=== PATIENT | female | born 1975 | race Caucasian/White ===

== ENCOUNTER 2016-09-24 23:09 | Day surgery (SDC) | payer MEDICAID ==
[~2016-09-24] VITALS: Ht 149.9 cm; Wt 114.8 kg
[~2016-09-24 23:09] MED LIST: ALBU8.5H2 IH; BENZ100C8 PO; CEPH500C; CEPH500C PO; CYCL10TA9 PO; DCS100C PO; DOXY100C2 PO; FRS325T PO; HYDR-757 PO; HYDR1TAB PO; IBP600T1 PO; NAPR-243 PO; NAPR-684 PO; NITR100C3 PO; OXYC-12 PO; PNV1CAPS13 PO; PRD20T; PRD20T PO; PREN1TAB71 PO; PROP1TAB77 PO; TERB15CR8 TP; TRAM50TA2 PO; TRM50T PO
--- OUTSIDE RECORDS SUMMARY | 2016-09-24 23:15 | XMS REPORT | Continuity of Care Document ---
Author Author [facility] Address Unknown Phone Unavailable Allergies Active Description Code Type Severity Reaction Onset Reported/Identified Relationship to Patient Clinical Status Yes No Known Drug Allergies [id number] Drug Allergy Mild N/A 12/06/2008 Medications Problems Date Dx Coded Attending Type Code Diagnosis Diagnosed By 02/07/2011 Ot 724.1 PAIN IN THORACIC SPINE 10/20/2011 BEKAH YU DO V72.42 TEST POSITIVE RESULT 11/22/2011 Ot 623.8 NONINFLAM DIS VAGINA NEC 11/22/2011 Ot 654.73 ABNORM VAGINA-ANTEPARTUM 04/08/2012 Ot 646.83 PREG COMPL NEC-ANTEPART 04/08/2012 Ot 682.2 CELLULITIS OF TRUNK 04/08/2012 Ot 695.89 ERYTHEMATOUS COND NEC 04/08/2012 Ot 782.1 NONSPECIF SKIN ERUPT NEC 04/11/2012 Ot 112.3 CUTANEOUS CANDIDIASIS 04/11/2012 Ot 646.83 PREG COMPL NEC-ANTEPART 04/11/2012 Ot 647.83 INFECT DIS NEC-ANTEPART 04/11/2012 Ot 682.2 CELLULITIS OF TRUNK 05/20/2012 Ot 644.03 THRT ROGER LABOR-ANTEPART 05/22/2012 Ot 644.03 THRT ROGER LABOR-ANTEPART 05/24/2012 Ot 079.99 VIRAL INFECTION NOS 05/24/2012 Ot 647.63 OTH VIRAL DIS-ANTEPARTUM 05/24/2012 Ot 787.03 VOMITING ALONE 05/24/2012 Ot 079.99 VIRAL INFECTION NOS 05/24/2012 Ot 647.63 OTH VIRAL DIS-ANTEPARTUM 05/24/2012 Ot 787.03 VOMITING ALONE 05/25/2012 Ot 644.03 THRT ROGER LABOR-ANTEPART 06/01/2012 Ot 644.13 THREAT LABOR NEC-ANTEPAR 06/15/2012 Ot 644.13 THREAT LABOR NEC-ANTEPAR 06/25/2012 Ot 285.1 AC POSTHEMORRHAG ANEMIA 06/25/2012 Ot 285.9 ANEMIA NOS 06/25/2012 Ot 300.00 ANXIETY STATE NOS 06/25/2012 Ot 490 BRONCHITIS NOS 06/25/2012 Ot 560.1 PARALYTIC ILEUS 06/25/2012 Ot 648.22 ANEMIA-DELIVERED W P/P 06/25/2012 Ot 648.23 ANEMIA-ANTEPARTUM 06/25/2012 Ot 648.44 MENTAL DISORDER-POSTPART 06/25/2012 Ot 648.93 OTH CURR COND-ANTEPARTUM 06/25/2012 Ot 648.94 OTH CURR COND- 06/25/2012 Ot 654.21 PREV DELIVRY W/ OR W/O MENT ANT 06/25/2012 Ot 997.49 OTHER DIGESTIVE SYSTEM COMPLICATIONS 06/25/2012 Ot V02.51 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 B 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/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 CARRIER 06/25/2012 Ot V06.1 [id number], COMBINED [ 06/25/2012 Ot V27.0 DELIVER-SINGLE LIVEBORN 06/23/2013 FOZIA DARNELL DO Ot 278.00 OBESITY, NOS 06/23/2013 FOZIA DARNELL DO Ot 285.1 AC POSTHEMORRHAG ANEMIA 06/23/2013 FOZIA DARNELL DO Ot 648.21 ANEMIA-DELIVERED 06/23/2013 FOZIA DARNELL DO Ot 649.01 TOBACCO USE DISORDER COMP PREG/ CHILDBIRT 06/23/2013 FOZIA DARNELL DO Ot 649.11 OBESITY COMP PREG/CHILDBIRTH/PUERPERIUM , 06/23/2013 FOZIA DARNELL DO Ot 654.21 PREV DELIVRY W/ OR W/O MENT ANT 06/23/2013 FOZIA DARNELL DO Ot 659.61 ELD MULTIGRAVIDA DEL W MENTION OF ANTEPA 06/23/2013 FOZIA DARNELL DO Ot V27.0 DELIVER-SINGLE LIVEBORN 06/23/2013 FOZIA DARNELL DO Ot V85.43 BODY MASS INDEX 50.0-59.9, ADULT 08/19/2013 LORI MABRY APRN Ot 719.41 JOINT PAIN-SHLDER 11/19/2013 LORI MABRY APRN Ot 719.41 JOINT PAIN-SHLDER 11/19/2013 LORI MABRY APRN Ot 719.42 JOINT PAIN-UP/ARM 11/19/2013 LORI MABRY APRN Ot 726.32 LATERAL EPICONDYLITIS 07/27/2014 PHIL ALBERTO Ot 490 BRONCHITIS NOS 07/27/2014 PHIL ALBERTO Ot 786.2 COUGH 07/27/2014 Ot 654.23 07/27/2014 Ot V72.63 07/27/2014 Ot V74.8 07/27/2014 SOPHIA BRUSHLULA Ot 654.23 07/27/2014 LULA CORTES DO Ot V72.63 07/27/2014 CORTESKim BRUSH LULA C Ot V74.8 07/27/2014 ISMAECH DOFOZIA Ot 278.00 07/27/2014 ISMAECH DO FOZIA Sly Ot 285.9 07/27/2014 ISMAECH DO FOZIA S Ot 644.13 07/27/2014 FENECH DO FOZIA S Ot 648.23 07/27/2014 ISMAECH DO FOZIA S Ot 649.13 07/27/2014 ISMAECH DOFOZIA Ot 654.23 07/27/2014 ISMAECH DO FOZIA Sly Ot V04.81 07/27/2014 ISMAECH DO FOZIA Heart Ot V85.43 01/24/2016 Ot 654.23 PREV DELIVERY, ANTEPARTUM COND 01/24/2016 Ot V72.63 PRE-PROCEDURAL LABORATORY EXAMINATION 01/24/2016 Ot V74.8 SCREEN-BACTERIAL DIS NEC 01/24/2016 CORTESLULA Alvarez DO Ot 654.23 PREV DELIVERY, ANTEPARTUM COND 01/24/2016 LULA CORTES DO Ot V72.63 PRE-PROCEDURAL LABORATORY EXAMINATION 01/24/2016 LULA CORTES DO Ot V74.8 SCREEN-BACTERIAL DIS NEC 01/24/2016 MANN DO FOZIA S Ot 278.00 OBESITY, NOS 01/24/2016 ISMAECH DOFOZIA S Ot 285.9 ANEMIA NOS 01/24/2016 ISMAECH FOZIA BRUSH S Ot 644.13 THREAT LABOR NEC-ANTEPAR 01/24/2016 ISMAECH FOZIA BRUSH S Ot 648.23 ANEMIA-ANTEPARTUM 01/24/2016 ISMAECH DOFOZIA S Ot 649.13 OBESITY COMP PREG/CHILDBIRTH/PUERPERIUM , 01/24/2016 ISMAECH FOZIA BRUSH S Ot 654.23 PREV DELIVERY, ANTEPARTUM COND 01/24/2016 FOZIA DARNELL DO Ot V04.81 ND FOR PROPHYLACTIC VACCIN AND INOCULATI 01/24/2016 FOZIA DARNELL DO Ot V85.43 BODY MASS INDEX 50.0-59.9, ADULT 01/24/2016 PHIL ALBERTO Ot F17.210 NICOTINE DEPENDENCE, CIGARETTES, UNCOMPL 01/24/2016 PHIL ALBERTO Ot H60.502 UNSPECIFIED ACUTE NONINFECTIVE OTITIS EX 02/23/2016 LORI MABRY APRN Ot F17.210 NICOTINE DEPENDENCE, CIGARETTES, UNCOMPL 02/23/2016 LORI MABRY APRN Ot R10.32 LEFT LOWER QUADRANT PAIN 02/25/2016 LORI MABRY APRN Ot F17.210 NICOTINE DEPENDENCE, CIGARETTES, UNCOMPL 02/25/2016 LORI MABRY APRN Ot R10.32 LEFT LOWER QUADRANT PAIN Procedures Code Description Performed By Performed On 72.79 06/19/2012 74.1 06/19/2012 99.77 06/19/2012 29777 URINE TEST (IN-HOUSE) 10/24/2012 74.1 06/21/2013 Results Encounters ACCT No. Visit Date/Time Discharge Status Pt. Type Provider Facility Loc./Unit Complaint [id number] 10/24/2012 15:28:00 10/24/2012 23: 59:59 CLS Outpatient BEKAH YU DO
[2016-09-24] MEDS ORDERED: ASPIRIN 81 MG CHEW (CHILDREN'S ASA) PO ONE (23:30)
[2016-09-24 23:31] LABS: BASOPHILS % (AUTO) 0 % (0-10); EOSINOPHILS # (AUTO) 0.3 10^3/uL (0.0-0.3); EOSINOPHILS % (AUTO) 4 % (0-10); LYMPHOCYTES # (AUTO) 2.6 X 10^3 (1.0-4.0); LYMPHOCYTES % (AUTO) 32 % (12-44); MEAN CORPUSCULAR HEMOGLOBIN 26 PG (25-34); MEAN CORPUSCULAR HGB CONC 32 G/DL (32-36); MEAN CORPUSCULAR VOLUME 79 FL (80-99); MEAN PLATELET VOLUME 10.1 FL (7.4-10.4); MONOCYTES # (AUTO) 0.4 X 10^3 (0.0-1.0); MONOCYTES % (AUTO) 5 % (0-12); NEUTROPHILS # (AUTO) 4.7 X 10^3 (1.8-7.8); NEUTROPHILS % (AUTO) 59 % (42-75); PLATELET COUNT 321 10^3/uL (130-400); RED BLOOD COUNT 4.51 10^6/uL (4.35-5.85); RED CELL DISTRIBUTION WIDTH 15.7 % (10.0-14.5)
[2016-09-24] MEDS: RX-NITROGLYCERIN 0.4 MG TAB BTL 25'S SL PRN ×3 (23:35→23:45)
--- NOTE | 2016-09-24 23:38 | ED Chest Pain ---
General Chief Complaint: Chest Pain Stated Complaint: CP Nursing Triage Note: patient reports sternal chest pain radiating to back. patient reports eating prior to pain and feeling like something got stuck in her throat. patient reports throwing that up and pain developed about 1 hour after. patient reports isn't able to drink anything and keeps vomiting foam Nursing Sepsis Screen: No Definite Risk Source: patient History of Present Illness Time seen by provider: 23:17 Initial Comments PT ARRIVES VIA POV C/O MID CHEST PAIN RADIATING STRAIGHT THROUGH TO BACK SINCE 1930 TONIGHT STATES SHE WAS EATING MEAT--PORK STEAK--AND MEAT GOT STUCK AND WOULDN'T GO DOWN , THEN SHE THREW UP AND THOUGHT THAT SHE THREW THE MEAT UP, BUT IS NOT SURE. STATES THIS WAS AT 1830 TONIGHT STATES AN HOUR LATER, SHE BEGAN TO HAVE PAIN IN MID CHEST, RADIATING STRAIGHT THROUGH TO BACK AND NOW IS CONSTANTLY SPITTING UP "FOAM" AND CAN'T KEEP ANYTHING DOWN STATES PAIN IS SHARP AND STABBING AND LAST A FEW SECONDS, THEN SHE "PUKES UP FOAM" --STATES NO NAUSEA, JUST VOMITING WITH THE PAIN FEELS SHORT OF BREATH STATES BOTH ARMS FEEL TINGLY NO PRIOR EPISODES OF SIMILAR PCP: [facility] Allergies and Home Medications Allergies Coded Allergies: No Known Drug Allergies (Unverified , 12/06/08) Home Medications No Active Prescriptions or Reported Meds Review of Systems Constitutional: no symptoms reported EENTM: No Symptoms Reported Respiratory: See HPI Shortness of Air Cardiovascular: See HPI Chest Pain Gastrointestinal: See HPI Abdominal Pain (EPIGASTRIC) Nausea Vomiting Genitourinary: No Symptoms Reported Musculoskeletal: see HPI back pain Skin: no symptoms reported Psychiatric/Neurological: See HPI Endocrine: No Symptoms Reported Hematologic/Lymphatic: No Symptoms Reported Past Rfcvwfz-Zyovxy-Drcnem Hx Patient Social History Alcohol Use: Denies Use Recreational Drug Use: No Smoking Status: Current Everyday Smoker (1/2 - 1 PPD) Type Used: Cigarettes Recent Foreign Travel: No Contact w/Someone Who Travel: No Recent Infectious Disease Expo: No Recent Hopitalizations: No Immunizations Up To Date Tetanus Booster (TDap): Unknown Date of Influenza Vaccine: Jun 06, 2013 Seasonal Allergies Seasonal Allergies: No Surgeries HX Surgeries: Yes (WISDOM TEETH; X 4) Surgeries: Adenoidectomy, Appendectomy, Section, Tonsillectomy, Tubal Ligation Respiratory Hx Respiratory Disorders: No Cardiovascular Hx Cardiac Disorders: No Neurological Hx Neurological Disorders: No Reproductive System Hx Reproductive Disorders: No Sexually Transmitted Disease: No 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 Genitourinary Hx Genitourinary Disorders: No Gastrointestinal Hx Gastrointestinal Disorders: Yes Gastrointestinal Disorders: Gastroesophageal Reflux Musculoskeletal Hx Musculoskeletal Disorders: No Endocrine Hx Endocrine Disorders: No HEENT HX ENT Disorders: No Cancer Hx Cancer: No Psychosocial Hx Psychiatric Problems: No Integumentary HX Skin/Integumentary Disorder: Yes (DARIER'S DISEASE) Skin/Integumentary Disorders: Psoriasis Blood Transfusions Hx Blood Disorders: No Family Medical History Significant Family History: No Pertinent Family Hx Family Medial History: Cancer 03 MOTHER (LUNG AND BONE) Family history: Glaucoma 03 FATHER Heart disease 03 MOTHER History of - respiratory disease 03 FATHER (COPD) Stroke 03 MOTHER Physical Exam Vital Signs Vital Sign - Last 12Hours 09/24/16 23:21 Temp 98.3 Pulse 83 Resp 18 B/P 122/93 Pulse Ox 99 O2 Delivery Room Air Capillary Refill : Less Than 3 Seconds General Appearance: Anxious Obese Other (CONSTANTLY SPITTING UP SALIVA; REEKS OF CIGARETTES) HEENT: PERRL/EOMI Other (POOR DENTITION) Neck: Normal Inspection Respiratory: Normal Breath Sounds No Accessory Muscle Use No Respiratory Distress Cardiovascular: Regular Rate, Rhythm No Edema No JVD No Murmur Normal Peripheral Pulses Gastrointestinal: Normal Bowel Sounds No Organomegaly No Pulsatile Mass Soft Tenderness (EPIGASTRIC) Extremity: Normal Inspection No Pedal Edema Neurologic/Psychiatric: Alert Oriented x3 No 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 ) Progress/Results/Core Measures Results/Orders Lab Results Laboratory Tests Test 09/24/16 23:24 Range/Units Activated Partial Thromboplast Time 28 24-35 SEC Alanine Aminotransferase (ALT/SGPT) 12 0-55 U/L Albumin 4.1 3.2-4.5 G/DL Alkaline Phosphatase 81 40-136 U/L Amylase Level 77 25-125 U/L Anion Gap 11 5-14 MMOL/L Aspartate Amino Transf (AST/SGOT) 15 5-34 U/L B-Type Natriuretic Peptide < 10.0 <100.0 PG/ML BUN/Creatinine Ratio 14 Basophils # (Auto) 0.0 0.0-0.1 10^3/uL Basophils (%) (Auto) 0 0-10 % Blood Urea Nitrogen 11 7-18 MG/DL Calcium Level 8.6 8.5-10.1 MG/DL Carbon Dioxide Level 22 21-32 MMOL/L Chloride Level 106 98-107 MMOL/L Creatine Kinase MB 0.7 <6.6 NG/ML Creatinine 0.78 0.60-1.30 MG/DL Eosinophils # (Auto) 0.3 0.0-0.3 10^3/uL Eosinophils (%) (Auto) 4 0-10 % Estimat Glomerular Filtration Rate > 60 Glucose Level 93 70-105 MG/DL Hematocrit 36 35-52 % Hemoglobin 11.5 11.5-16.0 G/DL INR Comment 1.0 0.8-1.4 Lipase 10 8-78 U/L Lymphocytes # (Auto) 2.6 1.0-4.0 X 10^3 Lymphocytes (%) (Auto) 32 12-44 % Magnesium Level 2.0 1.8-2.4 MG/DL Mean Corpuscular Hemoglobin 26 25-34 PG Mean Corpuscular Hemoglobin Concent 32 32-36 G/DL Mean Corpuscular Volume 79 L 80-99 FL Mean Platelet Volume 10.1 7.4-10.4 FL Monocytes # (Auto) 0.4 0.0-1.0 X 10^3 Monocytes (%) (Auto) 5 0-12 % Neutrophils # (Auto) 4.7 1.8-7.8 X 10^3 Neutrophils (%) (Auto) 59 42-75 % Platelet Count 321 130-400 10^3/uL Potassium Level 4.0 3.6-5.0 MMOL/L Prothrombin Time 12.7 12.2-14.7 SEC Red Blood Count 4.51 4.35-5.85 10^6/uL Red Cell Distribution Width 15.7 H 10.0-14.5 % Serum Test, Qualitative NEGATIVE NEGATIVE Sodium Level 139 135-145 MMOL/L Total Bilirubin 0.2 0.1-1.0 MG/DL Total Creatine Kinase 66 29-168 U/L Total Protein 6.4 6.4-8.2 G/DL Troponin I < 0.30 <0.30 NG/ML White Blood Count 8.0 4.3-11.0 10^3/uL My Orders Orders-TRI DURAN DO Amylase (09/24/16 23:19) Cbc With Automated Diff (09/24/16 23:19) Comprehensive Metabolic Panel (09/24/16 23:19) Creatine Kinase (09/24/16 23:19) Creatine Kinase Mb (09/24/16 23:19) Lipase (09/24/16 23:19) Partial Thromboplastin Time (09/24/16 23:19) Protime With Inr (09/24/16 23:19) Troponin I (09/24/16 23:19) Chest 1 View, Ap/Pa Only (09/24/16 23:19) O2 (09/24/16 23:19) Ekg Tracing (09/24/16 23:19) Aspirin Chewable Tablet (Baby Aspirin Ch (09/24/16 23:30) Rx-Nitroglycerin Sl Tabs (Rx-Nitrostat S (09/24/16 23:30) BNP (09/24/16 23:19) Monitor-Rhythm Ecg Trace Only (09/24/16 23:19) Drug Screen Stat (Urine) (09/24/16 23:19) Hcg,Qualitative Serum (09/24/16 23:19) Magnesium (09/24/16 23:19) Glucagon Emergency Kit (Glucagon Emergen (09/24/16 23:45) Medications Given in ED Current Medications Medications Dose Ordered Sig/Jeri Route Start Time Stop Time Status Last Admin Dose Admin Aspirin 324 mg ONCE ONCE PO 09/24/16 23:30 09/24/16 23:31 DC 09/24/16 23:33 324 MG Glucagon 1 mg ONCE ONCE IV 09/24/16 23:45 09/24/16 23:46 DC 09/24/16 23:56 1 MG Nitroglycerin 0.4 mg UD PRN SL 09/24/16 23:30 09/25/16 01:10 DC 09/24/16 23:45 0.4 MG Vital Signs/I&O Vital Sign - Last 12Hours 09/24/16 09/24/16 23:21 23:25 Temp 98.3 Pulse 83 Resp 18 B/P 122/93 Pulse Ox 99 O2 Delivery Room Air Room Air Blood Pressure Mean: 103 Progress Note : Progress Note NO IMPROVEMENT WITH NTG X 2 OR GLUCAGON PT GIVEN WATER AND JUST A COUPLE OF SIPS CAUSED IMMEDIATE SIGNIFICANT VOMITING AND SPITTING IT ALL BACK UP ECG Initial ECG Impression Time: 23:17 Initial ECG Rate: 86 Initial ECG Rhythm: Normal Sinus Initial ECG Comparisson: No Previous ECG Available Diagnostic Imaging Comments CXR--NO ACUTE PROCESS, PENDING RADIOLOGIST REVIEW Reviewed: Reviewed by Me Departure Communication Progress Notes 0017--SPOKE WITH DR. NELSON, SURGEON [facility]. ACCEPTS PT FOR ADMIT. WILL PLAN ON DOING EGD FIRST THING IN AM Impression Impression: Primary Impression: Acute esophageal obstruction Disposition: ADMITTED INPATIENT Condition: Stable Decision to Admit Reason: Admit from ER (General) Decision to Admit/Date: Sep 25, 2016 Time/Decision to Admit Time: 00:20 Departure-Patient Inst. Referrals: [facility] (PCP/Family) Primary Care Physician Scripts No Active Prescriptions or Reported Meds TRI DURAN DO Sep 24, 2016 23:38
[2016-09-24] MEDS ORDERED: GLUCAGON EMERGENCY 1 MG/KIT IV ONE (23:45)
[2016-09-24 23:46] LABS: PROTHROMBIN TIME PATIENT 12.7 SEC (12.2-14.7)
[2016-09-25 00:07] LABS: ALANINE AMINOTRANSFERASE 12 U/L (0-55); ALBUMIN 4.1 G/DL (3.2-4.5); AMYLASE 77 U/L (25-125); ANION GAP 11 MMOL/L (5-14); ASPARTATE AMINO TRANSFERASE 15 U/L (5-34); BILIRUBIN,TOTAL 0.2 MG/DL (0.1-1.0); BLOOD UREA NITROGEN 11 MG/DL (7-18); BUN/CREATININE RATIO 14; CALCIUM 8.6 MG/DL (8.5-10.1); CARBON DIOXIDE 22 MMOL/L (21-32); CHLORIDE 106 MMOL/L (98-107); CREATINE KINASE 66 U/L (29-168); CREATININE SERUM 0.78 MG/DL (0.60-1.30); GFR ESTIMATED > 60; GLUCOSE 93 MG/DL (70-105); LIPASE 10 U/L (8-78); SODIUM 139 MMOL/L (135-145); TOTAL PROTEIN 6.4 G/DL (6.4-8.2)
[2016-09-25 00:16] LABS: TROPONIN I < 0.30 NG/ML (<0.30)
[2016-09-25] MEDS ORDERED: ONDANSETRON 4 MG/2 ML (SDV) Z0FRAN IVP ONE (00:30)
[2016-09-25] MEDS ORDERED: DIAZEPAM INJ 10 MG/2 ML (VALIUM) SYR IV ONE (00:30)
[2016-09-25] MEDS: D5 1/2 NS 1000 ML IV SOLUTION 1,000 ML IV SCH ×2 (00:45→08:01)
[2016-09-25] MEDS ORDERED: PANTOPRAZOLE 40 MG/10 ML (PROTONIX) VIAL ONE (00:50)
[2016-09-25] MEDS ORDERED: D5 1/2 NS 1000 ML IV SOLUTION 1,000 ML IV ONE (00:50)
[2016-09-25] MEDS: PANTOPRAZOLE 40 MG/10 ML (PROTONIX) VIAL IV SCH ×2 (00:55→11:05)
[2016-09-25] MEDS ORDERED: CATHETER FLUSH 10 ML SYR IV PRN (01:15)
[2016-09-25] MEDS ORDERED: ONDANSETRON 4 MG/2 ML (SDV) Z0FRAN IV PRN (01:15)
[2016-09-25 03:00] VITALS: BP 103/64
[2016-09-25 05:00] VITALS: BP 120/80
[2016-09-25] MEDS: CATHETER FLUSH 10 ML SYR IV SCH ×2 (06:00→14:00)
--- NOTE | 2016-09-25 07:31 | Diagnostic Imaging Report ---
INDICATION: Sternal chest pain radiating to back. Feels like something is stuck in throat. COMPARISON: 06/23/2012. FINDINGS: Portable chest shows the lungs to be well aerated. There are no infiltrates or masses. No radiopaque foreign bodies are noted. Heart is not enlarged. No evidence of pulmonary edema. No hilar adenopathy. No pneumothorax or pleural effusion. IMPRESSION: Normal portable chest. Dictated by: Dictated on workstation # [id number]
[2016-09-25 08:00] VITALS: BP 125/78
[2016-09-25] MEDS ORDERED: LACTATED RINGERS 1,000 ML IV ONE (08:11)
[2016-09-25] MEDS ORDERED: fentaNYL INJECTION 100 MCG/2 ML AMP ONE (08:11)
[2016-09-25] MEDS ORDERED: proPOfol 200 MG/20 ML (DIPRIVAN) VIAL IV ONE ×2 (08:11→09:23)
[2016-09-25] MEDS ORDERED: MIDAZOLAM 2 MG/2 ML (VERSED) VIAL ONE (08:11)
[2016-09-25] MEDS ORDERED: SUCCINYLCHOLINE INJ 100 MG/5 ML SYR ONE ×2 (08:25→09:23)
[2016-09-25] MEDS ORDERED: HURRICAINE EXT TUBE (BENZOCAINE) XX PRN (09:30)
[2016-09-25] MEDS ORDERED: LACTATED RINGERS 1,000 ML IV PRN (09:30)
--- NOTE | 2016-09-25 09:30 | Consultation ---
History of Present Illness History of Present Illness Patient Consulted On(jarret/time) 09/25/16 09:24 Date of Admission History of Present Illness Pt is a 41 yo female with complaints of sharp chest pain, shooting straight thru to her back. She states she ate at about 6 (a pork steak) and then about 7 or 7:30 she got the chest pain. Associated with nausea, vomiting and spitting up. States she was unable to take down even liquids. She went to the ER and was subsequently admitted for EGD with removal of food bolus. She was kept NPO all night, still had some "violent" retching this am and still has the chest pain. She states she occasionally feels like "stuff gets stuck, but never like this". She thinks she has had a previous EGD and was told she had Hiatal Hernia. Allergies and Home Medications Allergies Coded Allergies: No Known Drug Allergies (Unverified , 12/06/08) Home Medications No Active Prescriptions or Reported Meds Past Tpwroxj-Odwizf-Cwdlrm Hx Patient Social History Alcohol Use: Occasionally Uses Recreational Drug Use: No Smoking Status: Current Everyday Smoker (2 - 1 PPD) Type Used: Cigarettes Recent Foreign Travel: No Contact w/Someone Who Travel: No Recent Infectious Disease Expo: No Recent Hopitalizations: No Physical Abuse Screen: No Sexual Abuse: No Immunizations Up To Date Tetanus Booster (TDap): Unknown Date of Influenza Vaccine: Apr 06, 2016 Seasonal Allergies Seasonal Allergies: No Surgeries HX Surgeries: Yes (WISDOM TEETH; X 4) Surgeries: Adenoidectomy, Appendectomy, Section, Tonsillectomy, Tubal Ligation Respiratory Hx Respiratory Disorders: No Cardiovascular Hx Cardiac Disorders: No Neurological Hx Neurological Disorders: No Reproductive System Hx Reproductive Disorders: No Sexually Transmitted Disease: No HIV/AIDS: No 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 Genitourinary Hx Genitourinary Disorders: No Gastrointestinal Hx Gastrointestinal Disorders: Yes Gastrointestinal Disorders: Gastroesophageal Reflux Musculoskeletal Hx Musculoskeletal Disorders: No Endocrine Hx Endocrine Disorders: No HEENT HX ENT Disorders: No Cancer Hx Cancer: No Psychosocial Hx Psychiatric Problems: No Behavioral Health Disorders: Anxiety, Depression Integumentary HX Skin/Integumentary Disorder: Yes (DARIER'S DISEASE) Skin/Integumentary Disorders: Psoriasis Blood Transfusions Hx Blood Disorders: No Adverse Reaction to a Blood Tr: No Family Medical History Significant Family History: No Pertinent Family Hx, Cancer (mother of lung cancer), COPD (father) Family Medial History: Cancer 03 MOTHER (LUNG AND BONE) Family history: Glaucoma 03 FATHER Heart disease 03 MOTHER History of - respiratory disease 03 FATHER (COPD) Stroke 03 MOTHER Review of Systems-General Constitutional: No chills, No diaphoresis, No fever EENTM: throat pain throat swellingNo blurred vision, No hearing loss Respiratory: coughNo hemoptysis, No phlegm Cardiovascular: see HPINo palpitations, No syncope Gastrointestinal: No abdominal pain, No hematemesis, loss of appetite nausea vomiting Musculoskeletal: muscle stiffness muscle cramps Psychiatric/Neurological: Denies Anxiety, Denies Depressed, Denies Headache, Denies Seizure Physical Exam-General Problems Physical Exam Vital Signs Vital Sign - Last 12Hours 09/24/16 23:21 Temp 98.3 Pulse 83 Resp 18 B/P 122/93 Pulse Ox 99 O2 Delivery Room Air Capillary Refill : Less Than 3 Seconds General Appearance: WD/WN moderate distress obese Eyes: Bilateral Eye EOMI, Bilateral Eye PERRL HEENT: pharynx normalNo scleral icterus (R), No scleral icterus (L) Neck: full range of motion supple normal inspection Respiratory: lungs clear normal breath sounds no respiratory distress no accessory muscle use Cardiovascular: regular rate, rhythm no edema no murmur Gastrointestinal: normal bowel sounds soft no organomegaly no pulsatile mass Back: no CVA tenderness no vertebral tenderness Extremities: normal range of motion non-tender no pedal edema no calf tenderness 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 as 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 no motor/sensory deficits alert normal mood/affect oriented x 3 Skin: normal color warm/dry Lymphatic: no adenopathy (neck, axilla or groin) Data Review Labs Laboratory Tests 09/24/16 23:24: Activated Partial Thromboplast Time 28, Alanine Aminotransferase (ALT/SGPT) 12, Albumin 4.1, Alkaline Phosphatase 81, Amylase Level 77, Anion Gap 11, Aspartate Amino Transf (AST/SGOT) 15, B-Type Natriuretic Peptide < 10.0, BUN/Creatinine Ratio 14, Basophils # (Auto) 0.0, Basophils (%) (Auto) 0, Blood Urea Nitrogen 11 , Calcium Level 8.6, Carbon Dioxide Level 22, Chloride Level 106, Creatine Kinase MB 0.7, Creatinine 0.78, Eosinophils # (Auto) 0.3, Eosinophils (%) (Auto ) 4, Estimat Glomerular Filtration Rate > 60, Glucose Level 93, Hematocrit 36, Hemoglobin 11.5, INR Comment 1.0, Lipase 10, Lymphocytes # (Auto) 2.6, Lymphocytes (%) (Auto) 32, Magnesium Level 2.0, Mean Corpuscular Hemoglobin 26, Mean Corpuscular Hemoglobin Concent 32, Mean Corpuscular Volume 79L, Mean Platelet Volume 10.1, Monocytes # (Auto) 0.4, Monocytes (%) (Auto) 5, Neutrophils # (Auto) 4.7, Neutrophils (%) (Auto) 59, Platelet Count 321, Potassium Level 4.0, Prothrombin Time 12.7, Red Blood Count 4.51, Red Cell Distribution Width 15.7H, Serum Test, Qualitative NEGATIVE, Sodium Level 139, Total Bilirubin 0.2, Total Creatine Kinase 66, Total Protein 6.4, Troponin I < 0.30, White Blood Count 8.0 09/25/16 00:34: Ur Tricyclic Antidepressants Screen NEGATIVE, Urine Amphetamines Screen NEGATIVE , Urine Barbiturates Screen NEGATIVE, Urine Benzodiazepines Screen NEGATIVE, Urine Cannabinoids Screen POSITIVEH, Urine Cocaine Screen NEGATIVE, Urine Methadone Screen NEGATIVE, Urine Methamphetamines Screen NEGATIVE, Urine Opiates Screen NEGATIVE, Urine Oxycodone Screen NEGATIVE, Urine Phencyclidine Screen NEGATIVE, Urine Propoxyphene Screen NEGATIVE Assessment/Plan Assessment/Plan Assessment/Plan Possible Esophageal Obstruction with food bolus -Plan for EGD with removal of food bolus. Risks and complications discussed with pt; including but not limited to pain, bleeding, infection and even esophageal rupture. All questions answered to her satisfaction. It is possible the food bolus could pass on its own; but with the vomiting and inability to even keep fluids down it is better that we look and remove any object in esophagus. Clinical Quality Measures AMI/AHF: ASA po Prior to arrival: No DVT/VTE Risk/Contraindication: Risk Factor Score Per Nursin RFS Level Per Nursing on Admit: 3=High NEVAEH NELSON DO Sep 25, 2016 09:30
[2016-09-25] MEDS ORDERED: HURRICAINE EXT TUBE (BENZOCAINE) ONE (10:07)
[2016-09-25] MEDS ORDERED: ACETAMINOPHEN 325 MG TABLET/CAPLET (TYLENOL) PO PRN (11:30)
[2016-09-25 12:00] VITALS: BP 113/61
--- NOTE | 2016-09-25 13:52 | Endoscopy Discharge Instruct ---
Findings Findings 1.: Other Findings (Food Bolus obstructing Esophagus) 2.: Gastritis Discharge Instructions - Activity: You might feel a little sleepy until tomorrow. This is due to the medicine you received to relax you. Until tomorrow, you should: NOT drive a car, operate machinery or power tools. NOT drink any alcoholic beverages. NOT make any important decisions or sign importortant papers. Do not return to work until tomorrow, unless otherwise instructed. Resume previous activities tomorrow. Diet: Start by taking liquids. If you tolerate liquids, advance to solid food. Instructions: 1.: EGD in 6-8 weeks Notify Physician - If you experience excessive bleeding, unusual abdominal pain, fever, or chest pain, contact your doctor immediately. Phone number [phone] Follow-Up: Follow Up: Weeks (one week, call [phone] for appointment) - I have received and understand the above instructions and will call my doctor if I have any further questions. Patient Signature Date Nurse Signature Other (Relationship) NEVAEH NELSON DO Sep 25, 2016 13:52
--- NOTE | 2016-09-27 07:30 | PROCEDURE REPORT ---
PROCEDURE PHYSICIAN: NEVAEH AVELAR DATE OF PROCEDURE: 09/25/2016 PREOPERATIVE DIAGNOSIS: Esophageal obstruction with food bolus. POSTOPERATIVE DIAGNOSIS: Esophageal obstruction with food bolus. PROCEDURE: EGD with biopsy and EGD with removal of food bolus. SURGEON: Dr. Avelar HEEL SORTER: None. ANESTHESIA: General endotracheal tube by DOOR CLOSER. SPECIMEN: 1. Food bolus. 2. Biopsy from the GE junction. BLOOD LOSS: Scant. FLUIDS: Minimal. POSTOPERATIVE: Stable. INDICATIONS FOR THE PROCEDURE: The patient is a 41-year-old female who states she was eating a pork steak and then got a chest pain and then started vomiting and could not keep any water down, spitting up even her saliva. FINDINGS: The patient had food bolus stuck in her esophagus, this was removed. Also had some looked like changes of the GE junction. Biopsy was performed. PROCEDURE NOTE: After informed consent was obtained, the patient was brought to the endoscopy suite. She was intubated. The scope was then inserted down the mouth and into the esophagus. It looked like the food bolus had moved a little but it was stuck down towards the GE junction. Able to use a Garcia net and get the Garcia net around this food bolus. Able to get good enough and pulled this out and pulled the scope out and pulled the food bolus out. Then went back down with the scope down, down the oropharynx into the esophagus and down in the stomach antrum. Antrum looked okay into the small intestine and then pulled it back and up into the cardia and at the GE junction, there appeared to be some mild changes. A biopsy was done here and then slowly withdrew the scope looking at the GE junction from the top, did not see any really changes in the Z line. Up the esophagus and then out through the oropharynx. The patient tolerated the procedure and transferred to recovery in stable condition. Job ID: [id number] Dictated Date: 09/25/2016 12:06:41 Body Sander Date: 09/27/2016 07:23:06 / paulino
--- OUTSIDE RECORDS SUMMARY | 2016-09-27 14:01 | XMS REPORT | Continuity of Care Document ---
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 Name Role Phone [facility] PCP Insurance Providers Payer Name Policy Number Subscriber Name Relationship Medicaid [place] [id number] Rhonda Mitchell 19 Self / Same As Patient Advance Directives Directive Response Recorded Date/Time Advance Directives No 09/25/16 12:45am Health Care Power of Time Stamp Assembler No 09/24/16 11:21pm Organ Donor No 09/25/16 12:45am Resuscitation Status Full Code 09/25/16 12:45am Chief Complaint and Reason for Visit Chief Complaint ESOPHAGEAL OBSTRUCTION Reason for Visit Shoulder joint pain Problems Active Problems Medical Problem Onset Date Status Acute esophageal obstruction Unknown Acute Bronchitis Unknown Acute Nonspecific abdominal pain Unknown Acute Otitis externa Unknown Acute Shoulder joint pain Unknown Acute Medications No known medications. Social History Social History Problem Response Recorded Date/Time Alcohol Use Rarely Uses 02/23/2016 5:32pm Recreational Drug Use No 02/23/2016 5:32pm Recent Foreign Travel No 11/19/2013 7:21pm Recent Infectious Disease Exposure No 11/19/2013 7:21pm Hospitalization with Isolation Denies 11/19/2013 7:21pm Sexually Transmitted Disease No 09/25/2016 12:45am HIV/AIDS No 09/25/2016 12:45am Smoking Status Current Everyday Smoker 09/25/2016 2:35am Do you dip or chew tobacco? No 01/24/2016 5:08pm Type Used Cigarettes 09/25/2016 3:12pm Recent Hopitalizations No 09/25/2016 12:45am Sexually Transmitted Disease No 09/25/2016 12:45am Hospitalization with Isolation Denies 11/19/2013 7:21pm Hx Sexually Transmitted Disorders No 06/19/2012 6:10am Query Response Start Date Stop Date Smoking Status Current Everyday Smoker Hospital Discharge Instructions Patient Instructions Physician Instructions 1.: Other Findings (Food Bolus obstructing Esophagus) 2.: Gastritis - Activity: You might feel a little sleepy until tomorrow. This is due to the medicine you received to relax you. Until tomorrow, you should: NOT drive a car, operate machinery or power tools. NOT drink any alcoholic beverages. NOT make any important decisions or sign importortant papers. Do not return to work until tomorrow, unless otherwise instructed. Resume previous activities tomorrow. Diet: Start by taking liquids. If you tolerate liquids, advance to solid food. 1.: EGD in 6-8 weeks - If you experience excessive bleeding, unusual abdominal pain, fever, or chest pain, contact your doctor immediately. Phone number [phone] Follow Up: Weeks (one week, call [phone] for appointment) - I have received and understand the above instructions and will call my doctor if I have any further questions. Patient Signature Date Nurse Signature Other (Relationship) Plan of Care Discharge Date 09/25/16 2:33pm Disposition 01 HOME, SELF-CARE Instructions/Education Provided Choking Prescriptions See Medication Section Care Plan and Goals See Discharge Instructions Section Functional Status Query Response Date Recorded Patient Orientation Person Place Time Situation Eyes Open September 25, 2016 3:12pm Allergies, Adverse Reactions, Alerts No known allergies. Immunizations No immunization records. Vital Signs Acute Vital Signs Vital Response Date/Time Temperature (Fahrenheit) 98.3 degrees F (97.6 - 99.5) 09/25/2016 12:00pm Temperature (Calculated Celsius) 36.97891 degrees C (36.4 - 37.5) 09/25/2016 12:00pm Temperature Source Tympanic 09/25/2016 12:00pm Pulse Rate (adult) 66 bpm (60 - 90) 09/25/2016 12:00pm Respiratory Rate 18 bpm (12 - 24) 09/25/2016 12:00pm O2 Sat by Pulse Oximetry 98 % (88 - 100) 09/25/2016 12:00pm Blood Pressure 113/61 mm Hg 09/25/2016 12:00pm Blood Pressure Mean 78 mm Hg 09/25/2016 12:00pm Pain Numeric Pain Scale 0-No Pain 09/25/2016 12:00pm Height (Feet) 4 feet 09/25/2016 12:45am Height (Inches) 11.00 inches 09/25/2016 12:45am Height (Calculated Centimeters) 149.468610 cm 09/25/2016 12:45am Weight (Pounds) 253 pounds 09/25/2016 12:45am Weight (Ounces) 0.0 oz 09/25/2016 12:45am Weight (Calculated Grams) 357990.87 gm 09/25/2016 12:45am Weight (Calculated Kilograms) 114.338171 kilograms 09/25/2016 12:45am Calculated BMI 51.1 09/25/2016 12:45am Capillary Refill Capillary Refill Less Than 3 Seconds 09/24/2016 11:25pm Results Laboratory Results Test Name Result Units Flags Reference Collection Date/Time Result Date/ Time Comments White Blood Count 8.0 10^3/uL 4.3-11.0 09/24/2016 11:24pm 09/24/2016 11 :31pm Red Blood Count 4.51 10^6/uL 4.35-5.85 09/24/2016 11:24pm 09/24/2016 11 :31pm Hemoglobin 11.5 G/DL 11.5-16.0 09/24/2016 11:24pm 09/24/2016 11:31pm Hematocrit 36 % 35-52 09/24/2016 11:24pm 09/24/2016 11:31pm Mean Corpuscular Volume 79 FL L 80-99 09/24/2016 11:24pm 09/24/2016 11: 31pm Mean Corpuscular Hemoglobin 26 PG 25-34 09/24/2016 11:24pm 09/24/2016 11:31pm Mean Corpuscular Hemoglobin Concent 32 G/DL 32-36 09/24/2016 11: 11:31pm Red Cell Distribution Width 15.7 % H 10.0-14.5 09/24/2016 11:24pm 2016 11:31pm Platelet Count 321 10^3/uL 130-400 09/24/2016 11:09/24/2016 11: 31pm Mean Platelet Volume 10.1 FL 7.4-10.4 09/24/2016 11:09/24/2016 11: 31pm Neutrophils (%) (Auto) 59 % 42-75 09/24/2016 11:09/24/2016 11: 31pm Lymphocytes (%) (Auto) 32 % 12-44 09/24/2016 11:09/24/2016 11: 31pm Monocytes (%) (Auto) 5 % 0-12 09/24/2016 11:09/24/2016 11:31pm Eosinophils (%) (Auto) 4 % 0-10 09/24/2016 11:09/24/2016 11:31pm Basophils (%) (Auto) 0 % 0-10 09/24/2016 11:09/24/2016 11:31pm Neutrophils # (Auto) 4.7 X 10^3 1.8-7.8 09/24/2016 11:09/24/2016 11:31pm Lymphocytes # (Auto) 2.6 X 10^3 1.0-4.0 09/24/2016 11:09/24/2016 11:31pm Monocytes # (Auto) 0.4 X 10^3 0.0-1.0 09/24/2016 11:09/24/2016 11: 31pm Eosinophils # (Auto) 0.3 10^3/uL 0.0-0.3 09/24/2016 11:pm 09/24/2016 11:31pm Basophils # (Auto) 0.0 10^3/uL 0.0-0.1 09/24/2016 11:pm 09/24/2016 11 :31pm Prothrombin Time 12.7 SEC 12.2-14.7 09/24/2016 11:24pm 09/24/2016 11: 47pm INR Comment 1.0 0.8-1.4 09/24/2016 11:24pm 09/24/2016 11:47pm INTERPRETIVE DATA SUGGESTED THERAPEUTIC RANGE FOR INR'S: VENOUS THROMBOSIS, PULMONARY EMBOLISM, OR PREVENTION OF SYSTEMIC EMBOLISM (EG. IN ATRIAL FIBRILLATION): 2.0 - 3.0 MECHANICAL PROSTHETIC HEART VALVES: 2.5 - 3.5* *NOTE: INR'S UP TO 4.5 MAY BE NECESSARY IN SELECTED GROUPS OF HIGH RISK PATIENTS. [employer] [place]ST PH[employer]ICIANS CONSENSUS CONFERENCE ON ANTITHROMBOTIC THERAPY (2000). Activated Partial Thromboplast Time 28 SEC 24-35 09/24/2016 11:24pm 11:47pm Sodium Level 139 MMOL/L 135-145 09/24/2016 11:24pm 09/25/2016 12:08am Potassium Level 4.0 MMOL/L 3.6-5.0 09/24/2016 11:24pm 09/25/2016 12: 08am Chloride Level 106 MMOL/L 98-107 09/24/2016 11:24pm 09/25/2016 12:08am Carbon Dioxide Level 22 MMOL/L 21-32 09/24/2016 11:24pm 09/25/2016 12: 08am Anion Gap 11 MMOL/L 5-14 09/24/2016 11:24pm 09/25/2016 12:08am Blood Urea Nitrogen 11 MG/DL 7-18 09/24/2016 11:24pm 09/25/2016 12: 08am Creatinine 0.78 MG/DL 0.60-1.30 09/24/2016 11:24pm 09/25/2016 12:08am BUN/Creatinine Ratio 14 09/24/2016 11:24pm 09/25/2016 12:08am Estimat Glomerular Filtration Rate > 60 09/24/2016 11:24pm 2016 12:08am GFR INTERPRETIVE DATA UNITS FOR ESTIMATED GFR (eGFR): mL/min/1.73 M2 REFERENCE RANGE FOR ESTIMATED GFR (eGFR) eGFR NORMAL eGFR >60 MODERATELY DECREASED eGFR 30-59 SEVERLY DECREASED eGFR 15-29 KIDNEY FAILURE <15 (OR DIALYSIS) Glucose Level 93 MG/DL 70-105 09/24/2016 11:24pm 09/25/2016 12:08am Calcium Level 8.6 MG/DL 8.5-10.1 09/24/2016 11:24pm 09/25/2016 12:08am Magnesium Level 2.0 MG/DL 1.8-2.4 09/24/2016 11:09/25/2016 12: 08am Total Bilirubin 0.2 MG/DL 0.1-1.0 09/24/2016 11:24pm 09/25/2016 12: 08am Alkaline Phosphatase 81 U/L 40-136 09/24/2016 11:09/25/2016 12: 08am Aspartate Amino Transf (AST/SGOT) 15 U/L 5-34 09/24/2016 11:242016 12:08am Alanine Aminotransferase (ALT/SGPT) 12 U/L 0-55 09/24/2016 11: 12:08am Total Creatine Kinase 66 U/L 29-168 09/24/2016 11:09/25/2016 12: 08am Creatine Kinase MB 0.7 NG/ML <6.6 09/24/2016 11:09/25/2016 12: 20am Troponin I < 0.30 NG/ML <0.30 09/24/2016 11:09/25/2016 12:20am B-Type Natriuretic Peptide < 10.0 PG/ML <100.0 09/24/2016 11:09/25 12:20am Total Protein 6.4 G/DL 6.4-8.2 09/24/2016 11:09/25/2016 12:08am Albumin 4.1 G/DL 3.2-4.5 09/24/2016 11:09/25/2016 12:08am Amylase Level 77 U/L 25-125 09/24/2016 11:09/25/2016 12:08am Lipase 10 U/L 8-78 09/24/2016 11:09/25/2016 12:08am Procedures Procedure Status Date Provider(s) Esophagogastroduodenoscopy (EGD) with dilation Completed 09/25/16 NEVAEH NELSON DO Tracing only of electrocardiogram Active 09/24/16 TRI DURAN DO Encounters Encounter Location Arrival/Admit Date Discharge/Depart Date Attending Provider Discharged Inpatient (obs) [facility] 09/25/16 12:17am 09/25/16 2:33pm NEVAEH NELSON DO Recent Diagnosis Shoulder joint pain
--- OUTSIDE RECORDS SUMMARY | 2016-09-27 14:01 | XMS REPORT | Continuity of Care Document ---
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 Phone number [phone] Follow Up: Weeks (one week, call [phone] for appointment) - I have received and [...] - 99.5) 09/25/2016 12:00pm Temperature (Calculated Celsius) 36.18908 degrees C (36.4 - 37.5) 09/25/2016 12:00pm [...] 11.00 inches 09/25/2016 12:45am Height (Calculated Centimeters) 149.735567 cm 09/25/2016 12:45am Weight (Pounds) 253 pounds 09/25/2016 12:45am Weight (Ounces) 0.0 oz 09/25/2016 12:45am Weight (Calculated Grams) 180277.87 gm 09/25/2016 12:45am Weight (Calculated Kilograms) 114.822852 kilograms 09/25/2016 12:45am Calculated BMI 51.1 09/25/2016 [...] SELECTED GROUPS OF HIGH RISK PATIENTS. [employer] [place] [employer]ST [employer] CONSENSUS CONFERENCE ON [...] Date Attending Provider Discharged Inpatient (obs) [facility] 09/25/16 12:17am 09/25/16 2:33pm NEVAEH NELSON DO Recent Diagnosis Shoulder joint pain
== END 2016-09-25 13:50 | disposition home or self-care (01) ==
LOC: EDUNIT# 23:09 → ER 23:11 → 4TH 09-25 00:17 → UNDOADMOB 09-25 00:17 → SDC 09-25 00:45 → 4TH 09-25 00:45 → SDC 09-25 13:50 → UNDODISOB 09-25 14:33
PROVIDERS: ATTEND Surgery
DX: T18.128A Food in esophagus causing other injury, initial encounter (principal); K22.2 Esophageal obstruction; K21.9 Gastro-esophageal reflux disease without esophagitis; F17.210 Nicotine dependence, cigarettes, uncomplicated
CPT/HCPCS: 36415; 71010; 80053; 80306; 82150; 82550; 82553; 83690; 83735; 83880; 84484; 84703; 85025; 85610; 85730; 88305; 93005; 93041; 96374; 96375

== ENCOUNTER 2016-11-30 01:24 | Emergency (ER) | payer MEDICAID ==
[~2016-11-30] VITALS: Ht 149.9 cm; Wt 111.1 kg
[2016-11-30] MEDS ORDERED: LIDOCAINE/EPI 1%-1:100,000 (XYLOCAINE) 20ML INJ STA (01:35)
[2016-11-30] MEDS ORDERED: TRIM/SULFAMETH 160/800 (SEPTRA DS) TAB PO STA (01:36)
[2016-11-30] MEDS ORDERED: SULF-222 PO (01:42)
--- NOTE | 2016-11-30 01:42 | ED Integumentary General ---
General Chief Complaint: Skin/Wound Problems Stated Complaint: SWOLLEN KNOT ON BACK Source: patient Exam Limitations: no limitations History of Present Illness Time seen by provider: 01:30 Initial Comments Here with complaint of painful spot to the right low back at the waistline where she thinks she may have an abscess. Denies fever or chills. Denies nausea or vomiting. Timing/Duration: yesterday, getting worse Severity: moderate Location: torso Possible Cause: no cause identified Associated Symptoms: change in skin texture, edema, swelling/mass/lumps Allergies and Home Medications Allergies Coded Allergies: No Known Drug Allergies (Unverified , 12/06/08) Home Medications No Active Prescriptions or Reported Meds Constitutional: see HPI, No chills, No fever Respiratory: no symptoms reported Cardiovascular: no symptoms reported Gastrointestinal: no symptoms reported Skin: see HPI, lesions, No rash Past Bwzijjn-Yzjslb-Hfqkcq Hx Patient Social History Alcohol Use: Denies Use Recreational Drug Use: No Smoking Status: Current Everyday Smoker Type Used: Cigarettes Recent Foreign Travel: No Contact w/Someone Who Travel: No Recent Hopitalizations: No Immunizations Up To Date Tetanus Booster (TDap): Unknown Date of Influenza Vaccine: Apr 06, 2016 Seasonal Allergies Seasonal Allergies: No Surgeries HX Surgeries: Yes (WISDOM TEETH; X 4) Surgeries: Adenoidectomy, Appendectomy, Section, Tonsillectomy, Tubal Ligation Respiratory Hx Respiratory Disorders: No Cardiovascular Hx Cardiac Disorders: No Neurological Hx Neurological Disorders: No Reproductive System Hx Reproductive Disorders: No Sexually Transmitted Disease: No HIV/AIDS: No Female Reproductive Disorders: Denies 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 Genitourinary Hx Genitourinary Disorders: No Gastrointestinal Hx Gastrointestinal Disorders: Yes Gastrointestinal Disorders: Gastroesophageal Reflux Musculoskeletal Hx Musculoskeletal Disorders: No Endocrine Hx Endocrine Disorders: No HEENT HX ENT Disorders: No Cancer Hx Cancer: No Psychosocial Hx Psychiatric Problems: No Behavioral Health Disorders: Anxiety, Depression Integumentary HX Skin/Integumentary Disorder: Yes (DARIER'S DISEASE) Skin/Integumentary Disorders: Psoriasis Blood Transfusions Hx Blood Disorders: No Adverse Reaction to a Blood Tr: No Reviewed Nursing Assessment Reviewed/Agree w Nursing PMH: Yes Family Medical History Significant Family History: No Pertinent Family Hx, Cancer, COPD Family Medial History: Cancer 03 MOTHER (LUNG AND BONE) Family history: Glaucoma 03 FATHER Heart disease 03 MOTHER History of - respiratory disease 03 FATHER (COPD) Stroke 03 MOTHER Physical Exam Vital Signs Capillary Refill : General Appearance: WD/WN, no apparent distress Cardiovascular: regular rate, rhythm, no murmur Respiratory: lungs clear, normal breath sounds Neurologic/Psychiatric: alert Skin: normal color, warm/dry Skin Problem Location: torso (right low back) Skin Problem Character: abscess (2 x 2 centimeter), erythema (3 x 3 cm), tenderness, warm I&D : Blade Size: 11 I & D Procedure: betadine prep, sterile dressing applied, gauze wick placed , Wound Packing Packing/Drain: Idoform 1/2 Progress Anesthetized with 1 percent lidocaine with epi. 1 cm incision. Wound culture. Packed with half-inch iodoform gauze and covered with dressing. Tolerated procedure well with no complications. Moderate amount of pus obtained. Progress/Results/Core Measures Results/Orders My Orders Orders - MAT PALMER MD Lidocaine/Epi 1% 1:100,000 (Xylocaine /E (11/30/16 01:35) Wound Culture (11/30/16 01:36) Bactrim Ds Po (11/30/16 01:36) Progress Note : Progress Note Seen and evaluated. I&D and wound culture done. Bactrim DS one tab by mouth given. Discharged home with return precautions. Patient verbalize understanding instructions and agreement with plan. Departure Impression Impression: Primary Impression: Abscess Disposition: 01 HOME, SELF-CARE Condition: Stable Departure-Patient Inst. Decision time for Depature: 01:40 Referrals: [facility] (PCP/Family) Primary Care Physician Patient Instructions: Abscess Incision and Drainage (DC) Add. Discharge Instructions: All discharge instructions reviewed with patient and/or family. Voiced understanding. Take medications as directed. You may take ibuprofen 800 mg every 8 hours as needed for pain. Return in 2 days for wound check and packing removal. Return for worse pain, fever, vomiting, weakness, breathing problems or other concerns as needed. Keep wound covered with dressing. You may shower but do not remove wick. Cover with dressing again afterwards. If wick falls out, cleaned wound out with gentle spray of water twice daily and then as needed. Scripts Sulfamethoxazole/Trimethoprim (Sulfamethoxazole-Tmp Ds Tablet) 1 Each Tablet 1 EACH PO BID, #19 TAB 0 Refills Prov: MAT PALMER MD 11/30/16 MAT PALMER MD Nov 30, 2016 01:42
[2016-11-30 02:02] VITALS: BP 123/85
== END 2016-11-30 02:03 | disposition home or self-care (01) ==
LOC: EDUNIT# 01:24 → ER 01:27
DX: L02.212 Cutaneous abscess of back [any part, except buttock and flank] (principal); F17.210 Nicotine dependence, cigarettes, uncomplicated
CPT/HCPCS: 10061; 87070; 87077; 87186; 87205

== ENCOUNTER 2016-12-02 11:59 | Emergency (ER) | payer MEDICAID ==
[~2016-12-02] VITALS: Ht 149.9 cm; Wt 111.1 kg
[~2016-12-02 11:59] MED LIST changes: +SULF-222 PO
--- NOTE | 2016-12-02 13:03 | ED Integumentary General ---
General Chief Complaint: Skin/Wound Problems Stated Complaint: WOUND CHECK Nursing Triage Note: PT STATES SHE HAD AN ABSCESS PACKED HERE A COUPLE DAYS AGO AND WAS TOLD TO COME BACK AND HAVE IT CHECKED. WOUND ON RT LOWER BACK. History of Present Illness Time seen by provider: 12:55 Initial Comments Patient presents to have packing removed from abscess to right lower back. She reports the dressing in status intact since it was placed here 2 days ago. She denies any complaints at this time and is taking her antibiotic as prescribed. Severity: mild Allergies and Home Medications Allergies Coded Allergies: No Known Drug Allergies (Unverified , 12/06/08) Home Medications Sulfamethoxazole/Trimethoprim 1 Each Tablet, 1 EACH PO BID, #19 Ref 0 Prescribed by: MAT PALMER on 11/30/16 0142 Constitutional: no symptoms reported, see HPI EENTM: no symptoms reported, see HPI Respiratory: no symptoms reported, see HPI Cardiovascular: no symptoms reported, see HPI Gastrointestinal: no symptoms reported, see HPI Genitourinary: no symptoms reported Musculoskeletal: no symptoms reported, see HPI Skin: see HPI, other (status post I&D of abscess right lower back.) Psychiatric/Neurological: No Symptoms Reported, See HPI Endocrine: No Symptoms Reported, See HPI Hematologic/Lymphatic: No Symptoms Reported, See HPI All Other Systems Reviewed Negative Unless Noted: Yes Past Nfkwfrs-Jtbivf-Qvbzwf Hx Patient Social History Alcohol Use: Denies Use Recreational Drug Use: No (SMOKES 1/2 PPD) Smoking Status: Current Everyday Smoker Type Used: Cigarettes 2nd Hand Smoke Exposure: Yes Recent Foreign Travel: No Contact w/Someone Who Travel: No Recent Infectious Disease Expo: No Recent Hopitalizations: No Physical Abuse Screen: No Sexual Abuse: No Immunizations Up To Date Tetanus Booster (TDap): Unknown Date of Influenza Vaccine: Apr 06, 2016 Seasonal Allergies Seasonal Allergies: No Surgeries HX Surgeries: Yes (WISDOM TEETH; X 4) Surgeries: Adenoidectomy, Appendectomy, Section, Tonsillectomy, Tubal Ligation Respiratory Hx Respiratory Disorders: No Cardiovascular Hx Cardiac Disorders: No Neurological Hx Neurological Disorders: No Reproductive System Hx Reproductive Disorders: No Sexually Transmitted Disease: No HIV/AIDS: No Female Reproductive Disorders: Denies [employer]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 Genitourinary Hx Genitourinary Disorders: No Gastrointestinal Hx Gastrointestinal Disorders: Yes Gastrointestinal Disorders: Gastroesophageal Reflux Musculoskeletal Hx Musculoskeletal Disorders: No Endocrine Hx Endocrine Disorders: No HEENT HX ENT Disorders: No Cancer Hx Cancer: No Psychosocial Hx Psychiatric Problems: Yes Behavioral Health Disorders: Anxiety, Depression Integumentary HX Skin/Integumentary Disorder: Yes Skin/Integumentary Disorders: Psoriasis Blood Transfusions Hx Blood Disorders: No Adverse Reaction to a Blood Tr: No Reviewed Nursing Assessment Reviewed/Agree w Nursing PMH: Yes Family Medical History Significant Family History: No Pertinent Family Hx, Cancer, COPD Family Medial History: Cancer 03 MOTHER (LUNG AND BONE) Family history: Glaucoma 03 FATHER Heart disease 03 MOTHER History of - respiratory disease 03 FATHER (COPD) Stroke 03 MOTHER Physical Exam Vital Signs Vital Sign - Last 12Hours 12/02/16 12/02/16 12:27 12:30 Temp 97.8 Pulse 87 Resp 20 B/P (MAP) 135/91 Pulse Ox 97 O2 Delivery Room Air Capillary Refill : Less Than 3 Seconds General Appearance: WD/WN, no apparent distress Cardiovascular: normal peripheral pulses, regular rate, rhythm, no JVD, no murmur Respiratory: chest non-tender, lungs clear Skin: normal color, warm/dry, other (dressing removed from right lower back, iodoform packing removed with trace purulent drainage on it. No induration or fluctuance, resolving erythema. Triple antibiotic ointment and bulky dressing applied.) Skin Problem Location: other (right lower back) Skin Problem Character: abscess Lymphatic: no adenopathy Progress/Results/Core Measures Results/Orders Vital Signs/I&O Vital Sign - Last 12Hours 12/02/16 12/02/16 12/02/16 12:27 12:30 13:12 Temp 97.8 97.8 Pulse 87 87 87 Resp 20 20 20 B/P (MAP) 135/91 135/91 Pulse Ox 97 97 97 O2 Delivery Room Air Room Air Blood Pressure Mean: 106 Departure Impression Impression: Primary Impression: Abscess Disposition: 01 HOME, SELF-CARE Condition: Improved Departure-Patient Inst. Decision time for Depature: 13:00 Referrals: [facility] (PCP/Family) Primary Care Physician Patient Instructions: Wound Care (DC), Abscess Incision and Drainage (DC) Add. Discharge Instructions: All discharge instructions reviewed with patient and/or family. Voiced understanding. Shower as normal, use peroxide to clean the skin abscess. Apply antibiotic ointment and keep covered with a Band-Aid. Finished taking all oral antibiotics as previously prescribed. Return to emergency department if wound becomes red, foul-smelling drainage, increased pain, fevers or new problems. GRAYSON SANTANA Dec 02, 2016 13:03
[2016-12-02 13:12] VITALS: BP 135/91
== END 2016-12-02 13:12 | disposition home or self-care (01) ==
LOC: EDUNIT# 11:59 → ER 12:01
DX: L02.212 Cutaneous abscess of back [any part, except buttock and flank] (principal); F17.210 Nicotine dependence, cigarettes, uncomplicated
CPT/HCPCS: 99281

== ENCOUNTER 2016-12-31 02:57 | Inpatient (IN) | payer MEDICAID ==
[2016-12-31] VITALS (20 sets, daily range): BP systolic 81–122; BP diastolic 58–95
[~2016-12-31] VITALS: Ht 151.1 cm; Wt 116.8 kg
[2016-12-31 03:10] LABS: BASOPHILS % (AUTO) 1 % (0-10); EOSINOPHILS # (AUTO) 0.3 10^3/uL (0.0-0.3); EOSINOPHILS % (AUTO) 4 % (0-10); LYMPHOCYTES # (AUTO) 3.9 X 10^3 (1.0-4.0); LYMPHOCYTES % (AUTO) 52 % (12-44); MEAN CORPUSCULAR HEMOGLOBIN 25 PG (25-34); MEAN CORPUSCULAR HGB CONC 31 G/DL (32-36); MEAN CORPUSCULAR VOLUME 79 FL (80-99); MEAN PLATELET VOLUME 10.1 FL (7.4-10.4); MONOCYTES # (AUTO) 0.6 X 10^3 (0.0-1.0); MONOCYTES % (AUTO) 8 % (0-12); NEUTROPHILS # (AUTO) 2.7 X 10^3 (1.8-7.8); NEUTROPHILS % (AUTO) 36 % (42-75); PLATELET COUNT 336 10^3/uL (130-400); RED BLOOD COUNT 4.67 10^6/uL (4.35-5.85); RED CELL DISTRIBUTION WIDTH 16.6 % (10.0-14.5); WHITE BLOOD COUNT 7.5 10^3/uL (4.3-11.0)
[2016-12-31] MEDS ORDERED: RX-NITROGLYCERIN 0.4 MG TAB BTL 25'S SL PRN (03:15)
[2016-12-31] MEDS ORDERED: DILTIAZEM 25 MG/5 ML INJ (CARDIZEM) VIAL IVP ONE (03:15)
[2016-12-31] MEDS ORDERED: ENOXAPARIN 60 MG/0.6 ML (LOVENOX) SYR SC ONE (03:15)
[2016-12-31] MEDS ORDERED: ASPIRIN 81 MG CHEW (CHILDREN'S ASA) PO ONE (03:15)
[2016-12-31 03:23] LABS: PROTHROMBIN TIME PATIENT 12.5 SEC (12.2-14.7)
--- NOTE | 2016-12-31 03:24 | ED Cardiac General ---
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 Also c/o increasing SOA with walking int hospital. No Sx prior to bedtime. Source: patient History of Present Illness Time seen by provider: 02:57 Initial Comments PT ARRIVES VIA POV FROM HOME STATES SHE WAS FINE WHEN SHE WENT TO BED, THEN WOKE UP 30 -45 MINUTES AGO, WITH PAIN IN THE CENTER OF HER CHEST AND HER HEART WAS RACING AND BEATING IRREGULAR SHE WAS WALKING INTO ER, SHE WAS VERY SHORT OF BREATH ( WAS NOT SHORT OF BREATH AT HOME) NO SWEATS HAS CHRONIC SWELLING IN LEGS/FEET AND IS NO DIFFERENT TODAY NO NAUSEA/VOMITING NO HISTORY OF SIMILAR NO HISTORY OF ANY CARDIAC PROBLEMS NO RECENT ILLNESS PT DOES NOT TAKE ANY MEDICATIONS LMP 12/27-NOW, ALSO HAD PERIOD 12/13-12/19 HAS HAD BTL PCP: JERSON Allergies and Home Medications Allergies Coded Allergies: No Known Drug Allergies (Unverified , 12/06/08) Home Medications Aspirin 325 Mg Tablet.dr, 325 MG PO DAILY, #30 Ref 0 Prescribed by: GODFREY CHOU on 12/31/16 1148 Diltiazem HCl 120 Mg Cap.er.24h, 120 MG PO DAILY, #30 Ref 0 Prescribed by: GODFREY CHOU on 12/31/16 1148 Ibuprofen 200 Mg Tablet, 600-800 MG PO TID PRN for PAIN-MILD, (Reported) TAKES 3-4 (200MG) TABLETS Review of Systems Constitutional: no symptoms reported, No diaphoresis, No dizziness EENTM: No Symptoms Reported Respiratory: See HPI, SOA With Exertion Cardiovascular: See HPI, Chest Pain, Edema, Irregular Heart Rate, Denies Lightheadedness, Palpitations, Denies Syncope Gastrointestinal: No Symptoms Reported Genitourinary: Other (PERIODS HAVE BEEN VERY IRREGULAR THE LAST 3-4 MONTHS. ) Musculoskeletal: no symptoms reported Skin: no symptoms reported Psychiatric/Neurological: No Symptoms Reported Endocrine: No Symptoms Reported Hematologic/Lymphatic: No Symptoms Reported Past Oruoxis-Sjnskg-Tbxpge Hx Patient Social History Alcohol Use: Denies Use Recreational Drug Use: No Smoking Status: Current Everyday Smoker (1 PPD) Type Used: Cigarettes 2nd Hand Smoke Exposure: Yes Recent Foreign Travel: No Contact w/Someone Who Travel: No Recent Infectious Disease Expo: No Recent Hopitalizations: No Immunizations Up To Date Tetanus Booster (TDap): Unknown Date of Influenza Vaccine: Apr 06, 2016 Seasonal Allergies Seasonal Allergies: No Surgeries HX Surgeries: Yes (WISDOM TEETH; X 4) Surgeries: Adenoidectomy, Appendectomy, Section, Tonsillectomy, Tubal Ligation Respiratory Hx Respiratory Disorders: No Cardiovascular Hx Cardiac Disorders: No Neurological Hx Neurological Disorders: No Reproductive System : No (add'l menses start 12/27/16) Hx Reproductive Disorders: No Sexually Transmitted Disease: No HIV/AIDS: No Female Reproductive Disorders: Denies, Menstrual Problems (IRREGULAR PERIODS SINCE BEGINNING OF 2016) 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 Genitourinary Hx Genitourinary Disorders: No Gastrointestinal Hx Gastrointestinal Disorders: Yes Gastrointestinal Disorders: Gastroesophageal Reflux Musculoskeletal Hx Musculoskeletal Disorders: No Endocrine Hx Endocrine Disorders: No (OBESE) HEENT HX ENT Disorders: No Cancer Hx Cancer: No Psychosocial Hx Psychiatric Problems: Yes Behavioral Health Disorders: Anxiety, Depression Integumentary HX Skin/Integumentary Disorder: Yes Skin/Integumentary Disorders: Psoriasis Blood Transfusions Hx Blood Disorders: No Adverse Reaction to a Blood Tr: No Family Medical History Significant Family History: No Pertinent Family Hx, Cancer, COPD Family Medial History: Cancer 03 MOTHER (LUNG AND BONE) Family history: Glaucoma 03 FATHER Heart disease 03 MOTHER History of - respiratory disease 03 FATHER (COPD) Stroke 03 MOTHER Physical Exam Vital Signs Vital Sign - Last 12Hours 12/31/16 02:57 Temp 98.8 Pulse 175 Resp 23 B/P (MAP) 127/110 Pulse Ox 99 O2 Delivery Nasal Cannula O2 Flow Rate 2.00 Capillary Refill : Less Than 3 Seconds General Appearance: Obese, Other (SLIGHTLY DYSPNEIC ON ARRIVAL. 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/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, 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 Skin: Normal Color, Warm/Dry, Rash (PSORIASIS) Progress/Results/Core Measures Results/Orders Lab Results Laboratory Tests Test 12/31/16 03:02 12/31/16 03:35 Range/Units White Blood Count 7.5 4.3-11.0 10^3/uL Red Blood Count 4.67 4.35-5.85 10^6/uL Hemoglobin 11.6 11.5-16.0 G/DL Hematocrit 37 35-52 % Mean Corpuscular Volume 79 L 80-99 FL Mean Corpuscular Hemoglobin 25 25-34 PG Mean Corpuscular Hemoglobin Concent 31 L 32-36 G/DL Red Cell Distribution Width 16.6 H 10.0-14.5 % Platelet Count 336 130-400 10^3/uL Mean Platelet Volume 10.1 7.4-10.4 FL Neutrophils (%) (Auto) 36 L 42-75 % Lymphocytes (%) (Auto) 52 H 12-44 % Monocytes (%) (Auto) 8 0-12 % Eosinophils (%) (Auto) 4 0-10 % Basophils (%) (Auto) 1 0-10 % Neutrophils # (Auto) 2.7 1.8-7.8 X 10^3 Lymphocytes # (Auto) 3.9 1.0-4.0 X 10^3 Monocytes # (Auto) 0.6 0.0-1.0 X 10^3 Eosinophils # (Auto) 0.3 0.0-0.3 10^3/uL Basophils # (Auto) 0.0 0.0-0.1 10^3/uL Prothrombin Time 12.5 12.2-14.7 SEC INR Comment 1.0 0.8-1.4 Activated Partial Thromboplast Time 31 24-35 SEC Sodium Level 140 135-145 MMOL/L Potassium Level 3.7 3.6-5.0 MMOL/L Chloride Level 106 98-107 MMOL/L Carbon Dioxide Level 22 21-32 MMOL/L Anion Gap 12 5-14 MMOL/L Blood Urea Nitrogen 11 7-18 MG/DL Creatinine 0.75 0.60-1.30 MG/DL Estimat Glomerular Filtration Rate > 60 BUN/Creatinine Ratio 15 Glucose Level 99 70-105 MG/DL Calcium Level 9.1 8.5-10.1 MG/DL Magnesium Level 2.2 1.8-2.4 MG/DL Total Bilirubin 0.1 0.1-1.0 MG/DL Aspartate Amino Transf (AST/SGOT) 16 5-34 U/L Alanine Aminotransferase (ALT/SGPT) 10 0-55 U/L Alkaline Phosphatase 81 40-136 U/L Total Creatine Kinase 69 29-168 U/L Creatine Kinase MB 0.7 <6.6 NG/ML Troponin I < 0.30 <0.30 NG/ML B-Type Natriuretic Peptide < 10.0 <100.0 PG/ML Total Protein 7.2 6.4-8.2 G/DL Albumin 3.9 3.2-4.5 G/DL Amylase Level 105 25-125 U/L Lipase 11 8-78 U/L TSH [place] Testing 3.06 0.35-4.94 UIU/ML Serum Test, Qualitative NEGATIVE NEGATIVE Urine Color YELLOW Urine Clarity SLIGHTLY CLOUDY Urine pH 6.5 5-9 Urine Specific [place] 1.010 L 1.016-1.022 Urine Protein 2+ H NEGATIVE Urine Glucose (UA) NEGATIVE NEGATIVE Urine Ketones NEGATIVE NEGATIVE Urine Nitrite NEGATIVE NEGATIVE Urine Bilirubin NEGATIVE NEGATIVE Urine Urobilinogen NORMAL NORMAL MG/DL Urine Leukocyte Esterase NEGATIVE NEGATIVE Urine RBC (Auto) 5+ H NEGATIVE Urine RBC 25-50 H /HPF Urine WBC RARE /HPF Urine Squamous Epithelial Cells 0-2 /HPF Urine Crystals NONE /LPF Urine Bacteria TRACE /HPF Urine Casts NONE /LPF Urine Mucus NEGATIVE /LPF Urine Culture Indicated NO Urine Opiates Screen NEGATIVE NEGATIVE Urine Oxycodone Screen NEGATIVE NEGATIVE Urine Methadone Screen NEGATIVE NEGATIVE Urine Propoxyphene Screen NEGATIVE NEGATIVE Urine Barbiturates Screen NEGATIVE NEGATIVE Ur Tricyclic Antidepressants Screen NEGATIVE NEGATIVE Urine Phencyclidine Screen NEGATIVE NEGATIVE Urine Amphetamines Screen NEGATIVE NEGATIVE Urine Methamphetamines Screen NEGATIVE NEGATIVE Urine Benzodiazepines Screen NEGATIVE NEGATIVE Urine Cocaine Screen NEGATIVE NEGATIVE Urine Cannabinoids Screen NEGATIVE NEGATIVE My Orders Orders - TRI DURAN DO Amylase (12/31/16 03:03) Cbc With Automated Diff (12/31/16 03:03) Comprehensive Metabolic Panel (12/31/16 03:03) Creatine Kinase (12/31/16 03:03) Creatine Kinase Mb (12/31/16 03:03) Lipase (12/31/16 03:03) Partial Thromboplastin Time (12/31/16 03:03) Protime With Inr (12/31/16 03:03) Troponin I (12/31/16 03:03) Chest 1 View, Ap/Pa Only (12/31/16 03:03) O2 (12/31/16 03:03) Ekg Tracing (12/31/16 03:03) Aspirin Chewable Tablet (Baby Aspirin Ch (12/31/16 03:15) Rx-Nitroglycerin Sl Tabs (Rx-Nitrostat S (12/31/16 03:15) BNP (12/31/16 03:03) Monitor-Rhythm Ecg Trace Only (12/31/16 03:03) Drug Screen Stat (Urine) (12/31/16 03:03) Hcg,Qualitative Serum (12/31/16 03:03) Magnesium (12/31/16 03:03) Thyroid Analyzer (12/31/16 03:03) Ua Culture If Indicated (12/31/16 03:03) Enoxaparin Injection (Lovenox Injection) (12/31/16 03:15) Diltiazem Injection (Cardizem Injection) (12/31/16 03:15) Digoxin Injection (Lanoxin Injection) (12/31/16 03:30) Sodium Chloride (Ad... W/Diltiazem Drip (12/31/16 03:30) Medications Given in ED Vital Signs/I&O Vital Sign - Last 12Hours 12/31/16 12/31/16 12/31/16 02:57 03:05 03:24 Temp 98.8 98.8 Pulse 175 175 Resp 23 23 B/P (MAP) 127/110 127/110 Pulse Ox 99 99 O2 Delivery Nasal Cannula Nasal Cannula O2 Flow Rate 2.00 2.00 2.00 Blood Pressure Mean: 116 Progress Note : Progress Note HEART RATE DOWN WITH MEDICATIONS, BUT DID NOT CONVERT TO SINUS RHYTHM CHEST PAIN AND SHORTNESS OF BREATH RESOLVED AT TIME OF ADMIT NO DETERIORATION IN PT'S CONDITION DURING ER STAY ECG Initial ECG Rhythm: A Fib/Flutter (WITH RVR) Initial ECG Impression: 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 w/RVR Initial ECG Comparisson: No Previous ECG Available Diagnostic Imaging Comments CXR--NO ACUTE PROCESS, PENDING RADIOLOGIST REVIEW Reviewed: Reviewed by Me Departure Communication Progress Notes 0400--SPOKE WITH DR. CHOU, ACCEPTS PT FOR ADMIT. WILL CONSULT CARDIOLOGY IN AM Impression Impression: Primary Impression: Chest pain Additional Impression: NEW ONSET ATRIAL FIBRILLATION WITH RVR Disposition: ADMITTED INPATIENT Condition: Improved Decision to Admit Reason: Admit from ER (General) Decision to Admit/Date: December 31, 2016 Time/Decision to Admit Time: 04:00 Departure-Patient Inst. Referrals: [facility] (PCP/Family) Primary Care Physician Scripts Aspirin (Aspirin EC) 325 Mg Tablet.dr 325 MG PO DAILY, #30 TAB 0 Refills Prov: GODFREY CHOU MD 12/31/16 Diltiazem HCl (Diltiazem 24Hr Cd) 120 Mg Cap.er.24h 120 MG PO DAILY, #30 CAP 0 Refills Prov: GODFREY CHOU MD 12/31/16 TRI DURAN DO December 31, 2016 03:24
[2016-12-31] MEDS ORDERED: DILTIAZEM DRIP 100 MG in SODIUM CHLORIDE (ADD-VANTAGE) 100 ML IV SCH (03:30)
[2016-12-31] MEDS ORDERED: DIGOXIN 0.25 MG/ML (LANOXIN) 2 ML AMP IV ONE ×2 (03:30→04:45)
[2016-12-31 03:35] LABS: ALANINE AMINOTRANSFERASE 10 U/L (0-55); ALBUMIN 3.9 G/DL (3.2-4.5); AMYLASE 105 U/L (25-125); ANION GAP 12 MMOL/L (5-14); ASPARTATE AMINO TRANSFERASE 16 U/L (5-34); BILIRUBIN,TOTAL 0.1 MG/DL (0.1-1.0); BLOOD UREA NITROGEN 11 MG/DL (7-18); BUN/CREATININE RATIO 15; CALCIUM 9.1 MG/DL (8.5-10.1); CARBON DIOXIDE 22 MMOL/L (21-32); CHLORIDE 106 MMOL/L (98-107); CREATINE KINASE 69 U/L (29-168); CREATININE SERUM 0.75 MG/DL (0.60-1.30); GFR ESTIMATED > 60; GLUCOSE 99 MG/DL (70-105); LIPASE 11 U/L (8-78); MAGNESIUM 2.2 MG/DL (1.8-2.4); POTASSIUM 3.7 MMOL/L (3.6-5.0); SODIUM 140 MMOL/L (135-145); TOTAL PROTEIN 7.2 G/DL (6.4-8.2)
[2016-12-31 03:43] LABS: BILIRUBIN,URINE NEGATIVE (NEGATIVE); KETONES,URINE NEGATIVE (NEGATIVE); LEUKOCYTE ESTERASE ,URINE NEGATIVE (NEGATIVE); NITRITE,URINE NEGATIVE (NEGATIVE); PH,URINE 6.5 (5-9); PROTEIN,URINE 2+ (NEGATIVE); UROBILINOGEN,URINE NORMAL (NORMAL)
[2016-12-31 03:54] LABS: TROPONIN I < 0.30 NG/ML (<0.30)
[2016-12-31 03:59] LABS: SQUAMOUS EPITHELIAL CELL,UR 0-2 /HPF; WBC,URINE RARE /HPF
[2016-12-31] MEDS ORDERED: DILTIAZEM DRIP 100 MG/NS 100 ML IV SCH ×2 (05:15)
[2016-12-31] MEDS ORDERED: NITROGLYCERIN SUBLINGUAL 0.4 MG TAB (NITROSTAT) SL PRN (05:15)
[2016-12-31] MEDS ORDERED: CATHETER FLUSH 10 ML SYR IV PRN (05:30)
[2016-12-31] MEDS: CATHETER FLUSH 10 ML SYR IV SCH ×2 (06:05→13:27)
--- NOTE | 2016-12-31 07:20 | Diagnostic Imaging Report ---
Portable upright radiograph of the chest. INDICATION: Chest pain. FINDINGS: The lungs are clear. The heart size is normal. No effusion or pneumothorax. The mediastinum and kvng appear unremarkable. IMPRESSION: Unremarkable exam. Dictated by: Dictated on workstation # [id number]
[2016-12-31] MEDS: morphine INJ 4 MG/ML 1 ML (VIAL/SYRINGE) IV PRN ×2 (08:12→13:27)
[2016-12-31] MEDS ORDERED: IBUP-30 PO (08:40)
[2016-12-31] MEDS ORDERED: ASPIRIN E.C. 325 MG (ECOTRIN) TABLET PO SCH (09:00)
--- NOTE | 2016-12-31 09:54 | Consultation-Cardiology ---
HPI-Cardiology Cardiology Consultation: Date of Consultation 12/31/16 Date of Admission Attending Physician Sade Linares MD Admitting Physician Grady,[facility] Consulting Physician Keli REEVES MD HPI: Chief Complaint: chest pain, palpitations this is a 41-year-old lady with no significant past medical history. She presented with chest pain and palpitations which started around 2 a.m. in the morning. She was found to be in atrial fibrillation with rapid ventricular rate. She denied any shortness of breath, syncope, near-syncope. she converted to sinus rhythm in the morning at around 830 a.m. She is an active smoker. She also drinks numerous caffeinated drinks. No sudden cardiac in the family. Atrial fibrillation history in the grandmother. No early coronary artery disease in the family. Review of Systems-Cardiology Review of Systems Constitutional: No As described under HPI, No no symptoms reported, No chills, No fever, No lightheadedness, No malaise, No tiredness, No weight loss, No weight gain, No other Eyes: No As described under HPI, No no symptoms reported, No blindness, No blurred vision, No contact lenses, No drainage, No decreased acuity, No foreign body sensation, No glasses, No inflammation, No pain, No photophobia, No previous injury, No shadows, No tunnel vision, No other, No vision change Ears/Nose/Throat: No As described under HPI, No no symptoms reported, No chronic hearing loss, No epistaxis, No ear discharge, No ear pain, No loose teeth, No mouth pain, No mouth swelling, No nasal drainage, No nose pain, No recent hearing loss, No throat pain, No throat swelling, No ulcerations, No other Respiratory: No no symptoms reported, No As described under HPI, No cough, No orthopnea, No shortness of breath, No SOB with excertion, No SOB at rest, No stridor, No wheezing, No other Cardiovascular: chest pain, irregular heart rate, palpitations Gastrointestinal: No no symptoms reported, No As described under HPI, No abdomen distended, No abdominal pain, No blood streaked bowels, No constipation , No diarrhea, No difficulty swallowing, No nausea, No poor appetite, No poor fluid intake, No rectal bleeding, No vomiting, No other, No nausea/vomiting/ diarrhea, No stool coloration changes Genitourinary: No no symptoms reported, No As described under HPI, No burning, No dysuria, No discharge, No frequency, No flank pain, No hematuria, No incontinence, No pain, No urgency, No other, No urine frequency changes, No urine coloration changes Musculoskeletal: No no symptoms reported, No As describe under HPI, No back pain, No gout, No joint pain, No joint swelling, No muscle pain, No muscle stiffness, No neck pain, No other Skin: No no symptoms reported, No As described under HPI, No change in color, No change in hair/nails, No dryness, No lesions, No lumps, No rash, No other, No skin related problems, No ulcerations, No rash on exposed areas, No ulcerations on exposed areas Psychiatric/Neurological: No As described under HPI, No anxiety, No depression , No emotional problems, No focal weakness, No headache, No no symptoms reported , No numbness, No other, No pre-existing deficit, No seizure, No syncope, No tingling, No tremors, No weakness TFN-Dilqaa-Jtkmxh Hx Patient Social History Alcohol Use: Denies Use Recreational Drug Use: No Smoking Status: Current Everyday Smoker Type Used: Cigarettes 2nd Hand Smoke Exposure: Yes Recent Foreign Travel: No Recent Infectious Disease Expo: No Hospitalization with Isolation: Denies Physical Abuse Screen: No Sexual Abuse: No Immunizations Up To Date Tetanus Booster (TDap): Unknown Date of Influenza Vaccine: Apr 06, 2016 Past Medical History PMH As described under Assessment. Family Medical History Family History: Cancer 03 MOTHER (LUNG AND BONE) Family history: Glaucoma 03 FATHER Heart disease 03 MOTHER History of - respiratory disease 03 FATHER (COPD) Stroke 03 MOTHER Allergies and Home Medications Allergies Coded Allergies: No Known Drug Allergies (Unverified , 12/06/08) Home Medications Ibuprofen 200 Mg Tablet, 600-800 MG PO TID PRN for PAIN-MILD, (Reported) TAKES 3-4 (200MG) TABLETS Physical Exam-Cardiology Physical Exam Vital Signs/I&O Vital Sign - Last 12Hours 12/31/16 12/31/16 12/31/16 12/31/16 02:57 03:05 03:24 04:54 Temp 98.8 98.8 98.8 Pulse 175 175 110 Resp 23 23 19 B/P (MAP) 127/110 127/110 Pulse Ox 99 99 99 O2 Delivery Nasal Cannula Nasal Cannula O2 Flow Rate 2.00 2.00 2.00 2.00 12/31/16 12/31/16 12/31/16 12/31/16 05:05 05:05 05:05 05:15 Temp 97.4 97.4 Pulse 118 131 Resp 20 13 B/P (MAP) 103/77 103/77 Pulse Ox 98 99 O2 Flow Rate 2.00 2.00 2.00 12/31/16 12/31/16 12/31/16 12/31/16 05:30 05:45 06:00 06:01 Pulse 121 120 105 Resp 13 12 19 20 B/P (MAP) 98/60 95/58 97/80 97/80 Pulse Ox 97 99 98 99 O2 Flow Rate 2.00 2.00 2.00 2.00 12/31/16 12/31/16 12/31/16 12/31/16 06:15 06:30 06:33 06:45 Pulse 107 137 116 Resp 20 16 29 B/P (MAP) 111/84 100/81 Pulse Ox 99 100 98 O2 Flow Rate 2.00 2.00 2.00 2.00 12/31/16 12/31/16 12/31/16 12/31/16 07:00 07:00 07:00 07:45 Pulse 92 97 97 56 Resp 17 17 B/P (MAP) 101/62 101/62 Pulse Ox 98 98 O2 Flow Rate 2.00 2.00 12/31/16 12/31/16 12/31/16 12/31/16 07:58 08:00 08:11 08:15 Pulse 67 63 62 57 Resp 21 B/P (MAP) 97/62 Pulse Ox 95 O2 Flow Rate 2.00 Capillary Refill : Less Than 3 Seconds Constitutional: No appears stated age, No AAO x 3, No apparent distress, No PERRL, No well-developed, No well-nourished, No other HEENT: No PERRL, No normal ENT inspection, No TMs normal, No pharynx normal, No scleral icterus (R), No scleral icterus (L), No pale conjunctivae (R), No pale conjunctivae (L), No photophobia, No TM abnormal (R), No TM abnormal (L), No pharyngeal erythema, No tonsillar exudate, No other, No discharge, No EOMI, No hearing is well preserved, No hard of hearing, No oral hygience is good, No ulceration, No xanthelasmas are seen Neck: No non-tender, No full range of motion, No supple, No normal inspection, No carotid bruit, No limited range of motion, No lymphadenopathy (R), No lymphadenopathy (L), No tender lateral, No tender midline, No thyromegaly, No other, No carotid pulses are 2 + bilaterally, No with good upstrokes Respiratory: No accessory muscle use, No respiratory distress, No chest tender , No chest expansion is symmetric, No chest is bilaterally symmetric, No lungs clear to percussion, No lungs clear to auscultation, No crackles, No rhonchi, No rales, No stridor, No wheezing, No pleural rub, No other Cardiovascular: regular rate-rhythm, No irregularly irregular, No extra beats, No parasternal heave is noted, No JVD, No edema, No bradycardia, No tachycardia , No point of maximal impulse, No cardiac thrills are palpable, S1 and S2, No gallop/S3, No gallop/S4, No diastolic murmur, No systolic murmur, No friction rub, No click, No other Gastrointestinal: No tender, No soft, No round, No distended, No pulsatile mass , No organomegaly, No guarding, No rebound, No tenderness, No hernia, No mass, No audible bowel sounds, No abnormal bowel sounds, No abdominal bruits, No spleenomegaly, No other Rectal: deferred Extremities: No normal range of motion, No non-tender, No normal inspection, No pedal edema, No calf tenderness, No normal capillary refill, No pelvis stable , No calf tenderness, No inflammation, No pedal edema, No slow capillary refill , No swelling, No other, No abrasion, No clubbing, No cyanosis, No ecchymosis, No laceration, No no lower extremity edema bilateral, No significant edema, No tenderness, No wound Neurologic/Psychiatric: No medical 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 II-XII nml as tested, No no motor/sensory deficits, No alert, No normal mood/affect, No oriented x 3, No abnormal cerebellar tests, No abnormal medical engineer II-XII, No abnormal gait, No aphasia, No EOM palsy, No facial droop, No motor weakness, No sensory deficit, No depressed affect, No disoriented x 3, No other, No grossly intact, No power is 5/5 both on sides Skin: No normal color, No warm/dry, No cyanosis, No cool, No diaphoresis, No damp, No ecchymosis, No jaundice, No mottled, No pallor, No rash, No tattoos/ piercings, No ulcerations, No rash on exposed areas, No ulcerations on exposed areas, No other Data Review Labs Laboratory Tests 12/31/16 03:02: White Blood Count 7.5, Red Blood Count 4.67, Hemoglobin 11.6, Hematocrit 37, Mean Corpuscular Volume 79L, Mean Corpuscular Hemoglobin 25, Mean Corpuscular Hemoglobin Concent 31L, Red Cell Distribution Width 16.6H, Platelet Count 336, Mean Platelet Volume 10.1, Neutrophils (%) (Auto) 36L, Lymphocytes (%) (Auto) 52H, Monocytes (%) (Auto) 8, Eosinophils (%) (Auto) 4, Basophils (%) (Auto) 1, Neutrophils # (Auto) 2.7, Lymphocytes # (Auto) 3.9, Monocytes # (Auto) 0.6, Eosinophils # (Auto) 0.3, Basophils # (Auto) 0.0, Prothrombin Time 12.5, INR Comment 1.0, Activated Partial Thromboplast Time 31, Sodium Level 140, Potassium Level 3.7, Chloride Level 106, Carbon Dioxide Level 22, Anion Gap 12, Blood Urea Nitrogen 11, Creatinine 0.75, Estimat Glomerular Filtration Rate > 60 , BUN/Creatinine Ratio 15, Glucose Level 99, Calcium Level 9.1, Magnesium Level 2.2, Total Bilirubin 0.1, Aspartate Amino Transf (AST/SGOT) 16, Alanine Aminotransferase (ALT/SGPT) 10, Alkaline Phosphatase 81, Total Creatine Kinase 69, Creatine Kinase MB 0.7, Troponin I < 0.30, B-Type Natriuretic Peptide < 10.0 , Total Protein 7.2, Albumin 3.9, Amylase Level 105, Lipase 11, TSH [place] Testing 3.06, Serum Test, Qualitative NEGATIVE 12/31/16 03:35: Urine Color YELLOW, Urine Clarity SLIGHTLY CLOUDY, Urine pH 6.5, Urine Specific [place] 1.010L, Urine Protein 2+H, Urine Glucose (UA) NEGATIVE, Urine Ketones NEGATIVE, Urine Nitrite NEGATIVE, Urine Bilirubin NEGATIVE, Urine Urobilinogen NORMAL, Urine Leukocyte Esterase NEGATIVE, Urine RBC (Auto) 5+H, Urine RBC 25- 50H, Urine WBC RARE, Urine Squamous Epithelial Cells 0-2, Urine Crystals NONE, Urine Bacteria TRACE, Urine Casts NONE, Urine Mucus NEGATIVE, Urine Culture Indicated NO, Urine Opiates Screen NEGATIVE, Urine Oxycodone Screen NEGATIVE, Urine Methadone Screen NEGATIVE, Urine Propoxyphene Screen NEGATIVE, Urine Barbiturates Screen NEGATIVE, Ur Tricyclic Antidepressants Screen NEGATIVE, Urine Phencyclidine Screen NEGATIVE, Urine Amphetamines Screen NEGATIVE, Urine Methamphetamines Screen NEGATIVE, Urine Benzodiazepines Screen NEGATIVE, Urine Cocaine Screen NEGATIVE, Urine Cannabinoids Screen NEGATIVE 12/31/16 08:48: Troponin I < 0.30 ECG Impression ECG Comment on admission EKG shows atrial fibrillation with rapid ventricular rate. A/P-Cardiology Assessment/Admission Diagnosis 1. Atrial fibrillation with rapid ventricular rate. 2. Chest pain Plan atrial fibrillation: Spontaneously converted to sinus rhythm at 830 in the morning. We will document with an EKG. Check TSH. Echocardiogram. IV Cardizem off transition to Cardizem CD 120 mg daily. Full aspirin. CHADSVASC score is 1 (for gender only); which is essentially 0 since gender alone without any of the other is factors do not increase risk of stroke. She will require a stress test as an outpatient. We will also give her a 30 day event monitor on discharge. patient snores and therefore may have sleep apnea. Outpatient sleep study is recommended. I also cautioned her with an energy drinks and other caffeinated drinks. Chest pain: Serial troponin. smoker: Smoking cessation strongly recommended. Thank you for your consultation. Please call me if you have any questions. Obinna Reeves MD, FACP, FACC, FSCAI, FHRS, CCDS Interventional Cardiology Cardiac Electrophysiology Vascular Medicine and Endovascular Interventions Clinical Quality Measures DVT/VTE Risk/Contraindication: Risk Factor Score Per Nursin RFS Level Per Nursing on Admit: 4+=Very High Keli REEVES MD December 31, 2016 9:54 am
[2016-12-31] MEDS ORDERED: DILTIAZEM 120 MG (CARDIZEM CD) CAP PO SCH (11:45)
[2016-12-31] MEDS ORDERED: DILT120C63 PO (11:48)
[2016-12-31] MEDS ORDERED: ASPI325T32 PO (11:48)
--- NOTE | 2016-12-31 11:52 | Discharge Instructions ---
Discharge Inst-[facility] Discharge Medications New, Converted or Re-Newed RX: Transmitted to Pharmacy New Medications: Aspirin (Aspirin EC) 325 Mg Tablet.dr 325 MG PO DAILY, #30 TAB 0 Refills Diltiazem HCl (Diltiazem 24Hr Cd) 120 Mg Cap.er.24h 120 MG PO DAILY, #30 CAP 0 Refills Continued Medications: Ibuprofen (Advil) 200 Mg Tablet 600-800 MG PO TID PRN for PAIN-MILD, TAB TAKES 3-4 (200MG) TABLETS Patient Instructions Goal/Follow Up Appt: Follow up with Fernanda Arias APRN at [facility] on January 24 at 3:20 pm. Follow up with Dr. Reeves in one week Patient Instructions: Start taking cardizem to keep your heart rate normal and aspirin to decrease your risk of stroke. Return to The Hospital For: Racing heart, shortness of breath, chest pain, dizziness Activity & Diet Discharge Diet: Regular Diet Activity as Tolerated: Yes Copy Copies To 1: RAMYA Fiore BETHANY N MD December 31, 2016 11:51 am
[2016-12-31] MEDS ORDERED: ENOXAPARIN 60 MG/0.6 ML (LOVENOX) SYR SC SCH (15:15)
--- NOTE | 2016-12-31 20:13 | Short Stay Summary ---
HPI History of Present Illness: 41 yo previously healthy female presented to ER with chest pain and racing heart with shortness of breath and dizziness that started this morning without warning. She denies any prior similar episodes. She denies taking any medications, over the counter or prescribed and denies any drug use. She does admit snoring, but her has not noted any apneas to her. She does have family history of heart disease, but she is unclear exactly what heart problems have occurred. She also complains of pelvic cramping with irregular periods- has had two this month and they have been occurring more frequently for several months. Date seen by provider: December 31, 2016 Time seen by provider: 09:15 Attending Physician Sade Linares [place] [facility] [place] Date of Admission December 31, 2016 at 4:00 am Home Medications Home Medications Reviewed patient Home Medication Reconciliation Form Allergies Coded Allergies: No Known Drug Allergies (Unverified , 12/06/08) UUS-Pymirv-Dhrgsv Hx Patient Social History Alcohol Use: Denies Use Recreational Drug Use: No Smoking Status: Current Everyday Smoker Type Used: Cigarettes 2nd Hand Smoke Exposure: Yes Recent Foreign Travel: No Contact w/other who traveled: No Recent Hopitalizations: No Recent Infectious Disease Expo: No Physical Abuse Screen: No Sexual Abuse: No Immunizations Up To Date Tetanus Booster (TDap): Unknown Date of Influenza Vaccine: Apr 06, 2016 Past Medical History PMHx: Denies PSurgHx: Appendectomy BTL Family Medical History Significant Family History: Heart Disease, Cancer, COPD, CVA Review of Systems ([facility]) Constitutional: No fever EENTM: No nose congestion, No throat pain Respiratory: No cough Cardiovascular: see HPI Gastrointestinal: No abdominal pain, No constipation, No diarrhea, No nausea, No vomiting Genitourinary: No dysuria Musculoskeletal: No joint pain, No muscle pain Skin: No rash Psychiatric/Neurological: No Symptoms Reported Reviewed Test Results Reviewed Test Results Lab Laboratory Tests Test 12/31/16 03:02 12/31/16 03:35 12/31/16 08:48 Range/Units White Blood Count 7.5 4.3-11.0 10^3/uL Red Blood Count 4.67 4.35-5.85 10^6/uL Hemoglobin 11.6 11.5-16.0 G/DL Hematocrit 37 35-52 % Mean Corpuscular Volume 79 L 80-99 FL Mean Corpuscular Hemoglobin 25 25-34 PG Mean Corpuscular Hemoglobin Concent 31 L 32-36 G/DL Red Cell Distribution Width 16.6 H 10.0-14.5 % Platelet Count 336 130-400 10^3/uL Mean Platelet Volume 10.1 7.4-10.4 FL Neutrophils (%) (Auto) 36 L 42-75 % Lymphocytes (%) (Auto) 52 H 12-44 % Monocytes (%) (Auto) 8 0-12 % Eosinophils (%) (Auto) 4 0-10 % Basophils (%) (Auto) 1 0-10 % Neutrophils # (Auto) 2.7 1.8-7.8 X 10^3 Lymphocytes # (Auto) 3.9 1.0-4.0 X 10^3 Monocytes # (Auto) 0.6 0.0-1.0 X 10^3 Eosinophils # (Auto) 0.3 0.0-0.3 10^3/uL Basophils # (Auto) 0.0 0.0-0.1 10^3/uL Prothrombin Time 12.5 12.2-14.7 SEC INR Comment 1.0 0.8-1.4 Activated Partial Thromboplast Time 31 24-35 SEC Sodium Level 140 135-145 MMOL/L Potassium Level 3.7 3.6-5.0 MMOL/L Chloride Level 106 98-107 MMOL/L Carbon Dioxide Level 22 21-32 MMOL/L Anion Gap 12 5-14 MMOL/L Blood Urea Nitrogen 11 7-18 MG/DL Creatinine 0.75 0.60-1.30 MG/DL Estimat Glomerular Filtration Rate > 60 BUN/Creatinine Ratio 15 Glucose Level 99 70-105 MG/DL Calcium Level 9.1 8.5-10.1 MG/DL Magnesium Level 2.2 1.8-2.4 MG/DL Total Bilirubin 0.1 0.1-1.0 MG/DL Aspartate Amino Transf (AST/SGOT) 16 5-34 U/L Alanine Aminotransferase (ALT/SGPT) 10 0-55 U/L Alkaline Phosphatase 81 40-136 U/L Total Creatine Kinase 69 29-168 U/L Creatine Kinase MB 0.7 <6.6 NG/ML Troponin I < 0.30 < 0.30 <0.30 NG/ML B-Type Natriuretic Peptide < 10.0 <100.0 PG/ML Total Protein 7.2 6.4-8.2 G/DL Albumin 3.9 3.2-4.5 G/DL Amylase Level 105 25-125 U/L Lipase 11 8-78 U/L TSH [place] Testing 3.06 0.35-4.94 UIU/ML Serum Test, Qualitative NEGATIVE NEGATIVE Urine Color YELLOW Urine Clarity SLIGHTLY CLOUDY Urine pH 6.5 5-9 Urine Specific [place] 1.010 L 1.016-1.022 Urine Protein 2+ H NEGATIVE Urine Glucose (UA) NEGATIVE NEGATIVE Urine Ketones NEGATIVE NEGATIVE Urine Nitrite NEGATIVE NEGATIVE Urine Bilirubin NEGATIVE NEGATIVE Urine Urobilinogen NORMAL NORMAL MG/DL Urine Leukocyte Esterase NEGATIVE NEGATIVE Urine RBC (Auto) 5+ H NEGATIVE Urine RBC 25-50 H /HPF Urine WBC RARE /HPF Urine Squamous Epithelial Cells 0-2 /HPF Urine Crystals NONE /LPF Urine Bacteria TRACE /HPF Urine Casts NONE /LPF Urine Mucus NEGATIVE /LPF Urine Culture Indicated NO Urine Opiates Screen NEGATIVE NEGATIVE Urine Oxycodone Screen NEGATIVE NEGATIVE Urine Methadone Screen NEGATIVE NEGATIVE Urine Propoxyphene Screen NEGATIVE NEGATIVE Urine Barbiturates Screen NEGATIVE NEGATIVE Ur Tricyclic Antidepressants Screen NEGATIVE NEGATIVE Urine Phencyclidine Screen NEGATIVE NEGATIVE Urine Amphetamines Screen NEGATIVE NEGATIVE Urine Methamphetamines Screen NEGATIVE NEGATIVE Urine Benzodiazepines Screen NEGATIVE NEGATIVE Urine Cocaine Screen NEGATIVE NEGATIVE Urine Cannabinoids Screen NEGATIVE NEGATIVE Thyroid Stimulating Hormone (TSH) 1.96 0.35-4.94 UIU/ML Radiology 12/31 CXR: "Unremarkable" Physical Exam-([facility]) Physical Exam Vital Signs VS - Last 72 Hours, by Label 12/31/16 12/31/16 12/31/16 12/31/16 02:57 03:05 03:24 04:54 Temp 98.8 98.8 98.8 Pulse 175 175 110 Resp 23 23 19 B/P (MAP) 127/110 127/110 Pulse Ox 99 99 99 O2 Delivery Nasal Cannula Nasal Cannula O2 Flow Rate 2.00 2.00 2.00 2.00 12/31/16 12/31/16 12/31/16 12/31/16 05:05 05:05 05:05 05:15 Temp 97.4 97.4 Pulse 118 131 Resp 20 13 B/P (MAP) 103/77 103/77 Pulse Ox 98 99 O2 Flow Rate 2.00 2.00 2.00 5/26/17 5/26/17 5/26/17 5/26/17 05:30 05:45 06:00 06:01 Pulse 121 120 105 Resp 13 12 19 20 B/P (MAP) 98/60 95/58 97/80 97/80 Pulse Ox 97 99 98 99 O2 Flow Rate 2.00 2.00 2.00 2.00 12/31/16 12/31/16 12/31/16 12/31/16 06:15 06:30 06:33 06:45 Pulse 107 137 116 Resp 20 16 29 B/P (MAP) 111/84 100/81 Pulse Ox 99 100 98 O2 Flow Rate 2.00 2.00 2.00 2.00 12/31/16 12/31/16 12/31/16 12/31/16 07:00 07:00 07:00 07:45 Pulse 92 97 97 56 Resp 17 17 B/P (MAP) 101/62 101/62 Pulse Ox 98 98 O2 Flow Rate 2.00 2.00 12/31/16 12/31/16 12/31/16 12/31/16 07:58 08:00 08:00 08:11 Pulse 67 63 62 Resp 21 B/P (MAP) 97/62 Pulse Ox 95 98 O2 Flow Rate 2.00 12/31/16 12/31/16 12/31/16 12/31/16 08:15 09:00 09:29 10:00 Temp 97.8 Pulse 57 61 64 Resp 15 19 B/P (MAP) 121/95 122/82 Pulse Ox 98 98 O2 Flow Rate 2.00 2.00 12/31/16 12/31/16 12/31/16 12/31/16 11:00 12:00 12:00 13:00 Pulse 62 59 59 Resp 17 15 B/P (MAP) 95/62 116/87 Pulse Ox 96 98 98 O2 Flow Rate 2.00 2.00 12/31/16 12/31/16 12/31/16 12/31/16 13:00 14:00 15:00 16:00 Pulse 58 64 61 Resp 19 18 10 B/P (MAP) 81/72 113/71 95/79 Pulse Ox 98 96 98 98 O2 Flow Rate 2.00 2.00 2.00 12/31/16 12/31/16 12/31/16 12/31/16 16:00 16:00 16:29 17:00 Temp 97.5 Pulse 58 68 Resp 13 8 B/P (MAP) 93/64 101/69 Pulse Ox 99 98 O2 Flow Rate 0.00 12/31/16 18:00 Pulse 72 Resp 12 B/P (MAP) 117/85 Pulse Ox 98 Capillary Refill : Less Than 3 Seconds General Appearance: WD/WN, no apparent distress Respiratory: lungs clear, normal breath sounds Cardiovascular: regular rate, rhythm, no murmur Gastrointestinal: normal bowel sounds, non tender, soft Extremities: no pedal edema Neurologic/Psychiatric: alert, normal mood/affect Skin: normal color, warm/dry Short Stay Diagnosis Discharge Diagnosis-Short Stay Admission Diagnosis 1. Atrial fibrillation with RVR 2. Irregular/frequent menstruation Final Discharge Diagnosis 1. Atrial fibrillation with RVR- converted after admission with cardizem drip -Unclear etiology, TSH nml, CMP/CBC unremarkable, UDS negative, echocardiogram normal -Cardiology consulted, appreciate recommendations- changed to PO cardizem and started full strength aspirin, will need event monitor (set up to start on Tuesday after d/c) and likely sleep study 2. Irregular/frequent menstruation- discussed risks of endometrial cancer with age and BMI, consider outpatient EMB Conclusion Plan See final discharge diagnosis Clinical Quality Measures DVT/VTE Risk/Contraindication: Risk Factor Score Per Nursin RFS Level Per Nursing on Admit: 4+=Very High Copy Copies To 1: RAMYA Fiore BETHANY N MD December 31, 2016 8:13 pm
--- NOTE | 2017-01-01 04:17 | ECHOCARDIOGRAPHY REPORT ---
DATE OF SERVICE: 12/31/2016 ECHOCARDIOGRAM PROCEDURE: ECHOCARDIOGRAM REFERRING PHYSICIAN: Sade Linares MD. INDICATION: Atrial fibrillation. FINDINGS: 1. Sinus rhythm. 2. Left atrial diameter is normal. 3. Aortic root dimension is normal. 4. Left ventricular systolic function is preserved. Left ventricular EF is 60%. 5. There is no left ventricular hypertrophy. 6. There are no wall motion abnormalities. 7. Right heart size and function are normal. 8. There is no pericardial effusion. 9. Diastolic function is normal. 10. IVC is normal. IVC diameter is 1.1 cm. VALVULAR STRUCTURES OF THE HEART: There is trace tricuspid regurgitation with RVSP of 19 mmHg. There is mild mitral regurgitation. There is no significant aortic valve or pulmonic valve pathology. CONCLUSIONS: 1. Normal left ventricle and right ventricle size and function. 2. Left ventricular ejection fraction is 60%. 3. Left atrial size is normal. 4. Diastolic function is normal. 5. There is no significant valvular heart disease. Job ID: [id number] DocumentID: [id number] Dictated Date: 12/31/2016 19:21:21 Gas Utility Worker Date: 12/31/2016 20:13:32 Dictated By: OSMIN FONTENOT MD
[2017-01-01] MEDS ORDERED: KCL 20 MEQ TAB (K-DUR) PO SCH (06:00)
[2017-01-01] MEDS ORDERED: POTASSIUM CL 10MEQ/50ML IVPB 50 ML IV SCH (06:00)
[2017-01-01] MEDS ORDERED: MAGNESIUM 1 GM/100 ML IVPB 100 ML IV SCH (06:00)
== END 2016-12-31 20:05 | disposition home or self-care (01) | DRG 310 ==
LOC: EDUNIT# 02:58 → ER 02:59 → ICU 04:00
PROVIDERS: ADMIT Family Medicine; ATTEND Family Medicine
DX: I48.91 Unspecified atrial fibrillation (principal); R07.9 Chest pain, unspecified; F17.210 Nicotine dependence, cigarettes, uncomplicated; N92.0 Excessive and frequent menstruation with regular cycle; R06.83 Snoring
CPT/HCPCS: 36415; 71010; 80053; 80306; 81000; 82150; 82550; 82553; 83690; 83735; 83880; 84443; 84484; 84703; 85025; 85610; 85730; 87081; 93005; 93041; 93306; 96365; 96372; 96375; 96376

== ENCOUNTER → 2017-01-13 | Outpatient (CLI) | payer MEDICAID ==
[~2017-01-13] MED LIST changes: +ASPI-808 PO; +ASPI325T32 PO; +ATOR40TA70 PO; +CATHETER FLUSH 10 ML SYR IV PRN; +DILT120C63 PO; +IBUP-30 PO; +REGADENOSON 0.4 MG/5 ML SYR (LEXISCAN) IV ONE
[2017-01-13 09:50] VITALS: BP 117/70
--- NOTE | 2017-01-14 23:31 | STRESS TEST ---
DATE OF SERVICE: 01/13/2017 PHARMACOLOGICAL NUCLEAR STRESS TEST REPORT PRIMARY PHYSICIAN: [facility]. ORDERING PHYSICIAN: Dr. Obinna Reeves. DIAGNOSIS: New onset atrial fibrillation. PROCEDURE DETAILS: The patient was brought to the stress lab after informed consent was taken. A stress test was performed according to the pharmacological nuclear protocol. Lexiscan 0.4 mg IV was given. Low-grade exercise was performed. Baseline EKG showed sinus rhythm at 60 BPM. Resting heart rate 63 BPM, blood pressure 113/74 mmHg, maximum heart rate of 96 BPM and blood pressure 126/68 mmHg. No chest pain, arrhythmias or ST-T wave abnormalities were noted. Myoview, 10.61 mCi, were given for rest imaging and 30.8 mCi of Myoview were given for stress imaging. TID 1.17. EF 53%. Moderate severity, intermediate/small sized apical, distal anterior reversible defect. Wall motion was normal. SSS 5, SRS zero, SDS 5. CONCLUSIONS: 1. Pharmacological stress test was negative for ischemia. 2. Evidence of apical, distal anterior reversible ischemia is noted. 3. Abnormal transient ischemic dilation. 4. Clinical correlation is recommended. Job ID: [id number] DocumentID: [id number] Dictated Date: 01/14/2017 16:29:06 Nursing Information Systems Coordinator Date: 01/14/2017 20:48:30 Dictated By: OSMIN REEVES MD
== END ==
LOC: CARD 08:04
PROVIDERS: ATTEND Internal Medicine Interventional Cardiology
DX: I48.91 Unspecified atrial fibrillation (principal)
CPT/HCPCS: 78452; 93017

== ENCOUNTER 2017-02-06 12:00 | Outpatient (RCR) | payer MEDICAID ==
[~2017-02-06 12:00] MED LIST changes: -CATHETER FLUSH 10 ML SYR IV PRN; -REGADENOSON 0.4 MG/5 ML SYR (LEXISCAN) IV ONE
== END 2017-04-13 | disposition home or self-care (01) ==
LOC: CARD 12:00
PROVIDERS: ATTEND Internal Medicine Interventional Cardiology
DX: I48.91 Unspecified atrial fibrillation (principal); R07.9 Chest pain, unspecified
CPT/HCPCS: 93270

== ENCOUNTER 2018-01-13 13:15 | Emergency (ER) | payer MEDICAID ==
[~2018-01-13] VITALS: Ht 151.1 cm; Wt 127.0 kg
--- OUTSIDE RECORDS SUMMARY | 2018-01-13 13:22 | XMS REPORT ---
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 24832680 Problem Otitis externa, unspecified chronicity, unspecified laterality, unspecified type H60.90 Active 5704147 Problem Chronic atrial fibrillation I48.2 Active 752730918 Problem Chronic systolic congestive heart failure I50.22 Active 707436942 Problem Morbid obesity due to excess calories E66.01 Active 891251559 Problem Major depressive disorder with single episode, remission status unspecified F32.9 Active 97758728 Problem 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 Active 6575575051880 Problem Mixed hyperlipidemia E78.2 Active 158734700 ALLERGIES No Information ENCOUNTERS Encounter Location Date Diagnosis [place] [address] [place] [phone] Apr, [place] [address] [place] [phone] Apr, [place] [address] [place] [id number] [place] [phone] Mar, Mixed hyperlipidemia E78.2 [place] [address] [place] [id number] [place] [address] Feb, 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 ; Chronic systolic congestive heart failure I50.22 ; Chronic atrial fibrillation I48.2 and Mixed hyperlipidemia E78.2 [place] [address] [place] [address] Jan, [facility] [address] [id number] [place] [phone] December, [facility] [address] [phone] Jul, Dental examination Z01.20 [facility] [address] [place] [id number] [place] [phone] Jul, Dental caries K02.9 [facility] [address] [place] [phone] Jun, Dental examination Z01.20 [facility] [address] [place] [id number] [place] [address] Feb, Major depressive disorder with single episode, remission status unspecified F32.9 ; Morbid obesity due to excess calories E66.01 ; 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 and Mixed hyperlipidemia E78.2 [facility] [address] [place] [address] [id number] [place] [address] 89[address] Feb, [facility] [address] [place] [id number] [place] [address] Jan, Mixed hyperlipidemia E78.2 and 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 [facility] [address] [place] [id number] [place] [phone]- [phone] Jan, [facility] [address] [place] [id number] [place] [address] Jan, 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 ; Otitis externa, unspecified chronicity, unspecified laterality, unspecified type H60.90 ; Morbid obesity due to excess calories E66.01 ; Major depressive disorder with single episode, remission status unspecified F32.9 and High risk medication use Z79.899 [facility] [address] [address] Jan, Acute suppurative otitis media of left ear without spontaneous rupture of tympanic membrane, recurrence not specified H66.002 [facility] [address] [place] [id number] [phone] Oct, Dental caries K02.9 [facility] [address] [phone] Oct, Encounter for dental examination Z01.20 [facility] [address] [address] Oct, Toothache K08.8 [facility] [address] [phone] December, [facility] [address] [phone] December, [facility] [address] [id number] Oct, [facility] [address] [address] Oct, IMMUNIZATIONS No Known Immunizations SOCIAL HISTORY Never Assessed REASON FOR VISIT Refill request PLAN OF CARE VITAL SIGNS MEDICATIONS Unknown Medications RESULTS No Results PROCEDURES No Known procedures INSTRUCTIONS MEDICATIONS ADMINISTERED No Known Medications MEDICAL (GENERAL) HISTORY Type Description Date Medical History Darier Skin Condition Surgical History tonsillectomy and adenoidectomy Surgical History appendectomy Surgical History section x4 Surgical History Heart Cath 01/13/2017 Hospitalization History surgeries Hospitalization History New onset Afib with RVR-[facility] 12/31/26 Hospitalization History [facility] Heart Cath 01/13/2017
--- OUTSIDE RECORDS SUMMARY | 2018-01-13 13:23 | XMS REPORT ---
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 74582507 Problem Otitis externa, unspecified chronicity, unspecified laterality, unspecified type H60.90 Active 0101316 Problem Chronic atrial fibrillation I48.2 Active 525002424 Problem Chronic systolic congestive heart failure I50.22 Active 335672357 Problem Morbid obesity due to excess calories E66.01 Active 153594758 Problem Major depressive disorder with single episode, remission status unspecified F32.9 Active 69274102 Problem Coronary artery disease involving king salmon coronary artery of king [place] heart with angina pectoris I25.119 Active 5945750081283 Problem Mixed hyperlipidemia E78.2 Active 845302772 ALLERGIES Substance Reaction Event Type Date Status N.K.D.A. Unknown Non Drug Allergy Jul, Unknown SOCIAL HISTORY No smoking Hx information available PLAN OF CARE Activity Details Follow Up prn Reason:hygiene VITAL SIGNS MEDICATIONS Medication Instructions Dosage Frequency Start Date End Date Duration Status Tramadol HCl 50 MG Orally every 6 hrs 1 tablet as needed 6h 4 days Active Fenofibric Acid 135 MG Orally Once a day 1 capsule 24h 30 Jan, 2016 Active Clonidine HCl 0.1 MG Orally Once a day one hour befoer bed 1 tablet 30 Active Paxil 20 mg Orally Once a day 1 tablet in the morning 24h 30 Active Ortho-Cyclen (28) 0.25-35 MG-MCG Orally Once a day 1 tablet 24h Feb, 28 day(s) Active Triamcinolone Acetonide 0.1 % Externally Twice a day 1 application to affected area 12h Feb, Active RESULTS No Results PROCEDURES Procedure Date Ordered Related Diagnosis Body Site TX COMPS - UNUSUL CIRCUMSTANCES RPT Jul 23, 2016 IMMUNIZATIONS No Known Immunizations
--- OUTSIDE RECORDS SUMMARY | 2018-01-13 13:23 | XMS REPORT ---
Author Author GENE DAVALOS [facility] Address Unknown Care Team Providers Care Plastic Jig And Fixture Builder Name Role Phone GENE DAVALOS Unavailable PROBLEMS Type Condition ICD9-CM Code KYT52-CX Code Onset Dates Condition Status SNOMED Code Problem examination or test, positive result V72.42 Active 677432581 Problem Morbid obesity due to excess calories E66.01 Active 393441718 Problem Major depressive disorder with single episode, remission status unspecified F32.9 Active 68303041 Problem Coronary artery disease involving grindstone coronary artery of grindstone heart with angina pectoris I25.119 Active 4933138851900 Problem Chronic systolic congestive heart failure I50.22 Active 324423696 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 Unknown Non Drug Allergy Jun, Unknown SOCIAL HISTORY No smoking Hx information available PLAN OF CARE Activity Details Follow Up prn Reason:2 extractions VITAL SIGNS MEDICATIONS Medication Instructions Dosage Frequency Start Date End Date Duration Status Motrin IB 800 Orally every 6 hrs 1 tablet as needed 6h Jun,Jun 4 days Active Paxil 20 mg Orally Once a day 1 tablet in the morning 24h 30 Active Triamcinolone Acetonide 0.1 % Externally Twice a day 1 application to affected area 12h Feb, Active Fenofibric Acid 135 MG Orally Once a day 1 capsule 24h 30 Jan, 2016 Active Ortho-Cyclen (28) 0.25-35 MG-MCG Orally Once a day 1 tablet 24h 01 Feb, 2016 28 day(s) Active Clonidine HCl 0.1 MG Orally Once a day one hour befoer bed 1 tablet 30 Active RESULTS No Results PROCEDURES Procedure Date Ordered Related Diagnosis Body Site LTD ORAL EVALUATION - PROBLEM FOCUS Jun 22, 2016 INTRAORL-PERIAPICAL 1 FILM [id number] Jun 22, 2016 INTRAORL-PERIAPICAL EA ADD FILM Jun 22, 2016 IMMUNIZATIONS No Known Immunizations
--- OUTSIDE RECORDS SUMMARY | 2018-01-13 13:23 | XMS REPORT ---
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 89571840 Problem Otitis externa, unspecified chronicity, unspecified laterality, unspecified type H60.90 Active 9934442 Problem Chronic atrial fibrillation I48.2 Active 480851297 Problem Chronic systolic congestive heart failure I50.22 Active 750970717 Problem Morbid obesity due to excess calories E66.01 Active 026267237 Problem Major depressive disorder with single episode, remission status unspecified F32.9 Active 96224090 Problem Coronary artery disease involving [place] coronary artery of [place] heart with angina pectoris I25.119 Active 3357760989913 Problem Mixed hyperlipidemia E78.2 Active 127413410 ALLERGIES No Information ENCOUNTERS Encounter Location Date Diagnosis [place] [id number] [place] [address] Apr, [place] [address] [place] [address] 06509- 2072 Apr, [place] [address] [place] [id number] [place] [address] 36047- 7321 Mar, Mixed hyperlipidemia E78.2 [place] [address] [place] [id number] [place] [address]24- 9720 Feb, Coronary artery disease involving [place] coronary artery of [place] heart with angina pectoris I25.119 ; Chronic systolic congestive heart failure I50.22 ; Chronic atrial fibrillation I48.2 and Mixed hyperlipidemia E78.2 [place] [address] [place] [address] Jan, [facility] [id number] [place] [address] 87069- [address]47 December, [facility] [address] [id number] Jul, Dental examination Z01.20 [facility] [address] [place] [id number] [place] [id number] Jul, Dental caries K02.9 [facility] [address] [place] [id number] Jun, Dental examination Z01.20 [facility] [address] [place] [address] [id number] [place] [address] 69051- 5421 Feb, Major depressive disorder with single episode, remission status unspecified F32.9 ; Morbid obesity due to excess calories E66.01 ; 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 and Mixed hyperlipidemia E78.2 [facility] [address] [id number] [place] [address] 84963- 1440 Feb, [facility] [address] [place] [address] [id number] [place] [address] 53582- [phone] Jan, Mixed hyperlipidemia E78.2 and 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 [facility] [address] [place] [address] [id number] [place] [address] 69548- 3110 Jan, [facility] [address] [place] [address] [id number] [place] [address] 66672- 5916 Jan, 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 ; Otitis externa, unspecified chronicity, unspecified laterality, unspecified type H60.90 ; Morbid obesity due to excess calories E66.01 ; Major depressive disorder with single episode, remission status unspecified F32.9 and High risk medication use Z79.899 [facility] [address], [place] [address] Jan, Acute suppurative otitis media of left ear without spontaneous rupture of tympanic membrane, recurrence not specified H66.002 [facility] [address] [facility] [id number] [phone] Oct, Dental caries K02.9 [facility] [address] [phone] Oct, Encounter for dental examination Z01.20 [facility] [address], [place] [address] Oct, Toothache K08.8 [facility] [address] [phone] December, [facility] [address] [phone] December, [facility] [address] [phone] Oct, [facility] [address], [place] [address] Oct, IMMUNIZATIONS No Known Immunizations SOCIAL HISTORY Never Assessed REASON FOR VISIT Refill request PLAN OF CARE VITAL SIGNS MEDICATIONS Medication Instructions Dosage Frequency Start Date End Date Duration Status Diltiazem HCl ER 120 MG Orally Once a day 1 capsule 24h Active RESULTS No Results PROCEDURES No Known procedures [...]
--- OUTSIDE RECORDS SUMMARY | 2018-01-13 13:23 | XMS REPORT ---
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 80030821 Problem Otitis externa, unspecified chronicity, unspecified laterality, unspecified type H60.90 Active 0198013 Problem Chronic atrial fibrillation I48.2 Active 829638421 Problem Chronic systolic congestive heart failure I50.22 Active 125457026 Problem Morbid obesity due to excess calories E66.01 Active 172272149 Problem Major depressive disorder with single episode, remission status unspecified F32.9 Active 14444071 Problem 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 Active 1568481510978 Problem Mixed hyperlipidemia E78.2 Active 446996194 ALLERGIES No Information ENCOUNTERS Encounter Location Date Diagnosis [place] [address] [place] [address] 54051- 4784 Apr, [place] [address] [place] [address] 18330- 9200 Apr, [place] [address] [place] [id number] [place] [address] 71049- 5941 Mar, Mixed hyperlipidemia E78.2 [place] [address] [place] [id number] [place] [address] 04635- 5669 Feb, 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 ; Chronic systolic congestive heart failure I50.22 ; Chronic atrial fibrillation I48.2 and Mixed hyperlipidemia E78.2 [place] [address] [place] [address] Jan, [facility] [address] [place] [id number] [place] [address] 05225[address] 6950 December, [facility] [address] [phone] Jul, Dental examination Z01.20 [facility] [address] [place] [id number] [place] [phone] Jul, Dental caries K02.9 [facility] [address] [place] [phone] Jun, Dental examination Z01.20 [facility] [address] [place] [id number] [place] [address] 28712- 5276 Feb, Major depressive disorder with single episode, remission status unspecified F32.9 ; Morbid obesity due to excess calories E66.01 ; 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 and Mixed hyperlipidemia E78.2 [facility] [address] [place] [id number] [place] [address] 38163- 0357 Feb, [facility] [address] [place] [address] [id number] [place] [address] 93943- 6163 Jan, Mixed hyperlipidemia E78.2 and 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 [facility] [address] [place] [id number] [place] [address] 39581- 7622 Jan, [facility] [address] [place] [id number] [place] [address] 74062- 2472 Jan, 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 ; Otitis externa, unspecified chronicity, unspecified laterality, unspecified type H60.90 ; Morbid obesity due to excess calories E66.01 ; Major depressive disorder with single episode, remission status unspecified F32.9 and High risk medication use Z79.899 [facility] [address], [place] [address] Jan, Acute suppurative otitis media of left ear without spontaneous rupture of tympanic membrane, recurrence not specified H66.002 [facility] [address] [facility] [id number] [phone] Oct, Dental caries K02.9 [facility] [address] [phone] Oct, Encounter for dental examination Z01.20 [facility] [address], [place] [address] Oct, Toothache K08.8 [facility] [address] [address] December, [facility] [address] [address] December, [facility] [address] [address] Oct, [facility] [address], [place] [address] Oct, IMMUNIZATIONS No Known Immunizations SOCIAL HISTORY Never Assessed REASON FOR VISIT Med Refill--ADaviedRN PLAN OF CARE VITAL SIGNS MEDICATIONS Medication Instructions Dosage Frequency Start Date End Date Duration Status Diltiazem HCl ER 120 MG Orally Once a day 1 capsule 24h 30 Active RESULTS No Results PROCEDURES No Known [...]
--- OUTSIDE RECORDS SUMMARY | 2018-01-13 13:23 | XMS REPORT ---
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 05733883 Problem Otitis externa, unspecified chronicity, unspecified laterality, unspecified type H60.90 Active 9585633 Problem Chronic atrial fibrillation I48.2 Active 103864932 Problem Chronic systolic congestive heart failure I50.22 Active 789484754 Problem Morbid obesity due to excess calories E66.01 Active 384606203 Problem Major depressive disorder with single episode, remission status unspecified F32.9 Active 37434132 Problem 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 Unknown Non Drug Allergy Jul, Unknown SOCIAL HISTORY No smoking Hx information available PLAN OF CARE Activity Details Follow Up prn Reason:hygeine VITAL SIGNS Blood pressure systolic 125 mmHg 2016-07-21 Blood pressure diastolic 80 mmHg 2016-07-21 MEDICATIONS Unknown Medications RESULTS No Results PROCEDURES Procedure Date Ordered Related Diagnosis Body Site EXTRAC ERUPTED TOOTH/EXPOSED ROOT Jul 21, 2016 EXTRAC ERUPTED TOOTH/EXPOSED ROOT Jul 21, 2016 IMMUNIZATIONS No Known Immunizations
--- OUTSIDE RECORDS SUMMARY | 2018-01-13 13:24 | XMS REPORT ---
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 26695989 Problem Otitis externa, unspecified chronicity, unspecified laterality, unspecified type H60.90 Active 7376112 Problem Chronic atrial fibrillation I48.2 Active 302043230 Problem Chronic systolic congestive heart failure I50.22 Active 393859881 Problem Morbid obesity due to excess calories E66.01 Active 147653487 Problem Major depressive disorder with single episode, remission status unspecified F32.9 Active 96408793 Problem 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 Active 1997315608474 Problem Mixed hyperlipidemia E78.2 Active 084710142 ALLERGIES No Information SOCIAL HISTORY Never Assessed PLAN OF CARE VITAL SIGNS MEDICATIONS Medication Instructions Dosage Frequency Start Date End Date Duration Status Diltiazem HCl ER 120 MG Orally Once a day 1 capsule 24h Active Aspirin 325 MG Orally Once a day 1 tablet 24h Active Ibuprofen 200 mg Orally every 8 hrs 3-4 tab as neded 8h Active RESULTS No Results PROCEDURES No Known procedures IMMUNIZATIONS No Known Immunizations MEDICAL (GENERAL) HISTORY Type Description Date Medical History Darier Skin Condition Surgical History tonsillectomy and adenoidectomy Surgical History appendectomy Surgical History section x4 Surgical History Heart Cath 01/13/2017 Hospitalization History surgeries Hospitalization History New onset Afib with [facility] 12/31/26 Hospitalization History [facility] Heart Cath 01/13/2017
[2018-01-13] MEDS ORDERED: RT-ALBUTEROL/IPRATROPIUM 3 ML (DUONEB) VIAL INH ONE (13:30)
[2018-01-13 13:46] LABS: BASOPHILS % (AUTO) 1 % (0-10); EOSINOPHILS # (AUTO) 0.4 10^3/uL (0.0-0.3); EOSINOPHILS % (AUTO) 7 % (0-10); HEMATOCRIT 37 % (35-52); HEMOGLOBIN 12.5 G/DL (11.5-16.0); LYMPHOCYTES % (AUTO) 34 % (12-44); MEAN CORPUSCULAR HEMOGLOBIN 30 PG (25-34); MEAN CORPUSCULAR HGB CONC 34 G/DL (32-36); MEAN CORPUSCULAR VOLUME 88 FL (80-99); MEAN PLATELET VOLUME 10.6 FL (7.4-10.4); MONOCYTES # (AUTO) 0.5 X 10^3 (0.0-1.0); MONOCYTES % (AUTO) 8 % (0-12); NEUTROPHILS # (AUTO) 3.1 X 10^3 (1.8-7.8); NEUTROPHILS % (AUTO) 52 % (42-75); PLATELET COUNT 262 10^3/uL (130-400); RED CELL DISTRIBUTION WIDTH 13.1 % (10.0-14.5); WHITE BLOOD COUNT 6.1 10^3/uL (4.3-11.0)
--- NOTE | 2018-01-13 14:08 | ED Chest Pain ---
General Chief Complaint: Chest Pain Stated Complaint: SOB,CP,HX OF AFIB Nursing Triage Note: pt reports having soa x 3 days and sharp, stabbing cp starting approx 2-3 hours ago. pt has history of afib. states she took a daily 325 mg aspirin this am. Nursing Sepsis Screen: No Definite Risk Source: patient Exam Limitations: no limitations History of Present Illness Date Seen by Provider: Jan 13, 2018 Time Seen by Provider: 13:20 Initial Comments Here with report of shortness of breath 3 days and lower sharp chest pain without nausea or vomiting. Not sure what has caused her shortness of air but reports that she does have history of atrial fibrillation. Reports taking her regular meds as directed. Does smoke. She had quit previously that has restarted recently. Timing/Duration: 2-3 days Severity/Quality: mild, moderate, sharp Location: central Radiation: no radiation Activities at Onset: none Prior CP/Workup: cardiac cath (no significant disease 01/2017) ASA po CHILDREN'S MINISTRY DIRECTOR: Yes NTG SL CHILDREN'S MINISTRY DIRECTOR: No Associated Symptoms: No abdominal pain, No back pain, No fever/chills, No nausea/vomiting; shortness of breath; No weakness Allergies and Home Medications Allergies Coded Allergies: No Known Drug Allergies (Unverified , 12/06/08) Home Medications Aspirin 325 Mg Tablet, 325 MG PO DAILY, (Reported) Atorvastatin Calcium 40 Mg Tablet, 40 MG PO HS Prescribed by: CHIQUITA GARCÍA on 01/14/17 1702 Diltiazem HCl 120 Mg Cap.er.24h, 120 MG PO DAILY, (Reported) Ibuprofen 200 Mg Tablet, 600-800 MG PO TID PRN for PAIN-MILD, (Reported) TAKES 3-4 (200MG) TABLETS Patient Home Medication List Home Medication List Reviewed: Yes Review of Systems Constitutional: see HPI; No chills, No fever EENTM: No Symptoms Reported Respiratory: Cough, SOA at Rest, Wheezing Cardiovascular: Chest Pain; Denies Edema Gastrointestinal: Denies Abdominal Pain, Denies Nausea, Denies Vomiting Genitourinary: No Symptoms Reported Musculoskeletal: no symptoms reported All Other Systems Reviewed Negative Unless Noted: Yes Past Inhoqmr-Arvanz-Hvtogk Hx Past Med/Social Hx: Reviewed Nursing Past Med/Soc Hx Patient Social History Alcohol Use: Denies Use Recreational Drug Use: No Smoking Status: Current Everyday Smoker Type Used: Cigarettes 2nd Hand Smoke Exposure: Yes Recent Foreign Travel: No Contact w/Someone Who Travel: No Recent Infectious Disease Expo: No Recent Hopitalizations: No Physical Abuse: No Sexual Abuse: No Mistreated: No Fear: No Immunizations Up To Date Tetanus Booster (TDap): Unknown Date of Influenza Vaccine: Apr 06, 2016 Seasonal Allergies Seasonal Allergies: No Past Medical History Surgeries: Yes (WISDOM TEETH; X 4) Adenoidectomy, Appendectomy, Section, Tonsillectomy, Tubal Ligation Respiratory: Yes (tobaccoism) Currently Using CPAP: No Currently Using BIPAP: No Cardiac: Yes 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 Neurological: No : No Reproductive Disorders: No Female Reproductive Disorders: Menstrual Problems DESK REPRESENTATIVE History: Tubal Ligation Sexually Transmitted Disease: No HIV/AIDS: No Genitourinary: No Gastrointestinal: Yes Gastroesophageal Reflux Musculoskeletal: No Endocrine: Yes (OBESE) HEENT: No Cancer: No Psychosocial: Yes Anxiety, Depression Nursing Suicide Risk Score: 1 Integumentary: Yes (DARIER'S DISEASE) Psoriasis Blood Disorders: No Adverse Reaction/Blood Tranf: No Family Medical History Reviewed Nursing Family Hx Cancer 03 MOTHER (LUNG AND BONE) Family history: Glaucoma 03 FATHER Heart disease 03 MOTHER History of - respiratory disease 03 FATHER (COPD) Stroke 03 MOTHER Heart Disease, Cancer, COPD, Diabetes, Stroke Physical Exam Vital Signs Vital Signs - First Documented 01/13/18 13:21 Pulse 71 Resp 24 B/P (MAP) 132/88 (103) Pulse Ox 97 O2 Delivery Room Air Capillary Refill : Less Than 3 Seconds General Appearance: No Apparent Distress, WD/WN HEENT: PERRL/EOMI, Pharynx Normal Neck: Non Tender, Supple Respiratory: Lungs Clear, Other (on arrival, patient had transmitted upper respiratory sounds that cleared with distraction. Patient able to speak in full sentences without difficulty.) Cardiovascular: Regular Rate, Rhythm, No Murmur Gastrointestinal: Non Tender, Soft Extremity: Normal Range of Motion, Non Tender, No Calf Tenderness Neurologic/Psychiatric: Alert, Oriented x3 Skin: Normal Color, Warm/Dry Progress/Results/Core Measures Results/Orders Lab Results Laboratory Tests Test 01/13/18 13:36 Range/Units White Blood Count 6.1 4.3-11.0 10^3/uL Red Blood Count 4.20 L 4.35-5.85 10^6/uL Hemoglobin 12.5 11.5-16.0 G/DL Hematocrit 37 35-52 % Mean Corpuscular Volume 88 80-99 FL Mean Corpuscular Hemoglobin 30 25-34 PG Mean Corpuscular Hemoglobin Concent 34 32-36 G/DL Red Cell Distribution Width 13.1 10.0-14.5 % Platelet Count 262 130-400 10^3/uL Mean Platelet Volume 10.6 H 7.4-10.4 FL Neutrophils (%) (Auto) 52 42-75 % Lymphocytes (%) (Auto) 34 12-44 % Monocytes (%) (Auto) 8 0-12 % Eosinophils (%) (Auto) 7 0-10 % Basophils (%) (Auto) 1 0-10 % Neutrophils # (Auto) 3.1 1.8-7.8 X 10^3 Lymphocytes # (Auto) 2.0 1.0-4.0 X 10^3 Monocytes # (Auto) 0.5 0.0-1.0 X 10^3 Eosinophils # (Auto) 0.4 H 0.0-0.3 10^3/uL Basophils # (Auto) 0.0 0.0-0.1 10^3/uL Prothrombin Time 12.9 12.2-14.7 SEC INR Comment 1.0 0.8-1.4 Activated Partial Thromboplast Time 31 24-35 SEC Sodium Level 141 135-145 MMOL/L Potassium Level 3.6 3.6-5.0 MMOL/L Chloride Level 108 H 98-107 MMOL/L Carbon Dioxide Level 24 21-32 MMOL/L Anion Gap 9 5-14 MMOL/L Blood Urea Nitrogen 6 L 7-18 MG/DL Creatinine 0.65 0.60-1.30 MG/DL Estimat Glomerular Filtration Rate > 60 BUN/Creatinine Ratio 9 Glucose Level 77 70-105 MG/DL Calcium Level 8.6 8.5-10.1 MG/DL Magnesium Level 1.8 1.8-2.4 MG/DL Total Bilirubin 0.3 0.1-1.0 MG/DL Aspartate Amino Transf (AST/SGOT) 16 5-34 U/L Alanine Aminotransferase (ALT/SGPT) 15 0-55 U/L Alkaline Phosphatase 80 40-136 U/L Myoglobin 20.7 10.0-92.0 NG/ML Troponin I < 0.30 <0.30 NG/ML Total Protein 6.7 6.4-8.2 GM/DL Albumin 3.7 3.2-4.5 GM/DL Lipase 11 8-78 U/L Serum Test, Qualitative NEGATIVE NEGATIVE My Orders Orders - MAT PALMER MD Cbc With Automated Diff (01/13/18 13:) Magnesium (01/13/18:) Chest 1 View, Ap/Pa Only (01/13/18:) Ekg Tracing (01/13/18:) Cardiac Profile 1 (01/13/18:) Comprehensive Metabolic Panel (01/13/18) Myoglobin Serum (01/13/18:) Protime With Inr (01/13/18:) Partial Thromboplastin Time (01/13/18:) O2 (01/13/18:) Monitor-Rhythm Ecg Trace Only (01/13/18:) Lipid Panel (01/14/18 06:00) Saline Lock/Iv-Start (01/13/18:) Lipase (01/13/18:) Albuterol/Ipra Inhalation Soln (Duoneb I (01/13/18 13:30) Svn Small Volume Nebulizer (01/13/18 13:27) Hcg,Qualitative Serum (01/13/18 14:21) Albuterol Pre-Mix Nebs (Rt) (Proventil (01/13/18 15:31) Svn Small Volume Nebulizer (01/13/18 15:31) Prednisone Tablet (Deltasone Tablet) (01/13/18 15:45) Rx-Albuterol Inhaler (Rx-Proair) (01/13/18 15:45) Medications Given in ED Current Medications Medications Dose Ordered Sig/Jeri Route Start Time Stop Time Status Last Admin Dose Admin Albuterol/ Ipratropium 3 ml ONCE ONCE INH 01/13/18 13:30 01/13/18 13:31 DC 01/13/18 13:46 3 ML Vital Signs/I&O 01/13/18 01/13/18 13:21 13:30 Pulse 71 Resp 24 B/P (MAP) 132/88 (103) Pulse Ox 97 97 O2 Delivery Room Air Room Air Blood Pressure Mean: 103 Progress Progress Note : Progress Note Seen and evaluated. IV, labs, EKG and chest x-ray ordered. Nebulizer treatment ordered. This did improve her symptoms son. 1543: Patient is doing better. Repeat nebulizer treatment ordered. We will do MDI teaching. Prednisone 40 mg by mouth. Discharged home with return precautions. Patient verbalize understanding instructions and agreement with plan. Initial ECG Impression Date: Jan 13, 2018 Initial ECG Impression Time: 15:43 Initial ECG Rate: 72 Initial ECG Rhythm: Normal Sinus Initial ECG Comparisson: Unchanged Comment Sinus rhythm with normal axis. No evidence of ST elevation IN. Unchanged from previous of 14 January 2017. Interpreted by me. Diagnostic Imaging Diagonstic Imaging: Xray Plain Films/CT/US/NM/MRI: chest Comments NAME: TRINA ÁLVAREZ Magali MED REC#: [id number] PT STATUS: REG ER : 1975 PHYSICIAN: MAT PALMER MD ADMIT DATE: 01/13/18/ER Draft Date of Exam:01/13/18 CHEST 1 VIEW, AP/PA ONLY INDICATION: Atrial fibrillation. COMPARISON: 01/14/2017. EXAMINATION: Upright portable view of the chest was obtained. FINDINGS: Heart size is normal. The pulmonary vessels appear unremarkable. There is no pneumothorax, mediastinal widening or pleural fluid. The lungs are clear. IMPRESSION: Negative chest. Dictated on workstation # [id number] Dict: 01/13/18 1456 Trans: 01/13/18 1531 [facility] [id number] Interpreted by: SHELL CUMMINS DO Electronically signed by: Departure Impression Primary Impression: Bronchitis Additional Impression: Chest pain Qualified Codes: R07.9 - Chest pain, unspecified Disposition: 01 HOME, SELF-CARE Condition: Improved Departure-Patient Inst. Decision time for Depature: 15:46 Referrals: NO,LOCAL PHYSICIAN (PCP/Family) Primary Care Physician Patient Instructions: Acute Bronchitis, Adult (DC), Chest Pain (DC) Add. Discharge Instructions: All discharge instructions reviewed with patient and/or family. Voiced understanding. Take medications as directed. You may use inhaler 2 puffs every 4-6 hours as needed for wheezing. Follow up with your doctor early next week for recheck and further evaluation. Return for worse pain, fever, vomiting, weakness, breathing problems or other concerns as needed. Scripts Prednisone (Prednisone) 20 Mg Tab 40 MG PO DAILY, #6 TAB 0 Refills Prov: MAT PALMER MD 01/13/18 MAT PALMER MD Jan 13, 2018 14:08
[2018-01-13 14:14] LABS: ALANINE AMINOTRANSFERASE 15 U/L (0-55); ALBUMIN 3.7 GM/DL (3.2-4.5); ALKALINE PHOSPHATASE 80 U/L (40-136); BILIRUBIN,TOTAL 0.3 MG/DL (0.1-1.0); BUN/CREATININE RATIO 9; CALCIUM 8.6 MG/DL (8.5-10.1); CARBON DIOXIDE 24 MMOL/L (21-32); CHLORIDE 108 MMOL/L (98-107); CREATININE SERUM 0.65 MG/DL (0.60-1.30); GFR ESTIMATED > 60; GLUCOSE 77 MG/DL (70-105); LIPASE 11 U/L (8-78); MAGNESIUM 1.8 MG/DL (1.8-2.4); POTASSIUM 3.6 MMOL/L (3.6-5.0); PROTHROMBIN TIME PATIENT 12.9 SEC (12.2-14.7); SODIUM 141 MMOL/L (135-145); TOTAL PROTEIN 6.7 GM/DL (6.4-8.2)
[2018-01-13 14:20] LABS: MYOGLOBIN SERUM 20.7 NG/ML (10.0-92.0)
[2018-01-13] MEDS ORDERED: RT-ALBUTEROL SULF 2.5 MG/3 ML PRE-MIX VIAL INH STA (15:31)
--- NOTE | 2018-01-13 15:32 | Diagnostic Imaging Report ---
INDICATION: Atrial fibrillation. COMPARISON: 01/14/2017. EXAMINATION: Upright portable view of the chest was obtained. FINDINGS: Heart size is normal. The pulmonary vessels appear unremarkable. There is no pneumothorax, mediastinal widening or pleural fluid. The lungs are clear. IMPRESSION: Negative chest. Dictated by: Dictated on workstation # [id number]
[2018-01-13] MEDS ORDERED: predniSONE 20 MG TAB PO ONE (15:45)
[2018-01-13] MEDS ORDERED: RX-ALBUTEROL INHALER (PROAIR) 8 GM IH PRN (15:45)
[2018-01-13] MEDS ORDERED: PRD20T PO (15:47)
[2018-01-13 16:15] VITALS: BP 134/92
== END 2018-01-13 16:28 | disposition home or self-care (01) ==
LOC: EDUNIT# 13:15 → ER 13:18
DX: J40 Bronchitis, not specified as acute or chronic (principal); K21.9 Gastro-esophageal reflux disease without esophagitis; E66.9 Obesity, unspecified; F41.9 Anxiety disorder, unspecified; F32.9 Major depressive disorder, single episode, unspecified; I48.91 Unspecified atrial fibrillation; F17.210 Nicotine dependence, cigarettes, uncomplicated; Z79.82 Long term (current) use of aspirin; Z98.51 Tubal ligation status; Z90.49 Acquired absence of other specified parts of digestive tract; Z87.59 Personal history of other complications of pregnancy, childbirth and the puerperium; Z68.43 Body mass index [BMI] 50.0-59.9, adult; Z90.89 Acquired absence of other organs; Z87.2 Personal history of diseases of the skin and subcutaneous tissue; Z82.49 Family history of ischemic heart disease and other diseases of the circulatory system; Z80.1 Family history of malignant neoplasm of trachea, bronchus and lung; Z80.8 Family history of malignant neoplasm of other organs or systems
CPT/HCPCS: 36415; 71045; 80053; 83690; 83735; 83874; 84484; 84703; 85025; 85610; 85730; 93005; 93041; 94640

== ENCOUNTER 2018-04-23 12:08 | Emergency (ER) | payer MEDICAID ==
[~2018-04-23] VITALS: Ht 149.9 cm; Wt 114.8 kg
--- OUTSIDE RECORDS SUMMARY | 2018-04-23 12:18 | XMS REPORT | Continuity of Care Document ---
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 measurement (enzymatic activity/volume) 105 U/L 25-125 Lipase - 12/31/16 03:02 Lipase 11 U/L 8-78 Serum or plasma thyrotropin measurement by detection limit <=0.05 miu/l (units/ volume) - 12/31/16 03:02 Serum or plasma thyrotropin measurement by detection limit <=0.05 miu/l (units/ volume) 3.06 u[iU]/mL 0.35-4.94 Urine drug screening test - 12/31/16 03:35 Urine phencyclidine detection by screening method NEGATIVE NEGATIVE Urine benzodiazepines detection by screening method NEGATIVE NEGATIVE Urine cocaine detection NEGATIVE NEGATIVE Urine amphetamines detection by screening method NEGATIVE NEGATIVE Urine methamphetamine detection by screening method NEGATIVE NEGATIVE Urine cannabinoids detection by screening method NEGATIVE NEGATIVE Urine opiates detection by screening method NEGATIVE NEGATIVE Urine barbiturates detection NEGATIVE NEGATIVE Screening urine tricyclic antidepressants detection NEGATIVE NEGATIVE Urine methadone detection by screening method NEGATIVE NEGATIVE Urine oxycodone detection NEGATIVE NEGATIVE Urine propoxyphene detection NEGATIVE NEGATIVE Complete urinalysis with reflex to culture - 12/31/16 03:35 Urine color determination YELLOW NRG Urine clarity determination SLIGHTLY CLOUDY NRG Urine pH measurement by test strip 6.5 5-9 Specific gravity of urine by test strip 1.010 1.016- 1.022 Urine protein assay by test strip, semi-quantitative 2+ NEGATIVE Urine glucose detection by automated test strip NEGATIVE NEGATIVE Erythrocytes detection in urine sediment by light microscopy 5+ NEGATIVE Urine ketones detection by automated test strip NEGATIVE NEGATIVE Urine nitrite detection by test strip NEGATIVE NEGATIVE Urine total bilirubin detection by test strip NEGATIVE NEGATIVE Urine urobilinogen measurement by automated test strip (mass/volume) NORMAL NORMAL Urine leukocyte esterase detection by dipstick NEGATIVE NEGATIVE Automated urine sediment erythrocyte count by microscopy (number/high power field) [HPF] NRG Automated urine sediment leukocyte count by microscopy (number/high power field ) RARE NRG Bacteria detection in urine sediment by light microscopy TRACE NRG Squamous epithelial cells detection in urine sediment by light microscopy 0-2 NRG Crystals detection in urine sediment by light microscopy NONE NRG Casts detection in urine sediment by light microscopy NONE NRG Mucus detection in urine sediment by light microscopy NEGATIVE NRG Complete urinalysis with reflex to culture NO NRG Methicillin resistant Staphylococcus aureus (MRSA) screening culture - 05:30 Methicillin resistant Staphylococcus aureus (MRSA) screening culture NEG NRG Serum or plasma troponin i.cardiac measurement (mass/volume) - 12/31/16 08:48 Serum or plasma troponin i.cardiac measurement (mass/volume) < ng/ mL <0.30 THYROID STIMULATING HORMONE - 12/31/16 08:48 THYROID STIMULATING HORMONE 1.96 u[iU]/mL 0.35-4.94 Complete blood count (CBC) with automated white blood cell (WBC) differential - 01/14/17 02:30 Blood leukocytes automated count (number/volume) 7.4 10*3/uL 4.3-11.0 Blood erythrocytes automated count (number/volume) 4.20 10*6/uL 4.35-5.85 Venous blood hemoglobin measurement (mass/volume) 10.3 g/dL 11.5-16.0 Blood hematocrit (volume fraction) 34 % 35-52 Automated erythrocyte mean corpuscular volume 80 [foz_us] 80-99 Automated erythrocyte mean corpuscular hemoglobin (mass per erythrocyte) 25 pg 25-34 Automated erythrocyte mean corpuscular hemoglobin concentration measurement ( mass/volume) 31 g/dL 32-36 Automated erythrocyte distribution width ratio 16.3 % 10.0-14.5 Automated blood platelet count (count/volume) 321 10*3/uL 130-400 Automated blood platelet mean volume measurement 10.6 [foz_us] 7.4-10.4 Automated blood neutrophils/100 leukocytes 51 % 42-75 Automated blood lymphocytes/100 leukocytes 37 % 12-44 Blood monocytes/100 leukocytes 7 % 0-12 Automated blood eosinophils/100 leukocytes 5 % 0-10 Automated blood basophils/100 leukocytes 0 % 0-10 Blood neutrophils automated count (number/volume) 3.8 10*3 1.8-7.8 Blood lymphocytes automated count (number/volume) 2.8 10*3 1.0-4.0 Blood monocytes automated count (number/volume) 0.5 10*3 0.0-1.0 Automated eosinophil count 0.3 10*3/uL 0.0-0.3 Automated blood basophil count (count/volume) 0.0 10*3/uL 0.0-0.1 PT panel in platelet poor plasma by coagulation assay - 01/14/17 02:30 Prothrombin time (PT) in platelet poor plasma by coagulation assay 11.8 s 12.2-14.7 INR in platelet poor plasma or blood by coagulation assay 0.9 0.8-1.4 Activated partial thromboplastin time (aPTT) in platelet poor plasma bycoagulation assay - 01/14/17 02:30 Activated partial thromboplastin time (aPTT) in platelet poor plasma bycoagulation assay 29 s 24-35 Comprehensive metabolic panel - 01/14/17 02:30 Serum or plasma sodium measurement (moles/volume) 141 mmol/L 135-145 Serum or plasma potassium measurement (moles/volume) 3.5 mmol/L 3.6-5.0 Serum or plasma chloride measurement (moles/volume) 105 mmol/L 98-107 Carbon dioxide 26 mmol/L 21-32 Serum or plasma anion gap determination (moles/volume) 10 mmol/L 5-14 Serum or plasma urea nitrogen measurement (mass/volume) 12 mg/dL 7-18 Serum or plasma creatinine measurement (mass/volume) 0.72 mg/dL 0.60-1.30 Serum or plasma urea nitrogen/creatinine mass ratio 17 NRG Serum or plasma creatinine measurement with calculation of estimated glomerular filtration rate > NRG Serum or plasma glucose measurement (mass/volume) 125 mg/dL 70-105 Serum or plasma calcium measurement (mass/volume) 8.6 mg/dL 8.5-10.1 Serum or plasma total bilirubin measurement (mass/volume) 0.1 mg/dL 0.1-1.0 Serum or plasma alkaline phosphatase measurement (enzymatic activity/volume) 88 U/L 40-136 Serum or plasma aspartate aminotransferase measurement (enzymatic activity/ volume) 14 U/L 5-34 Serum or plasma alanine aminotransferase measurement (enzymatic activity/volume ) 12 U/L 0-55 Serum or plasma protein measurement (mass/volume) 6.8 g/dL 6.4-8.2 Serum or plasma albumin measurement (mass/volume) 3.8 g/dL 3.2-4.5 Magnesium - 01/14/17 02:30 Magnesium 2.0 mg/dL 1.8-2.4 Serum or plasma troponin i.cardiac measurement (mass/volume) - 01/14/17 02:30 Serum or plasma troponin i.cardiac measurement (mass/volume) < ng/ mL <0.30 Myoglobin, serum - 01/14/17 02:30 Myoglobin, serum 14.7 ng/mL 10.0-92.0 Serum or plasma troponin i.cardiac measurement (mass/volume) - 01/14/17 09:02 Serum or plasma troponin i.cardiac measurement (mass/volume) < ng/ mL <0.30 Complete blood count (CBC) with automated white blood cell (WBC) differential - 01/13/18 13:36 Blood leukocytes automated count (number/volume) 6.1 10*3/uL 4.3-11.0 Blood erythrocytes automated count (number/volume) 4.20 10*6/uL 4.35-5.85 Venous blood hemoglobin measurement (mass/volume) 12.5 g/dL 11.5-16.0 Blood hematocrit (volume fraction) 37 % 35-52 Automated erythrocyte mean corpuscular volume 88 [foz_us] 80-99 Automated erythrocyte mean corpuscular hemoglobin (mass per erythrocyte) 30 pg 25-34 Automated erythrocyte mean corpuscular hemoglobin concentration measurement ( mass/volume) 34 g/dL 32-36 Automated erythrocyte distribution width ratio 13.1 % 10.0-14.5 Automated blood platelet count (count/volume) 262 10*3/uL 130-400 Automated blood platelet mean volume measurement 10.6 [foz_us] 7.4-10.4 Automated blood neutrophils/100 leukocytes 52 % 42-75 Automated blood lymphocytes/100 leukocytes 34 % 12-44 Blood monocytes/100 leukocytes 8 % 0-12 Automated blood eosinophils/100 leukocytes 7 % 0-10 Automated blood basophils/100 leukocytes 1 % 0-10 Blood neutrophils automated count (number/volume) 3.1 10*3 1.8-7.8 Blood lymphocytes automated count (number/volume) 2.0 10*3 1.0-4.0 Blood monocytes automated count (number/volume) 0.5 10*3 0.0-1.0 Automated eosinophil count 0.4 10*3/uL 0.0-0.3 Automated blood basophil count (count/volume) 0.0 10*3/uL 0.0-0.1 Comprehensive metabolic panel - 01/13/18 13:36 Serum or plasma sodium measurement (moles/volume) 141 mmol/L 135-145 Serum or plasma potassium measurement (moles/volume) 3.6 mmol/L 3.6-5.0 Serum or plasma chloride measurement (moles/volume) 108 mmol/L 98-107 Carbon dioxide 24 mmol/L 21-32 Serum or plasma anion gap determination (moles/volume) 9 mmol/L 5-14 Serum or plasma urea nitrogen measurement (mass/volume) 6 mg/dL 7-18 Serum or plasma creatinine measurement (mass/volume) 0.65 mg/dL 0.60-1.30 Serum or plasma urea nitrogen/creatinine mass ratio 9 NRG Serum or plasma creatinine measurement with calculation of estimated glomerular filtration rate > NRG Serum or plasma glucose measurement (mass/volume) 77 mg/dL 70-105 Serum or plasma calcium measurement (mass/volume) 8.6 mg/dL 8.5-10.1 Serum or plasma total bilirubin measurement (mass/volume) 0.3 mg/dL 0.1-1.0 Serum or plasma alkaline phosphatase measurement (enzymatic activity/volume) 80 U/L 40-136 Serum or plasma aspartate aminotransferase measurement (enzymatic activity/ volume) 16 U/L 5-34 Serum or plasma alanine aminotransferase measurement (enzymatic activity/volume ) 15 U/L 0-55 Serum or plasma protein measurement (mass/volume) 6.7 g/dL 6.4-8.2 Serum or plasma albumin measurement (mass/volume) 3.7 g/dL 3.2-4.5 Magnesium - 01/13/18 13:36 Magnesium 1.8 mg/dL 1.8-2.4 Serum or plasma troponin i.cardiac measurement (mass/volume) - 01/13/18 13:36 Serum or plasma troponin i.cardiac measurement (mass/volume) < ng/ mL <0.30 PT panel in platelet poor plasma by coagulation assay - 01/13/18 13:36 Prothrombin time (PT) in platelet poor plasma by coagulation assay 12.9 s 12.2-14.7 INR in platelet poor plasma or blood by coagulation assay 1.0 0.8-1.4 Activated partial thromboplastin time (aPTT) in platelet poor plasma bycoagulation assay - 01/13/18 13:36 Activated partial thromboplastin time (aPTT) in platelet poor plasma bycoagulation assay 31 s 24-35 Myoglobin, serum - 01/13/18 13:36 Myoglobin, serum 20.7 ng/mL 10.0-92.0 Lipase - 01/13/18 13:36 Lipase 11 U/L 8-78 Serum or plasma choriogonadotropin ( test) detection - 01/13/18 13:36 Serum or plasma choriogonadotropin ( test) detection NEGATIVE NEGATIVE Encounters ACCT No. Visit Date/Time Discharge Status Pt. Type Provider Facility Loc./Unit Complaint [id number] 10/24/2012 15:28:00 10/24/2012 23:59:59 CLS Outpatient BEKAH YU DO [id number] 01/13/2018 13:18:00 01/13/2018 16:28:00 DIS Emergency MAT PALMER MD [facility] ER SOB,CP,HX OF AFIB [id number] 04/14/2017 13:30:00 04/14/2017 23:59:59 CLS Preadmit Keli FONTENOT MD [facility] CARD AFIB,CHEST PAIN [id number] 02/06/2017 12:00:00 04/13/2017 00:01:00 DIS Outpatient Keli FONTENOT MD [facility] CARD AFIB,CHEST PAIN [id number] 01/14/2017 04:50:00 01/14/2017 17:02:00 DIS Outpatient Keli FONTENOT MD [facility] CATH CHEST PAIN [id number] 01/13/2017 08:04:00 01/13/2017 23:59:59 CLS Outpatient Keli FONTENOT MD [facility] CARD NEW ONSET AFIB W/RVR [id number] 12/31/2016 04:00:00 12/31/2016 20:05:00 DIS Inpatient GODFREY CHOU MD [facility] ICU NEW ONSET AFIB W/ RVR: CHEST PAIN [id number] 12/02/2016 12:01:00 12/02/2016 13:12:00 DIS Emergency GRAYSON SANTANA [facility] ER WOUND CHECK [id number] 11/30/2016 01:27:00 11/30/2016 02:03:00 DIS Emergency MAT PALMER MD [facility] ER SWOLLEN KNOT ON BACK [id number] 09/25/2016 00:45:00 09/25/2016 13:50:00 DIS Outpatient NEVAEH NELSON DO [facility] SDC ESOPHAGEAL OBSTRUCTION [id number] 02/23/2016 16:49:00 02/23/2016 18:28:00 DIS Emergency LORI MABRY APRN [facility] ER L SIDE PAIN [id number] 01/24/2016 17:04:00 01/24/2016 23:59:59 CLS Emergency PHIL ALBERTO [facility] ER FLUID BEHIND L EAR [id number] 07/27/2014 10:28:00 07/27/2014 12:14:00 DIS Emergency PHIL ALBERTO [facility] ER FEVER,COUGH,ACHES [id number] 11/19/2013 19:16:00 11/19/2013 19:53:00 DIS Emergency LORI MABRY APRN [facility] ER L ARM/ELBOW/SHOULDER PAIN [id number] 08/19/2013 20:18:00 08/19/2013 22:15:00 DIS Emergency LORI MABRY APRN [facility] ER LEFT SHOULDER PAIN [id number] 06/21/2013 08:04:00 06/23/2013 12:00:00 DIS Inpatient FOZIA DARNELL DO [facility] WS REPEAT CESEAREAN SECTION [id number] 06/14/2013 11:49:00 06/14/2013 23:59:59 CLS Outpatient LULA CORTES DO [facility] PREOP REPEAT SECTION [id number] 06/06/2013 20:42:00 06/06/2013 23:59:59 CLS Outpatient FENFOZIA WATKINS DO [facility] WSo TRANSFER FROM [facility] [id number] 07/27/2014 12:17:00 Document Registration [id number] 06/19/2012 05:49:00 Document Registration [id number] 06/15/2012 20:40:00 Document Registration [id number] 06/13/2012 10:21:00 Document Registration [id number] 05/31/2012 22:26:00 Document Registration [id number] 05/25/2012 20:19:00 Document Registration [id number] 05/24/2012 11:55:00 Document Registration [id number] 05/24/2012 00:20:00 Document Registration [id number] 05/21/2012 23:41:00 Document Registration [id number] 05/20/2012 02:29:00 Document Registration [id number] 04/10/2012 23:30:00 Document Registration [id number] 04/08/2012 01:01:00 Document Registration [id number] 11/22/2011 20:12:00 Document Registration [id number] 02/07/2011 12:05:00 Document Registration
--- NOTE | 2018-04-23 15:19 | Diagnostic Imaging Report ---
INDICATION: Left shoulder pain. COMPARISON: None available. TECHNIQUE: Three views of the left shoulder were obtained. FINDINGS: No acute fracture or traumatic malalignment. Joint spaces are well maintained. Hypertrophic degenerative changes of the acromioclavicular joint are noted. Subacromial space is preserved. IMPRESSION: 1. No acute fracture or malalignment. 2. Hypertrophic degenerative changes of the acromioclavicular joint. Dictated by: Dictated on workstation # [id number]
--- NOTE | 2018-04-23 15:22 | ED General ---
General Chief Complaint: Lower Extremity Stated Complaint: L SHOULDER PAIN AFTER FALL, L FOOT PAIN Nursing Triage Note: Pt states pt fell at a foot race at approximately 1600 yesterday, injuring L foot and L shoulder. Top of L foot is swollen. Pt ambulated to rm 9. Nursing Sepsis Screen: No Definite Risk Source of Information: Patient Exam Limitations: No Limitations History of Present Illness Date Seen by Provider: Apr 23, 2018 Time Seen by Provider: 13:59 Initial Comments Patient is a 42-year-old female who presents to the emergency room with complaints of left shoulder and left foot pain after a fall yesterday at 1600. She reports she was racing her son in a foot race when she tripped and fell hurting her left foot and left shoulder. She does have mild swelling to the left upper of her foot. She also reports that she has an infection to her fingernail on her right index finger that she has dealt with for the past 2 weeks. Timing/Duration: 12-24 Hours Associated Systoms: Denies Symptoms Allergies and Home Medications Allergies Coded Allergies: No Known Drug Allergies (Unverified , 12/06/08) Home Medications Aspirin 325 Mg Tablet, 325 MG PO DAILY, (Reported) Atorvastatin Calcium 40 Mg Tablet, 40 MG PO HS Prescribed by: CHIQUITA GARCÍA on 01/14/17 1702 Cephalexin 500 Mg Capsule, 500 MG PO BID Prescribed by: DAVID JAMESON on 04/23/18 1538 Diltiazem HCl 120 Mg Cap.er.24h, 120 MG PO DAILY, (Reported) Ibuprofen 200 Mg Tablet, 600-800 MG PO TID PRN for PAIN-MILD, (Reported) TAKES 3-4 (200MG) TABLETS Prednisone 20 Mg Tab, 40 MG PO DAILY Prescribed by: MAT PALMER on 01/13/18 1547 Patient Home Medication List Home Medication List Reviewed: Yes Review of Systems Review of Systems Constitutional: see HPI; No chills, No fever Musculoskeletal: see HPI, joint pain (left shoulder and right foot pain) Skin: see HPI, change in hair/nails (erythema and redness to right index finger.) Past Aerlfpd-Cgwgwt-Kdzums Hx Past Med/Social Hx: Reviewed Nursing Past Med/Soc Hx Patient Social History Alcohol Use: Denies Use Recreational Drug Use: No (SMOKES 1/2 PPD) Smoking Status: Current Everyday Smoker Type Used: Cigarettes 2nd Hand Smoke Exposure: Yes Recent Foreign Travel: No Contact w/Someone Who Travel: No Recent Infectious Disease Expo: No Recent Hopitalizations: No Physical Abuse: No Sexual Abuse: No Immunizations Up To Date Tetanus Booster (TDap): Unknown PED Vaccines UTD: No Date of Influenza Vaccine: Apr 06, 2016 Seasonal Allergies Seasonal Allergies: No Past Medical History Surgeries: Yes (WISDOM TEETH; X 4) Adenoidectomy, Appendectomy, Section, Tonsillectomy, Tubal Ligation Respiratory: Yes (tobaccoism) Currently Using CPAP: No Currently Using BIPAP: No Cardiac: Yes 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 Neurological: No Reproductive Disorders: No Female Reproductive Disorders: 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 Sexually Transmitted Disease: No HIV/AIDS: No Genitourinary: No Gastrointestinal: Yes Gastroesophageal Reflux Musculoskeletal: No Endocrine: Yes (OBESE) HEENT: No Cancer: No Psychosocial: Yes Anxiety, Depression Integumentary: Yes (DARIER'S DISEASE) Psoriasis Blood Disorders: No Adverse Reaction/Blood Tranf: No Family Medical History Reviewed Nursing Family Hx Cancer 03 MOTHER (LUNG AND BONE) Family history: Glaucoma 03 FATHER Heart disease 03 MOTHER History of - respiratory disease 03 FATHER (COPD) Stroke 03 MOTHER Heart Disease, Cancer, COPD, Diabetes, Stroke Physical Exam Vital Signs Vital Signs - First Documented 04/23/18 04/23/18 13:59 15:50 Temp 98.2 Pulse 55 Resp 17 B/P (MAP) 107/85 (92) Pulse Ox 99 O2 Delivery Room Air Capillary Refill : Less Than 3 Seconds Height, Weight, BMI Height: 4'11.00" Weight: 253lbs. 0.0oz. 114.718729bz; 53.1 BMI Method:Stated General Appearance: No Apparent Distress, WD/WN Respiratory: Chest Non Tender, Lungs Clear, Normal Breath Sounds, No Accessory Muscle Use, No Respiratory Distress Cardiovascular: Regular Rate, Rhythm, No Edema, No Gallop, No JVD, No Murmur, Normal Peripheral Pulses Extremity: Other (right shoulder pain, no swelling noted, normal range of motion. The patient does have swelling and ecchymosis to the dorsal surface of her left foot just above the left second toe.) Neurologic/Psychiatric: Alert, Oriented x3, Normal Mood/Affect Skin: Normal Color, Warm/Dry, Other (paronychia to the right second finger.) Progress/Results/Core Measures Suspected Sepsis Recent Fever Within 48 Hours: No Infection Criteria Present: None New/Unexplained Altered Menta: No Sepsis Screen: No Definite Risk SIRS Temperature:98.2 Pulse: 55 Respiratory Rate: 17 Blood Pressure 107 /85 Mean: 92 Results/Orders My Orders Orders - DAVID JAMESON Foot, Left, 3 Views (04/23/18 14:02) Shoulder, Left, 3 Views (04/23/18 14:02) Vital Signs/I&O 04/23/18 04/23/18 13:59 15:50 Temp 98.2 98.2 Pulse 55 55 Resp 17 17 B/P (MAP) 107/85 (92) 97/76 (92) Pulse Ox 99 97 O2 Delivery Room Air Capillary Refill : Less Than 3 Seconds Blood Pressure Mean: 92 Progress Note : Time: 15:30 Progress Note I have seen and evaluated the patient. I have informed her of imaging studies. She was placed in a postop shoe for comfort and instructed to cindy tape the toe when she is not using the postop shoe. She was instructed to follow up with the [facility] within 1 week for recheck. She was given an antibiotic for her infection of her fingernail. She agrees with plan of care, plans for discharge, return precautions were given. Diagnostic Imaging Diagonstic Imaging: Xray Plain Films/CT/US/NM/MRI: other (foot shoulder) Comments NAME: TRINA [facility]LVAREZ [facility] REC#: [id number] PT STATUS: DEP ER : 1975 PHYSICIAN: DAVID JAMESON [facility] ADMIT DATE: 04/23/18/ER Signed Date of Exam: 04/23/18 FOOT, LEFT, 3 VIEWS INDICATION: Left foot pain. COMPARISON: None available. TECHNIQUE: Three views of the left foot were obtained. FINDINGS: There is a small ossific fragment at the medial base of the second proximal phalanx which may represent a small corner chip fracture. Minimal flattening of the third metacarpal head is present without discrete fracture. Remainder of the foot shows no acute osseous abnormality. Mild forefoot soft tissue swelling. IMPRESSION: Question of small corner fracture involving the medial base of the second proximal phalanx. Correlation for focal tenderness in this region is advised. Dictated by: Dictated on workstation # [id number] Dict: 04/23/18 1523 Trans: 04/23/18 1640 Interpreted by: DANICA LEARY MD Electronically signed by: DANICA LEARY MD 04/23/18 1640 NAME: TRINA ÁLVAREZ [facility] REC#: [id number] PT STATUS: DEP ER : 1975 PHYSICIAN: DAVID JAMESON ADMIT DATE: 04/23/18/ER Signed Date of Exam: 04/23/18 SHOULDER, LEFT, 3 VIEWS INDICATION: Left shoulder pain. COMPARISON: None available. TECHNIQUE: Three views of the left shoulder were obtained. FINDINGS: No acute fracture or traumatic malalignment. Joint spaces are well maintained. Hypertrophic degenerative changes of the acromioclavicular joint are noted. Subacromial space is preserved. IMPRESSION: 1. No acute fracture or malalignment. 2. Hypertrophic degenerative changes of the acromioclavicular joint. Dictated by: Dictated on workstation # [id number] Dict: 04/23/18 1514 Trans: 04/23/18 1640 Interpreted by: DANICA LEARY MD Electronically signed by: DANICA LEARY MD 04/23/18 1640 Reviewed: Reviewed by Me Departure Impression Primary Impression: Toe fracture, left Additional Impression: Paronychia Disposition: 01 HOME, SELF-CARE Condition: Stable/Unchanged Departure-Patient Inst. Decision time for Depature: 15:35 Referrals: [facility] [place] (PCP/Family) Primary Care Physician Patient Instructions: Paronychia (DC), Toe Fracture (DC) Add. Discharge Instructions: Take medication as directed. Follow-up with the [facility] within 1 week for recheck. Wear the postop shoe until you follow up with the [facility] for further instruction. You may use ice a 20 minute intervals. Tylenol and ibuprofen as directed by the bottle for pain. Return back to the emergency room for any worsening symptoms or concerns as needed. All discharge instructions reviewed with patient and/or family. Voiced understanding. Scripts Cephalexin (Keflex) 500 Mg Capsule 500 MG PO BID for 7 Days, #14 CAP Prov: DAVID JAMESON 04/23/18 DAVID JAMESON Apr 23, 2018 15:22
--- NOTE | 2018-04-23 15:27 | Diagnostic Imaging Report ---
INDICATION: Left foot pain. COMPARISON: None available. TECHNIQUE: Three views of the left foot were obtained. FINDINGS: There is a small ossific fragment at the medial base of the second proximal phalanx which may represent a small corner chip fracture. Minimal flattening of the third metacarpal head is present without discrete fracture. Remainder of the foot shows no acute osseous abnormality. Mild forefoot soft tissue swelling. IMPRESSION: Question of small corner fracture involving the medial base of the second proximal phalanx. Correlation for focal tenderness in this region is advised. Dictated by: Dictated on workstation # [id number]
[2018-04-23] MEDS ORDERED: CEPH-507 PO (15:38)
[2018-04-23 15:50] VITALS: BP 97/76
== END 2018-04-23 15:50 | disposition home or self-care (01) ==
LOC: EDUNIT# 12:08 → ER 12:10
DX: S92.592A Other fracture of left lesser toe(s), initial encounter for closed fracture (principal); L03.011 Cellulitis of right finger; I48.91 Unspecified atrial fibrillation; K21.9 Gastro-esophageal reflux disease without esophagitis; E66.9 Obesity, unspecified; F41.9 Anxiety disorder, unspecified; F32.9 Major depressive disorder, single episode, unspecified; F17.210 Nicotine dependence, cigarettes, uncomplicated; Z90.89 Acquired absence of other organs; Z80.1 Family history of malignant neoplasm of trachea, bronchus and lung; Z80.8 Family history of malignant neoplasm of other organs or systems; Z82.49 Family history of ischemic heart disease and other diseases of the circulatory system; Z68.43 Body mass index [BMI] 50.0-59.9, adult; Z98.890 Other specified postprocedural states; Z98.51 Tubal ligation status; Z79.82 Long term (current) use of aspirin; Z79.52 Long term (current) use of systemic steroids; W01.0XXA Fall on same level from slipping, tripping and stumbling without subsequent striking against object, initial encounter
CPT/HCPCS: 73030; 73630

== ENCOUNTER 2018-07-13 07:31 | Emergency (ER) | payer MEDICAID ==
[~2018-07-13] VITALS: Ht 149.9 cm; Wt 110.7 kg
[~2018-07-13 07:31] MED LIST changes: +CEPH-507 PO
[2018-07-13] MEDS ORDERED: FAMOTIDINE 20 MG (PEPCID) TABLET PO STA (07:44)
[2018-07-13] MEDS ORDERED: LIDOCAINE 2% VISCOUS 15 ML UDC PO ONE (07:45)
[2018-07-13] MEDS ORDERED: ONDANSETRON 4 MG/2 ML (SDV) Z0FRAN IVP ONE (07:45)
[2018-07-13] MEDS ORDERED: ANTACID SUSP 30 ML UDC (MYLANTA) PO ONE (07:45)
--- NOTE | 2018-07-13 07:51 | ED GU-Female ---
General Stated Complaint: BACK & LEG PAIN Source: patient, other Exam Limitations: no limitations History of Present Illness Date Seen by Provider: Jul 13, 2018 Time Seen by Provider: 07:29 Initial Comments The patient presents to ER by private conveyance with chief complaint that yesterday evening she started having vaginal bleeding and this morning was accompanied with some abdominal pain mostly in her lower bilateral pelvic region. She denies any vaginal discharge but says she had put a pad on and soaked it overnight. She says her last mental period first day was June 26 and is typically very regular every 30 days. She thought that it was odd that it came a week early. She's having no blood per rectum, diarrhea or constipation. She prefers sexual intercourse with men and denies dyspareunia. She's has been a few months she's had intercourse because she going through divorce. She denies ever having colonoscopy. She has had appendectomy and 4 C- sections. She also is having some low back pain that radiates down her right leg to the mid thigh. She does not have chronic back pain but she says ever since having the spinal access for her C-sections she's always had some tenderness in the lumbar region. She denies a history of IBS or IBD, weight loss fevers or vomiting. She says she had her last Pap smear less than a year ago at a women's clinic in [place], [place]. At that time everything was normal. She denies history of gallstones, pancreatitis or peptic ulcer disease. Allergies and Home Medications Allergies Coded Allergies: No Known Drug Allergies (Unverified , 12/06/08) Home Medications Aspirin 325 Mg Tablet, 325 MG PO DAILY, (Reported) Atorvastatin Calcium 40 Mg Tablet, 40 MG PO HS Prescribed by: CHIQUITA GARCÍA on 01/14/17 1702 Diltiazem HCl 120 Mg Cap.er.24h, 120 MG PO DAILY, (Reported) Gabapentin 300 Mg Capsule, 300 MG PO TID, (Reported) Ibuprofen 200 Mg Tablet, 600-800 MG PO TID PRN for PAIN-MILD, (Reported) TAKES 3-4 (200MG) TABLETS Prednisone 20 Mg Tab, 40 MG PO DAILY Prescribed by: MAT PALMER on 01/13/18 1547 Patient Home Medication List Home Medication List Reviewed: Yes Review of Systems Review of Systems Constitutional: No chills, No diaphoresis EENTM: No ear discharge, No hearing loss Respiratory: No cough, No short of breath Cardiovascular: No chest pain, No edema Gastrointestinal: abdominal pain; No diarrhea; nausea; No vomiting Genitourinary: denies burning, denies discharge, denies dysuria, denies frequency; other (abnormal uterine bleeding) : No Musculoskeletal: back pain; No joint pain Skin: No pruritus, No rash Past Tjvhljq-Eaqxcz-Sajylz Hx Patient Social History Alcohol Use: Denies Use Recreational Drug Use: No Smoking Status: Current Everyday Smoker Type Used: Cigarettes 2nd Hand Smoke Exposure: Yes Recent Hopitalizations: No Immunizations Up To Date Tetanus Booster (TDap): Unknown PED Vaccines UTD: No Date of Influenza Vaccine: Apr 06, 2016 Seasonal Allergies Seasonal Allergies: No Past Medical History Surgeries: Yes (WISDOM TEETH; X 4) Adenoidectomy, Appendectomy, Section, Tonsillectomy, Tubal Ligation Respiratory: Yes (tobaccoism) Currently Using CPAP: No Currently Using BIPAP: No Cardiac: Yes 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 Neurological: No Reproductive Disorders: No Female Reproductive Disorders: Menstrual Problems [employer] History: Tubal Ligation Sexually Transmitted Disease: No HIV/AIDS: No Genitourinary: No Gastrointestinal: Yes Gastroesophageal Reflux Musculoskeletal: No Endocrine: Yes (OBESE) HEENT: No Cancer: No Psychosocial: Yes Anxiety, Depression Integumentary: Yes (DARIER'S DISEASE) Psoriasis Blood Disorders: No Adverse Reaction/Blood Tranf: No Family Medical History Cancer 03 MOTHER (LUNG AND BONE) Family history: Glaucoma 03 FATHER Heart disease 03 MOTHER History of - respiratory disease 03 FATHER (COPD) Stroke 03 MOTHER Heart Disease, Cancer, COPD, Diabetes, Stroke Physical Exam Vital Signs Vital Signs - First Documented 07/13/18 08:02 Temp 98.4 Pulse 72 Resp 20 B/P (MAP) 129/90 (103) Pulse Ox 98 Capillary Refill : Height, Weight, BMI Height: 4'11.00" Weight: 253lbs. 0.0oz. 114.300906wo; 53.1 BMI Method:Stated General Appearance: WD/WN, no apparent distress HEENT: PERRL/EOMI, pharynx normal Cardiovascular: normal peripheral pulses, regular rate, rhythm Respiratory: no respiratory distress, no accessory muscle use Gastrointestinal: normal bowel sounds, soft; No guarding, No rebound; tenderness (epigastric region as well as bilateral lower quadrants are modestly tender to palpation but not over the McBurney's point. No mesenteric signs.) Pelvic: normal external exam, discharge (thin bloody secretions); No lesions; vaginal bleeding, other (multiparous, round, unremarkable cervix with thin bloody secretions in the vaginal vault. Bimanual exam demonstrates a uterus that is prominent, firm and slightly larger than the size of a softball. Moderate tenderness to palpation. Difficult to palpate bilateral ovaries secondary to body habitus) Back: normal inspection, vertebral tenderness (lumbar spine acutely tender to palpation midline re-creating sciatic symptoms down right buttock) Extremities: normal range of motion, non-tender Neurologic/Psychiatric: no motor/sensory deficits, alert, normal mood/affect, oriented x 3 Skin: normal color, warm/dry Progress/Results/Core Measures Suspected Sepsis SIRS Temperature: Pulse: Respiratory Rate: Laboratory Tests 07/13/18 07:53: White Blood Count 6.6 Blood Pressure / Mean: Laboratory Tests 07/13/18 07:53: Creatinine 0.65, INR Comment 1.0, Platelet Count 325, Total Bilirubin 0.2 Results/Orders Lab Results Laboratory Tests Test 07/13/18 07:53 Range/Units White Blood Count 6.6 4.3-11.0 10^3/uL Red Blood Count 4.32 L 4.35-5.85 10^6/uL Hemoglobin 12.2 11.5-16.0 G/DL Hematocrit 38 35-52 % Mean Corpuscular Volume 87 80-99 FL Mean Corpuscular Hemoglobin 28 25-34 PG Mean Corpuscular Hemoglobin Concent 33 32-36 G/DL Red Cell Distribution Width 13.7 10.0-14.5 % Platelet Count 325 130-400 10^3/uL Mean Platelet Volume 10.1 7.4-10.4 FL Neutrophils (%) (Auto) 65 42-75 % Lymphocytes (%) (Auto) 24 12-44 % Monocytes (%) (Auto) 5 0-12 % Eosinophils (%) (Auto) 5 0-10 % Basophils (%) (Auto) 0 0-10 % Neutrophils # (Auto) 4.3 1.8-7.8 X 10^3 Lymphocytes # (Auto) 1.6 1.0-4.0 X 10^3 Monocytes # (Auto) 0.4 0.0-1.0 X 10^3 Eosinophils # (Auto) 0.3 0.0-0.3 10^3/uL Basophils # (Auto) 0.0 0.0-0.1 10^3/uL Prothrombin Time 12.6 12.2-14.7 SEC INR Comment 1.0 0.8-1.4 Activated Partial Thromboplast Time 32 24-35 SEC Urine Color RED H Urine Clarity SLIGHTLY CLOUDY Urine pH 7 5-9 Urine Specific [place] 1.010 L 1.016-1.022 Urine Protein 1+ H NEGATIVE Urine Glucose (UA) NEGATIVE NEGATIVE Urine Ketones NEGATIVE NEGATIVE Urine Nitrite NEGATIVE NEGATIVE Urine Bilirubin NEGATIVE NEGATIVE Urine Urobilinogen NORMAL NORMAL MG/DL Urine Leukocyte Esterase 1+ H NEGATIVE Urine RBC (Auto) 5+ H NEGATIVE Urine RBC TNTC H /HPF Urine WBC 2-5 /HPF Urine Crystals NONE /LPF Urine Bacteria TRACE /HPF Urine Casts NONE /LPF Urine Mucus NEGATIVE /LPF Urine Culture Indicated YES Sodium Level 139 135-145 MMOL/L Potassium Level 4.1 3.6-5.0 MMOL/L Chloride Level 105 98-107 MMOL/L Carbon Dioxide Level 26 21-32 MMOL/L Anion Gap 8 5-14 MMOL/L Blood Urea Nitrogen 8 7-18 MG/DL Creatinine 0.65 0.60-1.30 MG/DL Estimat Glomerular Filtration Rate > 60 BUN/Creatinine Ratio 12 Glucose Level 94 70-105 MG/DL Calcium Level 8.8 8.5-10.1 MG/DL Corrected Calcium 9.0 8.5-10.1 MG/DL Total Bilirubin 0.2 0.1-1.0 MG/DL Aspartate Amino Transf (AST/SGOT) 14 5-34 U/L Alanine Aminotransferase (ALT/SGPT) 10 0-55 U/L Alkaline Phosphatase 66 40-136 U/L Total Protein 6.7 6.4-8.2 GM/DL Albumin 3.8 3.2-4.5 GM/DL Lipase 10 8-78 U/L Serum Test, Qualitative NEGATIVE NEGATIVE My Orders Orders - BARBARA HAM Cbc With Automated Diff (07/13/18 07:44) Comprehensive Metabolic Panel (07/13/18 07:44) Hcg,Qualitative Serum (07/13/18 07:44) Lipase (07/13/18 07:44) Protime With Inr (07/13/18 07:44) Partial Thromboplastin Time (07/13/18 07:44) Ua Culture If Indicated (07/13/18 07:44) Ondansetron Injection (Zofran Injectio (07/13/18 07:45) Lidocaine 2% Viscous 15 Ml (Xylocaine Vi (07/13/18 07:45) Famotidine Tablet (Pepcid Tablet) (07/13/18 07:44) Antacid Suspension (Mylanta Suspension (07/13/18 07:45) Urine Culture (07/13/18 07:53) Ketorolac Injection (Toradol Injection) (07/13/18 09:00) Us Non Ob Pelvis Comp/Transvag (07/13/18 08:31) Fentanyl Injection (Sublimaze Injection (07/13/18 11:15) Medications Given in ED Current Medications Medications Dose Ordered Sig/Jeri Route Start Time Stop Time Status Last Admin Dose Admin Al Hydrox/Mg Hydrox/Simethicone 30 ml ONCE ONCE PO 07/13/18 07:45 07/13/18 07:47 DC 07/13/18 08:22 30 ML Fentanyl Citrate 50 mcg ONCE ONCE IVP 07/13/18 11:15 07/13/18 11:16 DC 07/13/18 11:11 50 MCG Ketorolac Tromethamine 30 mg ONCE ONCE IVP 07/13/18 09:00 07/13/18 09:01 DC 07/13/18 09:36 30 MG Lidocaine HCl 15 ml ONCE ONCE PO 07/13/18 07:45 07/13/18 07:47 DC 07/13/18 08:22 15 ML Ondansetron HCl 4 mg ONCE ONCE IVP 07/13/18 07:45 07/13/18 07:47 DC 07/13/18 08:22 4 MG Vital Signs/I&O 07/13/18 08:02 Temp 98.4 Pulse 72 Resp 20 B/P (MAP) 129/90 (103) Pulse Ox 98 Capillary Refill : Progress Note : Time: 07:52 Progress Note We will obtain IV access, basic labs to include urinalysis and lipase. She is tender over her epigastrium but that could just be from the nausea. We'll give her some Zofran and a GI cocktail to evaluate that. We will put her in a gown and do a sensitive pelvic exam and fecal occult blood test and for sure if she is having abnormal uterine bleeding obtain a pelvic ultrasound. Diagnostic Imaging Diagonstic Imaging: Ultrasound Plain Films/CT/US/NM/MRI: pelvis Comments [facility] [place], [place] NAME: TRINA ÁLVAREZ [facility] REC#: [id number] PT STATUS: REG ER : 1975 PHYSICIAN: BARBARA HAM MD ADMIT DATE: 07/13/18/ER Draft Date of Exam:07/13/18 US NON OB PELVIS COMP/TRANSVAG INDICATION: Abnormal uterine bleeding x2 days. Back and leg pain. TECHNIQUE: Multiple real time moya scale sonographic images were obtained of the pelvis transabdominally and transvaginally. CORRELATION STUDY: None FINDINGS: MEASUREMENTS: Uterus: 8.1 x 2.9 x 2.8 cm. Endometrial Thickness: 7 mm. RIGHT OVARY: Not visualized LEFT OVARY: Not visualized There is an area of heterogeneity over the lower uterus, while nonspecific could reflect perhaps a fibroid at approximately 15 x 16 x 10 mm in size. The ovaries were unable to be visualized on either transabdominal or endovaginal imaging. This could be owing to being obscured by bowel gas or positional. A definitive abnormal adnexal mass is not suggested. No significant free pelvic fluid. IMPRESSION: 1. Question of potential small uterine fibroid. 2. Endometrial thickness within normal limits for premenopausal patient. 3. Nonvisualization of either ovary. Dictated on workstation # [id number] Dict: 07/13/18 1046 Trans: 07/13/18 1053 [facility] [id number] Interpreted by: MEGAN NIEVES DO Electronically signed by: Reviewed: Reviewed by Me Departure Impression Primary Impression: Abnormal uterine bleeding unrelated to menstrual cycle Additional Impression: Pelvic pain Disposition: 01 HOME, SELF-CARE Condition: Stable Departure-Patient Inst. Decision time for Depature: 11:18 Referrals: [facility] (PCP/Family) Primary Care Physician Patient Instructions: Uterine Fibroids (DC) Add. Discharge Instructions: Please follow-up with your primary care office or [facility] for further workup of your abnormal uterine bleeding. You do have fibroids which can be explaining some of the pain however there are some other workup that needs to be done in the clinic that can be guided by your primary office or an [facility] office of your choice. If Tylenol and ibuprofen and heat are not working for your pain then you can use one tablet of the hydrocodone every 6 hours as needed. Hydrocodone will cause constipation so use your stool softeners or MiraLAX daily. Scripts Hydrocodone Bit/Acetaminophen (Hydrocodone/Acetaminophen 5/325mg Tablet) 1 Tab Tab 1 EACH PO Q4-6HR PRN for PAIN-MODERATE MDD 10, #20 TAB 0 Refills Prov: BARBARA HAM 07/13/18 Work/School Note: Work Release Form Date Seen in the Emergency Department: Jul 13, 2018 Return to Work: Jul 17, 2018 Restrictions: No Restrictions Copy Copies To 1: BEKAH YU DO; LULA CORTES TITUS J Jul 13, 2018 07:51
[2018-07-13 08:04] LABS: BASOPHILS % (AUTO) 0 % (0-10); EOSINOPHILS # (AUTO) 0.3 10^3/uL (0.0-0.3); EOSINOPHILS % (AUTO) 5 % (0-10); HEMATOCRIT 38 % (35-52); HEMOGLOBIN 12.2 G/DL (11.5-16.0); LYMPHOCYTES # (AUTO) 1.6 X 10^3 (1.0-4.0); LYMPHOCYTES % (AUTO) 24 % (12-44); MEAN CORPUSCULAR HEMOGLOBIN 28 PG (25-34); MEAN CORPUSCULAR HGB CONC 33 G/DL (32-36); MEAN CORPUSCULAR VOLUME 87 FL (80-99); MEAN PLATELET VOLUME 10.1 FL (7.4-10.4); MONOCYTES # (AUTO) 0.4 X 10^3 (0.0-1.0); MONOCYTES % (AUTO) 5 % (0-12); NEUTROPHILS # (AUTO) 4.3 X 10^3 (1.8-7.8); NEUTROPHILS % (AUTO) 65 % (42-75); PLATELET COUNT 325 10^3/uL (130-400); RED BLOOD COUNT 4.32 10^6/uL (4.35-5.85); RED CELL DISTRIBUTION WIDTH 13.7 % (10.0-14.5); WHITE BLOOD COUNT 6.6 10^3/uL (4.3-11.0)
[2018-07-13 08:05] LABS: BILIRUBIN,URINE NEGATIVE (NEGATIVE); CLARITY,URINE SLIGHTLY CLOUDY; COLOR,URINE RED; GLUCOSE, URINE (UA) NEGATIVE (NEGATIVE); KETONES,URINE NEGATIVE (NEGATIVE); LEUKOCYTE ESTERASE ,URINE 1+ (NEGATIVE); NITRITE,URINE NEGATIVE (NEGATIVE); PH,URINE 7 (5-9); PROTEIN,URINE 1+ (NEGATIVE); UROBILINOGEN,URINE NORMAL (NORMAL)
[2018-07-13] MEDS ORDERED: GABA-488 PO (08:12)
[2018-07-13 08:24] LABS: PROTHROMBIN TIME PATIENT 12.6 SEC (12.2-14.7)
[2018-07-13 08:27] LABS: BACTERIA,URINE TRACE /HPF; RBC,URINE TNTC /HPF
[2018-07-13 08:31] LABS: ALANINE AMINOTRANSFERASE 10 U/L (0-55); ALBUMIN 3.8 GM/DL (3.2-4.5); ALKALINE PHOSPHATASE 66 U/L (40-136); BILIRUBIN,TOTAL 0.2 MG/DL (0.1-1.0); BUN/CREATININE RATIO 12; CALCIUM 8.8 MG/DL (8.5-10.1); CARBON DIOXIDE 26 MMOL/L (21-32); CHLORIDE 105 MMOL/L (98-107); CREATININE SERUM 0.65 MG/DL (0.60-1.30); GFR ESTIMATED > 60; GLUCOSE 94 MG/DL (70-105); LIPASE 10 U/L (8-78); POTASSIUM 4.1 MMOL/L (3.6-5.0); SODIUM 139 MMOL/L (135-145); TOTAL PROTEIN 6.7 GM/DL (6.4-8.2)
[2018-07-13] MEDS ORDERED: KETOROLAC 30 MG/ML VIAL IVP ONE (09:00)
--- NOTE | 2018-07-13 10:53 | Diagnostic Imaging Report ---
INDICATION: Abnormal uterine bleeding x2 days. Back and leg pain. TECHNIQUE: Multiple real time moya scale sonographic images were obtained of the pelvis transabdominally and transvaginally. CORRELATION STUDY: None FINDINGS: MEASUREMENTS: Uterus: 8.1 x 2.9 x 2.8 cm. Endometrial Thickness: 7 mm. RIGHT OVARY: Not visualized LEFT OVARY: Not visualized There is an area of heterogeneity over the lower uterus, while nonspecific could reflect perhaps a fibroid at approximately 15 x 16 x 10 mm in size. The ovaries were unable to be visualized on either transabdominal or endovaginal imaging. This could be owing to being obscured by bowel gas or positional. A definitive abnormal adnexal mass is not suggested. No significant free pelvic fluid. IMPRESSION: 1. Question of potential small uterine fibroid. 2. Endometrial thickness within normal limits for premenopausal patient. 3. Nonvisualization of either ovary. Dictated by: Dictated on workstation # [id number]
[2018-07-13] MEDS ORDERED: fentaNYL INJECTION 100 MCG/2 ML AMP IVP ONE (11:15)
[2018-07-13] MEDS ORDERED: ACHD5005 PO (11:19)
[2018-07-13 11:31] VITALS: BP 126/82
--- OUTSIDE RECORDS SUMMARY | 2018-07-13 12:49 | XMS REPORT | Continuity of Care Document ---
Author Author On License Of [facility] Address Unknown Phone Unavailable Allergies Active Description Code Type Severity Reaction Onset Reported/Identified Relationship to Patient Clinical Status Yes No Known Drug Allergies [id number] Drug Allergy Mild N/A 12/06/2008 Medications There [...] Ot 719.41 JOINT PAIN-SHLDER 11/19/2013 LORI MABRY POWER BALLAST MACHINE OPERATOR Ot 719.41 JOINT PAIN-SHLDER 11/19/2013 LORI MABRY POWER BALLAST MACHINE OPERATOR Ot 719.42 JOINT PAIN-UP/ARM 11/19/2013 LORI MABRY POWER BALLAST MACHINE OPERATOR Ot 726.32 LATERAL EPICONDYLITIS 07/27/2014 PHIL ALBERTO [...] ACUTE NONINFECTIVE OTITIS EX 02/23/2016 LORI MABRY POWER BALLAST MACHINE OPERATOR Ot F17.210 NICOTINE DEPENDENCE, CIGARETTES, UNCOMPL 02/23/2016 LORI MABRY POWER BALLAST MACHINE OPERATOR Ot R10.32 LEFT LOWER QUADRANT PAIN 02/25/2016 LORI MABRY POWER BALLAST MACHINE OPERATOR Ot F17.210 NICOTINE DEPENDENCE, CIGARETTES, UNCOMPL 02/25/2016 MABRYLORI SOLOMON POWER BALLAST MACHINE OPERATOR Ot R10.32 LEFT LOWER QUADRANT PAIN 09/25/2016 [...] Heart Ot 649.13 OBESITY COMP PREG/CHILDBIRTH/PUERPERIUM, 12/02/2016 FOZIA DARNELL DO Ot 654.23 PREV DELIVERY, [...] MD Ot I25.10 ATHSCL HEART DISEASE OF [place] CORONARY 01/14/2017 Keli FONTENOT MD Ot I48.0 PAROXYSMAL ATRIAL FIBRILLATION 01/14/2017 Keli FONTENOT MD Ot R07.89 OTHER CHEST PAIN 01/14/2017 Keli FONTENOT MD Ot R94.39 ABNORMAL RESULT OF OTHER CARDIOVASCULAR 01/14/2017 Keli FONTENOT MD Ot Z72.0 TOBACCO USE 01/14/2017 Keli FONTENOT MD Ot Z79.899 OTHER RETIREMENT (CURRENT) DRUG THERAPY 01/17/2017 Keli FONTENOT MD Ot I48.91 UNSPECIFIED ATRIAL FIBRILLATION 01/17/2017 Keli FONTENOT MD Ot R07.9 CHEST PAIN, UNSPECIFIED 01/26/2017 Keli FONTENOT MD Ot D64.9 ANEMIA, UNSPECIFIED 01/26/2017 Keli FONTENOT MD Ot E87.6 HYPOKALEMIA 01/26/2017 Keli FONTENOT MD Ot I25.10 ATHSCL HEART DISEASE OF [place] CORONARY 01/26/2017 Keli FONTENOT MD Ot I48.0 PAROXYSMAL ATRIAL FIBRILLATION 01/26/2017 Keli FONTENOT MD Ot R07.89 OTHER CHEST PAIN 01/26/2017 Keli FONTENOT MD Ot R94.39 ABNORMAL RESULT OF OTHER CARDIOVASCULAR 01/26/2017 Keli FONTENOT MD Ot Z72.0 TOBACCO USE 01/26/2017 Keli FONTENOT MD Ot Z79.899 OTHER RETIREMENT (CURRENT) DRUG THERAPY 04/13/2017 Keli FONTENOT MD [...] ADULT 01/13/2018 MAT PALMER MD Ot Z79.82 RETIREMENT (CURRENT) USE OF ASPIRIN 01/13/2018 MAT PALMER [...] ADULT 01/16/2018 MAT PALMER MD Ot Z79.82 RETIREMENT (CURRENT) USE OF ASPIRIN 01/16/2018 MAT PALMER [...] ACQUIRED ABSENCE OF OTHER SPECIFIED PART 01/16/2018 ESTELA REGALADO, MAT De Los Santos Ot Z90.89 ACQUIRED ABSENCE OF OTHER ORGANS 01/16/2018 ESTELA REGALADO, MAT De Los Santos Ot Z98.51 TUBAL LIGATION STATUS 04/23/2018 SOPHIA BRUSH LULA Sy Ot 654.23 PREV DELIVERY, ANTEPARTUM COND 04/23/2018 SOPHIA BRUSH LULA Sy Ot V72.63 PRE-PROCEDURAL LABORATORY EXAMINATION 04/23/2018 SOPHIA BRUSH LULA Sy Ot V74.8 SCREEN-BACTERIAL DIS NEC 04/23/2018 MANN BRUSH, FOZIA S Ot 278.00 OBESITY, NOS 04/23/2018 ISMAECH , FOZIA S Ot 285.9 ANEMIA NOS 04/23/2018 MANN BRUSH, FOZIA S Ot 644.13 THREAT LABOR NEC-ANTEPAR 04/23/2018 MANN BRUSH, FOZIA S Ot 648.23 ANEMIA-ANTEPARTUM 04/23/2018 MANN BRUSH, FOZIA S Ot 649.13 OBESITY COMP PREG/CHILDBIRTH/PUERPERIUM, 04/23/2018 MANN BRUSH, FOZIA S Ot 654.23 PREV DELIVERY, ANTEPARTUM COND 04/23/2018 MANN BRUSH, FOZIA Heart Ot V04.81 ND FOR PROPHYLACTIC VACCIN AND INOCULATI 04/23/2018 MANN BRUSH, FOZIA Heart Ot V85.43 BODY MASS INDEX 50.0-59.9, ADULT 04/23/2018 PO REGALADO, Keli RENDON Ot I48.91 UNSPECIFIED ATRIAL FIBRILLATION 04/23/2018 PO REGALADO, Keli RENDON Ot I48.91 UNSPECIFIED ATRIAL FIBRILLATION 04/23/2018 PO REGALADO, Keli RENDON Ot R07.9 CHEST PAIN, UNSPECIFIED 04/23/2018 DAVID JAMESON Ot E66.9 OBESITY, UNSPECIFIED 04/23/2018 DAVID JAMESON Ot F17.210 NICOTINE DEPENDENCE, CIGARETTES, UNCOMPL 04/23/2018 DAVID JAMESON Ot F32.9 MAJOR DEPRESSIVE DISORDER, SINGLE EPISOD 04/23/2018 DAVID JAMESON Ot F41.9 ANXIETY DISORDER, UNSPECIFIED 04/23/2018 DAVDI JAMESON Ot I48.91 UNSPECIFIED ATRIAL FIBRILLATION 04/23/2018 DAVID JAMESON Ot K21.9 GASTRO-ESOPHAGEAL REFLUX DISEASE WITHOUT 04/23/2018 DAVID JAMESON Ot L03.011 CELLULITIS OF RIGHT FINGER 04/23/2018 DAVID JAMESON Ot M25.512 PAIN IN LEFT SHOULDER 04/23/2018 DAVID JAMESON Ot S92.592A OTH FRACTURE OF LEFT LESSER TOE(S), INIT 04/23/2018 DAVID JAMESON Ot W01.0XXA FALL SAME LEV FROM SLIP/TRIP W/O STRIKE 04/23/2018 DAVID JAMESON Ot Z68.43 BODY MASS INDEX (BMI) 50-59.9 , ADULT 04/23/2018 DAVID JAMESON Ot Z79.52 RETIREMENT (CURRENT) USE OF SYSTEMIC STER 04/23/2018 DAVID JAMESON Ot Z79.82 RETIREMENT (CURRENT) USE OF ASPIRIN 04/23/2018 DAVID JAMESON Ot Z80.1 FAMILY HISTORY OF MALIG NEOPLASM OF [place] 04/23/2018 DAVID JAMESON Ot Z80.8 FAMILY HISTORY OF MALIGNANT NEOPLASM OF 04/23/2018 DAVID JAMESON Ot Z82.49 FAMILY HX OF ISCHEM HEART DIS AND OTH DI 04/23/2018 DAVID JAMESON Ot Z90.89 ACQUIRED ABSENCE OF OTHER ORGANS 04/23/2018 DAVID JAMESON Ot Z98.51 TUBAL LIGATION STATUS 04/23/2018 DAVID JAMESON Ot Z98.890 OTHER SPECIFIED POSTPROCEDURAL STATES 04/25/2018 DAVID JAMESON Ot E66.9 OBESITY, UNSPECIFIED 04/25/2018 DAVID JAMESON Ot F17.210 NICOTINE DEPENDENCE, CIGARETTES, UNCOMPL 04/25/2018 DAVID JAMESON Ot F32.9 MAJOR DEPRESSIVE DISORDER, SINGLE EPISOD 04/25/2018 DAVID JAMESON Ot F41.9 ANXIETY DISORDER, UNSPECIFIED 04/25/2018 DAVID JAMESON Ot I48.91 UNSPECIFIED ATRIAL FIBRILLATION 04/25/2018 DAVID JAMESON Ot K21.9 GASTRO-ESOPHAGEAL REFLUX DISEASE WITHOUT 04/25/2018 DAVID JAMESON Ot L03.011 CELLULITIS OF RIGHT FINGER 04/25/2018 DAVID JAMESON Ot M25.512 PAIN IN LEFT SHOULDER 04/25/2018 DAVID JAMESON Ot S92.592A OTH FRACTURE OF LEFT LESSER TOE(S), INIT 04/25/2018 DAVID JAEMSON Ot W01.0XXA FALL SAME LEV FROM SLIP/TRIP W/O STRIKE 04/25/2018 DAVID JAMESON Ot Z68.43 BODY MASS INDEX (BMI) 50-59.9 , ADULT 04/25/2018 DAVID JAMESON Ot Z79.52 ARMHOLE BASTER HAND (CURRENT) USE OF SYSTEMIC STER 04/25/2018 DAVID JAMESON Ot Z79.82 ARMHOLE BASTER HAND (CURRENT) USE OF ASPIRIN 04/25/2018 DAVID JAMESON Ot Z80.1 FAMILY HISTORY OF MALIG NEOPLASM OF [place] 04/25/2018 DAVID JAMESON Ot Z80.8 FAMILY HISTORY OF MALIGNANT NEOPLASM OF 04/25/2018 DAVID JAMESON Ot Z82.49 FAMILY HX OF ISCHEM HEART DIS AND OTH DI 04/25/2018 DAVID JAMESON Ot Z90.89 ACQUIRED ABSENCE OF OTHER ORGANS 04/25/2018 DAVID JAMESON Ot Z98.51 TUBAL LIGATION STATUS 04/25/2018 DAVID JAMESON Ot Z98.890 OTHER SPECIFIED POSTPROCEDURAL STATES Procedures Code Description Performed By Performed On 72.79 VACUUM EXTRACT DEL NEC 06/19/2012 74.1 LOW CERVICAL 06/19/2012 99.77 APPL/ADMIN OF AN ADHESION BARRIER SUBSTA 06/19/2012 10916 URINE TEST (IN- HOUSE) 10/24/2012 74.1 LOW [...] 01:45 Bacteria identification in wound by culture [id number] NRG FREE TEXT EXTERNAL SENSITIVITY REPORTED 12/01 09:15 NRG QUANTITY OF GROWTH Moderate Growth NRG Bacterial susceptibility panel - 11/30/16 01:45 Oxacillin [...] plasma choriogonadotropin ( test) detection NEGATIVE NEGATIVE Complete blood count (CBC) with automated white blood cell (WBC) differential - 07/13/18 07:53 Blood leukocytes automated count (number/volume) 6.6 10*3/uL 4.3-11.0 Blood erythrocytes automated count (number/volume) 4.32 10*6/uL 4.35-5.85 Venous blood hemoglobin measurement (mass/volume) 12.2 g/dL 11.5-16.0 Blood hematocrit (volume fraction) 38 % 35-52 Automated erythrocyte mean corpuscular volume 87 [foz_us] 80-99 Automated erythrocyte mean corpuscular hemoglobin (mass per erythrocyte) 28 pg 25-34 Automated erythrocyte mean corpuscular hemoglobin concentration measurement ( mass/volume) 33 g/dL 32-36 Automated erythrocyte distribution width ratio 13.7 % 10.0-14.5 Automated blood platelet count (count/volume) 325 10*3/uL 130-400 Automated blood platelet mean volume measurement 10.1 [foz_us] 7.4-10.4 Automated blood neutrophils/100 leukocytes 65 % 42-75 Automated blood lymphocytes/100 leukocytes 24 % 12-44 Blood monocytes/100 leukocytes 5 % 0-12 Automated blood eosinophils/100 leukocytes 5 % 0-10 Automated blood basophils/100 leukocytes 0 % 0-10 Blood neutrophils automated count (number/volume) 4.3 10*3 1.8-7.8 Blood lymphocytes automated count (number/volume) 1.6 10*3 1.0-4.0 Blood monocytes automated count (number/volume) 0.4 10*3 0.0-1.0 Automated eosinophil count 0.3 10*3/uL 0.0-0.3 Automated blood basophil count (count/volume) 0.0 10*3/uL 0.0-0.1 Serum or plasma choriogonadotropin ( test) detection - 07/13/18 07:53 Serum or plasma choriogonadotropin ( test) detection NEGATIVE NEGATIVE Complete urinalysis with reflex to culture - 07/13/18 07:53 Urine color determination RED NRG Urine clarity determination SLIGHTLY CLOUDY NRG Urine pH measurement by test strip 7 5-9 Specific gravity of urine by test strip 1.010 1.016- 1.022 Urine protein assay by test strip, semi-quantitative 1+ NEGATIVE Urine glucose detection by automated test strip NEGATIVE NEGATIVE Erythrocytes detection in urine sediment by light microscopy 5+ NEGATIVE Urine ketones detection by automated test strip NEGATIVE NEGATIVE Urine nitrite detection by test strip NEGATIVE NEGATIVE Urine total bilirubin detection by test strip NEGATIVE NEGATIVE Urine urobilinogen measurement by automated test strip (mass/volume) NORMAL NORMAL Urine leukocyte esterase detection by dipstick 1+ NEGATIVE Automated urine sediment erythrocyte count by microscopy (number/high power field) TNTC NRG Automated urine sediment leukocyte count by microscopy (number/high power field ) [HPF] NRG Bacteria detection in urine sediment by light microscopy TRACE NRG Crystals detection in urine sediment by light microscopy NONE NRG Casts detection in urine sediment by light microscopy NONE NRG Mucus detection in urine sediment by light microscopy NEGATIVE NRG Complete urinalysis with reflex to culture YES NRG PT panel in platelet poor plasma by coagulation assay - 07/13/18 07:53 Prothrombin time (PT) in platelet poor plasma by coagulation assay 12.6 s 12.2-14.7 INR in platelet poor plasma or blood by coagulation assay 1.0 0.8-1.4 Activated partial thromboplastin time (aPTT) in platelet poor plasma bycoagulation assay - 07/13/18 07:53 Activated partial thromboplastin time (aPTT) in platelet poor plasma bycoagulation assay 32 s 24-35 Comprehensive metabolic panel - 07/13/18 07:53 Serum or plasma sodium measurement (moles/volume) 139 mmol/L 135-145 Serum or plasma potassium measurement (moles/volume) 4.1 mmol/L 3.6-5.0 Serum or plasma chloride measurement (moles/volume) 105 mmol/L 98-107 Carbon dioxide 26 mmol/L 21-32 Serum or plasma anion gap determination (moles/volume) 8 mmol/L 5-14 Serum or plasma urea nitrogen measurement (mass/volume) 8 mg/dL 7-18 Serum or plasma creatinine measurement (mass/volume) 0.65 mg/dL 0.60-1.30 Serum or plasma urea nitrogen/creatinine mass ratio 12 NRG Serum or plasma creatinine measurement with calculation of estimated glomerular filtration rate > NRG Serum or plasma glucose measurement (mass/volume) 94 mg/dL 70-105 Serum or plasma calcium measurement (mass/volume) 8.8 mg/dL 8.5-10.1 Serum or plasma total bilirubin measurement (mass/volume) 0.2 mg/dL 0.1-1.0 Serum or plasma alkaline phosphatase measurement (enzymatic activity/volume) 66 U/L 40-136 Serum or plasma aspartate aminotransferase measurement (enzymatic activity/ volume) 14 U/L 5-34 Serum or plasma alanine aminotransferase measurement (enzymatic activity/volume ) 10 U/L 0-55 Serum or plasma protein measurement (mass/volume) 6.7 g/dL 6.4-8.2 Serum or plasma albumin measurement (mass/volume) 3.8 g/dL 3.2-4.5 CALCIUM CORRECTED 9.0 mg/dL 8.5-10.1 Lipase - 07/13/18 07:53 Lipase 10 U/L 8-78 Encounters ACCT No. Visit Date/Time Discharge Status Pt. Type Provider Facility Loc./Unit Complaint [id number] 10/24/2012 15:28:00 10/24/2012 23:59:59 CLS Outpatient BEKAH YU [id number] 04/23/2018 12:10:00 04/23/2018 15:50:00 DIS Emergency DAVID JAMESON [facility] ER L SHOULDER PAIN AFTER FALL , L FOOT PAIN [id number] 01/13/2018 13:18:00 01/13/2018 16:28:00 DIS Emergency MAT PALMER MD [facility] ER SOB,CP,HX OF AFIB [id number] 04/14/2017 13:30:00 04/14/2017 23:59:59 CLS Preadmit Keli FONTENOT MD [facility] CARD AFIB,CHEST PAIN [id number] 02/06/2017 12:00:00 04/13/2017 00:01:00 DIS Outpatient Keli FONTENOT MD [facility] CARD AFIB,CHEST PAIN [id number] 01/14/2017 04:50:00 01/14/2017 17:02:00 DIS Outpatient Keli FONTENOT MD [facility] CATH CHEST PAIN [id number] 01/13/2017 08:04:00 01/13/2017 23:59:59 CLS Outpatient Keli FONTENOT MD [facility] CARD NEW ONSET AFIB W/RVR [id number] 12/31/2016 04:00:00 12/31/2016 20:05:00 DIS Inpatient GODFREY CHOU MD [facility] ICU NEW ONSET AFIB W/ RVR: CHEST PAIN [id number] 12/02/2016 12:01:00 12/02/2016 13:12:00 DIS Emergency GRAYSON SANTANA [facility] ER WOUND CHECK [id number] 11/30/2016 01:27:00 11/30/2016 02:03:00 DIS Emergency MAT PALMER MD [facility] ER SWOLLEN KNOT ON BACK [id number] 09/25/2016 00:45:00 09/25/2016 13:50:00 DIS Outpatient NEVAEH NELSON DO [facility] SDC ESOPHAGEAL OBSTRUCTION [id number] 02/23/2016 16:49:00 02/23/2016 18:28:00 DIS Emergency LORI MABRY POWER BALLAST MACHINE OPERATOR [facility] ER L SIDE PAIN [id number] 01/24/2016 17:04:00 01/24/2016 23:59:59 CLS Emergency PHIL ALBERTO [facility] ER FLUID BEHIND L EAR [id number] 07/27/2014 10:28:00 07/27/2014 12:14:00 DIS Emergency PHIL ALBERTO [facility] ER FEVER,COUGH,ACHES [id number] 11/19/2013 19:16:00 11/19/2013 19:53:00 DIS Emergency LORI MABRY APRN [facility] ER L ARM/ELBOW/SHOULDER PAIN [id number] 08/19/2013 20:18:00 08/19/2013 22:15:00 DIS Emergency LORI MABRY APRN [facility] ER LEFT SHOULDER PAIN [id number] 06/21/2013 08:04:00 06/23/2013 12:00:00 DIS Inpatient FOZIA DARNELL DO [facility] WS REPEAT CESEAREAN SECTION [id number] 06/14/2013 11:49:00 06/14/2013 23:59:59 CLS Outpatient LULA CORTES DO [facility] PREOP REPEAT SECTION [id number] 06/06/2013 20:42:00 06/06/2013 23:59:59 CLS Outpatient FOZIA DARNELL DO [facility] WSo TRANSFER FROM EVANGELINE [id number] 07/13/2018 07:32:00 ACT Emergency BARBARA HAM MD [facility] ER BACK LEG PAIN [id number] 07/27/2014 12:17:00 Document Registration [id number] 06/19/2012 05:49:00 Document Registration [id number] 06/15/2012 20:40:00 Document Registration [id number] 06/13/2012 10:21:00 Document Registration [id number] 05/31/2012 22:26:00 Document Registration [id number] 05/25/2012 20:19:00 Document Registration [id number] 05/24/2012 11:55:00 Document Registration [id number] 05/24/2012 00:20:00 Document Registration [id number] 05/21/2012 23:41:00 Document Registration [id number] 05/20/2012 02:29:00 Document Registration [id number] 04/10/2012 23:30:00 Document Registration [id number] 04/08/2012 01:01:00 Document Registration [id number] 11/22/2011 20:12:00 Document Registration [id number] 02/07/2011 12:05:00 Document Registration
== END 2018-07-13 11:31 | disposition home or self-care (01) ==
LOC: EDUNIT# 07:31 → ER 07:32
DX: N93.8 Other specified abnormal uterine and vaginal bleeding (principal); I48.91 Unspecified atrial fibrillation; K21.9 Gastro-esophageal reflux disease without esophagitis; E66.9 Obesity, unspecified; F41.9 Anxiety disorder, unspecified; F32.9 Major depressive disorder, single episode, unspecified; F17.210 Nicotine dependence, cigarettes, uncomplicated; Z79.82 Long term (current) use of aspirin; Z80.1 Family history of malignant neoplasm of trachea, bronchus and lung; Z80.8 Family history of malignant neoplasm of other organs or systems; Z82.49 Family history of ischemic heart disease and other diseases of the circulatory system; Z68.43 Body mass index [BMI] 50.0-59.9, adult; Z79.52 Long term (current) use of systemic steroids; Z98.890 Other specified postprocedural states; Z90.49 Acquired absence of other specified parts of digestive tract; Z98.51 Tubal ligation status; Z90.89 Acquired absence of other organs
CPT/HCPCS: 36415; 76830; 76856; 80053; 81000; 83690; 84703; 85025; 85610; 85730; 87088; 87210; 87491; 87591

== ENCOUNTER → 2018-08-18 | Outpatient (REF) ==
[~2018-08-18] MED LIST changes: +ACHD5005 PO; -DILT120C63 PO; +DILT120C94 PO; +GABA-488 PO
--- NOTE | 2018-08-18 16:37 | Diagnostic Imaging Report ---
EXAMINATION: Right hand radiographs, 3 views. COMPARISON: None. HISTORY: 42-year-old female, crush injury of the hand. FINDINGS: There are areas of abnormal lucency within the dorsal soft tissues at the level of the second metacarpal which may relate to a penetrating type injury. There is no identified radiopaque foreign body. There is no acute fracture. There is no bone destruction. There is no periosteal reaction. The joint spaces are well-preserved. IMPRESSION: 1. Abnormal lucency within the dorsal soft tissues at the level of the second metacarpal which may potentially relate to a penetrating type injury. No radiopaque foreign body. 2. No identified acute fracture. Dictated by: Dictated on workstation # [id number]
== END | disposition home or self-care (01) ==
LOC: RAD 15:35
PROVIDERS: ATTEND Nurse Practitioner Family
CPT/HCPCS: 73130

== ENCOUNTER 2018-12-23 09:03 | Emergency (ER) | payer MEDICAID ==
[~2018-12-23] VITALS: Ht 149.9 cm; Wt 108.9 kg
[2018-12-23 11:03] LABS: BASOPHILS % (AUTO) 0 % (0-10); EOSINOPHILS # (AUTO) 0.4 10^3/uL (0.0-0.3); EOSINOPHILS % (AUTO) 6 % (0-10); HEMATOCRIT 38 % (35-52); HEMOGLOBIN 12.3 G/DL (11.5-16.0); LYMPHOCYTES # (AUTO) 1.8 X 10^3 (1.0-4.0); LYMPHOCYTES % (AUTO) 33 % (12-44); MEAN CORPUSCULAR HEMOGLOBIN 28 PG (25-34); MEAN CORPUSCULAR HGB CONC 33 G/DL (32-36); MEAN CORPUSCULAR VOLUME 87 FL (80-99); MEAN PLATELET VOLUME 10.7 FL (7.4-10.4); MONOCYTES # (AUTO) 0.4 X 10^3 (0.0-1.0); MONOCYTES % (AUTO) 6 % (0-12); NEUTROPHILS % (AUTO) 54 % (42-75); PLATELET COUNT 251 10^3/uL (130-400); RED CELL DISTRIBUTION WIDTH 13.9 % (10.0-14.5); WHITE BLOOD COUNT 5.5 10^3/uL (4.3-11.0)
--- NOTE | 2018-12-23 11:03 | ED GU-Female ---
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 pt has hx of fibroids. Nursing Sepsis Screen: No Definite Risk Source: patient Exam Limitations: no limitations History of Present Illness Date Seen by Provider: December 23, 2018 Time Seen by Provider: 11:00 Initial Comments This 44-year-old female presents with heavy vaginal bleeding that began last 24 hours. The patient has a history of heavy vaginal bleeding secondary to fibroids. She is under the care of Dr. Cortes. The patient states that the menstrual bleeding began 2 weeks earlier than her anticipated normal.. The patient had a similar presentation in July at which time it was determined that she was suffering from fibroids of the uterus. Allergies and Home Medications Allergies Coded Allergies: No Known Drug Allergies (Unverified , 12/06/08) Home Medications Aspirin 325 Mg Tablet, 325 MG PO DAILY, (Reported) Atorvastatin Calcium 40 Mg Tablet, 40 MG PO HS Prescribed by: CHIQUITA GARCÍA on 01/14/17 1702 Diltiazem HCl 120 Mg Cap.er.24h, 120 MG PO DAILY, (Reported) Gabapentin 300 Mg Capsule, 300 MG PO TID, (Reported) Hydrocodone Bit/Acetaminophen 1 Tab Tab, 1 EACH PO Q4-6HR PRN for PAIN-MODERATE Prescribed by: BARBARA HAM on 07/13/18 1119 Ibuprofen 200 Mg Tablet, 600-800 MG PO TID PRN for PAIN-MILD, (Reported) TAKES 3-4 (200MG) TABLETS Prednisone 20 Mg Tab, 40 MG PO DAILY Prescribed by: MAT PALMER on 01/13/18 1547 Patient Home Medication List Home Medication List Reviewed: Yes Review of Systems Review of Systems Constitutional: No chills, No fever EENTM: No blurred vision Respiratory: No cough Cardiovascular: No chest pain Gastrointestinal: No abdominal pain, No nausea, No vomiting Genitourinary: denies see HPI, denies dysuria, denies frequency, denies other (heavy vaginal bleeding with clots.) Musculoskeletal: No back pain, No joint pain Skin: No change in color Psychiatric/Neurological: No Symptoms Reported Endocrine: No Symptoms Reported Hematologic/Lymphatic: No Symptoms Reported Past Mobxzag-Sbmvtp-Fzkaza Hx Past Med/Social Hx: Reviewed Nursing Past Med/Soc Hx Patient Social History Alcohol Use: Occasionally Uses Recreational Drug Use: No (SMOKES 1/2 PPD) Smoking Status: Current Everyday Smoker Type Used: Cigarettes 2nd Hand Smoke Exposure: Yes Recent Foreign Travel: No Contact w/Someone Who Travel: No Recent Infectious Disease Expo: No Recent Hopitalizations: No Immunizations Up To Date Tetanus Booster (TDap): Unknown PED Vaccines UTD: No Date of Influenza Vaccine: Apr 06, 2016 Seasonal Allergies Seasonal Allergies: No Past Medical History Surgeries: Yes (WISDOM TEETH; X 4, cervical spine, l wrist carpal tunnel) Adenoidectomy, Appendectomy, Section, Tonsillectomy, Tubal Ligation Respiratory: Yes (tobaccoism) Sleep Apnea Currently Using CPAP: No Currently Using BIPAP: No Cardiac: Yes 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, High Cholesterol Neurological: No Reproductive Disorders: No Female Reproductive Disorders: Menstrual Problems 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: Tubal Ligation Sexually Transmitted Disease: No HIV/AIDS: No Genitourinary: No Gastrointestinal: Yes Gastroesophageal Reflux Musculoskeletal: Yes Degenerate Disk Disease Endocrine: Yes (OBESE) Hypothyroidsim HEENT: No Cancer: No Psychosocial: Yes Anxiety, Depression Integumentary: Yes (DARIER'S DISEASE) Psoriasis Blood Disorders: No Adverse Reaction/Blood Tranf: No Family Medical History Cancer 03 MOTHER (LUNG AND BONE) Family history: Glaucoma 03 FATHER Heart disease 03 MOTHER History of - respiratory disease 03 FATHER (COPD) Stroke 03 MOTHER Heart Disease, Cancer, COPD, Diabetes, Stroke Physical Exam Vital Signs Vital Signs - First Documented 12/23/18 09:32 Temp 97.0 Pulse 62 Resp 16 B/P (MAP) 122/74 (90) Pulse Ox 97 Capillary Refill : Less Than 3 Seconds Height, Weight, BMI Height: 4'11.00" Weight: 240lbs. 0.0oz. 108.980379uf; 53.1 BMI Method:Stated General Appearance: WD/WN, no apparent distress HEENT: normal ENT inspection Neck: normal inspection Cardiovascular: regular rate, rhythm, no gallop Respiratory: lungs clear, normal breath sounds Gastrointestinal: normal bowel sounds, non tender Genital/Rectal: other (small amount of dark red blood in the vault was present. Cultures were obtained. The uterus was enlarged and tender on bimanual exam) Back: normal inspection Extremities: normal range of motion, non-tender Neurologic/Psychiatric: no motor/sensory deficits, alert, normal mood/affect Skin: normal color, warm/dry Progress/Results/Core Measures Suspected Sepsis Recent Fever Within 48 Hours: No Infection Criteria Present: None New/Unexplained Altered Menta: No Sepsis Screen: No Definite Risk SIRS Temperature:97.0 Pulse: 62 Respiratory Rate: 16 Laboratory Tests 12/23/18 10:52: White Blood Count 5.5 Blood Pressure 122 /74 Mean: 90 Laboratory Tests 12/23/18 10:52: INR Comment 0.9, Platelet Count 251 Results/Orders Lab Results Laboratory Tests Test 12/23/18 10:52 Range/Units White Blood Count 5.5 4.3-11.0 10^3/uL Red Blood Count 4.35 4.35-5.85 10^6/uL Hemoglobin 12.3 11.5-16.0 G/DL Hematocrit 38 35-52 % Mean Corpuscular Volume 87 80-99 FL Mean Corpuscular Hemoglobin 28 25-34 PG Mean Corpuscular Hemoglobin Concent 33 32-36 G/DL Red Cell Distribution Width 13.9 10.0-14.5 % Platelet Count 251 130-400 10^3/uL Mean Platelet Volume 10.7 H 7.4-10.4 FL Neutrophils (%) (Auto) 54 42-75 % Lymphocytes (%) (Auto) 33 12-44 % Monocytes (%) (Auto) 6 0-12 % Eosinophils (%) (Auto) 6 0-10 % Basophils (%) (Auto) 0 0-10 % Neutrophils # (Auto) 3.0 1.8-7.8 X 10^3 Lymphocytes # (Auto) 1.8 1.0-4.0 X 10^3 Monocytes # (Auto) 0.4 0.0-1.0 X 10^3 Eosinophils # (Auto) 0.4 H 0.0-0.3 10^3/uL Basophils # (Auto) 0.0 0.0-0.1 10^3/uL Prothrombin Time 12.8 12.2-14.7 SEC INR Comment 0.9 0.8-1.4 Urine Test NEGATIVE NEGATIVE My Orders Orders - MATTIE DAVILA MD Cbc With Automated Diff (12/23/18 10:39) Protime With Inr (12/23/18 10:39) Hcg,Qualitative Urine (12/23/18 10:39) Vital Signs/I&O 12/23/18 09:32 Temp 97.0 Pulse 62 Resp 16 B/P (MAP) 122/74 (90) Pulse Ox 97 Capillary Refill : Less Than 3 Seconds Blood Pressure Mean: 90 Progress Note : Time: 11:50 Progress Note The patient had a negative urine test. Her CBC was unremarkable. Her urinalysis was benign. 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 She is invited to return to the emergency department for any further problems or questions. Departure Impression Primary Impression: Dysfunctional uterine bleeding Additional Impression: Uterine fibroid Qualified Codes: D25.9 - Leiomyoma of uterus, unspecified Disposition: HOME, SELF-CARE Condition: Improved Departure-Patient Inst. Decision time for Depature: 11:52 Referrals: [facility] [place] Primary Care Physician LULA CORTES DO Patient Instructions: Heavy Periods Add. Discharge Instructions: Close follow-up with Dr. Cortes. Return if any problems or questions. All discharge instructions reviewed with patient and/or family. Voiced understanding. MATTIE DAVILA MD December 23, 2018 11:03
[2018-12-23 11:13] LABS: INR 0.9 (0.8-1.4); PROTHROMBIN TIME PATIENT 12.8 SEC (12.2-14.7)
[2018-12-23 12:10] VITALS: BP 132/89
== END 2018-12-23 12:10 | disposition home or self-care (01) ==
LOC: EDUNIT# 09:03 → ER 09:04
DX: N93.8 Other specified abnormal uterine and vaginal bleeding (principal); D25.9 Leiomyoma of uterus, unspecified; G56.02 Carpal tunnel syndrome, left upper limb; G47.30 Sleep apnea, unspecified; I48.91 Unspecified atrial fibrillation; E78.00 Pure hypercholesterolemia, unspecified; K21.9 Gastro-esophageal reflux disease without esophagitis; E03.9 Hypothyroidism, unspecified; E66.9 Obesity, unspecified; F41.9 Anxiety disorder, unspecified; F32.9 Major depressive disorder, single episode, unspecified; Q82.8 Other specified congenital malformations of skin; F17.210 Nicotine dependence, cigarettes, uncomplicated; Z79.82 Long term (current) use of aspirin; Z79.52 Long term (current) use of systemic steroids; Z90.49 Acquired absence of other specified parts of digestive tract; Z80.8 Family history of malignant neoplasm of other organs or systems; Z80.1 Family history of malignant neoplasm of trachea, bronchus and lung; Z82.49 Family history of ischemic heart disease and other diseases of the circulatory system; Z68.43 Body mass index [BMI] 50.0-59.9, adult; Z98.890 Other specified postprocedural states; Z90.89 Acquired absence of other organs; Z98.51 Tubal ligation status
CPT/HCPCS: 36415; 84703; 85025; 85610; 87491; 87591

== ENCOUNTER 2019-04-05 21:28 | Emergency (ER) | payer MEDICAID ==
[~2019-04-05] VITALS: Ht 149.9 cm; Wt 106.6 kg
[2019-04-05] MEDS ORDERED: DOXY100T2 PO (22:06)
--- NOTE | 2019-04-05 22:06 | ED Integumentary General ---
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 She's been doing with this for many years. Over the past few days she has noticed some increased swelling to the leg, a bit of increased redness around the borders of this skin lesion, he rounded she LO Griese crossed/plaque is normal in appearance. She is afebrile at home. Timing/Duration: just prior to arrival Severity: moderate Location: extremities Associated Symptoms: denies symptoms Allergies and Home Medications Allergies Coded Allergies: No Known Drug Allergies (Unverified , 12/06/08) Home Medications Aspirin 325 Mg Tablet, 325 MG PO DAILY, (Reported) Atorvastatin Calcium 40 Mg Tablet, 40 MG PO HS Prescribed by: CHIQUITA GARCÍA on 01/14/17 1702 Diltiazem HCl 120 Mg Cap.er.24h, 120 MG PO DAILY, (Reported) Gabapentin 300 Mg Capsule, 300 MG PO TID, (Reported) Hydrocodone Bit/Acetaminophen 1 Tab Tab, 1 EACH PO Q4-6HR PRN for PAIN-MODERATE Prescribed by: BARBARA HAM on 07/13/18 1119 Ibuprofen 200 Mg Tablet, 600-800 MG PO TID PRN for PAIN-MILD, (Reported) TAKES 3-4 (200MG) TABLETS Prednisone 20 Mg Tab, 40 MG PO DAILY Prescribed by: MAT PALMER on 01/13/18 1547 Patient Home Medication List Home Medication List Reviewed: Yes Review of Systems Review of Systems Constitutional: see HPI EENTM: see HPI Respiratory: no symptoms reported Cardiovascular: no symptoms reported Musculoskeletal: see HPI Skin: no symptoms reported Psychiatric/Neurological: No Symptoms Reported Past Scmadst-Dunxcw-Dbebtx Hx Patient Social History Type Used: Cigarettes 2nd Hand Smoke Exposure: Yes Recent Foreign Travel: No Contact w/Someone Who Travel: No Recent Hopitalizations: No Immunizations Up To Date Tetanus Booster (TDap): Unknown PED Vaccines UTD: No Date of Influenza Vaccine: Apr 06, 2016 Seasonal Allergies Seasonal Allergies: No Past Medical History Surgeries: Yes (WISDOM TEETH; X 4, cervical spine, l wrist carpal tunnel) Adenoidectomy, Appendectomy, Section, Tonsillectomy, Tubal Ligation Respiratory: Yes (tobaccoism) Sleep Apnea Currently Using CPAP: No Currently Using BIPAP: No Cardiac: Yes 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, High Cholesterol Neurological: No Reproductive Disorders: No Female Reproductive Disorders: 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 Sexually Transmitted Disease: No HIV/AIDS: No Genitourinary: No Gastrointestinal: Yes Gastroesophageal Reflux Musculoskeletal: Yes Degenerate Disk Disease Endocrine: Yes (OBESE) Hypothyroidsim HEENT: No Cancer: No Psychosocial: Yes Anxiety, Depression Integumentary: Yes (DARIER'S DISEASE) Psoriasis Blood Disorders: No Adverse Reaction/Blood Tranf: No Family Medical History Cancer 03 MOTHER (LUNG AND BONE) Family history: Glaucoma 03 FATHER Heart disease 03 MOTHER History of - respiratory disease 03 FATHER (COPD) Stroke 03 MOTHER Heart Disease, Cancer, COPD, Diabetes, Stroke Physical Exam Vital Signs Capillary Refill : General Appearance: WD/WN, no apparent distress HEENT: PERRL/EOMI, normal ENT inspection Neck: non-tender, full range of motion Respiratory: normal breath sounds, no respiratory distress, no accessory muscle use Neurologic/Psychiatric: no motor/sensory deficits, alert, normal mood/affect, oriented x 3 Skin: normal color, warm/dry Skin Problem Character: other ( large crusted plaques to the right lower extremity with about 1-2 cm of erythema surrounding them.) Progress/Results/Core Measures Results/Orders My Orders Orders - LORI MABRY APRN Ceftriaxone For Im Use (Rocephin For Im (04/05/19 22:00) Dexamethasone Injection (Decadron Inject (04/05/19 22:00) Lidocaine 1% Inj 20 Ml (Xylocaine 1% Inj (04/05/19 22:00) Departure Communication (Admissions) She is neither febrile nor tachycardic nor is there circumferential erythema around the leg. She has had success with topical steroids in the past. We'll do a dose of Decadron intramuscular as well as Rocephin intramuscular. Impression Primary Impression: Keratosis follicularis Additional Impression: Soft tissue infection Disposition: 01 HOME, SELF-CARE Condition: Stable Departure-Patient Inst. Decision time for Depature: 22:04 Referrals: [facility] (PCP/Family) Primary Care Physician Patient Instructions: Wound Infection Add. Discharge Instructions: 1. Return to ER for any concerns or worsening symptoms such as fevers chills worsening redness All discharge instructions reviewed with patient and/or family. Voiced understanding. Scripts Doxycycline Hyclate (Doxycycline Hyclate) 100 Mg Tablet 100 MG PO BID, #20 TAB 0 Refills Prov: LORI MABRY APRN 04/05/19 LORI MABRY APRN Apr 05, 2019 22:06
[2019-04-05] MEDS: DEXAMETHASONE 10 MG/ML (DECADRON) 1 ML VIAL IM ONE (22:22)
[2019-04-05] MEDS: LIDOCAINE 1% INJ 20 ML 20 ML VIAL INJ ONE (22:22)
[2019-04-05] MEDS: cefTRIAXone 2000 MG/5.7 ml VIAL (IM ONLY) IM SCH (22:22)
[2019-04-05] MEDS: cefTRIAXone 2 GM IV (ROCEPHIN) VIAL ONE (22:23)
[2019-04-05 22:40] VITALS: BP 125/90
== END 2019-04-05 22:41 | disposition home or self-care (01) ==
LOC: EDUNIT# 21:28 → ER 21:29
DX: Q82.8 Other specified congenital malformations of skin (principal); L08.9 Local infection of the skin and subcutaneous tissue, unspecified; I48.91 Unspecified atrial fibrillation; E78.00 Pure hypercholesterolemia, unspecified; F41.9 Anxiety disorder, unspecified; F32.9 Major depressive disorder, single episode, unspecified; G47.30 Sleep apnea, unspecified; K21.9 Gastro-esophageal reflux disease without esophagitis; E03.9 Hypothyroidism, unspecified; E66.9 Obesity, unspecified; Z79.82 Long term (current) use of aspirin; Z79.52 Long term (current) use of systemic steroids; Z77.22 Contact with and (suspected) exposure to environmental tobacco smoke (acute) (chronic); Z90.89 Acquired absence of other organs; Z98.51 Tubal ligation status; Z90.49 Acquired absence of other specified parts of digestive tract; Z80.1 Family history of malignant neoplasm of trachea, bronchus and lung; Z80.8 Family history of malignant neoplasm of other organs or systems; Z82.49 Family history of ischemic heart disease and other diseases of the circulatory system
CPT/HCPCS: 99284

== ENCOUNTER → 2019-05-02 | Outpatient (CLI) | payer MEDICAID ==
[~2019-05-02] MED LIST changes: +DOXY100T2 PO
== END ==
LOC: WOUNDCARE 08:15
PROVIDERS: ATTEND Surgery
DX: T65.222A Toxic effect of tobacco cigarettes, intentional self-harm, initial encounter (principal); I25.10 Atherosclerotic heart disease of native coronary artery without angina pectoris; E66.01 Morbid (severe) obesity due to excess calories; Q82.8 Other specified congenital malformations of skin
CPT/HCPCS: 99213

== ENCOUNTER 2019-05-06 19:33 | Emergency (ER) | payer MEDICAID ==
[~2019-05-06] VITALS: Ht 149 cm; Wt 104.0 kg
[2019-05-06] MEDS ORDERED: FAMOTIDINE 20 MG (PEPCID) TABLET PO STA (19:53)
--- NOTE | 2019-05-06 19:58 | ED Chest Pain ---
General Chief Complaint: Chest Pain Stated Complaint: RT LEG SWOLLEN Source: patient, family Exam Limitations: no limitations History of Present Illness Date Seen by Provider: May 06, 2019 Time Seen by Provider: 19:40 Initial Comments Patient presents to ER with 2 separate complaints of chest pain off-and-on for the past 48 hours. She has some mild shortness of breath. She says she rates pain a 6 out of 10 substernal and epigastric. She does not history of coronary disease but does have a history of atrial fibrillation. She follows with Dr. Reeves and has an appointment upcoming to see whether she needs to be on more than just aspirin. She does not take blood thinner. She did not take her aspirin today. She has not taken anything for the chest pain today. She does have a history of acid reflux. She also has a history of Darier disease with seborrheic plaques on her lower extremity is. She feels her right leg has been more swollen for the past several days than left. She's not having any redness weeping fevers chills. She's been very frustrated with getting outpatient workup for her plaqu es and said the last time she came here she was told that if it was not getting any better to come back and they will admit her. Allergies and Home Medications Allergies Coded Allergies: No Known Drug Allergies (Unverified , 12/06/08) Home Medications Aspirin 325 Mg Tablet, 325 MG PO DAILY, (Reported) Atorvastatin Calcium 40 Mg Tablet, 40 MG PO HS Prescribed by: CHIQUITA GARCÍA on 01/14/17 1702 Diltiazem HCl 120 Mg Cap.er.24h, 120 MG PO DAILY, (Reported) Doxycycline Hyclate 100 Mg Tablet, 100 MG PO BID Prescribed by: LORI MABRY on 04/05/19 2206 Gabapentin 300 Mg Capsule, 300 MG PO TID, (Reported) Hydrocodone Bit/Acetaminophen 1 Tab Tab, 1 EACH PO Q4-6HR PRN for PAIN-MODERATE Prescribed by: BARBARA HAM on 07/13/18 1119 Ibuprofen 200 Mg Tablet, 600-800 MG PO TID PRN for PAIN-MILD, (Reported) TAKES 3-4 (200MG) TABLETS Prednisone 20 Mg Tab, 40 MG PO DAILY Prescribed by: MAT PALMER on 01/13/18 1547 Patient Home Medication List Home Medication List Reviewed: Yes Review of Systems Review of Systems Constitutional: No chills, No diaphoresis, No fever EENTM: No Blurred Vision, No Double Vision, No Eye Pain Respiratory: Denies Cough; Shortness of Air; Denies SOA With Exertion Cardiovascular: Chest Pain; Denies Edema Gastrointestinal: Denies Constipated, Denies Diarrhea Genitourinary: Denies Burning, Denies Discharge Musculoskeletal: No back pain, No joint pain Skin: see HPI, rash Past Euqimxn-Ddmbtk-Niddcx Hx Patient Social History Alcohol Use: Denies Use Recreational Drug Use: No Smoking Status: Current Everyday Smoker Type Used: Cigarettes 2nd Hand Smoke Exposure: Yes Recent Foreign Travel: No Contact w/Someone Who Travel: No Recent Hopitalizations: No Immunizations Up To Date Tetanus Booster (TDap): Unknown PED Vaccines UTD: No Date of Influenza Vaccine: Apr 06, 2016 Seasonal Allergies Seasonal Allergies: No Past Medical History Surgeries: Yes (WISDOM TEETH; X 4, cervical spine, l wrist carpal tunnel) Adenoidectomy, Appendectomy, Section, Tonsillectomy, Tubal Ligation Respiratory: Yes (tobaccoism) Sleep Apnea Currently Using CPAP: No Currently Using BIPAP: No Cardiac: Yes 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, High Cholesterol Neurological: No Reproductive Disorders: No Female Reproductive 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 Sexually Transmitted Disease: No HIV/AIDS: No Genitourinary: No Gastrointestinal: Yes Gastroesophageal Reflux Musculoskeletal: Yes Degenerate Disk Disease Endocrine: Yes (OBESE) Hypothyroidsim HEENT: No Cancer: No Psychosocial: Yes Anxiety, Depression Integumentary: Yes (DARIER'S DISEASE) Psoriasis Blood Disorders: No Adverse Reaction/Blood Tranf: No Family Medical History Cancer 03 MOTHER (LUNG AND BONE) Family history: Glaucoma 03 FATHER Heart disease 03 MOTHER History of - respiratory disease 03 FATHER (COPD) Stroke 03 MOTHER Heart Disease, Cancer, COPD, Diabetes, Stroke Physical Exam Vital Signs Vital Signs - First Documented Capillary Refill : Height, Weight, BMI Height: 4'11.00" Weight: 235lbs. 0oz. 106.920042vu; 53.1 BMI Method:Stated General Appearance: No Apparent Distress, Obese HEENT: PERRL/EOMI, Pharynx Normal, Moist Mucous Membranes Neck: Full Range of Motion, Normal Inspection, Non Tender Respiratory: Lungs Clear, Normal Breath Sounds, No Accessory Muscle Use, No Respiratory Distress, Other (chest pain reproducible over manubrium and epigastric region) Cardiovascular: Regular Rate, Rhythm, No Edema, Normal Peripheral Pulses Gastrointestinal: Non Tender, Soft Extremity: Normal Capillary Refill, Other (greatest dimension of the right calf is 50 cm and left calf is 49 cm) Neurologic/Psychiatric: Alert, Oriented x3 Skin: Other (seborrheic plaques over the lower extremity with no erythema, induration, discharge or drainage.) Progress/Results/Core Measures Results/Orders Lab Results Laboratory Tests Test 05/06/19 19:43 05/06/19 21:20 Range/Units White Blood Count 8.4 4.3-11.0 10^3/uL Red Blood Count 4.28 L 4.35-5.85 10^6/uL Hemoglobin 11.7 11.5-16.0 G/DL Hematocrit 36 35-52 % Mean Corpuscular Volume 84 80-99 FL Mean Corpuscular Hemoglobin 27 25-34 PG Mean Corpuscular Hemoglobin Concent 33 32-36 G/DL Red Cell Distribution Width 14.3 10.0-14.5 % Platelet Count 282 130-400 10^3/uL Mean Platelet Volume 10.6 H 7.4-10.4 FL Neutrophils (%) (Auto) 57 42-75 % Lymphocytes (%) (Auto) 30 12-44 % Monocytes (%) (Auto) 7 0-12 % Eosinophils (%) (Auto) 5 0-10 % Basophils (%) (Auto) 0 0-10 % Neutrophils # (Auto) 4.8 1.8-7.8 X 10^3 Lymphocytes # (Auto) 2.5 1.0-4.0 X 10^3 Monocytes # (Auto) 0.6 0.0-1.0 X 10^3 Eosinophils # (Auto) 0.4 H 0.0-0.3 10^3/uL Basophils # (Auto) 0.0 0.0-0.1 10^3/uL Prothrombin Time 13.6 12.2-14.7 SEC INR Comment 1.0 0.8-1.4 Activated Partial Thromboplast Time 31 24-35 SEC Sodium Level 140 135-145 MMOL/L Potassium Level 3.3 L 3.6-5.0 MMOL/L Chloride Level 107 98-107 MMOL/L Carbon Dioxide Level 25 21-32 MMOL/L Anion Gap 8 5-14 MMOL/L Blood Urea Nitrogen 12 7-18 MG/DL Creatinine 0.64 0.60-1.30 MG/DL Estimat Glomerular Filtration Rate > 60 BUN/Creatinine Ratio 19 Glucose Level 79 70-105 MG/DL Calcium Level 8.9 8.5-10.1 MG/DL Corrected Calcium 9.0 8.5-10.1 MG/DL Magnesium Level 1.7 1.6-2.4 MG/DL Total Bilirubin 0.2 0.1-1.0 MG/DL Aspartate Amino Transf (AST/SGOT) 14 5-34 U/L Alanine Aminotransferase (ALT/SGPT) 11 0-55 U/L Alkaline Phosphatase 77 40-136 U/L Myoglobin 19.2 10.0-92.0 NG/ML Troponin I < 0.028 < 0.028 <0.028 NG/ML B-Type Natriuretic Peptide 15.5 <100.0 PG/ML Total Protein 6.6 6.4-8.2 GM/DL Albumin 3.9 3.2-4.5 GM/DL Lipase 11 8-78 U/L My Orders Orders - JITENDRA,BARBARA J Cbc With Automated Diff (05/06/19 19:53) Magnesium (05/06/19 19:53) Chest 1 View, Ap/Pa Only (05/06/19 19:53) Ekg Tracing (05/06/19 19:53) Cardiac Profile 1 (05/06/19 19:53) Comprehensive Metabolic Panel (05/06/19 19:53) Myoglobin Serum (05/06/19 19:53) Protime With Inr (05/06/19 19:53) Partial Thromboplastin Time (05/06/19 19:53) O2 (05/06/19 19:53) Monitor-Rhythm Ecg Trace Only (05/06/19 19:53) Lipid Panel (05/07/19 06:00) Ed Iv/Invasive Line Start (05/06/19 19:53) Lipase (05/06/19 19:53) BNP (05/06/19 19:53) Aspirin Chewable Tablet (Baby Aspirin Ch (05/06/19 20:00) Lidocaine 2% Viscous 15 Ml (Xylocaine Vi (05/06/19 20:00) Famotidine Tablet (Pepcid Tablet) (05/06/19 19:53) Antacid Suspension (Mylanta Suspension (05/06/19 20:00) Ekg Tracing (05/06/19 21:01) Troponin I (05/06/19 21:11) Ketorolac Injection (Toradol Injection) (05/06/19 21:30) Medications Given in ED Current Medications Medications Dose Ordered Sig/Jeri Route Start Time Stop Time Status Last Admin Dose Admin Al Hydrox/Mg Hydrox/Simethicone 30 ml ONCE ONCE PO 05/06/19 20:00 05/06/19 20:01 DC 05/06/19 20:00 30 ML Aspirin 324 mg ONCE ONCE PO 05/06/19 20:00 05/06/19 20:01 DC 05/06/19 20:00 324 MG Ketorolac Tromethamine 30 mg ONCE ONCE IVP 05/06/19 21:30 05/06/19 21:31 DC 05/06/19 21:26 30 MG Lidocaine HCl 15 ml ONCE ONCE PO 05/06/19 20:00 05/06/19 20:01 DC 05/06/19 20:01 15 ML Vital Signs/I&O 05/06/19 05/06/19 19:54 19:54 Temp 36.7 Pulse 63 Resp 18 B/P (MAP) 112/84 (93) O2 Delivery Room Air Room Air Progress Progress Note #1: Time: 20:04 Progress Note No significant appreciable swelling right leg compared to left. The patient seems less concerned about her chest pain or shortness of breath and more concerned about wanting to be set up with a wicker molded candles and have treatment for her their air disease. We'll give her aspirin do a cardiac workup and review records. There does not appear to be any cellulitic appearance to her legs and they do not appear to be in any kind of distress. We'll check labs for signs of infection. Cardiac catheterization [address] Reeves showing no significant thoracic aortic aneurysm or dissection. Mild coronary artery disease. Medical management. Echocardiogram 2017 Dr. Reeves: Normal left ventricle and right ventricle size and function with EF of 60%. Normal diastolic function. Progress Note #2: Time: 20:58 Progress Note Heart score 1 point for risk factors and no points for non-convincing presentation. She has reducible epigastric pain. Low risk. 0.91.7% 30-day MACE. GI cocktail did not help her epigastric pain so we will trial of nitroglycerin and if that doesn't really help we will try Toradol. Her symptoms and presentation are similar to her previous presentation and 2017 as documented at that time she said she got mild relief from nitroglycerin. Repeat troponin at 3 hours and if negative, discharge home with outpatient follow-up. Repeat troponin and EKG now. This episode chest pain started one to 2 hours prior to arrival per patient. Initial ECG Impression Date: May 06, 2019 Initial ECG Impression Time: 19:42 Initial ECG Rate: 65 Initial ECG Rhythm: Normal Sinus Initial ECG Intervals: QT (479) Initial ECG Impression: Normal, Nonspecific Changes Initial ECG Comparisson: No Previous ECG Available Comment No acute ST elevation or depression. EKG : EKG Time: 21:22 Rate: 56 Rhythm: Normal Sinus Intervals: QT (491) ECG Comparisson: Unchanged ECG Impression: Normal Comment No clinically evident ST elevation or depression. Normal sinus rhythm. Prolonged QT interval. Diagnostic Imaging Diagonstic Imaging: Xray Plain Films/CT/US/NM/MRI: chest (1v) Comments NAME: TRINA ÁLVAREZ [facility] REC#: [id number] PT STATUS: REG ER : 1975 PHYSICIAN: BARBARA HAM MD ADMIT DATE: 05/06/19/ER Signed Date of Exam:05/06/19 CHEST 1 VIEW, AP/PA ONLY CHEST 1 VIEW, AP/PA ONLY Indication: Shortness of air and chest pain Comparison: 01/13/2018 Findings: No focal airspace disease in the visualized lungs. Please note that the posterior lower lobes are poorly evaluated by portable radiography. No pleural effusion or pneumothorax. Normal cardiomediastinal silhouette. Impression: 1. No acute cardiopulmonary process by portable radiography. Dictated by: Dictated on workstation # [id number] Dict: 05/06/192014 Trans: 05/06/192014 [facility] [id number] Interpreted by: DANICA LEARY MD Electronically signed by: DANICA LEARY MD 05/06/192014 Reviewed: Reviewed by Me Departure Impression Primary Impression: Keratosis follicularis Additional Impression: Chest pain Qualified Codes: R07.9 - Chest pain, unspecified Disposition: 01 HOME, SELF-CARE Condition: Stable Departure-Patient Inst. Decision time for Depature: 21:58 Referrals: [facility] (PCP/Family) Primary Care Physician Patient Instructions: Chest Pain Add. Discharge Instructions: Tomorrow morning call Dr. tineo office and request a follow-up appointment this week. Continue to pursue follow-up with dermatology for your leg. All discharge instructions reviewed with patient and/or family. Voiced understanding. BARBARA HAM J May 06, 2019 19:58
[2019-05-06] MEDS ORDERED: ANTACID SUSP 30 ML UDC (MYLANTA) PO ONE (20:00)
[2019-05-06] MEDS ORDERED: LIDOCAINE 2% VISCOUS 15 ML UDC PO ONE (20:00)
[2019-05-06] MEDS ORDERED: ASPIRIN 81 MG CHEW (CHILDREN'S ASA) PO ONE (20:00)
[2019-05-06 20:05] LABS: BASOPHILS % (AUTO) 0 % (0-10); EOSINOPHILS # (AUTO) 0.4 10^3/uL (0.0-0.3); EOSINOPHILS % (AUTO) 5 % (0-10); HEMATOCRIT 36 % (35-52); HEMOGLOBIN 11.7 G/DL (11.5-16.0); LYMPHOCYTES # (AUTO) 2.5 X 10^3 (1.0-4.0); LYMPHOCYTES % (AUTO) 30 % (12-44); MEAN CORPUSCULAR HEMOGLOBIN 27 PG (25-34); MEAN CORPUSCULAR HGB CONC 33 G/DL (32-36); MEAN CORPUSCULAR VOLUME 84 FL (80-99); MEAN PLATELET VOLUME 10.6 FL (7.4-10.4); MONOCYTES # (AUTO) 0.6 X 10^3 (0.0-1.0); MONOCYTES % (AUTO) 7 % (0-12); NEUTROPHILS # (AUTO) 4.8 X 10^3 (1.8-7.8); NEUTROPHILS % (AUTO) 57 % (42-75); PLATELET COUNT 282 10^3/uL (130-400); RED CELL DISTRIBUTION WIDTH 14.3 % (10.0-14.5); WHITE BLOOD COUNT 8.4 10^3/uL (4.3-11.0)
[2019-05-06 20:12] LABS: PROTHROMBIN TIME PATIENT 13.6 SEC (12.2-14.7)
--- NOTE | 2019-05-06 20:16 | Diagnostic Imaging Report ---
CHEST 1 VIEW, AP/PA ONLY Indication: Shortness of air and chest pain Comparison: 01/13/2018 Findings: No focal airspace disease in the visualized lungs. Please note that the posterior lower lobes are poorly evaluated by portable radiography. No pleural effusion or pneumothorax. Normal cardiomediastinal silhouette. Impression: 1. No acute cardiopulmonary process by portable radiography. Dictated by: Dictated on workstation # [id number]
[2019-05-06 20:19] LABS: ALANINE AMINOTRANSFERASE 11 U/L (0-55); ALBUMIN 3.9 GM/DL (3.2-4.5); ALKALINE PHOSPHATASE 77 U/L (40-136); BILIRUBIN,TOTAL 0.2 MG/DL (0.1-1.0); BUN/CREATININE RATIO 19; CALCIUM 8.9 MG/DL (8.5-10.1); CARBON DIOXIDE 25 MMOL/L (21-32); CHLORIDE 107 MMOL/L (98-107); CREATININE SERUM 0.64 MG/DL (0.60-1.30); GFR ESTIMATED > 60; GLUCOSE 79 MG/DL (70-105); LIPASE 11 U/L (8-78); MAGNESIUM 1.7 MG/DL (1.6-2.4); POTASSIUM 3.3 MMOL/L (3.6-5.0); SODIUM 140 MMOL/L (135-145); TOTAL PROTEIN 6.6 GM/DL (6.4-8.2)
[2019-05-06] MEDS ORDERED: NITROGLYCERIN 0.4 MG SL TABS BTL 25'S SL PRN (21:15)
[2019-05-06] MEDS ORDERED: KETOROLAC 30 MG/ML VIAL IVP ONE (21:30)
[2019-05-06 22:05] VITALS: BP 134/78
== END 2019-05-06 22:05 | disposition home or self-care (01) ==
LOC: EDUNIT# 19:33 → ER 19:35
DX: Q82.8 Other specified congenital malformations of skin (principal); R07.9 Chest pain, unspecified; K21.9 Gastro-esophageal reflux disease without esophagitis; I48.91 Unspecified atrial fibrillation; E78.00 Pure hypercholesterolemia, unspecified; E66.9 Obesity, unspecified; E03.9 Hypothyroidism, unspecified; F41.9 Anxiety disorder, unspecified; F32.9 Major depressive disorder, single episode, unspecified; F17.210 Nicotine dependence, cigarettes, uncomplicated; Z90.89 Acquired absence of other organs; Z68.42 Body mass index [BMI] 45.0-49.9, adult; Z90.49 Acquired absence of other specified parts of digestive tract; Z98.51 Tubal ligation status; Z79.82 Long term (current) use of aspirin; Z79.52 Long term (current) use of systemic steroids; Z82.49 Family history of ischemic heart disease and other diseases of the circulatory system; Z80.1 Family history of malignant neoplasm of trachea, bronchus and lung; Z80.8 Family history of malignant neoplasm of other organs or systems
CPT/HCPCS: 36415; 71045; 80053; 83690; 83735; 83874; 83880; 84484; 85025; 85610; 85730; 93005; 93041; 96374

== ENCOUNTER 2020-01-19 17:04 | Emergency (ER) | payer MEDICAID ==
[~2020-01-19] VITALS: Ht 149.8 cm; Wt 101.3 kg
[~2020-01-19 17:04] MED LIST changes: +DILT120C88 PO; -DILT120C94 PO; -TRAM50TA2 PO
--- NOTE | 2020-01-19 17:12 | NUR ---
NOT IN WAITING ROOM WHEN NAME CALLED.
--- OUTSIDE RECORDS SUMMARY | 2020-01-19 17:13 | XMS REPORT | Continuity of Care Document ---
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 OTHER SPECIFIED CONGENITAL MALFORMATIONS 04/07/2019 LORI MABRY APRN Ot Z77.22 CNTCT W AND EXPSR TO ENVIRON TOBACCO SMO 04/07/2019 LORI MABRY APRN Ot Z79.52 SENIOR CARE (CURRENT) USE OF SYSTEMIC STER 04/07/2019 LORI MABRY APRN Ot Z79.82 SENIOR CARE (CURRENT) USE OF ASPIRIN 04/07/2019 LORI MABRY APRN Ot Z80 .1 FAMILY HISTORY OF MALIG NEOPLASM OF TRAC 04/07/2019 LORI MABRY APRN Ot Z80 .8 FAMILY HISTORY OF MALIGNANT NEOPLASM OF 04/07/2019 LORI MABRY APRN Ot Z82.49 FAMILY HX OF ISCHEM HEART DIS AND OTH DI 04/07/2019 LORI MABRY APRN Ot Z90.49 ACQUIRED ABSENCE OF OTHER SPECIFIED PART 04/07/2019 LORI MABRY [employer] Ot Z90.89 ACQUIRED ABSENCE OF OTHER ORGANS 04/07/2019 LORI MABRY [employer] Ot Z98.51 TUBAL LIGATION STATUS 05/04/2019 FOZIA PATHAK MD, Ot E66.01 MORBID (SEVERE) OBESITY DUE TO EXCESS CA 05/04/2019 FOZIA PATHAK MD, Ot I25.10 ATHSCL HEART DISEASE OF [place] CORONARY 05/04/2019 FOZIA PATHAK MD Ot Q82 .8 OTHER SPECIFIED CONGENITAL MALFORMATIONS 05/04/2019 FOZIA PATHAK MD, Ot T65.222A TOXIC EFFECT OF TOBACCO CIGARETTES, SELF 05/06/2019 Keli FONTENOT MD Ot I48.91 UNSPECIFIED ATRIAL FIBRILLATION 05/06/2019 Keli FONTENOT MD Ot I48.91 UNSPECIFIED ATRIAL FIBRILLATION 05/06/2019 Keli FONTENOT MD Ot R07 .9 CHEST PAIN, UNSPECIFIED 05/06/2019 FOZIA PATHAK MD, Ot E66.01 MORBID (SEVERE) OBESITY DUE TO EXCESS CA 05/06/2019 FOZIA PATHAK MD Ot I25.10 ATHSCL HEART DISEASE OF [place] CORONARY 05/06/2019 FOZIA PATHAK MD, Ot Q82 .8 OTHER SPECIFIED CONGENITAL MALFORMATIONS 05/06/2019 FOZIA PATHAK MD, Ot T65.222A TOXIC EFFECT OF TOBACCO CIGARETTES, SELF 05/09/2019 BARBARA HAM MD Ot E03. 9 HYPOTHYROIDISM, UNSPECIFIED 05/09/2019 BARBARA HAM MD Ot E66. 9 OBESITY, UNSPECIFIED 05/09/2019 BARBARA HAM MD Ot E78. 00 PURE HYPERCHOLESTEROLEMIA, UNSPECIFIED 05/09/2019 BARBARA HAM MD Ot F17.210 NICOTINE DEPENDENCE, CIGARETTES, UNCOMPL 05/09/2019 BARBARA HAM MD Ot F32. 9 MAJOR DEPRESSIVE DISORDER, SINGLE EPISOD 05/09/2019 BARBARA HAM MD Ot F41. 9 ANXIETY DISORDER, UNSPECIFIED 05/09/2019 BARBARA HAM MD Ot I48. 91 UNSPECIFIED ATRIAL FIBRILLATION 05/09/2019 BARBARA HAM MD Ot K21. 9 GASTRO-ESOPHAGEAL REFLUX DISEASE WITHOUT 05/09/2019 BARBARA HAM MD, Ot Q82. 8 OTHER SPECIFIED CONGENITAL MALFORMATIONS 05/09/2019 BARBARA HAM MD Ot R07. 9 CHEST PAIN, UNSPECIFIED 05/09/2019 BARBARA HAM MD, Ot Z68. 42 BODY MASS INDEX (BMI) 45.0-49.9, ADULT 05/09/2019 BARBARA HAM MD, Ot Z79. 52 SENIOR CARE (CURRENT) USE OF SYSTEMIC STER 05/09/2019 BARBARA HAM MD, Ot Z79. 82 SENIOR CARE (CURRENT) USE OF ASPIRIN 05/09/2019 BARBARA HAM MD, Ot Z80. 1 FAMILY HISTORY OF MALIG NEOPLASM OF TRAC 05/09/2019 BARBARA HAM MD, Ot Z80. 8 FAMILY HISTORY OF MALIGNANT NEOPLASM OF 05/09/2019 BARBARA HAM MD, Ot Z82. 49 FAMILY HX OF ISCHEM HEART DIS AND OTH DI 05/09/2019 BARBARA HAM MD, Ot Z90. 49 ACQUIRED ABSENCE OF OTHER SPECIFIED PART 05/09/2019 BARBARA HAM MD, Ot Z90. 89 ACQUIRED ABSENCE OF OTHER ORGANS 05/09/2019 BARBARA HAM MD, Ot Z98. 51 TUBAL LIGATION STATUS Procedures Code Description Performed By Per formed On 72.79 VACU UM EXTRACT DEL NEC 06/19/2012 74.1 LOW C ERVICAL 06/19/2012 99.77 APPL /ADMIN OF AN ADHESION BARRIER SUBSTA 06/19/2012 56828 URIN E TEST (IN- HOUSE) 10/24/2012 74.1 LOW C ERVICAL 06/21/2013 Results Test Result Range Complete blood count (CBC) with automate d white blood cell (WBC) differential - 09/24/16 23:24 Blood leukocytes automated count (number/volume) 8.0 10*3/uL 4.3-11.0 Blood erythrocytes automated count (number/volume) 4.51 10*6/uL 4.35-5.85 Venous blood hemoglobin measurement (mass/volume) 11.5 g/dL 11.5-16.0 Blood hematocrit (volume fraction) 36 % 35-52 Automated erythrocyte mean corpuscular volume 79 [ foz_us] 80-99 Automated erythrocyte mean corpuscular h emoglobin (mass per erythrocyte) 26 pg 25-34 Automated erythrocyte mean corpuscular h emoglobin concentration measurement (mass/volume) 32 g/dL 32-36 Automated erythrocyte distribution width ratio 15. 7 % 10.0- 14.5 Automated blood platelet count (count/volume) 321 10*3/uL [...] 10*3 1.0-4.0 Blood monocytes automated count (number/volume) 0. 4 10*3 0.0-1.0 Automated eosinophil count 0.3 10*3/uL 0 .0-0.3 Automated blood basophil count (count/volume) 0.0 10*3/uL 0.0-0.1 PT panel in platelet poor plasma by coag ulation assay - 09/24/16 23:24 Prothrombin time (PT) in platelet poor plasma by coagu lation assay 12.7 s 12.2-14.7 INR in platelet poor plasma or blood by coagulation as say 1.0 0.8-1.4 Activated partial thromboplastin time (a PTT) in platelet poor plasma bycoagulation assay - 09/24/16 23:24 Activated partial thromboplastin time (a PTT) in platelet poor plasma bycoagulation assay 28 s 24-35 Serum or plasma choriogonadotropin (preg andreia test) detection - 09/24/16 23:24 Serum or plasma choriogonadotropin ( test) de tection NEGATIVE NEGATIVE Comprehensive metabolic panel - 09/24/16 23:24 Serum or plasma sodium measurement (moles/volume) 139 mmol/L 135-145 Serum or plasma potassium measurement (moles/volume) 4.0 mmol/L 3.6-5.0 Serum or plasma chloride measurement (moles/volume) 106 mmol/L 98-107 Carbon dioxide 22 mmol/L 21-32 Serum or plasma anion gap determination (moles/volume) 11 mmol/L 5-14 Serum or plasma urea nitrogen measurement (mass/volume ) 11 mg/dL 7-18 Serum or plasma creatinine measurement (mass/volume) 0.78 mg/dL 0.60-1.30 Serum or plasma urea nitrogen/creatinine mass ratio 14 NRG Serum or plasma creatinine measurement w ith calculation of estimated glomerular filtration rate > NRG Serum or plasma glucose measurement (mass/volume) 93 mg/dL 70-105 Serum or plasma calcium measurement (mass/volume) 8.6 mg/dL 8.5-10.1 Serum or plasma total bilirubin measurement (mass/volu me) 0.2 mg/dL 0.1-1.0 Serum or plasma alkaline phosphatase errol surement (enzymatic activity/volume) 81 U/L 40-136 Serum or plasma aspartate aminotransfera se measurement (enzymatic activity/volume) 15 U/L 5-34 Serum or plasma alanine aminotransferase measurement (enzymatic activity/volume) 12 U/L 0-55 Serum or plasma protein measurement (mass/volume) 6.4 g/dL 6.4-8.2 Serum or plasma albumin measurement (mass/volume) 4.1 g/dL 3.2-4.5 Magnesium - 09/24/16 23:24 Magnesium 2.0 mg/dL 1.8-2.4 Serum or plasma creatine kinase measurem ent (enzymatic activity/volume) - 09/24/16 23:24 Serum or plasma creatine kinase measurem ent (enzymatic activity/volume) 66 U/L 29-168 Serum or plasma creatine kinase MB measu rement (enzymatic activity/volume) - 09/24/16 23:24 Serum or plasma creatine kinase MB measu rement (enzymatic activity/volume) 0.7 ng/mL <6.6 Serum or plasma troponin i.cardiac measu rement (mass/volume) - 09/24/16 23:24 Serum or plasma troponin i.cardiac measurement (mass/v olume) < ng/mL <0.30 Serum or plasma amylase measurement (enz ymatic activity/volume) - 09/24/16 23:24 Serum or plasma amylase measurement (enzymatic activit y/volume) 77 U/L 25-125 Lipase - 09/24/16 23:24 Lipase 10 U/L 8-78 Serum or plasma lithium measurement (mol es/volume) - 09/24/16 23:24 BNP level < pg/mL <100.0 Urine drug screening test - 09/25/16 00: 34 Urine phencyclidine detection by screening method NEGATIVE NEGATIVE Urine benzodiazepines detection by screening method NEGATIVE NEGATIVE Urine cocaine detection NEGATIVE NEGATI VE Urine amphetamines detection by screening method N EGATIVE NEGATIVE Urine methamphetamine detection by screening method NEGATIVE NEGATIVE Urine cannabinoids detection by screening method P OSITIVE NEGATIVE Urine opiates detection by screening method NEGATI VE NEGATIVE Urine barbiturates detection NEGATIVE N EGATIVE Screening urine tricyclic antidepressants detection NEGATIVE NEGATIVE Urine methadone detection by screening method NEGA TIVE NEGATIVE Urine oxycodone detection NEGATIVE NEGA TIVE Urine propoxyphene detection NEGATIVE N EGATIVE Gram stain microscopy - 11/30/16 01:45 GRAM STAIN RESULT FEW GRAM POSITIVE COCCI NRG Bacteria identification in wound by cult ure - 11/30/16 01:45 Bacteria identification in wound by culture [id number] NRG FREE TEXT EXTERNAL SENSITIVITY REPORTED 12/01 09:15 NRG QUANTITY OF GROWTH Moderate Growth NRG Bacterial susceptibility panel - 7 01:45 Oxacillin susceptibility test by minimum inhibitory co ncentration <= NRG Gentamicin susceptibility test by minimum inhibitory c oncentration <= NRG Clindamycin susceptibility test by minimum inhibitory concentration <= NRG Erythromycin susceptibility test by minimum inhibitory concentration <= NRG Trimethoprim/sulfamethoxazole susceptibi lity test by minimum inhibitoryconcentration <= NRG Vancomycin susceptibility test by minimum inhibitory c oncentration <= NRG Levofloxacin susceptibility test by minimum inhibitory concentration <= NRG Rifampin susceptibility test by minimum inhibitory con centration <= NRG Tetracycline susceptibility test by minimum inhibitory concentration <= NRG Complete blood count (CBC) with automate d white blood cell (WBC) differential - 12/31/16 03:02 Blood leukocytes automated count (number/volume) 7.5 10*3/uL 4.3-11.0 Blood erythrocytes automated count (number/volume) 4.67 10*6/uL 4.35-5.85 Venous blood hemoglobin measurement (mass/volume) 11.6 g/dL 11.5-16.0 Blood hematocrit (volume fraction) 37 % 35-52 Automated erythrocyte mean corpuscular volume 79 [ foz_us] 80-99 Automated erythrocyte mean corpuscular h emoglobin (mass per erythrocyte) 25 pg 25-34 Automated erythrocyte mean corpuscular h emoglobin concentration measurement (mass/volume) 31 g/dL 32-36 Automated erythrocyte distribution width ratio 16. 6 % 10.0- 14.5 Automated blood platelet count (count/volume) 336 10*3/uL [...] 10*3 1.0-4.0 Blood monocytes automated count (number/volume) 0. 6 10*3 0.0-1.0 Automated eosinophil count 0.3 10*3/uL 0 .0-0.3 Automated blood basophil count (count/volume) 0.0 10*3/uL 0.0-0.1 PT panel in platelet poor plasma by coag ulation assay - 12/31/16 03:02 Prothrombin time (PT) in platelet poor plasma by coagu lation assay 12.5 s 12.2-14.7 INR in platelet poor plasma or blood by coagulation as say 1.0 0.8-1.4 Activated partial thromboplastin time (a PTT) in platelet poor plasma bycoagulation assay - 12/31/16 03:02 Activated partial thromboplastin time (a PTT) in platelet poor plasma bycoagulation assay 31 s 24-35 Serum or plasma choriogonadotropin (preg andreia test) detection - 12/31/16 03:02 Serum or plasma choriogonadotropin ( test) de tection NEGATIVE NEGATIVE Comprehensive metabolic panel - 12/31/16 03:02 Serum or plasma sodium measurement (moles/volume) 140 mmol/L 135-145 Serum or plasma potassium measurement (moles/volume) 3.7 mmol/L 3.6-5.0 Serum or plasma chloride measurement (moles/volume) 106 mmol/L 98-107 Carbon dioxide 22 mmol/L 21-32 Serum or plasma anion gap determination (moles/volume) 12 mmol/L 5-14 Serum or plasma urea nitrogen measurement (mass/volume ) 11 mg/dL 7-18 Serum or plasma creatinine measurement (mass/volume) 0.75 mg/dL 0.60-1.30 Serum or plasma urea nitrogen/creatinine mass ratio 15 NRG Serum or plasma creatinine measurement w ith calculation of estimated glomerular filtration rate > NRG Serum or plasma glucose measurement (mass/volume) 99 mg/dL 70-105 Serum or plasma calcium measurement (mass/volume) 9.1 mg/dL 8.5-10.1 Serum or plasma total bilirubin measurement (mass/volu me) 0.1 mg/dL 0.1-1.0 Serum or plasma alkaline phosphatase errol surement (enzymatic activity/volume) 81 U/L 40-136 Serum or plasma aspartate aminotransfera se measurement (enzymatic activity/volume) 16 U/L 5-34 Serum or plasma alanine aminotransferase measurement (enzymatic activity/volume) 10 U/L 0-55 Serum or plasma protein measurement (mass/volume) 7.2 g/dL 6.4-8.2 Serum or plasma albumin measurement (mass/volume) 3.9 g/dL 3.2-4.5 Magnesium - 12/31/16 03:02 Magnesium 2.2 mg/dL 1.8-2.4 Serum or plasma creatine kinase measurem ent (enzymatic activity/volume) - 12/31/16 03:02 Serum or plasma creatine kinase measurem ent (enzymatic activity/volume) 69 U/L 29-168 Serum or plasma creatine kinase MB measu rement (enzymatic activity/volume) - 12/31/16 03:02 Serum or plasma creatine kinase MB measu rement (enzymatic activity/volume) 0.7 ng/mL <6.6 Serum or plasma troponin i.cardiac measu rement (mass/volume) - 12/31/16 03:02 Serum or plasma troponin i.cardiac measurement (mass/v olume) < ng/mL <0.30 Serum or plasma lithium measurement (mol es/volume) - 12/31/16 03:02 BNP level < pg/mL <100.0 Serum or plasma amylase measurement (enz ymatic activity/volume) - 12/31/16 03:02 Serum or plasma amylase measurement (enzymatic activit y/volume) 105 U/L 25-125 Lipase - 12/31/16 03:02 Lipase 11 U/L 8-78 Serum or plasma thyrotropin measurement by detection limit <=0.05 miu/l (units/volume) - 12/31/16 03:02 Serum or plasma thyrotropin measurement by detection limit <=0.05 miu/l (units/volume) 3.06 u[iU]/mL 0.35-4.94 Urine drug screening test - 12/31/16 03: 35 Urine phencyclidine detection by screening method NEGATIVE NEGATIVE Urine benzodiazepines detection by screening method NEGATIVE NEGATIVE Urine cocaine detection NEGATIVE NEGATI VE Urine amphetamines detection by screening method N EGATIVE NEGATIVE Urine methamphetamine detection by screening method NEGATIVE NEGATIVE Urine cannabinoids detection by screening method N EGATIVE NEGATIVE Urine opiates detection by screening method NEGATI VE NEGATIVE Urine barbiturates detection NEGATIVE N EGATIVE Screening urine tricyclic antidepressants detection NEGATIVE NEGATIVE Urine methadone detection by screening method NEGA TIVE NEGATIVE Urine oxycodone detection NEGATIVE NEGA TIVE Urine propoxyphene detection NEGATIVE N EGATIVE Complete urinalysis with reflex to cultu re - 12/31/16 03:35 Urine color determination YELLOW NRG Urine clarity determination SLIGHTLY CLOUDY NRG Urine pH measurement by test strip 6.5 5-9 Specific gravity of urine by test strip 1.010 1.016-1.022 Urine protein assay by test strip, semi-quantitative 2+ NEGATIVE Urine glucose detection by automated test strip NE GATIVE NEGATIVE Erythrocytes detection in urine sediment by light micr oscopy 5+ NEGATIVE Urine ketones detection by automated test strip NE GATIVE NEGATIVE Urine nitrite detection by test strip NEGATIVE NEGATIVE Urine total bilirubin detection by test strip NEGA TIVE NEGATIVE Urine urobilinogen measurement by automated test strip (mass/volume) NORMAL NORMAL Urine leukocyte esterase detection by dipstick NEG ATIVE NEGATIVE Automated urine sediment erythrocyte cou nt by microscopy (number/high power field) [HPF] NRG Automated urine sediment leukocyte count by microscopy (number/high power field) RARE NRG Bacteria detection in urine sediment by light microsco py TRACE NRG Squamous epithelial cells detection in u rine sediment by light microscopy 0-2 NRG Crystals detection in urine sediment by light microsco py NONE NRG Casts detection in urine sediment by light microscopy NONE NRG Mucus detection in urine sediment by light microscopy NEGATIVE NRG Complete urinalysis with reflex to culture NO NRG Methicillin resistant Staphylococcus aur eus (MRSA) screening culture - 12/31/16 05:30 Methicillin resistant Staphylococcus aureus (MRSA) scr eening culture NEG NRG Serum or plasma troponin i.cardiac measu rement (mass/volume) - 12/31/16 08:48 Serum or plasma troponin i.cardiac measurement (mass/v olume) < ng/mL <0.30 THYROID STIMULATING HORMONE - 12/31/16 0 8:48 THYROID STIMULATING HORMONE 1.96 u[iU]/mL 0.35-4.94 Complete blood count (CBC) with automate d white blood cell (WBC) differential - 01/14/17 02:30 Blood leukocytes automated count (number/volume) 7.4 10*3/uL 4.3-11.0 Blood erythrocytes automated count (number/volume) 4.20 10*6/uL 4.35-5.85 Venous blood hemoglobin measurement (mass/volume) 10.3 g/dL 11.5-16.0 Blood hematocrit (volume fraction) 34 % 35-52 Automated erythrocyte mean corpuscular volume 80 [ foz_us] 80-99 Automated erythrocyte mean corpuscular h emoglobin (mass per erythrocyte) 25 pg 25-34 Automated erythrocyte mean corpuscular h emoglobin concentration measurement (mass/volume) 31 g/dL 32-36 Automated erythrocyte distribution width ratio 16. 3 % 10.0- 14.5 Automated blood platelet count (count/volume) 321 10*3/uL [...] 10*3 1.0-4.0 Blood monocytes automated count (number/volume) 0. 5 10*3 0.0-1.0 Automated eosinophil count 0.3 10*3/uL 0 .0-0.3 Automated blood basophil count (count/volume) 0.0 10*3/uL 0.0-0.1 PT panel in platelet poor plasma by coag ulation assay - 01/14/17 02:30 Prothrombin time (PT) in platelet poor plasma by coagu lation assay 11.8 s 12.2-14.7 INR in platelet poor plasma or blood by coagulation as say 0.9 0.8-1.4 Activated partial thromboplastin time (a PTT) in platelet poor plasma bycoagulation assay - 01/14/17 02:30 Activated partial thromboplastin time (a PTT) in platelet poor plasma bycoagulation assay 29 s 24-35 Comprehensive metabolic panel - 01/14/17 02:30 Serum or plasma sodium measurement (moles/volume) 141 mmol/L 135-145 Serum or plasma potassium measurement (moles/volume) 3.5 mmol/L 3.6-5.0 Serum or plasma chloride measurement (moles/volume) 105 mmol/L 98-107 Carbon dioxide 26 mmol/L 21-32 Serum or plasma anion gap determination (moles/volume) 10 mmol/L 5-14 Serum or plasma urea nitrogen measurement (mass/volume ) 12 mg/dL 7-18 Serum or plasma creatinine measurement (mass/volume) 0.72 mg/dL 0.60-1.30 Serum or plasma urea nitrogen/creatinine mass ratio 17 NRG Serum or plasma creatinine measurement w ith calculation of estimated glomerular filtration rate > NRG Serum or plasma glucose measurement (mass/volume) 125 mg/dL 70-105 Serum or plasma calcium measurement (mass/volume) 8.6 mg/dL 8.5-10.1 Serum or plasma total bilirubin measurement (mass/volu me) 0.1 mg/dL 0.1-1.0 Serum or plasma alkaline phosphatase errol surement (enzymatic activity/volume) 88 U/L 40-136 Serum or plasma aspartate aminotransfera se measurement (enzymatic activity/volume) 14 U/L 5-34 Serum or plasma alanine aminotransferase measurement (enzymatic activity/volume) 12 U/L 0-55 Serum or plasma protein measurement (mass/volume) 6.8 g/dL 6.4-8.2 Serum or plasma albumin measurement (mass/volume) 3.8 g/dL 3.2-4.5 Magnesium - 01/14/17 02:30 Magnesium 2.0 mg/dL 1.8-2.4 Serum or plasma troponin i.cardiac measu rement (mass/volume) - 01/14/17 02:30 Serum or plasma troponin i.cardiac measurement (mass/v olume) < ng/mL <0.30 Myoglobin, serum - 01/14/17 02:30 Myoglobin, serum 14.7 ng/mL 10.0-92.0 Serum or plasma troponin i.cardiac measu rement (mass/volume) - 01/14/17 09:02 Serum or plasma troponin i.cardiac measurement (mass/v olume) < ng/mL <0.30 Comp. Metabolic Panel (14) - 02/17/17 15 :36 Glucose, Serum 83 mg/dL 65-99 BUN 9 mg/dL 6-24 Creatinine, Serum 0.56 mg/dL 0.57-1.00 eGFR If NonAfricn Am 117 mL/min/1.73 >59 eGFR If Africn Am 135 mL/min/1.73 >5 9 BUN/Creatinine Ratio 16 9-23 Sodium, Serum 139 mmol/L 134-144 Potassium, Serum 4.0 mmol/L 3.5-5.2 Chloride, Serum 98 mmol/L 96-106 Carbon Dioxide, Total 23 mmol/L 18-29 Calcium, Serum 8.9 mg/dL 8.7-10.2 Protein, Total, Serum 6.8 g/dL 6.0-8.5 Albumin, Serum 3.8 g/dL 3.5-5.5 Globulin, Total 3.0 g/dL 1.5-4.5 A/G Ratio 1.3 1.2-2.2 Bilirubin, Total 0.2 mg/dL 0.0-1.2 Alkaline Phosphatase, S 95 IU/L 39-117 AST (SGOT) 16 IU/L 0-40 ALT (SGPT) 10 IU/L 0-32 Complete blood count (CBC) with automate d white blood cell (WBC) differential - 01/13/18 13:36 Blood leukocytes automated count (number/volume) 6.1 10*3/uL 4.3-11.0 Blood erythrocytes automated count (number/volume) 4.20 10*6/uL 4.35-5.85 Venous blood hemoglobin measurement (mass/volume) 12.5 g/dL 11.5-16.0 Blood hematocrit (volume fraction) 37 % 35-52 Automated erythrocyte mean corpuscular volume 88 [ foz_us] 80-99 Automated erythrocyte mean corpuscular h emoglobin (mass per erythrocyte) 30 pg 25-34 Automated erythrocyte mean corpuscular h emoglobin concentration measurement (mass/volume) 34 g/dL 32-36 Automated erythrocyte distribution width ratio 13. 1 % 10.0- 14.5 Automated blood platelet count (count/volume) 262 10*3/uL [...] 10*3 1.0-4.0 Blood monocytes automated count (number/volume) 0. 5 10*3 0.0-1.0 Automated eosinophil count 0.4 10*3/uL 0 .0-0.3 Automated blood basophil count (count/volume) 0.0 10*3/uL 0.0-0.1 Comprehensive metabolic panel - 01/13/18 13:36 Serum or plasma sodium measurement (moles/volume) 141 mmol/L 135-145 Serum or plasma potassium measurement (moles/volume) 3.6 mmol/L 3.6-5.0 Serum or plasma chloride measurement (moles/volume) 108 mmol/L 98-107 Carbon dioxide 24 mmol/L 21-32 Serum or plasma anion gap determination (moles/volume) 9 mmol/L 5-14 Serum or plasma urea nitrogen measurement (mass/volume ) 6 mg/dL 7-18 Serum or plasma creatinine measurement (mass/volume) 0.65 mg/dL 0.60-1.30 Serum or plasma urea nitrogen/creatinine mass ratio 9 NRG Serum or plasma creatinine measurement w ith calculation of estimated glomerular filtration rate > NRG Serum or plasma glucose measurement (mass/volume) 77 mg/dL 70-105 Serum or plasma calcium measurement (mass/volume) 8.6 mg/dL 8.5-10.1 Serum or plasma total bilirubin measurement (mass/volu me) 0.3 mg/dL 0.1-1.0 Serum or plasma alkaline phosphatase errol surement (enzymatic activity/volume) 80 U/L 40-136 Serum or plasma aspartate aminotransfera se measurement (enzymatic activity/volume) 16 U/L 5-34 Serum or plasma alanine aminotransferase measurement (enzymatic activity/volume) 15 U/L 0-55 Serum or plasma protein measurement (mass/volume) 6.7 g/dL 6.4-8.2 Serum or plasma albumin measurement (mass/volume) 3.7 g/dL 3.2-4.5 Magnesium - 01/13/18 13:36 Magnesium 1.8 mg/dL 1.8-2.4 Serum or plasma troponin i.cardiac measu rement (mass/volume) - 01/13/18 13:36 Serum or plasma troponin i.cardiac measurement (mass/v olume) < ng/mL <0.30 PT panel in platelet poor plasma by coag ulation assay - 01/13/18 13:36 Prothrombin time (PT) in platelet poor plasma by coagu lation assay 12.9 s 12.2-14.7 INR in platelet poor plasma or blood by coagulation as say 1.0 0.8-1.4 Activated partial thromboplastin time (a PTT) in platelet poor plasma bycoagulation assay - 01/13/18 13:36 Activated partial thromboplastin time (a PTT) in platelet poor plasma bycoagulation assay 31 s 24-35 Myoglobin, serum - 01/13/18 13:36 Myoglobin, serum 20.7 ng/mL 10.0-92.0 Lipase - 01/13/18 13:36 Lipase 11 U/L 8-78 Serum or plasma choriogonadotropin (preg andreia test) detection - 01/13/18 13:36 Serum or plasma choriogonadotropin ( test) de tection NEGATIVE NEGATIVE Complete blood count (CBC) with automate d white blood cell (WBC) differential - 07/13/18 07:53 Blood leukocytes automated count (number/volume) 6.6 10*3/uL 4.3-11.0 Blood erythrocytes automated count (number/volume) 4.32 10*6/uL 4.35-5.85 Venous blood hemoglobin measurement (mass/volume) 12.2 g/dL 11.5-16.0 Blood hematocrit (volume fraction) 38 % 35-52 Automated erythrocyte mean corpuscular volume 87 [ foz_us] 80-99 Automated erythrocyte mean corpuscular h emoglobin (mass per erythrocyte) 28 pg 25-34 Automated erythrocyte mean corpuscular h emoglobin concentration measurement (mass/volume) 33 g/dL 32-36 Automated erythrocyte distribution width ratio 13. 7 % 10.0- 14.5 Automated blood platelet count (count/volume) 325 10*3/uL [...] 10*3 1.0-4.0 Blood monocytes automated count (number/volume) 0. 4 10*3 0.0-1.0 Automated eosinophil count 0.3 10*3/uL 0 .0-0.3 Automated blood basophil count (count/volume) 0.0 10*3/uL 0.0-0.1 Serum or plasma choriogonadotropin (preg andreia test) detection - 07/13/18 07:53 Serum or plasma choriogonadotropin ( test) de tection NEGATIVE NEGATIVE Complete urinalysis with reflex to cultu re - 07/13/18 07:53 Urine color determination RED NRG Urine clarity determination SLIGHTLY CLOUDY NRG Urine pH measurement by test strip 7 5-9 Specific gravity of urine by test strip 1.010 1.016-1.022 Urine protein assay by test strip, semi-quantitative 1+ NEGATIVE Urine glucose detection by automated test strip NE GATIVE NEGATIVE Erythrocytes detection in urine sediment by light micr oscopy 5+ NEGATIVE Urine ketones detection by automated test strip NE GATIVE NEGATIVE Urine nitrite detection by test strip NEGATIVE NEGATIVE Urine total bilirubin detection by test strip NEGA TIVE NEGATIVE Urine urobilinogen measurement by automated test strip (mass/volume) NORMAL NORMAL Urine leukocyte esterase detection by dipstick 1+ NEGATIVE Automated urine sediment erythrocyte cou nt by microscopy (number/high power field) TNTC NRG Automated urine sediment leukocyte count by microscopy (number/high power field) [HPF] NRG Bacteria detection in urine sediment by light microsco py TRACE NRG Crystals detection in urine sediment by light microsco py NONE NRG Casts detection in urine sediment by light microscopy NONE NRG Mucus detection in urine sediment by light microscopy NEGATIVE NRG Complete urinalysis with reflex to culture YES NRG PT panel in platelet poor plasma by coag ulation assay - 07/13/18 07:53 Prothrombin time (PT) in platelet poor plasma by coagu lation assay 12.6 s 12.2-14.7 INR in platelet poor plasma or blood by coagulation as say 1.0 0.8-1.4 Activated partial thromboplastin time (a PTT) in platelet poor plasma bycoagulation assay - 07/13/18 07:53 Activated partial thromboplastin time (a PTT) in platelet poor plasma bycoagulation assay 32 s 24-35 Comprehensive metabolic panel - 07/13/18 07:53 Serum or plasma sodium measurement (moles/volume) 139 mmol/L 135-145 Serum or plasma potassium measurement (moles/volume) 4.1 mmol/L 3.6-5.0 Serum or plasma chloride measurement (moles/volume) 105 mmol/L 98-107 Carbon dioxide 26 mmol/L 21-32 Serum or plasma anion gap determination (moles/volume) 8 mmol/L 5-14 Serum or plasma urea nitrogen measurement (mass/volume ) 8 mg/dL 7-18 Serum or plasma creatinine measurement (mass/volume) 0.65 mg/dL 0.60-1.30 Serum or plasma urea nitrogen/creatinine mass ratio 12 NRG Serum or plasma creatinine measurement w ith calculation of estimated glomerular filtration rate > NRG Serum or plasma glucose measurement (mass/volume) 94 mg/dL 70-105 Serum or plasma calcium measurement (mass/volume) 8.8 mg/dL 8.5-10.1 Serum or plasma total bilirubin measurement (mass/volu me) 0.2 mg/dL 0.1-1.0 Serum or plasma alkaline phosphatase errol surement (enzymatic activity/volume) 66 U/L 40-136 Serum or plasma aspartate aminotransfera se measurement (enzymatic activity/volume) 14 U/L 5-34 Serum or plasma alanine aminotransferase measurement (enzymatic activity/volume) 10 U/L 0-55 Serum or plasma protein measurement (mass/volume) 6.7 g/dL 6.4-8.2 Serum or plasma albumin measurement (mass/volume) 3.8 g/dL 3.2-4.5 CALCIUM CORRECTED 9.0 mg/dL 8.5-10.1 Lipase - 07/13/18 07:53 Lipase 10 U/L 8-78 Bacterial urine culture - 07/13/18 07:53 Bacterial urine culture SEE REPORT NRG COLONY COUNT . NRG Microscopic examination by wet preparati on - 07/13/18 08:30 WET PREP RESULTS NO CLUE CELLS OBSERVED NRG Chlamydia trachomatis DNA detection by p robe and signal amplification method - 07/13/18 08:30 Chlamydia trachomatis DNA detection by p robe and target amplification method Not Detected Not Detected Neisseria gonorrhoeae DNA detection by p robe and signal amplification method - 07/13/18 08:30 Gonorrhea amp DNA-urine Not Detected No t Detected Complete blood count (CBC) with automate d white blood cell (WBC) differential - 12/23/18 10:52 Blood leukocytes automated count (number/volume) 5.5 10*3/uL 4.3-11.0 Blood erythrocytes automated count (number/volume) 4.35 10*6/uL 4.35-5.85 Venous blood hemoglobin measurement (mass/volume) 12.3 g/dL 11.5-16.0 Blood hematocrit (volume fraction) 38 % 35-52 Automated erythrocyte mean corpuscular volume 87 [ foz_us] 80-99 Automated erythrocyte mean corpuscular h emoglobin (mass per erythrocyte) 28 pg 25-34 Automated erythrocyte mean corpuscular h emoglobin concentration measurement (mass/volume) 33 g/dL 32-36 Automated erythrocyte distribution width ratio 13. 9 % 10.0- 14.5 Automated blood platelet count (count/volume) 251 10*3/uL 130-400 Automated blood platelet mean volume measurement 10.7 [foz_us] 7.4-10.4 Automated blood neutrophils/100 leukocytes 54 % 42-75 Automated blood lymphocytes/100 leukocytes 33 % 12-44 Blood monocytes/100 leukocytes 6 % 0-12 Automated blood eosinophils/100 leukocytes 6 % 0-10 Automated blood basophils/100 leukocytes 0 % 0-10 Blood neutrophils automated count (number/volume) 3.0 10*3 1.8-7.8 Blood lymphocytes automated count (number/volume) 1.8 10*3 1.0-4.0 Blood monocytes automated count (number/volume) 0. 4 10*3 0.0-1.0 Automated eosinophil count 0.4 10*3/uL 0 .0-0.3 Automated blood basophil count (count/volume) 0.0 10*3/uL 0.0-0.1 Urine beta human chorionic gonadotropin (hCG) measurement - 12/23/18 10:52 Urine beta human chorionic gonadotropin (hCG) measurem ent NEGATIVE NEGATIVE PT panel in platelet poor plasma by coag ulation assay - 12/23/18 10:52 Prothrombin time (PT) in platelet poor plasma by coagu lation assay 12.8 s 12.2-14.7 INR in platelet poor plasma or blood by coagulation as say 0.9 0.8-1.4 Chlamydia trachomatis DNA detection by p robe and signal amplification method - 12/23/18 11:20 Chlamydia trachomatis DNA detection by p robe and target amplification method Not Detected Not Detected Neisseria gonorrhoeae DNA detection by p robe and signal amplification method - 12/23/18 11:20 Gonorrhea amp DNA-urine Not Detected No t Detected TSH - 03/06/19 11:47 TSH 1.67 mIU/L NRG Complete blood count (CBC) with automate d white blood cell (WBC) differential - 05/06/19 19:43 Blood leukocytes automated count (number/volume) 8.4 10*3/uL 4.3-11.0 Blood erythrocytes automated count (number/volume) 4.28 10*6/uL 4.35-5.85 Venous blood hemoglobin measurement (mass/volume) 11.7 g/dL 11.5-16.0 Blood hematocrit (volume fraction) 36 % 35-52 Automated erythrocyte mean corpuscular volume 84 [ foz_us] 80-99 Automated erythrocyte mean corpuscular h emoglobin (mass per erythrocyte) 27 pg 25-34 Automated erythrocyte mean corpuscular h emoglobin concentration measurement (mass/volume) 33 g/dL 32-36 Automated erythrocyte distribution width ratio 14. 3 % 10.0- 14.5 Automated blood platelet count (count/volume) 282 10*3/uL 130-400 Automated blood platelet mean volume measurement 10.6 [foz_us] 7.4-10.4 Automated blood neutrophils/100 leukocytes 57 % 42-75 Automated blood lymphocytes/100 leukocytes 30 % 12-44 Blood monocytes/100 leukocytes 7 % 0-12 Automated blood eosinophils/100 leukocytes 5 % 0-10 Automated blood basophils/100 leukocytes 0 % 0-10 Blood neutrophils automated count (number/volume) 4.8 10*3 1.8-7.8 Blood lymphocytes automated count (number/volume) 2.5 10*3 1.0-4.0 Blood monocytes automated count (number/volume) 0. 6 10*3 0.0-1.0 Automated eosinophil count 0.4 10*3/uL 0 .0-0.3 Automated blood basophil count (count/volume) 0.0 10*3/uL 0.0-0.1 PT panel in platelet poor plasma by coag ulation assay - 05/06/19 19:43 Prothrombin time (PT) in platelet poor plasma by coagu lation assay 13.6 s 12.2-14.7 INR in platelet poor plasma or blood by coagulation as say 1.0 0.8-1.4 Activated partial thromboplastin time (a PTT) in platelet poor plasma bycoagulation assay - 05/06/19 19:43 Activated partial thromboplastin time (a PTT) in platelet poor plasma bycoagulation assay 31 s 24-35 Comprehensive metabolic panel - 05/06/19 19:43 Serum or plasma sodium measurement (moles/volume) 140 mmol/L 135-145 Serum or plasma potassium measurement (moles/volume) 3.3 mmol/L 3.6-5.0 Serum or plasma chloride measurement (moles/volume) 107 mmol/L 98-107 Carbon dioxide 25 mmol/L 21-32 Serum or plasma anion gap determination (moles/volume) 8 mmol/L 5-14 Serum or plasma urea nitrogen measurement (mass/volume ) 12 mg/dL 7-18 Serum or plasma creatinine measurement (mass/volume) 0.64 mg/dL 0.60-1.30 Serum or plasma urea nitrogen/creatinine mass ratio 19 NRG Serum or plasma creatinine measurement w ith calculation of estimated glomerular filtration rate > NRG Serum or plasma glucose measurement (mass/volume) 79 mg/dL 70-105 Serum or plasma calcium measurement (mass/volume) 8.9 mg/dL 8.5-10.1 Serum or plasma total bilirubin measurement (mass/volu me) 0.2 mg/dL 0.1-1.0 Serum or plasma alkaline phosphatase errol surement (enzymatic activity/volume) 77 U/L 40-136 Serum or plasma aspartate aminotransfera se measurement (enzymatic activity/volume) 14 U/L 5-34 Serum or plasma alanine aminotransferase measurement (enzymatic activity/volume) 11 U/L 0-55 Serum or plasma protein measurement (mass/volume) 6.6 g/dL 6.4-8.2 Serum or plasma albumin measurement (mass/volume) 3.9 g/dL 3.2-4.5 CALCIUM CORRECTED 9.0 mg/dL 8.5-10.1 Magnesium - 05/06/19 19:43 Magnesium 1.7 mg/dL 1.6-2.4 Serum or plasma troponin i.cardiac measu rement (mass/volume) - 05/06/19 19:43 Serum or plasma troponin i.cardiac measurement (mass/v olume) < ng/mL <0.028 Myoglobin, serum - 05/06/19 19:43 Myoglobin, serum 19.2 ng/mL 10.0-92.0 Lipase - 05/06/19 19:43 Lipase 11 U/L 8-78 Serum or plasma lithium measurement (mol es/volume) - 05/06/19 19:43 BNP PT 15.5 pg/mL <100.0 Serum or plasma troponin i.cardiac measu rement (mass/volume) - 05/06/19 21:20 Serum or plasma troponin i.cardiac measurement (mass/v olume) < ng/mL <0.028 Encounters ACCT No. Visit Date/Time Discharge Status Pt. Type Provider Facility Loc./Unit Complaint [id number] 02/18/2017 08:42:00 Document Registration [id number] 05/06/2019 19:35:00 22:05:00 DIS Outpatient BARBARA HAM MD [facility] ER RT LEG SWOLLEN [id number] 05/02/2019 08:15:00 23:59:59 CLS Outpatient FOZIA PATHAK MD [facility] WOUNDCARE [id number] 04/05/2019 21:29:00 22:41:00 DIS Emergency LORI MABRY APRN [facility] ER R LEG SKIN ISSUES/SWELL ING [id number] 12/23/2018 09:04:00 019 12:10:00 DIS Emergency GIOVANNI REGALADO, MATTIE S [facility] ER HEAVY VAG BLEEDING [id number] 08/18/2018 15:35:00 019 23:59:59 CLS Outpatient CHRIS PEÑA [facility] RAD crushed injury [id number] 07/13/2018 07:32:00 018 11:31:00 DIS Emergency JITENDRA REGALADO, BARBARA Douglas [facility] ER BACK LEG PAIN [id number] 04/23/2018 12:10:00 018 15:50:00 DIS Emergency DAVID JAMESON [facility] ER L SHOULDER PAIN AFTER F ALL, L FOOT PAIN [id number] 01/13/2018 13:18:00 018 16:28:00 DIS Emergency MAT PALMER MD [facility] ER SOB,CP,HX OF AF IB [id number] 04/14/2017 13:30:00 017 23:59:59 CLS Preadmit Keli FONTENOT MD [facility] CARD AFIB,CHEST PAIN [id number] 02/06/2017 12:00:00 017 00:01:00 DIS Outpatient Keli FONTENOT MD [facility] CARD AFIB,CHEST PAIN [id number] 01/14/2017 04:50:00 017 17:02:00 DIS Outpatient Keli FONTENOT MD [facility] CATH CHEST PAIN [id number] 01/13/2017 08:04:00 017 23:59:59 CLS Outpatient Keli FONTENOT MD [facility] CARD NEW ONSET AFIB W/RVR [id number] 12/31/2016 04:00:00 017 20:05:00 DIS Inpatient GODFREY CHOU MD [facility] ICU NEW ONSET AFIB W/ RVR:C HEST PAIN [id number] 12/02/2016 12:01:00 017 13:12:00 DIS Emergency GRAYSON SANTANAP [facility] ER WOUND CHECK [id number] 11/30/2016 01:27:00 017 02:03:00 DIS Emergency MAT PALMER MD [facility] ER SWOLLEN KNOT ON BACK [id number] 09/25/2016 00:45:00 017 13:50:00 DIS [facility] [id number] 02/23/2016 16:49:00 016 18:28:00 DIS Emergency LORI MABRY APRN [facility] ER L SIDE PAIN [id number] 01/24/2016 17:04:00 016 23:59:59 CLS Emergency PHIL ALBERTO [facility] ER FLUID BEHIND L EAR [id number] 07/27/2014 10:28:00 014 12:14:00 DIS Emergency PHIL ALBERTO [facility] ER FEVER,COUGH,ACHES [id number] 11/19/2013 19:16:00 014 19:53:00 DIS Emergency LORI MABRY APRN [facility] ER L ARM/ELBOW/SHOULDER PA IN [id number] 08/19/2013 20:18:00 014 22:15:00 DIS Emergency LORI MABRY APRN [facility] ER LEFT SHOULDER PAIN [id number] 06/21/2013 08:04:00 013 12:00:00 DIS Inpatient FOZIA DARNELL DO [facility] WS REPEAT CESEAREAN SECTIO N [id number] 06/14/2013 11:49:00 23:59:59 CLS Outpatient LULA CORTES DO [facility] PREOP REPEAT SECTION [id number] 06/06/2013 20:42:00 10/30/2 013 23:59:59 CLS Outpatient FOZIA DARNELL DO [facility] WSo TRANSFER FROM [place] [id number] 07/27/2014 12:17:00 Document Registration [id number] 06/19/2012 05:49:00 Document Registration [id number] 06/15/2012 20:40:00 Document Registration [id number] 06/13/2012 10:21:00 Document Registration [id number] 05/31/2012 22:26:00 Document Registration [id number] 05/25/2012 20:19:00 Document Registration [id number] 05/24/2012 11:55:00 Document Registration [id number] 05/24/2012 00:20:00 Document Registration [id number] 05/21/2012 23:41:00 Document Registration [id number] 05/20/2012 02:29:00 Document Registration [id number] 04/10/2012 23:30:00 Document Registration [id number] 04/08/2012 01:01:00 Document Registration [id number] 11/22/2011 20:12:00 Document Registration [id number] 02/07/2011 12:05:00 Document Registration [id number] 10/24/2012 15:28:00 10/24/2012 23:59: 59 CLS Outpatient GIGI BEKAH BRUSH Mireya [id number] 10/23/2019 14:40:00 10/23/2019 23:59:5 9 CLS Outpatient ETHAN BALDWIN [facility] [id number] 03/06/2019 10:40:00 Document Registration
[2020-01-19] MEDS ORDERED: AMOX-358 PO (17:27)
--- NOTE | 2020-01-19 17:27 | ED General ---
General Chief Complaint: General Problems/Pain Stated Complaint: R FOOT SWELLING / PAIN Source of Information: Patient Exam Limitations: No Limitations History of Present Illness Date Seen by Provider: Jan 19, 2020 Time Seen by Provider: 17:25 Initial Comments To ER with right and left eye redness. History of disease, this is been a bit more red and tender for the past few days. Timing/Duration: 1 Week Severity: Moderate Associated Systoms: Fever/Chills (intermittent chills but no fever) Allergies and Home Medications Allergies Coded Allergies: No Known Drug Allergies (Unverified , 12/06/08) Home Medications Amoxicillin/Potassium Clav 1 Each Tablet, 1 EACH PO BID Prescribed by: LORI MABRY on 01/19/20 1727 Aspirin 325 Mg Tablet, 325 MG PO DAILY, (Reported) Atorvastatin Calcium 40 Mg Tablet, 40 MG PO HS Prescribed by: CHIQUITA GARCÍA on 01/14/17 1702 Diltiazem HCl 120 Mg Cap.er.24h, 120 MG PO DAILY, (Reported) Doxycycline Hyclate 100 Mg Tablet, 100 MG PO BID Prescribed by: LORI MABRY on 04/05/19 2206 Gabapentin 300 Mg Capsule, 300 MG PO TID, (Reported) Hydrocodone Bit/Acetaminophen 1 Tab Tab, 1 EACH PO Q4-6HR PRN for PAIN-MODERATE Prescribed by: BARBARA HAM on 07/13/18 1119 Ibuprofen 200 Mg Tablet, 600-800 MG PO TID PRN for PAIN-MILD, (Reported) TAKES 3-4 (200MG) TABLETS Prednisone 20 Mg Tab, 40 MG PO DAILY Prescribed by: MAT PALMER on 01/13/18 1547 Patient Home Medication List Home Medication List Reviewed: Yes Review of Systems Review of Systems Constitutional: see HPI EENTM: see HPI Respiratory: no symptoms reported Cardiovascular: no symptoms reported Genitourinary: no symptoms reported Musculoskeletal: no symptoms reported Skin: no symptoms reported Psychiatric/Neurological: No Symptoms Reported Hematologic/Lymphatic: No Symptoms Reported Immunological/Allergic: no symptoms reported Past Khcntjf-Zyugss-Dfqcir Hx Patient Social History Alcohol Use: Denies Use Recreational Drug Use: No (SMOKES 1/2 PPD) Type Used: Cigarettes 2nd Hand Smoke Exposure: Yes Recent Foreign Travel: No Contact w/Someone Who Travel: No Recent Hopitalizations: No Immunizations Up To Date Tetanus Booster (TDap): Unknown PED Vaccines UTD: No Date of Influenza Vaccine: Apr 06, 2016 Seasonal Allergies Seasonal Allergies: No Past Medical History Surgeries: Yes (WISDOM TEETH; X 4, cervical spine, l wrist carpal tunnel) Adenoidectomy, Appendectomy, Section, Tonsillectomy, Tubal Ligation Respiratory: Yes (tobaccoism) Sleep Apnea Currently Using CPAP: No Currently Using BIPAP: No Cardiac: Yes 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, High Cholesterol Neurological: No Reproductive Disorders: No Female Reproductive Disorders: Menstrual Problems [employer] History: Tubal Ligation Sexually Transmitted Disease: No HIV/AIDS: No Genitourinary: No Gastrointestinal: Yes Gastroesophageal Reflux Musculoskeletal: Yes Degenerate Disk Disease Endocrine: Yes (OBESE) Hypothyroidsim HEENT: No Cancer: No Psychosocial: Yes Anxiety, Depression Integumentary: Yes (DARIER'S DISEASE) Psoriasis Blood Disorders: No Adverse Reaction/Blood Tranf: No Family Medical History Cancer 03 MOTHER (LUNG AND BONE) Family history: Glaucoma 03 FATHER Heart disease 03 MOTHER History of - respiratory disease 03 FATHER (COPD) Stroke 03 MOTHER Heart Disease, Cancer, COPD, Diabetes, Stroke Physical Exam Vital Signs Capillary Refill : Height, Weight, BMI Height: 4'11.00" Weight: 235lbs. 0oz. 106.171925xt; 46.00 BMI Method:Stated General Appearance: No Apparent Distress, WD/WN Eyes: Bilateral Eye Normal Inspection, Bilateral Eye PERRL, Bilateral Eye EOMI Respiratory: No Accessory Muscle Use, No Respiratory Distress Gastrointestinal: Normal Bowel Sounds, Non Tender, Soft Extremity: Normal Capillary Refill, Normal Inspection Neurologic/Psychiatric: Alert, Oriented x3 Skin: Normal Color, Warm/Dry, Other (there is some erythema with crusting in patches to the medial thighs bilaterally as well as to the lower legs and just with her history of Darier disease, does appear to be a bit of cellulitis to the medial thigh bilaterally. She is not tachycardic or hypotensive or febrile) Progress/Results/Core Measures Suspected Sepsis SIRS Temperature: Pulse: Respiratory Rate: Blood Pressure / Mean: Results/Orders My Orders Orders - LORI MABRY APRN Ceftriaxone For Im Use (Rocephin For Im (01/19/20 17:30) Lidocaine 1% Inj 20 Ml (Xylocaine 1% Inj (01/19/20 17:30) Rx-Hydrocodone/Apap 5-325 Mg (Rx-Vicodin (01/19/20 17:30) Vital Signs/I&O Capillary Refill : Departure Impression Primary Impression: Cellulitis Qualified Codes: L03.90 - Cellulitis, unspecified Disposition: 01 HOME, SELF-CARE Condition: Stable Departure-Patient Inst. Decision time for Depature: 17:27 Referrals: [facility] (PCP/Family) Primary Care Physician Patient Instructions: Cellulitis and Erysipelas (Skin Infections) Add. Discharge Instructions: 1. Antibiotics as directed 2. Return to ER for any concerns 3. Follow-up with your doctor next week All discharge instructions reviewed with patient and/or family. Voiced understanding. Scripts Amoxicillin/Potassium Clav (Augmentin 875-125 Tablet) 1 Each Tablet 1 EACH PO BID, #14 TAB 0 Refills Prov: LORI MABRY APRN 01/19/20 LORI MABRY APRN Jan 19, 2020 17:27
[2020-01-19] MEDS ORDERED: RX-HYDROCODONE/APAP 5/325 MG #4 TAB PK PO PRN (17:30)
[2020-01-19] MEDS ORDERED: LIDOCAINE 1% INJ 20 ML 20 ML VIAL INJ ONE (17:30)
[2020-01-19] MEDS ORDERED: cefTRIAXone 1,000 MG/2.86 ml vial (IM ONLY) IM SCH (17:30)
[2020-01-19 17:55] VITALS: BP 132/112
== END 2020-01-19 17:55 | disposition home or self-care (01) ==
LOC: EDUNIT# 17:04 → ER 17:05
DX: L03.116 Cellulitis of left lower limb (principal); L03.115 Cellulitis of right lower limb; E78.00 Pure hypercholesterolemia, unspecified; I48.91 Unspecified atrial fibrillation; Z79.82 Long term (current) use of aspirin; Z79.52 Long term (current) use of systemic steroids; Z77.22 Contact with and (suspected) exposure to environmental tobacco smoke (acute) (chronic); Z80.1 Family history of malignant neoplasm of trachea, bronchus and lung; Z80.8 Family history of malignant neoplasm of other organs or systems; Z82.49 Family history of ischemic heart disease and other diseases of the circulatory system
CPT/HCPCS: 99284

== ENCOUNTER 2020-12-31 14:06 | Emergency (ER) | payer MEDICAID ==
[~2020-12-31] VITALS: Ht 149.8 cm; Wt 114.0 kg
[~2020-12-31 14:06] MED LIST changes: +AMOX-358 PO
--- NOTE | 2020-12-31 15:20 | ED General ---
General Chief Complaint: General Problems/Pain Stated Complaint: DIZZINESS Nursing Triage Note: pt states she has chronic skin disease and believes that it is infected on her leg, has felt that it is infected for 4-5 days, states dizziness since tuesday. 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 Patient states for the last week she has noticed her lesion secondary to Darier's (bilobed over the medial and lateral aspects of the lower leg, present for 4 years) has been crusting, become warm, tender and exhibiting purulent drainage. Patient also notes an episode of dizziness lasting a few hours 2 days ago as well as a 1 hour episode today which prompted her arrival; subjective fever last night; nausea for a few days. Patient states pain is over the lesion with no radiation, 8/10 with occasional spikes of intensity with contact. No other aggravating or alleviating factors. Patient notes Ibuprofin has helped some in the past but she did not have any today, opting to take 1000mg Tyelenol at 10AM which did not help with the pain. Patient has had similar episodes in the past but never with this intensity, typically given abx which have worked with varying degrees of success. Patient was a patient of Dr. Gomes but has not been to see her in ~1 year because of COVID restrictions. She denies CP, palpitations, SOB. wheezing, abdominal pain, vomiting, diarrhea and constipation. (NISH FOSS MED STUDENT) Allergies and Home Medications Allergies Coded Allergies: No Known Drug Allergies (Unverified , 12/06/08) Home Medications Amoxicillin/Potassium Clav 1 Each Tablet, 1 EACH PO BID Prescribed by: LORI MABRY on 01/19/20 1727 Aspirin 325 Mg Tablet, 325 MG PO DAILY, (Reported) Atorvastatin Calcium 40 Mg Tablet, 40 MG PO HS Prescribed by: CHIQUITA GARCÍA on 01/14/17 1702 Diltiazem HCl 120 Mg Cap.er.24h, 120 MG PO DAILY, (Reported) Doxycycline Hyclate 100 Mg Tablet, 100 MG PO BID Prescribed by: LORI MABRY on 04/05/192205 Gabapentin 300 Mg Capsule, 300 MG PO TID, (Reported) Hydrocodone Bit/Acetaminophen 1 Tab Tab, 1 EACH PO Q4-6HR PRN for PAIN-MODERATE Prescribed by: BARBARA HAM on 07/13/18 1119 Ibuprofen 200 Mg Tablet, 600-800 MG PO TID PRN for PAIN-MILD, (Reported) TAKES 3-4 (200MG) TABLETS Prednisone 20 Mg Tab, 40 MG PO DAILY Prescribed by: MAT PALMER on 01/13/18 1547 Review of Systems Review of Systems Constitutional: dizziness (2 episodes), fever (subjective, resolved) EENTM: No eye pain, No vision loss Respiratory: No short of breath, No wheezing Cardiovascular: No chest pain, No edema, No syncope Gastrointestinal: No abdominal pain, No constipation; nausea; No vomiting Genitourinary: No dysuria, No frequency Musculoskeletal: No back pain, No joint pain Skin: lesions (RLE) Psychiatric/Neurological: Denies Anxiety, Denies Depressed Hematologic/Lymphatic: Denies Easy Bleeding, Denies Easy Bruising (NISH FOSS STUDENT) Past Zffiljq-Zfetcg-Zuphqu Hx Patient Social History Alcohol Use: Denies Use Smoking Status: Current Everyday Smoker Type Used: Cigarettes 2nd Hand Smoke Exposure: Yes Recent Infectious Disease Expo: No Recent Hopitalizations: No (NISH FOSS STUDENT) Immunizations Up To Date Tetanus Booster (TDap): Unknown PED Vaccines UTD: No Date of Influenza Vaccine: Apr 06, 2016 (NISH FOSS STUDENT) Seasonal Allergies Seasonal Allergies: No (NISH FOSS STUDENT) Past Medical History Surgeries: Yes (WISDOM TEETH; X 4, cervical spine, l wrist carpal tunnel) Adenoidectomy, Appendectomy, Section, Tonsillectomy, Tubal Ligation Respiratory: Yes (tobaccoism) Sleep Apnea Currently Using CPAP: No Currently Using BIPAP: No Cardiac: Yes 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, High Cholesterol Neurological: No Reproductive Disorders: No Female Reproductive Disorders: Menstrual Problems 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 Sexually Transmitted Disease: No HIV/AIDS: No Genitourinary: No Gastrointestinal: Yes Gastroesophageal Reflux Musculoskeletal: Yes Degenerate Disk Disease Endocrine: Yes (OBESE) Hypothyroidsim HEENT: No Cancer: No Psychosocial: Yes Anxiety, Depression Integumentary: Yes (DARIER'S DISEASE) Psoriasis Blood Disorders: No Adverse Reaction/Blood Tranf: No (NISH FOSS STUDENT) Family Medical History Cancer 03 MOTHER (LUNG AND BONE) Family history: Glaucoma 03 FATHER Heart disease 03 MOTHER History of - respiratory disease 03 FATHER (COPD) Stroke 03 MOTHER Heart Disease, Cancer, COPD, Diabetes, Stroke (NISH FOSS STUDENT) Physical Exam Vital Signs Vital Signs - First Documented 12/31/20 14:30 Temp 36.1 Pulse 89 Resp 16 B/P (MAP) 139/72 (94) Pulse Ox 96 (JENNY CARRILLO MD) Vital Signs Capillary Refill : Less Than 3 Seconds (NISH FOSS STUDENT) Height, Weight, BMI Height: 4'11.00" Weight: 235lbs. 0oz. [id number]; 50.00 BMI Method:Stated General Appearance: No Apparent Distress, WD/WN Eyes: Bilateral Eye Normal Inspection, Bilateral Eye PERRL, Bilateral Eye EOMI HEENT: PERRL/EOMI, Pharynx Normal Neck: Full Range of Motion, Normal Inspection Respiratory: Chest Non Tender, Lungs Clear, Normal Breath Sounds, No Accessory Muscle Use Cardiovascular: Regular Rate, Rhythm, Normal Peripheral Pulses Gastrointestinal: Normal Bowel Sounds, Non Tender Back: No CVA Tenderness, No Vertebral Tenderness Extremity: Normal Capillary Refill, No Pedal Edema Neurologic/Psychiatric: Alert, No Motor/Sensory Deficits, Normal Mood/Affect Skin: Other (crusting with purulent drainage over the anterior R lower leg, bilobed shape overlying chronic Dariers lesion, foul smelling) Lymphatic: No Adenopathy (NISH FOSS STUDENT) Progress/Results/Core Measures Suspected Sepsis Recent Fever Within 48 Hours: No Infection Criteria Present: Suspected New Infection New/Unexplained Altered Menta: No Sepsis Screen: No Definite Risk SIRS Temperature: Pulse: 89 Respiratory Rate: 16 Blood Pressure 139 /72 Mean: 94 (NISH FOSS MED STUDENT) Results/Orders My Orders Orders - JENNY CARRILLO MD Hydrocodone/Apap 5/325 Tablet (Lortab 5 (12/31/20 16:15) (JENNY CARRILLO MD) Vital Signs/I&O 12/31/20 14:30 Temp 36.1 Pulse 89 Resp 16 B/P (MAP) 139/72 (94) Pulse Ox 96 (JENNY CARRILLO MD) Vital Signs/I&O Capillary Refill : Less Than 3 Seconds (NISH FOSS MED STUDENT) Blood Pressure Mean: 94 Departure Impression Primary Impression: Dariers disease Additional Impression: Cellulitis Qualified Codes: L03.115 - Cellulitis of right lower limb Disposition: 01 HOME, SELF-CARE Condition: Stable Departure-Patient Inst. Decision time for Depature: 16:08 (JENNY CARRILLO MD) Referrals: [facility] [place] (PCP/Family) Primary Care Physician Patient Instructions: Cellulitis (Skin Infection), Adult ED Add. Discharge Instructions: Complete your antibiotics as prescribed. Wash your right leg daily and scrub the affected area lightly with chlorhexidine soap provided from the ER. You may suds the chlorhexidine soap along with your regular soap and squeeze the sides over the affected area to scrub. Rinse thoroughly afterwards. Use hydrocodone as prescribed for your pain if ibuprofen is not effective. Follow-up with your primary care provider soon as possible. Discussed referral to a acquisitions assistant. Call with questions or concerns. Return to the ER if symptoms worsen. All discharge instructions reviewed with patient and/or family. Voiced understanding. Scripts Hydrocodone/Acetaminophen (Hydrocodone-Acetamin 5-325 mg) 1 Each Tablet 1 TAB PO Q4H PRN for PAIN-MODERATE (5-7), #10 TAB Prov: JENNY CARRILLO MD 12/31/20 Doxycycline Hyclate (Doxycycline Hyclate) 100 Mg Tablet 100 MG PO BID, #20 TAB 0 Refills Prov: JENNY CARRILLO MD 12/31/20 Copy Copies To 1: BEKAH YU MATTHEW MED STUDENT December 31, 2020 15:20 JENNY CARRILLO MD December 31, 2020 16:05
[2020-12-31] MEDS ORDERED: ACHD5005 PO (16:11)
[2020-12-31] MEDS ORDERED: DOXY100T2 PO (16:11)
[2020-12-31] MEDS ORDERED: HYDROcodone/APAP 5 MG/325 MG (LORTAB) TAB PO ONE (16:15)
[2020-12-31 16:22] VITALS: BP 127/72
== END 2020-12-31 16:22 | disposition home or self-care (01) ==
LOC: EDUNIT# 14:06 → ER 14:08
DX: L03.115 Cellulitis of right lower limb (principal); Q82.8 Other specified congenital malformations of skin; L40.9 Psoriasis, unspecified; E78.00 Pure hypercholesterolemia, unspecified; F41.9 Anxiety disorder, unspecified; F32.9 Major depressive disorder, single episode, unspecified; I48.91 Unspecified atrial fibrillation; E66.9 Obesity, unspecified; F17.210 Nicotine dependence, cigarettes, uncomplicated; Z79.52 Long term (current) use of systemic steroids; Z68.43 Body mass index [BMI] 50.0-59.9, adult; Z79.899 Other long term (current) drug therapy
CPT/HCPCS: 99283

== ENCOUNTER 2021-02-14 11:30 | Emergency (ER) | payer MEDICAID ==
[~2021-02-14] VITALS: Ht 150 cm; Wt 106.0 kg
[2021-02-14 11:58] LABS: CLARITY,URINE TURBID; COLOR,URINE ORANGE; GLUCOSE, URINE (UA) TRACE (NEGATIVE); KETONES,URINE TRACE (NEGATIVE); LEUKOCYTE ESTERASE ,URINE TRACE (NEGATIVE); NITRITE,URINE NEGATIVE (NEGATIVE); PH,URINE 5.5 (5-9); PROTEIN,URINE 2+ (NEGATIVE)
--- NOTE | 2021-02-14 11:59 | ED General ---
General Stated Complaint: FEVER, N/V/D, SOB, CHILLS Source of Information: Patient Exam Limitations: No Limitations History of Present Illness Date Seen by Provider: Feb 14, 2021 Time Seen by Provider: 11:57 Initial Comments To ER with a 4-day history of nausea vomiting diarrhea shortness of breath chills and fever. 2 days ago she had a Covid swab at [facility] which was negative. Timing/Duration: 1-2 Days Severity: Moderate Associated Systoms: Headaches, Nausea/Vomiting, Shortness of Air, Weakness Allergies and Home Medications Allergies Coded Allergies: No Known Drug Allergies (Unverified , 12/06/08) Home Medications Amoxicillin/Potassium Clav 1 Each Tablet, 1 EACH PO BID Prescribed by: LORI MABRY on 01/19/20 1727 Aspirin 325 Mg Tablet, 325 MG PO DAILY, (Reported) Atorvastatin Calcium 40 Mg Tablet, 40 MG PO HS Prescribed by: CHIQUITA GARCÍA on 01/14/17 1702 Diltiazem HCl 120 Mg Cap.er.24h, 120 MG PO DAILY, (Reported) Doxycycline Hyclate 100 Mg Tablet, 100 MG PO BID Prescribed by: LORI MABRY on 04/05/19 2206 Doxycycline Hyclate 100 Mg Tablet, 100 MG PO BID Prescribed by: JENNY FLORES on 12/31/20 1611 Gabapentin 300 Mg Capsule, 300 MG PO TID, (Reported) Hydrocodone Bit/Acetaminophen 1 Tab Tab, 1 EACH PO Q4-6HR PRN for PAIN-MODERATE Prescribed by: BARBARA HAM on 07/13/18 1119 Hydrocodone/Acetaminophen 1 Each Tablet, 1 TAB PO Q4H PRN for PAIN-MODERATE (5- 7) Prescribed by: JENNY FLORES on 12/31/20 1613 Ibuprofen 200 Mg Tablet, 600-800 MG PO TID PRN for PAIN-MILD, (Reported) TAKES 3-4 (200MG) TABLETS Prednisone 20 Mg Tab, 40 MG PO DAILY Prescribed by: MAT PALMER on 01/13/18 1547 Prochlorperazine Maleate 10 Mg Tablet, 10 MG PO TID PRN for NAUSEA/VOMITING Prescribed by: LORI MABRY on 02/14/21 1324 Patient Home Medication List Home Medication List Reviewed: Yes Review of Systems Review of Systems Constitutional: see HPI EENTM: see HPI Respiratory: no symptoms reported Cardiovascular: no symptoms reported Genitourinary: no symptoms reported Musculoskeletal: no symptoms reported Skin: no symptoms reported Psychiatric/Neurological: No Symptoms Reported Hematologic/Lymphatic: No Symptoms Reported Immunological/Allergic: no symptoms reported Past Slcieph-Lvxvoo-Uumyig Hx Immunizations Up To Date Tetanus Booster (TDap): Unknown PED Vaccines UTD: No Seasonal Allergies Seasonal Allergies: No Past Medical History Surgeries: Yes (WISDOM TEETH; X 4, cervical spine, l wrist carpal tunnel) Adenoidectomy, Appendectomy, Section, Tonsillectomy, Tubal Ligation Respiratory: Yes (tobaccoism) Sleep Apnea Currently Using CPAP: No Currently Using BIPAP: No Cardiac: Yes 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, High Cholesterol Neurological: No Reproductive Disorders: No Female Reproductive Disorders: Menstrual Problems 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 Sexually Transmitted Disease: No HIV/AIDS: No Genitourinary: No Gastrointestinal: Yes Gastroesophageal Reflux Musculoskeletal: Yes Degenerate Disk Disease Endocrine: Yes (OBESE) Hypothyroidsim HEENT: No Cancer: No Psychosocial: Yes Anxiety, Depression Integumentary: Yes (DARIER'S DISEASE) Psoriasis Blood Disorders: No Adverse Reaction/Blood Tranf: No Family Medical History Cancer 03 MOTHER (LUNG AND BONE) Family history: Glaucoma 03 FATHER Heart disease 03 MOTHER History of - respiratory disease 03 FATHER (COPD) Stroke 03 MOTHER Heart Disease, Cancer, COPD, Diabetes, Stroke Physical Exam Vital Signs Vital Signs - First Documented 02/14/21 13:00 Temp 36.9 Pulse 95 Resp 20 B/P (MAP) 113/75 (88) Pulse Ox 96 O2 Delivery Room Air Capillary Refill : Height, Weight, BMI Height: 4'11.00" Weight: 235lbs. 0oz. 106.211672iy; 50.00 BMI Method:Stated General Appearance: No Apparent Distress, WD/WN, Other (Oxygen saturation 98- 100% on room air. Heart rate 97.) Eyes: Bilateral Eye Normal Inspection, Bilateral Eye PERRL, Bilateral Eye EOMI HEENT: PERRL/EOMI, TMs Normal Neck: Full Range of Motion, Normal Inspection Respiratory: No Accessory Muscle Use, No Respiratory Distress Cardiovascular: Regular Rate, Rhythm, Normal Peripheral Pulses Gastrointestinal: Normal Bowel Sounds, Non Tender, Soft Extremity: Normal Capillary Refill, Normal Inspection Neurologic/Psychiatric: Alert, Oriented x3 Skin: Normal Color, Warm/Dry, Other (Thickened skin with plaques to the right lower extremity consistent with Darier disease. No cellulitis.) Focused Exam Lactate Level 02/14/21 12:01: Lactic Acid Level 0.97 Lactic Acid Level Laboratory Tests Test 02/14/21 12:01 Lactic Acid Level 0.97 MMOL/L (0.50-2.00) Progress/Results/Core Measures Suspected Sepsis SIRS Temperature: Pulse: Respiratory Rate: Laboratory Tests 02/14/21 12:01: White Blood Count 3.3L Blood Pressure / Mean: 02/14/21 12:01: Lactic Acid Level 0.97 Laboratory Tests 02/14/21 12:01: Creatinine 1.77H, INR Comment 1.5H, Platelet Count 128L, Total Bilirubin 2.4H Results/Orders Lab Results Laboratory Tests Test 02/14/21 11:50 02/14/21 12:01 02/14/21 12:04 Range/Units Urine Color ORANGE Urine Clarity TURBID Urine pH 5.5 5-9 Urine Specific [place] 1.025 H 1.016-1.022 Urine Protein 2+ H NEGATIVE Urine Glucose (UA) TRACE H NEGATIVE Urine Ketones TRACE H NEGATIVE Urine Nitrite NEGATIVE NEGATIVE Urine Bilirubin 3+ H NEGATIVE Urine Urobilinogen >=8.0 < = 1.0 MG/DL Urine Leukocyte Esterase TRACE H NEGATIVE Urine RBC (Auto) 3+ H NEGATIVE Urine RBC 10-25 H /HPF Urine WBC 2-5 /HPF Urine Squamous Epithelial Cells 5-10 /HPF Urine Crystals PRESENT H /LPF Urine Amorphous Sediment FEW JOSE FRANCISCO URATES H /LPF Urine Bacteria FEW H /HPF Urine Casts PRESENT /LPF Urine Coarse Granular Casts 5-10 H /LPF Urine Mucus NEGATIVE /LPF Urine Culture Indicated CULTURE PENDING White Blood Count 3.3 L 4.3-11.0 10^3/uL Red Blood Count 4.57 3.80-5.11 10^6/uL Hemoglobin 11.5 11.5-16.0 g/dL Hematocrit 36 35-52 % Mean Corpuscular Volume 79 L 80-99 fL Mean Corpuscular Hemoglobin 25 25-34 pg Mean Corpuscular Hemoglobin Concent 32 32-36 g/dL Red Cell Distribution Width 16.7 H 10.0-14.5 % Platelet Count 128 L 130-400 10^3/uL Mean Platelet Volume 10.6 9.0-12.2 fL Immature Granulocyte % (Auto) 0 % Neutrophils (%) (Auto) 90 H 42-75 % Lymphocytes (%) (Auto) 6 L 12-44 % Monocytes (%) (Auto) 4 0-12 % Eosinophils (%) (Auto) 0 0-10 % Basophils (%) (Auto) 0 0-10 % Neutrophils # (Auto) 3.0 1.8-7.8 10^3/uL Lymphocytes # (Auto) 0.2 L 1.0-4.0 10^3/uL Monocytes # (Auto) 0.1 0.0-1.0 10^3/uL Eosinophils # (Auto) 0.0 0.0-0.3 10^3/uL Basophils # (Auto) 0.0 0.0-0.1 10^3/uL Immature Granulocyte # (Auto) 0.0 0.0-0.1 10^3/uL Neutrophils % (Manual) 48 % Lymphocytes % (Manual) 3 % Monocytes % (Manual) 1 % Metamyelocytes % 1 % Band Neutrophils 47 % Clumped Platelets OCCASIONAL Percent Immature Platelet Fraction 7.8 H 0.0-7.6 % Hypochromasia SLIGHT Poikilocytosis SLIGHT Anisocytosis SLIGHT Microcytosis SLIGHT Crenated Cell SLIGHT Elliptocytes SLIGHT Prothrombin Time 18.1 H 12.2-14.7 SEC INR Comment 1.5 H 0.8-1.4 Activated Partial Thromboplast Time 47 H 24-35 SEC Sodium Level 137 135-145 MMOL/L Potassium Level 3.3 L 3.6-5.0 MMOL/L Chloride Level 105 98-107 MMOL/L Carbon Dioxide Level 22 21-32 MMOL/L Anion Gap 10 5-14 MMOL/L Blood Urea Nitrogen 26 H 7-18 MG/DL Creatinine 1.77 H 0.60-1.30 MG/DL Estimat Glomerular Filtration Rate 31 BUN/Creatinine Ratio 15 Glucose Level 105 70-105 MG/DL Lactic Acid Level 0.97 0.50-2.00 MMOL/L Calcium Level 7.8 L 8.5-10.1 MG/DL Corrected Calcium 8.2 L 8.5-10.1 MG/DL Total Bilirubin 2.4 H 0.1-1.0 MG/DL Aspartate Amino Transf (AST/SGOT) 113 H 5-34 U/L Alanine Aminotransferase (ALT/SGPT) 71 H 0-55 U/L Alkaline Phosphatase 143 H 40-136 U/L Total Protein 6.3 L 6.4-8.2 GM/DL Albumin 3.5 3.2-4.5 GM/DL Influenza Type A (RT-PCR) Not Detected Not Detecte Influenza Type B (RT-PCR) Not Detected Not Detecte SARS-CoV-2 RNA (RT-PCR) Not Detected Not Detecte My Orders Orders - LORI MABRY APRN Cbc With Automated Diff (02/14/21 11:35) Comprehensive Metabolic Panel (02/14/21 11:35) Blood Culture (02/14/21 11:35) Sputum Culture (02/14/21 11:35) Urinalysis (02/14/21 11:35) Urine Culture (02/14/21 11:35) Protime With Inr (02/14/21 11:35) Partial Thromboplastin Time (02/14/21 11:35) Chest 1 View, Ap/Pa Only (02/14/21 11:35) Ed Iv/Invasive Line Start (02/14/21 11:35) Ed Iv/Invasive Line Start (02/14/21 11:35) Vital Signs Adult Sepsis Patie Q15M (02/14/21 11:35) O2 (02/14/21 11:35) Remove Rings In Anticipation O (02/14/21 11:35) Lactic Acid Analyzer (02/14/21 11:35) Covid 19 Inhouse Test (02/14/21 11:35) Influenza A And B By Pcr (02/14/21 11:35) Ketorolac Injection (Toradol Injection) (02/14/21 12:15) Prochlorperazine Injection (Compazine In (02/14/21 12:15) Ns Iv 1000 Ml (Sodium Chloride 0.9%) (02/14/21 12:15) Diphenhydramine Injection (Benadryl Inje (02/14/21 12:15) Manual Differential (02/14/21 12:01) Ct Abdomen/Pelvis Wo (02/14/21 12:39) Medications Given in ED Current Medications Medications Dose Ordered Sig/Jeri Route Start Time Stop Time Status Last Admin Dose Admin Diphenhydramine HCl 25 mg ONCE ONCE IVP 02/14/21 12:15 02/14/21 12:16 DC 02/14/21 12:19 25 MG Ketorolac Tromethamine 15 mg ONCE ONCE IVP 02/14/21 12:15 02/14/21 12:16 DC 02/14/21 12:19 15 MG Prochlorperazine Edisylate 5 mg ONCE ONCE IV 02/14/21 12:15 02/14/21 12:16 DC 02/14/21 12:19 5 MG Vital Signs/I&O 02/14/21 13:00 Temp 36.9 Pulse 95 Resp 20 B/P (MAP) 113/75 (88) Pulse Ox 96 O2 Delivery Room Air Capillary Refill : Diagnostic Imaging Diagonstic Imaging: Xray Comments NAME: TRINA ÁLVAREZ [facility] REC#: [id number] PT STATUS: REG ER : 1975 PHYSICIAN: LORI MABRY APRN ADMIT DATE: 02/14/21/ER Draft Date of Exam:02/14/21 CHEST 1 VIEW, AP/PA ONLY INDICATION: Sepsis. Comparison is made with prior examination of 05/06/2019. FINDINGS: The heart size, mediastinal configuration, and pulmonary vascularity are within normal limits. There is no pleural effusion, pneumothorax, or pneumonia. The osseous structures are unremarkable. IMPRESSION: No acute cardiopulmonary abnormality. Dictated on workstation # [id number] Dict: 02/14/21 1309 Trans: 02/14/21 1318 [facility] [id number] Interpreted by: PAGE BALDWIN MD Electronically signed by: Departure Impression Primary Impression: Nausea & vomiting Additional Impression: Viral syndrome Disposition: 01 HOME, SELF-CARE Condition: Stable Departure-Patient Inst. Decision time for Depature: 13:23 Referrals: [facility] (PCP/Family) Primary Care Physician Patient Instructions: Nausea and Vomiting, Adult ED Add. Discharge Instructions: 1. Medication as directed. 2. Drink plenty of fluids 3. Follow-up with your doctor next week for repeat labs and further evaluation of your liver function tests which were elevated. Scripts Sumatriptan Succinate (Imitrex) 25 Mg Tablet 25 MG PO TID PRN for headache, #10 TAB Prov: LORI MABRY APRN 02/14/21 Prochlorperazine Maleate (Compazine) 10 Mg Tablet 10 MG PO TID PRN for NAUSEA/VOMITING, #10 TAB Prov: LORI MABRY APRN 02/14/21 LORI MABRY APRN Feb 14, 2021 11:59
[2021-02-14 12:07] LABS: BASOPHILS % (AUTO) 0 % (0-10); EOSINOPHILS % (AUTO) 0 % (0-10); MEAN CORPUSCULAR VOLUME 79 fL (80-99)
[2021-02-14 12:08] LABS: HEMATOCRIT 36 % (35-52); HEMOGLOBIN 11.5 g/dL (11.5-16.0); LYMPHOCYTES # (AUTO) 0.2 10^3/uL (1.0-4.0); LYMPHOCYTES % (AUTO) 6 % (12-44); MEAN CORPUSCULAR HEMOGLOBIN 25 pg (25-34); MEAN CORPUSCULAR HGB CONC 32 g/dL (32-36); MEAN PLATELET VOLUME 10.6 fL (9.0-12.2); MONOCYTES # (AUTO) 0.1 10^3/uL (0.0-1.0); MONOCYTES % (AUTO) 4 % (0-12); NEUTROPHILS % (AUTO) 90 % (42-75); PLATELET COUNT 128 10^3/uL (130-400); WHITE BLOOD COUNT 3.3 10^3/uL (4.3-11.0)
[2021-02-14 12:15] LABS: ALBUMIN 3.5 GM/DL (3.2-4.5); POTASSIUM 3.3 MMOL/L (3.6-5.0)
[2021-02-14] MEDS ORDERED: KETOROLAC 30 MG/ML VIAL IVP ONE (12:15)
[2021-02-14] MEDS ORDERED: NS IV 1000 ML 1,000 ML IV SCH (12:15)
[2021-02-14] MEDS ORDERED: diphenhydrAMINE 50 MG/ML INJ (BENADRYL) IVP ONE (12:15)
[2021-02-14] MEDS ORDERED: PROCHLORPERAZINE 10 MG/2ML INJ (COMPAZINE) IV ONE (12:15)
[2021-02-14 12:17] LABS: CALCIUM 7.8 MG/DL (8.5-10.1)
[2021-02-14 12:18] LABS: INR 1.5 (0.8-1.4); PROTHROMBIN TIME PATIENT 18.1 SEC (12.2-14.7); TOTAL PROTEIN 6.3 GM/DL (6.4-8.2)
[2021-02-14 12:19] LABS: BILIRUBIN,TOTAL 2.4 MG/DL (0.1-1.0)
[2021-02-14 12:19] LABS: BACTERIA,URINE FEW /HPF; BILIRUBIN,URINE 3+ (NEGATIVE)
[2021-02-14 12:20] LABS: AMORPHOUS SEDIMENT,UR FEW AMOR URATES /LPF
[2021-02-14 12:21] LABS: CREATININE SERUM 1.77 MG/DL (0.60-1.30)
[2021-02-14 12:55] LABS: BAND NEUTROPHILS 47 %; LYMPHOCYTES % (MANUAL) 3 %; METAMYELOCYTES % 1 %; MONOCYTES % (MANUAL) 1 %; NEUTROPHILS % (MANUAL) 48 %
[2021-02-14 12:56] LABS: ANISOCYTOSIS SLIGHT; CRENATED RBC SLIGHT; ELLIPT/OVALOCYTES SLIGHT; HYPOCHROMASIA SLIGHT; MICROCYTOSIS SLIGHT; PLATELET CLUMPS OCCASIONAL; POIKILOCYTOSIS SLIGHT
--- NOTE | 2021-02-14 13:19 | Diagnostic Imaging Report ---
INDICATION: Sepsis. Comparison is made with prior examination of 05/06/2019. FINDINGS: The heart size, mediastinal configuration, and pulmonary vascularity are within normal limits. There is no pleural effusion, pneumothorax, or pneumonia. The osseous structures are unremarkable. IMPRESSION: No acute cardiopulmonary abnormality. Dictated by: Dictated on workstation # [id number]
--- NOTE | 2021-02-14 13:21 | Diagnostic Imaging Report ---
PROCEDURE: CT abdomen and pelvis without contrast. TECHNIQUE: Multiple contiguous axial images were obtained through the abdomen and pelvis without the use of intravenous contrast. Auto Exposure Controls were utilized during the CT exam to meet ALARA standards for radiation dose reduction. INDICATION: Epigastric abdominal pain. FINDINGS: The heart size is normal. The lung bases are clear. The liver is normal in size without focal lesions. Gallbladder is unremarkable. No biliary duct dilatation. Spleen is normal. The pancreas and adrenal glands are unremarkable. Kidneys are normal in appearance. Aorta is nonaneurysmal. The bowel gas pattern is nonspecific. Appendix appears to be surgically absent. There is no free air. No ascites. No focal inflammatory changes. Bladder is normal. Uterus is normal. There is no pelvic mass, adenopathy or free fluid. There are mild degenerative changes in spine. IMPRESSION: Unremarkable noncontrast CT abdomen and pelvis. Dictated by: Dictated on workstation # [id number]
[2021-02-14] MEDS ORDERED: PROC-1 PO (13:24)
[2021-02-14] MEDS ORDERED: SUMA25TA3 PO (13:29)
[2021-02-14 13:34] VITALS: BP 128/77
== END 2021-02-14 13:33 | disposition home or self-care (01) ==
LOC: EDUNIT# 11:30 → ER 11:32
DX: B34.9 Viral infection, unspecified (principal); E78.00 Pure hypercholesterolemia, unspecified; G47.30 Sleep apnea, unspecified; Z79.82 Long term (current) use of aspirin; Z79.52 Long term (current) use of systemic steroids; Z79.899 Other long term (current) drug therapy; Z20.822 Contact with and (suspected) exposure to COVID-19
CPT/HCPCS: 36415; 71045; 74176; 80053; 81000; 83605; 85007; 85027; 85610; 85730; 87040; 87088; 87636

== ENCOUNTER 2021-02-14 23:18 | Inpatient (IN) | payer MEDICAID ==
[~2021-02-14] VITALS: Ht 149.9 cm; Wt 111.6 kg
[~2021-02-14 23:18] MED LIST changes: +PROC-1 PO; +SUMA25TA3 PO
[2021-02-15] VITALS (7 sets, daily range): BP systolic 94–112; BP diastolic 56–75
[2021-02-15] MEDS ORDERED: IBUPROFEN 600 MG (MOTRIN) TAB PO ONE (00:30)
[2021-02-15 00:38] LABS: CLARITY,URINE SL CLOUDY; COLOR,URINE ORANGE; GLUCOSE, URINE (UA) NEGATIVE (NEGATIVE); KETONES,URINE NEGATIVE (NEGATIVE); LEUKOCYTE ESTERASE ,URINE TRACE (NEGATIVE); NITRITE,URINE NEGATIVE (NEGATIVE); PROTEIN,URINE 2+ (NEGATIVE)
[2021-02-15 00:47] LABS: BACTERIA,URINE TRACE /HPF; BILIRUBIN,URINE 2+ (NEGATIVE); RBC,URINE 0-2 /HPF; WBC,URINE RARE /HPF
[2021-02-15] MEDS ORDERED: PROCHLORPERAZINE 10 MG/2ML INJ (COMPAZINE) IV ONE (01:30)
[2021-02-15] MEDS ORDERED: diphenhydrAMINE 50 MG/ML INJ (BENADRYL) IV ONE (01:30)
[2021-02-15 01:32] LABS: BASOPHILS % (AUTO) 1 % (0-10); EOSINOPHILS % (AUTO) 0 % (0-10); HEMATOCRIT 33 % (35-52); HEMOGLOBIN 10.6 g/dL (11.5-16.0); LYMPHOCYTES # (AUTO) 0.3 10^3/uL (1.0-4.0); LYMPHOCYTES % (AUTO) 15 % (12-44); MEAN CORPUSCULAR HEMOGLOBIN 25 pg (25-34); MEAN CORPUSCULAR HGB CONC 32 g/dL (32-36); MEAN CORPUSCULAR VOLUME 79 fL (80-99); MEAN PLATELET VOLUME 10.7 fL (9.0-12.2); MONOCYTES # (AUTO) 0.1 10^3/uL (0.0-1.0); MONOCYTES % (AUTO) 4 % (0-12); NEUTROPHILS # (AUTO) 1.8 10^3/uL (1.8-7.8); NEUTROPHILS % (AUTO) 81 % (42-75); PLATELET COUNT 113 10^3/uL (130-400); WHITE BLOOD COUNT 2.2 10^3/uL (4.3-11.0)
[2021-02-15 01:43] LABS: ALBUMIN 3.2 GM/DL (3.2-4.5)
[2021-02-15 01:44] LABS: POTASSIUM 3.1 MMOL/L (3.6-5.0)
[2021-02-15 01:45] LABS: CALCIUM 7.3 MG/DL (8.5-10.1)
[2021-02-15 01:46] LABS: TOTAL PROTEIN 5.7 GM/DL (6.4-8.2)
[2021-02-15 01:48] LABS: BILIRUBIN,TOTAL 2.6 MG/DL (0.1-1.0)
[2021-02-15 01:50] LABS: CREATININE SERUM 1.09 MG/DL (0.60-1.30)
[2021-02-15] MEDS ORDERED: NS IV 1000 ML 1,000 ML IV SCH (02:30)
--- NOTE | 2021-02-15 02:53 | ED General ---
General Chief Complaint: Fever-Adult/Adol Stated Complaint: GENERAL WEAKNESS Nursing Triage Note: Patient presented to the ER via EMS this evening with complaints of a fever and headacke. Patient states that she was seen in the earlier today and has not had any relief of pain or fever. Source of Information: Patient Exam Limitations: No Limitations History of Present Illness Date Seen by Provider: Feb 15, 2021 Time Seen by Provider: 00:05 Initial Comments Patient is a 45-year-old female who presents to the emergency department today with a chief complaint of fever for the last 4 to 5 days, headache, body aches back pain, neck pain abdominal discomfort nausea and diarrhea. Patient has been seen now 3 times in the emergency department since Tuesday. She has had 2 prior negative Covid test. She is not Covid vaccinated. She had a flu screen done around noon yesterday as well which was negative. Patient denies any dysuria, urgency or frequency. She has had nausea without vomiting. No skin rashes. She has a history of "Darier's disease" with thickening and li chenification of the skin to her right lower extremity around the ankle. No complaints of drainage or redness or increased pain in this area. She denies any black or bloody stools. She has not had diarrhea since she took some Imodium earlier today. Nonspecific, generalized abdominal pain. She denies any URI symptoms, sore throat, runny nose, nasal congestion or earache. She states the headache is global. She is taken tkvi-mfk-mxpbqtz ibuprofen and some Tylenol prior to finding out yesterday that her liver functions were elevated. No medications today for her fever. She was given 600 mg of ibuprofen here in the ER and her temp went from 10 1-1 02. No sick contacts. All other review of systems reviewed and negative except as stated above. Timing/Duration: 4-5 Days Severity: Severe Associated Systoms: Cough, Headaches, Malaise, Nausea/Vomiting Allergies and Home Medications Allergies Coded Allergies: No Known Drug Allergies (Unverified , 12/06/08) Home Medications Gabapentin 300 Mg Capsule, 300 MG PO TID, (Reported) Last Action: Last Taken Edited Ibuprofen 200 Mg Tablet, 600-800 MG PO TID PRN for PAIN-MILD, (Reported) TAKES 3-4 (200MG) TABLETS Last Action: Last Taken Edited Prochlorperazine Maleate 10 Mg Tablet, 10 MG PO TID PRN for NAUSEA/VOMITING Prescribed by: LORI MABRY on 02/14/211323 Last Action: Last Taken Edited Sumatriptan Succinate 25 Mg Tablet, 25 MG PO TID PRN for headache Prescribed by: LORI MABRY on 02/14/211328 Last Action: Last Taken Edited Patient Home Medication List Home Medication List Reviewed: Yes Review of Systems Review of Systems Constitutional: see HPI, chills, dizziness, fever, malaise, weakness EENTM: no symptoms reported Respiratory: cough Cardiovascular: no symptoms reported Gastrointestinal: abdominal pain, nausea Genitourinary: no symptoms reported Musculoskeletal: back pain, neck pain Skin: no symptoms reported Psychiatric/Neurological: No Symptoms Reported All Other Systems Reviewed Negative Unless Noted: Yes Past Feshzpd-Wnwojq-Sdqnhq Hx Immunizations Up To Date Tetanus Booster (TDap): Unknown PED Vaccines UTD: No Seasonal Allergies Seasonal Allergies: No Past Medical History Surgeries: Yes (WISDOM TEETH; X 4, cervical spine, l wrist carpal tunnel) Adenoidectomy, Appendectomy, Section, Tonsillectomy, Tubal Ligation Respiratory: Yes (tobaccoism) Sleep Apnea Currently Using CPAP: No Currently Using BIPAP: No Cardiac: Yes 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, High Cholesterol Neurological: No Reproductive Disorders: No Female Reproductive Disorders: Menstrual Problems 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 Sexually Transmitted Disease: No HIV/AIDS: No Genitourinary: No Gastrointestinal: Yes Gastroesophageal Reflux Musculoskeletal: Yes Degenerate Disk Disease Endocrine: Yes (OBESE) Hypothyroidsim HEENT: No Cancer: No Psychosocial: Yes Anxiety, Depression Integumentary: Yes (DARIER'S DISEASE) Psoriasis Blood Disorders: No Adverse Reaction/Blood Tranf: No Family Medical History Cancer 03 MOTHER (LUNG AND BONE) Family history: Glaucoma 03 FATHER Heart disease 03 MOTHER History of - respiratory disease 03 FATHER (COPD) Stroke 03 MOTHER Heart Disease, Cancer, COPD, Diabetes, Stroke Physical Exam Vital Signs Capillary Refill : Less Than 3 Seconds Height, Weight, BMI Height: 4'11.00" Weight: 235lbs. 0oz. 106.624135in; 50.00 BMI Method:Stated General Appearance: No Apparent Distress, WD/WN Eyes: Bilateral Eye Normal Inspection, Bilateral Eye PERRL, Bilateral Eye EOMI, Bilateral Eye Abnormal Pupil HEENT: TMs Normal, Other (Dry oral mucosa) Neck: Full Range of Motion, Normal Inspection, Non Tender, Supple, Other (Negative Kernig's and presents keep) Respiratory: Lungs Clear, Normal Breath Sounds, No Accessory Muscle Use, No Respiratory Distress Cardiovascular: Regular Rate, Rhythm Gastrointestinal: Normal Bowel Sounds, Tenderness (Diffuse abdominal tenderness patient is morbidly obese, unable to palpate liver margin or determine splenomegaly) Extremity: Normal Capillary Refill, Normal Range of Motion, Non Tender, No Calf Tenderness, Other (Lichenification, cobblestoning skin thickening around the distal right lower extremity) Neurologic/Psychiatric: Alert, Oriented x3, No Motor/Sensory Deficits, Normal Mood/Affect, rn family practice II-XII Norm as Tested Focused Exam Lactate Level Lactic Acid Level Progress/Results/Core Measures Suspected Sepsis SIRS Temperature: Pulse: 104 Respiratory Rate: 18 Blood Pressure 121 /77 Mean: 92 Results/Orders Lab Results My Orders Medications Given in ED Vital Signs/I&O Capillary Refill : Less Than 3 Seconds Blood Pressure Mean: 92 Progress Note : Time: 02:51 Progress Note Patient reexamined after medications for headache including Compazine and Benadryl and 600 mg of ibuprofen. Patient still rates her headache a "10". We will check lactic acid, Monospot add blood cultures. Anticipate admission for further evaluation of her fever of unknown origin. Patient will be given 50 mcg of fentanyl for her headache. Urinalysis is negative. She does have some laboratory changes from 12 hours ago her white count is now 2.2. She is pancytopenic with a hemoglobin of 10 hematocrit of 33, platelet count around 110,000. She has a negative chest x-ray from yesterday. Negative flu and Covid's. Liver functions remain elevated and total bilirubin is slightly higher at this time. Her acute kidney injury from yesterday is slightly improved her creatinine went from 1.7 to 1.09. She is given a liter of fluids here in the department. Will discuss with Dr. Buenrostro on for [facility]. Departure Communication (Admissions) Time/Spoke to Admitting Phy: 03:[address] Buenrostro who accepts the patient for admission, requests 1 g of Rocephin IV every 24 hours Impression Primary Impression: Fever Qualified Codes: R50.9 - Fever, unspecified Additional Impressions: Headache Qualified Codes: R51.9 - Headache, unspecified Transaminitis Disposition: ADMITTED INPATIENT Condition: Stable Admissions Decision to Admit Reason: Admit from ER (General) Decision to Admit/Date: Feb 15, 2021 Time/Decision to Admit Time: 03:03 Departure-Patient Inst. Referrals: [facility] [place] Primary Care Physician ZAK ESPITIA MD Feb 15, 2021 02:53
[2021-02-15] MEDS ORDERED: cefTRIAXone 1,000 MG in WATER (STERILE) FOR INJECTION 10 ML IV ONE (03:00)
[2021-02-15] MEDS ORDERED: fentaNYL INJ 100 MCG/2 ML AMP IVP ONE (03:15)
[2021-02-15] MEDS: NS IV 1000 ML 1,000 ML IV SCH ×2 (03:57→11:41)
[2021-02-15] MEDS ORDERED: RT-ALBUTEROL/IPRATROPIUM 3 ML (DUONEB) VIAL INH PRN (04:30)
[2021-02-15] MEDS: MAGNESIUM 1 GM/100 ML IVPB 100 ML IV SCH (06:02)
[2021-02-15] MEDS: POTASSIUM CL 10MEQ/50ML IVPB 50 ML IV SCH ×5 (06:03→11:25)
[2021-02-15] MEDS: KCL 20 MEQ TAB (K-DUR) PO SCH (06:03)
[2021-02-15] MEDS: fentaNYL INJ 100 MCG/2 ML AMP IV PRN (09:08)
[2021-02-15] MEDS: ONDANSETRON 4 MG/2 ML (SDV) Z0FRAN IVP PRN (09:08)
--- NOTE | 2021-02-15 10:22 | Diagnostic Imaging Report ---
PROCEDURE: US Gallbladder. TECHNIQUE: Multiple real-time grayscale images were obtained over the right upper quadrant in various projections. INDICATION: Fever, headache, and transaminitis. FINDINGS: There is hepatomegaly and fatty infiltration of the liver. Common bile duct is obscured by bowel gas. Gallbladder appears contracted. There is no obvious cholelithiasis or pericholecystic fluid. Pancreas is not well seen due to bowel gas. The aorta is nonaneurysmal. The IVC is patent. Right kidney is normal. There is no ascites. IMPRESSION: Technically limited exam due to bowel gas. Pancreas and common bile duct not well visualized. Gallbladder appears contracted. There is no obvious cholelithiasis. Dictated by: Dictated on workstation # [id number]
--- NOTE | 2021-02-15 11:16 | CONSULTATION REPORT ---
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 ATTENDING PHYSICIAN: Dr. Buenrostro. HISTORY OF PRESENT ILLNESS: The patient is a 45-year-old female who presented to the Emergency Department early this morning with pain in the right upper abdominal quadrant as well as nausea. She states that the pain is in around for approximately five days and she has been to the Emergency Department twice due to this. She states that the pain persisted and this was associated with headaches as well as fever and chills. An ultrasound was performed, which was unable to visualize the gallbladder wall due to her body habitus. At this time, she clinically does have signs and symptoms of cholelithiasis as well as choledocholithiasis. There is also the possibility of a developing ascending cholangitis. PAST MEDICAL HISTORY: Hypertension, obstructive sleep apnea, hypercholesterolemia, gastroesophageal reflux disease, degenerative joint disease, hypothyroid, atrial fibrillation. PAST SURGICAL HISTORY: section x4, C5 through C6-7 cervical spine, ORIF right wrist carpal tunnel release, appendectomy, tonsillectomy, tubal ligation. ALLERGIES: No known drug allergies. MEDICATIONS: Augmentin 875 mg b.i.d., aspirin 325 mg daily, atorvastatin 40 mg daily, diltiazem 120 mg daily, doxycycline 100 mg b.i.d., gabapentin 300 mg t.i.d., hydrocodone p.r.n., prednisone 20 mg daily, prochlorperazine 10 mg t.i.d. p.r.n. sumatriptan 25 mg t.i.d. p.r.n. SOCIAL HISTORY: Positive smoke 35 pack years. Social alcohol. FAMILY HISTORY: Mother with lung cancer. VITAL SIGNS: Temperature 37.6, blood pressure 112/75, pulse 85, respirations 16, pulse ox 100% on room air. REVIEW OF SYSTEMS: A well-nourished female, currently in no acute distress. She is not experiencing any shortness of breath or difficulty breathing. No chest pain, palpitations, diaphoresis. Intermittent episodes of nausea, no vomiting. She does report in the past several days, she has had a few episodes of diarrhea. No red blood per rectum, no dark tarry stools. She has also had fevers and chills for the past 4 to 5 days. No recent inadvertent weight loss. All other review of systems negative. PHYSICAL EXAMINATION: CHEST: Distant breath sounds and scattered wheezes bilaterally. HEART: Regular, no murmurs. EXTREMITIES: Thickened skin of bilateral lower extremities secondary to congenital skin disorder. +1/3 bilateral lower extremity edema, negative Homans sign. HEENT: No scleral icterus. NECK: No cervical lymphadenopathy. ABDOMEN: Soft, nondistended. There is pain in the epigastric region as well as a right upper abdominal quadrant upon palpation, voluntary guarding, no rebound. SKIN: Warm, dry. LABORATORY DATA: WBC 2.2 with neutrophils at 81%. Hemoglobin 10.6, hematocrit 33, platelets 113. BUN 17, creatinine 1.09, total bilirubin 2.6, lipase 11. ASSESSMENT AND PLAN: A 45-year-old female with fever, chills and right upper abdominal quadrant pain, which may indicate an acute on chronic calculous cholecystitis as well as possible choledocholithiasis; however, we cannot rule out the possibility of ascending cholangitis and we will continue to monitor her closely and continue with IV hydration and antibiotics and antipyretics as necessary. If she has worsening symptoms and fever, we may proceed with a noninvasive MRCP to evaluate her hepatobiliary tract. Job ID: [id number] DocumentID: [id number] Dictated Date: 02/15/2021 10:48:14 Employee Relations Administrator Date: 02/15/2021 11:16:02 Dictated By: CYNTHIA CHISHOLM MD
[2021-02-15] MEDS: PANTOPRAZOLE 40 MG (PROTONIX) VIAL IV SCH (11:35)
[2021-02-15] MEDS: IBUPROFEN 600 MG (MOTRIN) TAB PO PRN ×2 (11:39→18:53)
[2021-02-15] MEDS: HYDROcodone/APAP 7.5 MG/325 MG (LORTAB, LORCET PLUS) TABLET PO PRN ×2 (11:39→21:56)
--- NOTE | 2021-02-15 13:25 | History & Physical-Hospitalist ---
History of Present Illness HPI/Chief Complaint Patient is a 45-year-old female who presents to the emergency department today with a chief complaint of fever for the last 4 to 5 days, headache, body aches back pain, neck pain abdominal discomfort nausea and diarrhea. Patient has been seen now 3 times in the emergency department since Tuesday. She has had 2 prior negative Covid test. She is not Covid vaccinated. She had a flu screen done around noon yesterday as well which was negative. Patient denies any dysuria, urgency or frequency. She has had nausea without vomiting. No skin rashes. She has a history of "Darier's disease" with thickening and lic henification of the skin to her right lower extremity around the ankle. No complaints of drainage or redness or increased pain in this area. She denies any black or bloody stools. She has not had diarrhea since she took some Imodium earlier today. Nonspecific, generalized abdominal pain. She denies any URI symptoms, sore throat, runny nose, nasal congestion or earache. She states the headache is global. She is taken ojcr-jbq-zftegse ibuprofen and some Tylenol prior to finding out yesterday that her liver functions were elevated. No medications today for her fever. She was given 600 mg of ibuprofen here in the ER and her temp went from 10 1-1 02. Upon my arrival the patient was feeling better nominal pain and no current nausea. She had just accomplished abdominal sonography. She reports that her symptoms started a couple hours after she had had Salsberry steak and mashed potatoes with gravy. She reports her mother had to have her gallbladder out and she denies any previous bouts of abdominal pain or nausea and no past history of pancreatitis or known gallbladder problems. Date Seen 02/15/21 Time Seen by a Provider: 07:00 Attending Physician Mattie Snyder MD [facility] Referring Physician Date of Admission Feb 14, 2021 at 23:21 Home Medications & Allergies Home Medications Reviewed patient Home Medication Reconciliation performed by pharmacy medication reconciliations certified appliance service technician and/or nursing. Patients Allergies have been reviewed. Allergies Allergies Coded Allergies No Known Drug Allergies (Unverified12/06/08) Past Hszgpmk-Giwkxa-Yoiwag Hx Patient Social History Tobacco Use?: Yes Tobacco type used: Cigarettes Smoking Status: Current Everyday Smoker Smokeless Tobacco Frequency: Never a User Use of E-Cig and/or Vaping dev: No Use of E-Cig and/or Vaping Tung: Never a User Substance use?: No Alcohol Use?: No Pt feels they are or have been: No Immunizations Up To Date Date of Influenza Vaccine: Apr 06, 2016 Tetanus Booster (TDap): Less Than 5 Years Hepatitis A: No Hepatitis B: No PED Vaccines UTD: No Seasonal Allergies Seasonal Allergies: No Current Status status: No Advance Directives: No Communicates: Verbally Primary Language: Belgian Preferred Spoken Language: Belgian Is interpretation needed?: No Sensory deficits: Vision impairment Implanted or Applied Medical D: None Past Medical History Surgeries: Adenoidectomy, Appendectomy, Section, Tonsillectomy, Tubal Ligation Sleep Apnea Currently Using CPAP: No Currently Using BIPAP: No 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, 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 Sexually Transmitted Disease: No HIV/AIDS: No Gastroesophageal Reflux Degenerate Disk Disease Hypothyroidsim Anxiety, Depression Psoriasis Blood Disorders: No Adverse Reaction/Blood Tranf: No Family Medical History Cancer 03 MOTHER (LUNG AND BONE) Family history: Glaucoma 03 FATHER Heart disease 03 MOTHER History of - respiratory disease 03 FATHER (COPD) Stroke 03 MOTHER Heart Disease, Cancer, COPD, Diabetes, Stroke Review of Systems Constitutional: see HPI Physical Exam Physical Exam Vital Signs Vital Signs - First Documented 02/15/21 02/15/21 02/15/21 00:36 00:58 04:16 Temp 39.5 Pulse 104 Resp 18 B/P (MAP) 121/77 (92) Pulse Ox 98 O2 Delivery Room Air FiO2 21 Capillary Refill : Less Than 3 Seconds Height, Weight, BMI Height: 4'11.00" Weight: 235lbs. 0oz. 106.620056ra; 49.66 BMI Method:Stated General Appearance: No Apparent Distress, Obese Respiratory: Chest Non Tender, Lungs Clear, Normal Breath Sounds, No Accessory Muscle Use, No Respiratory Distress Cardiovascular: Regular Rate, Rhythm, No Edema, No Gallop, No JVD, No Murmur, Normal Peripheral Pulses Gastrointestinal: No Organomegaly, Tenderness (Worse in the right upper quad rant positive Paige sign was unable to detect evidence for organomegaly but obesity decreases sensitivity no abdominal masses noted bowel sounds present but hypoactive.) Extremity: Normal Capillary Refill, Normal Inspection, Normal Range of Motion, Non Tender, No Calf Tenderness, No Pedal Edema Results Results/Procedures Labs Laboratory Tests 02/15/21 01:20 Patient resulted labs reviewed. Assessment/Plan Admission Diagnosis 1. Likely a sending cholangitis with secondary sepsis continue Rocephin will obtain surgical consultation. CT scan was unremarkable of the abdomen and pelvis in the emergency room. We will add lipase level and if sonogram is unremarkable at some point in the future will likely need hepatobiliary scan or MR cholangiogram defer to Dr. Parker. 2. Neutropenia likely due to overwhelming sepsis considering 45% band forms and predominant neutrophils in regards to her white cell differential. If this does not improve with improving sepsis will require hematology consultation and consideration for bone marrow evaluation. Admission Status: Inpatient Order (span 2 midnights) Reason for Inpatient Admission: See admission diagnosis MATTIE SNYDER MD Feb 15, 2021 13:25
[2021-02-15] MEDS: cefTRIAXone 1,000 MG/SWFI 10 ML IV PUSH IV SCH ×2 (21:56)
[2021-02-16] MEDS: IBUPROFEN 600 MG (MOTRIN) TAB PO PRN ×2 (03:03→20:13)
[2021-02-16 03:04] VITALS: BP 101/66
[2021-02-16] MEDS: HYDROcodone/APAP 7.5 MG/325 MG (LORTAB, LORCET PLUS) TABLET PO PRN ×3 (03:04→20:10)
[2021-02-16 04:57] LABS: HEMATOCRIT 31 % (35-52); HEMOGLOBIN 9.9 g/dL (11.5-16.0); MEAN CORPUSCULAR HGB CONC 32 g/dL (32-36); MEAN PLATELET VOLUME 11.1 fL (9.0-12.2)
[2021-02-16 05:00] LABS: BASOPHILS % (AUTO) 1 % (0-10); EOSINOPHILS % (AUTO) 1 % (0-10); LYMPHOCYTES # (AUTO) 0.3 10^3/uL (1.0-4.0); LYMPHOCYTES % (AUTO) 17 % (12-44); MEAN CORPUSCULAR HEMOGLOBIN 25 pg (25-34); MEAN CORPUSCULAR VOLUME 80 fL (80-99); MONOCYTES # (AUTO) 0.1 10^3/uL (0.0-1.0); MONOCYTES % (AUTO) 6 % (0-12); NEUTROPHILS # (AUTO) 1.1 10^3/uL (1.8-7.8); NEUTROPHILS % (AUTO) 74 % (42-75); PLATELET COUNT 78 10^3/uL (130-400)
[2021-02-16 05:06] LABS: WHITE BLOOD COUNT 1.4 10^3/uL (4.3-11.0)
[2021-02-16 05:11] LABS: ALBUMIN 2.8 GM/DL (3.2-4.5); CHLORIDE 108 MMOL/L (98-107); POTASSIUM 3.6 MMOL/L (3.6-5.0); SODIUM 135 MMOL/L (135-145)
[2021-02-16 05:12] LABS: CALCIUM 7.1 MG/DL (8.5-10.1)
[2021-02-16 05:13] LABS: GLUCOSE 86 MG/DL (70-105); TOTAL PROTEIN 5.3 GM/DL (6.4-8.2)
[2021-02-16 05:14] LABS: CARBON DIOXIDE 15 MMOL/L (21-32)
[2021-02-16] MEDS: KCL 20 MEQ TAB (K-DUR) PO SCH (05:14)
[2021-02-16] MEDS: MAGNESIUM 1 GM/100 ML IVPB 100 ML IV SCH (05:14)
[2021-02-16] MEDS: POTASSIUM CL 10MEQ/50ML IVPB 50 ML IV SCH (05:14)
[2021-02-16 05:15] LABS: BILIRUBIN,TOTAL 3.5 MG/DL (0.1-1.0)
[2021-02-16 05:17] LABS: ALKALINE PHOSPHATASE 131 U/L (40-136); CREATININE SERUM 0.75 MG/DL (0.60-1.30); GFR ESTIMATED > 60
[2021-02-16 05:18] LABS: BUN/CREATININE RATIO 17
[2021-02-16 05:20] LABS: ALANINE AMINOTRANSFERASE 56 U/L (0-55)
[2021-02-16] MEDS: PANTOPRAZOLE 40 MG (PROTONIX) VIAL IV SCH (08:02)
[2021-02-16 08:42] VITALS: BP 104/65
[2021-02-16] MEDS ORDERED: GABA300C PO (08:58)
[2021-02-16] MEDS ORDERED: VERAPAMIL 5 MG/2 ML (CALAN) VIAL IV ONE (10:41)
[2021-02-16] MEDS ORDERED: fentaNYL INJ 100 MCG/2 ML AMP ONE (10:41)
[2021-02-16] MEDS ORDERED: MIDAZOLAM 5 MG/5 ML (VERSED) VIAL ONE (10:42)
[2021-02-16] MEDS ORDERED: NS IV 1000 ML 0 ML ONE (10:42)
[2021-02-16] MEDS ORDERED: LIDOCAINE 1% INJ 20 ML 20 ML VIAL ONE (10:42)
[2021-02-16] MEDS ORDERED: HEParin (CATH LAB) 2,000 ML IV ONE (10:42)
[2021-02-16] MEDS ORDERED: HEParin 1000 UNIT/ML (10ML VIAL) FOR BOLUS ONE (10:42)
--- NOTE | 2021-02-16 10:54 | Progress Note - Hospitalist ---
JOSE ARMANDO ZENG MED STUDENT 02/16/21 1054: Subjective HPI/CC On Admission Date Seen by Provider: Feb 16, 2021 Time Seen by Provider: 08:20 Patient is a 45-year-old female who presents to the emergency department today with a chief complaint of fever for the last 4 to 5 days, headache, body aches back pain, neck pain abdominal discomfort nausea and diarrhea. Patient has been seen now 3 times in the emergency department since Tuesday. She has had 2 prior negative Covid test. She is not Covid vaccinated. She had a flu screen done around noon yesterday as well which was negative. Patient denies any dysuria, urgency or frequency. She has had nausea without vomiting. No skin rashes. 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 No complaints of drainage or redness or increased pain in this area. She denies any black or bloody stools. She has not had diarrhea since she took some Imodium earlier today. Nonspecific, generalized abdominal pain. She denies any URI symptoms, sore throat, runny nose, nasal congestion or earache. She states the headache is global. She is taken hbuz-cmy-pmttzes ibuprofen and some T ylenol prior to finding out yesterday that her liver functions were elevated. No medications today for her fever. She was given 600 mg of ibuprofen here in the ER and her temp went from 10 1- 02. Upon my arrival the patient was feeling better nominal pain and no current nausea. She had just accomplished abdominal sonography. She reports that her symptoms started a couple hours after she had had Salsberry steak and mashed potatoes with gravy. She reports her mother had to have her gallbladder out and she denies any previous bouts of abdominal pain or nausea and no past history of pancreatitis or known gallbladder problems. Subjective/Events-last exam Pt feels that she is doing better. Still has some epigastric/RUQ pain, but no other complaints. Focused Exam Lactate Level 02/15/21 02:25: Lactic Acid Level 0.68 Objective Exam Vital Signs Vital Signs Date Time Temp Pulse Resp B/P (MAP) Pulse Ox O2 Delivery O2 Flow Rate FiO2 02/16/21 08:42 36.6 74 18 104/65 (78) 96 Room Air 02/15/21 04:16 21 Capillary Refill : Less Than 3 Seconds General Appearance: No Apparent Distress, WD/WN Respiratory: Lungs Clear, Normal Breath Sounds, No Accessory Muscle Use, No Respiratory Distress Cardiovascular: Regular Rate, Rhythm, No Murmur Gastrointestinal: Soft; No Guarding, No Rebound; Other (epigastric and RUQ tenderness) Extremity: No Calf Tenderness Neurologic/Psychiatric: Alert, No Motor/Sensory Deficits, Normal Mood/Affect Skin: Warm/Dry, Jaundice (mild), Other (chronic skin lesions on right calf) Results/Procedures Lab Laboratory Tests 02/16/21 04:05 Patient resulted labs reviewed. Imaging: Reviewed Imaging Report Assessment/Plan Assessment and Plan Assess & Plan/Chief Complaint Possible ascending cholangitis Plan for MRCP Dr. Parker consulted Hepatitis Panel pending Sepsis Rocephin Pancytopenia KAY HARDEN MD 02/16/21 1415: Assessment/Plan Assessment and Plan Assess & Plan/Chief Complaint Obtain MRCP for further evaluation. Continue antibiotics. Surgery following. Monitor blood counts. Diagnosis/Problems Diagnosis/Problems (1) Elevated LFTs Status: Acute (2) Ascending cholangitis Status: Acute (3) Pancytopenia Status: Acute Supervisory-Addendum Brief Verification & Attestation Participated in pt care: history, MDM, physical Personally performed: exam, history, MDM, supervision of care Care discussed with: Medical Student Procedures: n/a Results interpretation: Verified all documentation A medical student performed and documented this service. I then reviewed and verified all information documented by the medical student and made modifica tions to such information, when appropriate. I personally performed a history, physical exam, and performed medical decision making. JOSE ARMANDO ZENG MED STUDENT Feb 16, 2021 10:54 KAY HARDEN MD Feb 16, 2021 14:15
[2021-02-16 12:56] VITALS: BP 90/52
[2021-02-16 12:57] LABS: HEPATITIS C ANTIBODY C Non-Reactive (Non-Reactive)
--- NOTE | 2021-02-16 14:33 | Diagnostic Imaging Report ---
PROCEDURE: MR imaging cholangiography-pancreatography. TECHNIQUE: Multiplanar imaging of the abdomen was performed on a 1.5 Jeannette magnet without contrast. 3D reconstructions were made for the MRCP INDICATION: Fever and transaminitis. COMPARISON: Gallbladder ultrasound from 02/15/[address] abdomen and pelvis from 02/14/2021. FINDINGS: There is no intrahepatic or extrahepatic biliary duct dilatation. The common bile duct measures 3 mm in maximal diameter. No filling defects which suggest choledocholithiasis. The gallbladder is partially contracted and there are no filling defects to suggest cholelithiasis. However, there is some T2 hyperintense fluid and/or inflammatory signal around the gallbladder. The liver measures 19 cm in length. No MRI features that would suggest hepatic steatosis. Unenhanced pancreas is grossly normal. Spleen is normal in size. No lymphadenopathy. IMPRESSION: 1. No biliary duct dilatation which argues against ascending cholangitis. 2. Mild inflammatory change and/or edema around the gallbladder raises possibility of acute cholecystitis. No filling defects within the gallbladder suggests cholelithiasis. 3. No choledocholithiasis. Dictated by: Dictated on workstation # [id number]
[2021-02-16 16:00] VITALS: BP 115/68
--- NOTE | 2021-02-16 17:25 | Progress Note ---
Subjective Date Seen by a Provider: Feb 16, 2021 Time Seen by a Provider: 17:00 Subjective/Events-last exam doing better today. abd pain less. no fevers. leukocytopenic. Focused Exam Lactate Level 02/15/21 02:25: Lactic Acid Level 0.68 Objective Exam Vital Signs Date Time Temp Pulse Resp B/P (MAP) Pulse Ox O2 Delivery O2 Flow Rate FiO2 02/16/21 16:00 37.1 78 20 115/68 (84) 94 Room Air 02/16/21 12:56 37.0 89 18 90/52 (65) 99 Room Air 02/16/21 08:42 36.6 74 18 104/65 (78) 96 Room Air 02/16/21 08:05 Room Air 02/16/21 03:04 37.0 71 18 101/66 (78) 98 Room Air 02/15/21 23:45 36.9 74 20 95/62 (73) 99 Room Air 02/15/21 19:45 Room Air 02/15/21 19:38 37.0 83 20 94/58 (70) 96 Room Air I & O 02/16/21 07:00 Intake Total 2470 ml Output Total 1450 ml Balance 1020 ml Capillary Refill : Less Than 3 Seconds General Appearance: No Apparent Distress HEENT: PERRL/EOMI Neck: Full Range of Motion Respiratory: Chest Non Tender Cardiovascular: Regular Rate, Rhythm Gastrointestinal: normal bowel sounds, soft, tenderness Extremity: Normal Capillary Refill Neurologic/Psychiatric: Alert, Oriented x3 Skin: Normal Color Lymphatic: No Adenopathy Results Lab Laboratory Tests 02/16/21 04:05: White Blood Count 1.4*L, Red Blood Count 3.95, Hemoglobin 9.9L, Hematocrit 31L, Mean Corpuscular Volume 80, Mean Corpuscular Hemoglobin 25, Mean Corpuscular Hemoglobin Concent 32, Red Cell Distribution Width 17.5H, Platelet Count 78L, Mean Platelet Volume 11.1, Immature Granulocyte % (Auto) 1, Neutrophils (%) (Auto) 74, Lymphocytes (%) (Auto) 17, Monocytes (%) (Auto) 6, Eosinophils (%) (Auto) 1, Basophils (%) (Auto) 1, Neutrophils # (Auto) 1.1L, Lymphocytes # (Auto) 0.3L, Monocytes # (Auto) 0.1, Eosinophils # (Auto) 0.0, Basophils # (Auto) 0.0, Immature Granulocyte # (Auto) 0.0, Percent Immature Platelet Fraction 7.8H, Sodium Level 135, Potassium Level 3.6, Chloride Level 108H, Carbon Dioxide Level 15L, Anion Gap 12, Blood Urea Nitrogen 13, Creatinine 0.75, Estimat Glomerular Filtration Rate > 60, BUN/Creatinine Ratio 17, Glucose Level 86, Calcium Level 7.1L, Corrected Calcium 8.1L, Total Bilirubin 3.5H, Aspartate Amino Transf (AST/SGOT) 103H, Alanine Aminotransferase (ALT/SGPT) 56H, Alkaline Phosphatase 131, Total Protein 5.3L, Albumin 2.8L Assessment/Plan Assessment/Plan Assess & Plan/Chief Complaint fever of unknown origin. MRCP normal biliary anatomy. will schedule CYNTHIA MITCHELL MD Feb 16, 2021 17:25
[2021-02-16 20:00] VITALS: BP 141/76
[2021-02-16] MEDS: ONDANSETRON 4 MG/2 ML (SDV) Z0FRAN IVP PRN (20:13)
[2021-02-16] MEDS: cefTRIAXone 1,000 MG/SWFI 10 ML IV PUSH IV SCH ×2 (22:51)
[2021-02-17 00:30] VITALS: BP 94/57
[2021-02-17 04:00] VITALS: BP 91/57
[2021-02-17 05:53] LABS: MEAN CORPUSCULAR VOLUME 83 fL (80-99); MONOCYTES # (AUTO) 0.1 10^3/uL (0.0-1.0)
[2021-02-17 05:55] LABS: BASOPHILS % (AUTO) 1 % (0-10); EOSINOPHILS # (AUTO) 0.1 10^3/uL (0.0-0.3); EOSINOPHILS % (AUTO) 3 % (0-10); HEMATOCRIT 37 % (35-52); HEMOGLOBIN 11.2 g/dL (11.5-16.0); LYMPHOCYTES # (AUTO) 0.8 10^3/uL (1.0-4.0); LYMPHOCYTES % (AUTO) 29 % (12-44); MEAN CORPUSCULAR HEMOGLOBIN 25 pg (25-34); MEAN CORPUSCULAR HGB CONC 30 g/dL (32-36); MONOCYTES % (AUTO) 3 % (0-12); NEUTROPHILS # (AUTO) 1.7 10^3/uL (1.8-7.8); NEUTROPHILS % (AUTO) 63 % (42-75); PLATELET COUNT 46 10^3/uL (130-400); WHITE BLOOD COUNT 2.7 10^3/uL (4.3-11.0)
[2021-02-17 06:05] LABS: ALBUMIN 2.7 GM/DL (3.2-4.5); POTASSIUM 4.7 MMOL/L (3.6-5.0)
[2021-02-17 06:06] LABS: CALCIUM 7.1 MG/DL (8.5-10.1)
[2021-02-17 06:07] LABS: TOTAL PROTEIN 5.4 GM/DL (6.4-8.2)
[2021-02-17 06:09] LABS: BILIRUBIN,TOTAL 4.1 MG/DL (0.1-1.0)
[2021-02-17 06:11] LABS: CREATININE SERUM 1.5 MG/DL (0.60-1.30)
[2021-02-17] MEDS: MAGNESIUM 1 GM/100 ML IVPB 100 ML IV SCH (06:11)
[2021-02-17] MEDS: POTASSIUM CL 10MEQ/50ML IVPB 50 ML IV SCH (06:11)
[2021-02-17] MEDS: KCL 20 MEQ TAB (K-DUR) PO SCH (06:11)
[2021-02-17] MEDS: IBUPROFEN 600 MG (MOTRIN) TAB PO PRN (06:13)
[2021-02-17] MEDS ORDERED: LACTATED RINGERS 1,000 ML IV SCH (07:30)
[2021-02-17 08:07] VITALS: BP 97/65
--- NOTE | 2021-02-17 09:15 | Diagnostic Imaging Report ---
INDICATION: Right upper quadrant abdominal pain, fever, and chills. COMPARISON: CT 02/14/2021, gallbladder ultrasound 02/15/2021, and MRI 02/16/2021. RADIOPHARMACEUTICAL: 5.27 mCi of Choletec IV. FINDINGS: There is tracer activity throughout the liver; however, there is no visualization of the bile ducts or gallbladder. No tracer activity is seen within the bowel. IMPRESSION: Activity is seen within the liver but not in the biliary system suggesting hepatocellular dysfunction. Dictated by: Dictated on workstation # [id number]
[2021-02-17] MEDS: PANTOPRAZOLE 40 MG (PROTONIX) VIAL IV SCH (09:38)
[2021-02-17] MEDS: LACTATED RINGERS 1,000 ML IV SCH ×3 (09:38→20:58)
[2021-02-17 10:27] LABS: FIBRIN DEGRADATION PRODUCTS 18.47 UG/ML (0.00-0.49); INR 1.2 (0.8-1.4); PROTHROMBIN TIME PATIENT 15.2 SEC (12.2-14.7)
--- NOTE | 2021-02-17 11:53 | Progress Note - Hospitalist ---
JOSE ARMANDO ZENG MED STUDENT 02/17/21 1153: Subjective HPI/CC On Admission Date Seen by Provider: Feb 17, 2021 Time Seen by Provider: 11:30 Patient is a 45-year-old female who presents to the emergency department today with a chief complaint of fever for the last 4 to 5 days, headache, body aches back pain, neck pain abdominal discomfort nausea and diarrhea. Patient has been seen now 3 times in the emergency department since Tuesday. She has had 2 prior negative Covid test. She is not Covid vaccinated. She had a flu screen done around noon yesterday as well which was negative. Patient denies any dysuria, urgency or frequency. She has had nausea without vomiting. No skin rashes. 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 No complaints of drainage or redness or increased pain in this area. She denies any black or bloody stools. She has not had diarrhea since she took some Imodium earlier today. Nonspecific, generalized abdominal pain. She denies any URI symptoms, sore throat, runny nose, nasal congestion or earache. She states the headache is global. She is taken [id number] ibuprofen and some T ylenol prior to finding out yesterday that her liver functions were elevated. No medications today for her fever. She was given 600 mg of ibuprofen here in the ER and her temp went from 10 1-1 02. Upon my arrival the patient was feeling better nominal pain and no current nausea. She had just accomplished abdominal sonography. She reports that her symptoms started a couple hours after she had had Salsberry steak and mashed potatoes with gravy. She reports her mother had to have her gallbladder out and she denies any previous bouts of abdominal pain or nausea and no past history of pancreatitis or known gallbladder problems. Subjective/Events-last exam Pt states her abdomen is swollen and more painful since yesterday. Also says she has not had a bowel movement in 3 days and is requesting a laxative. Has a headache and is requesting pain medication. HIDA scan done this morning reports that activity is seen within the liver but not in the biliary system suggesting hepatocellular dysfunction. There is tracer activity in the liver, but not bile duct, gallbaldder, or bowel. Focused Exam Lactate Level 02/15/21 02:25: Lactic Acid Level 0.68 Objective Exam Vital Signs Vital Signs Date Time Temp Pulse Resp B/P (MAP) Pulse Ox O2 Delivery O2 Flow Rate FiO2 02/17/21 08:07 36.4 81 18 97/65 (76) 97 Room Air 02/15/21 04:16 21 Capillary Refill : Less Than 3 Seconds General Appearance: No Apparent Distress, Obese Respiratory: Normal Breath Sounds, No Accessory Muscle Use, No Respiratory Distress Cardiovascular: Regular Rate, Rhythm, No Edema Gastrointestinal: Soft, Other (epigastric and RUQ tenderness; more distended compared to yesterday) Extremity: No Calf Tenderness, No Pedal Edema Neurologic/Psychiatric: Alert, Oriented x3, No Motor/Sensory Deficits, Normal Mood/Affect Skin: Warm/Dry, Jaundice (mild) Results/Procedures Lab Laboratory Tests 02/17/21 05:44 Patient resulted labs reviewed. Imaging: Reviewed Imaging Report Assessment/Plan Assessment and Plan Assess & Plan/Chief Complaint Transaminitis Dr. Parker consulted Hepatitis Panel negative Plan for transfer for ERCP Sepsis Rocephin Pancytopenia KAY HARDEN MD 02/17/21 1905: Assessment/Plan Assessment and Plan Assess & Plan/Chief Complaint Biliary obstruction and acalculous cholecystitis as evidenced by imaging workup with ultrasound, MRCP and HIDA scan. Discussed case with Dr. Parker, plan to transfer for ERCP. Diagnosis/Problems Diagnosis/Problems (1) Biliary tract obstruction Status: Acute (2) Cholecystitis without calculus Status: Acute (3) Elevated LFTs Status: Acute (4) Pancytopenia Status: Acute (5) Morbid obesity Status: Chronic Supervisory-Addendum Brief Verification & Attestation Participated in pt care: history, MDM, physical Personally performed: exam, history, MDM, supervision of care Care discussed with: Medical Student Procedures: n/a Results interpretation: Verified all documentation A medical student performed and documented this service. I then reviewed and verified all information documented by the medical student and made modifications to such information, when appropriate. I personally performed a history, physical exam, and performed medical decision making. JOSE ARMANDO ZENG MED STUDENT Feb 17, 2021 11:53 KAY HARDEN MD Feb 17, 2021 19:05
[2021-02-17 12:28] VITALS: BP 99/64
[2021-02-17] MEDS ORDERED: polyethylene glycoL POWDER 17 GM (MIRALAX) PACK PO NR (13:00)
[2021-02-17] MEDS ORDERED: DOCUSATE SODIUM 100 MG (COLACE) CAP PO NR (13:00)
--- NOTE | 2021-02-17 14:45 | Progress Note ---
Subjective Date Seen by a Provider: Feb 17, 2021 Time Seen by a Provider: 13:00 Subjective/Events-last exam clinical stable however worsening hyperbilirubinemia. Focused Exam Lactate Level 02/15/21 02:25: Lactic Acid Level 0.68 Objective Exam Vital Signs Date Time Temp Pulse Resp B/P (MAP) Pulse Ox O2 Delivery O2 Flow Rate FiO2 02/17/21 12:28 36.5 76 18 99/64 (76) 99 Room Air 02/17/21 08:07 36.4 81 18 97/65 (76) 97 Room Air 02/17/21 08:00 Room Air 02/17/21 04:00 36.2 76 20 91/57 (68) 96 Room Air 02/17/21 00:30 36.6 77 18 94/57 (69) 98 Room Air 02/16/21 20:00 36.4 89 20 141/76 (97) 98 Room Air 02/16/21 20:00 Room Air 02/16/21 18:55 92 Room Air 02/16/21 16:00 37.1 78 20 115/68 (84) 94 Room Air I & O 02/17/21 06:59 Intake Total 1680 ml Output Total 1000 ml Balance 680 ml Capillary Refill : Less Than 3 Seconds General Appearance: No Apparent Distress HEENT: PERRL/EOMI Neck: Full Range of Motion Respiratory: Decreased Breath Sounds, Wheezing Cardiovascular: Regular Rate, Rhythm Gastrointestinal: soft, tenderness Extremity: Normal Capillary Refill Neurologic/Psychiatric: Alert, Oriented x3 Skin: Normal Color Lymphatic: No Adenopathy Results Lab Laboratory Tests 02/17/21 05:44: White Blood Count 2.7L, Red Blood Count 4.49, Hemoglobin 11.2L, Hematocrit 37, Mean Corpuscular Volume 83, Mean Corpuscular Hemoglobin 25, Mean Corpuscular Hemoglobin Concent 30L, Red Cell Distribution Width 18.1H, Platelet Count 46L, Mean Platelet Volume , Immature Granulocyte % (Auto) 1, Neutrophils (%) (Auto) 63, Lymphocytes (%) (Auto) 29, Monocytes (%) (Auto) 3, Eosinophils (%) (Auto) 3, Basophils (%) (Auto) 1, Neutrophils # (Auto) 1.7L, Lymphocytes # (Auto) 0.8L, Monocytes # (Auto) 0.1, Eosinophils # (Auto) 0.1, Basophils # (Auto) 0.0, Immature Granulocyte # (Auto) 0.0, Percent Immature Platelet Fraction 8.5H, Sodium Level 133L, Potassium Level 4.7, Chloride Level 106, Carbon Dioxide Level 14L, Anion Gap 13, Blood Urea Nitrogen 21H, Creatinine 1.50H, Estimat Glomerular Filtration Rate 38, BUN/Creatinine Ratio 14, Glucose Level 92, Calcium Level 7.1L, Corrected Calcium 8.1L, Total Bilirubin 4.1H, Aspartate Amino Transf (AST/SGOT) 108H, Alanine Aminotransferase (ALT/SGPT) 50, Alkaline Phosphatase 165H, Total Protein 5.4L, Albumin 2.7L 02/17/21 09:32: Prothrombin Time 15.2H, INR Comment 1.2, Activated Partial Thromboplast Time 46H , Fibrinogen 238, D-Dimer 18.47H Assessment/Plan Assessment/Plan Assess & Plan/Chief Complaint fever of unknown origin. MRCP normal biliary anatomy. HIDA non visualization of ductal anatomy nor gallbladder. will recommend transfer to GI for ERCP. CYNTHIA CHISHOLM MD Feb 17, 2021 14:44
[2021-02-17 16:00] VITALS: BP 110/69
[2021-02-17] MEDS: ALPRAZolam 0.25 MG (XANAX) TAB PO PRN (16:46)
[2021-02-17 20:00] VITALS: BP 123/85
[2021-02-17] MEDS ORDERED: polyethylene glycoL POWDER 17 GM (MIRALAX) PACK PO PRN (20:00)
[2021-02-17] MEDS ORDERED: diphenhydrAMINE 25 MG TAB (BENADRYL) PO PRN (20:00)
[2021-02-17] MEDS ORDERED: ACETAMINOPHEN 325 MG TABLET PO PRN (20:00)
[2021-02-17] MEDS ORDERED: MELATONIN 3 MG TABLET PO PRN (20:00)
[2021-02-17] MEDS ORDERED: ONDANSETRON 4 MG/2 ML (SDV) Z0FRAN IV PRN (20:00)
[2021-02-17] MEDS ORDERED: ONDANSETRON 4 MG (ZOFRAN) ORAL DISSOLVE TAB PO PRN (20:00)
[2021-02-17] MEDS ORDERED: ANTACID SUSP 30 ML UDC (MYLANTA) PO PRN (20:00)
[2021-02-17] MEDS: DOCUSATE SODIUM 100 MG (COLACE) CAP PO SCH (20:57)
[2021-02-17] MEDS: cefTRIAXone 1,000 MG/SWFI 10 ML IV PUSH IV SCH ×2 (20:58)
[2021-02-17] MEDS: fentaNYL INJ 100 MCG/2 ML AMP IV PRN (22:35)
[2021-02-18] VITALS (7 sets, daily range): BP systolic 97–129; BP diastolic 61–75
[2021-02-18] MEDS: IBUPROFEN 600 MG (MOTRIN) TAB PO PRN (00:28)
[2021-02-18] MEDS: LACTATED RINGERS 1,000 ML IV SCH ×5 (04:05→20:45)
[2021-02-18] MEDS: KCL 20 MEQ TAB (K-DUR) PO SCH (05:58)
[2021-02-18] MEDS: MAGNESIUM 1 GM/100 ML IVPB 100 ML IV SCH (05:58)
[2021-02-18] MEDS: POTASSIUM CL 10MEQ/50ML IVPB 50 ML IV SCH (05:58)
[2021-02-18 07:18] LABS: BASOPHILS % (AUTO) 1 % (0-10); EOSINOPHILS # (AUTO) 0.1 10^3/uL (0.0-0.3); EOSINOPHILS % (AUTO) 3 % (0-10); HEMATOCRIT 30 % (35-52); HEMOGLOBIN 9.7 g/dL (11.5-16.0); LYMPHOCYTES # (AUTO) 1.5 10^3/uL (1.0-4.0); LYMPHOCYTES % (AUTO) 32 % (12-44); MEAN CORPUSCULAR HEMOGLOBIN 25 pg (25-34); MEAN CORPUSCULAR HGB CONC 33 g/dL (32-36); MEAN CORPUSCULAR VOLUME 75 fL (80-99); MONOCYTES # (AUTO) 0.4 10^3/uL (0.0-1.0); MONOCYTES % (AUTO) 9 % (0-12); NEUTROPHILS # (AUTO) 2.4 10^3/uL (1.8-7.8); NEUTROPHILS % (AUTO) 53 % (42-75); PLATELET COUNT 56 10^3/uL (130-400); WHITE BLOOD COUNT 4.6 10^3/uL (4.3-11.0)
[2021-02-18 07:42] LABS: ALBUMIN 2.3 GM/DL (3.2-4.5); CALCIUM 6.7 MG/DL (8.5-10.1); CREATININE SERUM 1.07 MG/DL (0.60-1.30); POTASSIUM 3.6 MMOL/L (3.6-5.0); TOTAL PROTEIN 4.6 GM/DL (6.4-8.2)
[2021-02-18] MEDS: ENOXAPARIN 40 MG/0.4 ML (LOVENOX) SYR SQ SCH ×2 (08:10→20:38)
[2021-02-18] MEDS: PANTOPRAZOLE 40 MG (PROTONIX) VIAL IV SCH (08:10)
[2021-02-18] MEDS: DOCUSATE SODIUM 100 MG (COLACE) CAP PO SCH ×2 (08:13→20:38)
--- NOTE | 2021-02-18 13:35 | Progress Note - Hospitalist ---
JOSE ARMANDO ZENG MED STUDENT 02/18/21 1335: Subjective HPI/CC On Admission Date Seen by Provider: Feb 18, 2021 Time Seen by Provider: 08:15 Patient is a 45-year-old female who presents to the emergency department today with a chief complaint of fever for the last 4 to 5 days, headache, body aches back pain, neck pain abdominal discomfort nausea and diarrhea. Patient has been seen now 3 times in the emergency department since Tuesday. She has had 2 prior negative Covid test. She is not Covid vaccinated. She had a flu screen done around noon yesterday as well which was negative. Patient denies any dysuria, urgency or frequency. She has had nausea without vomiting. No skin rashes. 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 No complaints of drainage or redness or increased pain in this area. She denies any black or bloody stools. She has not had diarrhea since she took some Imodium earlier today. Nonspecific, generalized abdominal pain. She denies any URI symptoms, sore throat, runny nose, nasal congestion or earache. She states the headache is global. She is taken nyip-bwj-dgiuxkh ibuprofen and some T ylenol prior to finding out yesterday that her liver functions were elevated. No medications today for her fever. She was given 600 mg of ibuprofen here in the ER and her temp went from 10 1-1 02. Upon my arrival the patient was feeling better nominal pain and no current nausea. She had just accomplished abdominal sonography. She reports that her symptoms started a couple hours after she had had Salsberry steak and mashed potatoes with gravy. She reports her mother had to have her gallbladder out and she denies any previous bouts of abdominal pain or nausea and no past history of pancreatitis or known gallbladder problems. Subjective/Events-last exam Headache improved. Still has not had a BM. Notes continued abdominal pain, but no other complaints. Objective Exam Vital Signs Vital Signs Date Time Temp Pulse Resp B/P (MAP) Pulse Ox O2 Delivery O2 Flow Rate FiO2 02/18/21 12:54 Room Air 02/18/21 11:20 36.8 76 18 115/74 (88) 96 02/15/21 04:16 21 Capillary Refill : Less Than 3 Seconds General Appearance: No Apparent Distress, Obese Respiratory: Normal Breath Sounds, No Accessory Muscle Use, No Respiratory Distress Cardiovascular: Regular Rate, Rhythm, No Edema Gastrointestinal: Soft, Other (mildly distended; RUQ and epigastric tenderness) Extremity: No Calf Tenderness, No Pedal Edema Neurologic/Psychiatric: Alert, Oriented x3, Normal Mood/Affect Skin: Normal Color, Warm/Dry Results/Procedures Lab Laboratory Tests 02/18/21 07:05 Patient resulted labs reviewed. Imaging: Reviewed Imaging Report Assessment/Plan Assessment and Plan Assess & Plan/Chief Complaint biliary obstruction Dr. Parker consulted Plan for transfer for ERCP IV Abx AST/ALT worsening Pancytopenia leukpenia improved Sepsis-resolved KAY HARDEN MD 02/18/21 1443: Assessment/Plan Assessment and Plan Assess & Plan/Chief Complaint Biliary obstructioin with elevated LFTs and HIDA scan showing no contrast within the biliary tree. Surgery recommends transfer for ERCP. Awaiting transfer, no facilities able to accept at this time due to all hospitals being at capacity. Attempted transfer to [facility], [facility] hospital group in [facility], [facility]. Currently on waiting list at [facility]. Diagnosis/Problems Diagnosis/Problems (1) Biliary tract obstruction Status: Acute (2) Cholecystitis without calculus Status: Acute (3) Elevated LFTs Status: Acute (4) Pancytopenia Status: Acute (5) Morbid obesity Status: Chronic Supervisory-Addendum Brief Verification & Attestation Participated in pt care: history, MDM, physical Personally performed: exam, history, MDM, supervision of care Care discussed with: Medical Student Procedures: n/a Results interpretation: Verified all documentation A medical student performed and documented this service. I then reviewed and verified all information documented by the medical student and made modifications to such information, when appropriate. I personally performed a history, physical exam, and performed medical decision making. JOSE ARMANDO ZENG MED STUDENT Feb 18, 2021 13:35 KAY HARDEN MD Feb 18, 2021 14:43
[2021-02-18] MEDS: metroNIDAZOLE 500 MG (FLAGYL) TAB PO SCH (20:38)
[2021-02-18] MEDS: CIPROFLOXACIN 500 MG (CIPRO) TABLET PO SCH (20:38)
[2021-02-19] MEDS: ALPRAZolam 0.25 MG (XANAX) TAB PO PRN (03:17)
[2021-02-19 03:38] VITALS: BP 123/71
[2021-02-19 06:41] LABS: BASOPHILS % (AUTO) 1 % (0-10); EOSINOPHILS # (AUTO) 0.2 10^3/uL (0.0-0.3); EOSINOPHILS % (AUTO) 4 % (0-10); HEMATOCRIT 29 % (35-52); HEMOGLOBIN 9.5 g/dL (11.5-16.0); LYMPHOCYTES # (AUTO) 1.7 10^3/uL (1.0-4.0); LYMPHOCYTES % (AUTO) 40 % (12-44); MEAN CORPUSCULAR HEMOGLOBIN 25 pg (25-34); MEAN CORPUSCULAR HGB CONC 32 g/dL (32-36); MEAN CORPUSCULAR VOLUME 77 fL (80-99); MONOCYTES # (AUTO) 0.4 10^3/uL (0.0-1.0); MONOCYTES % (AUTO) 8 % (0-12); NEUTROPHILS % (AUTO) 46 % (42-75); PLATELET COUNT 72 10^3/uL (130-400); WHITE BLOOD COUNT 4.3 10^3/uL (4.3-11.0)
[2021-02-19 06:47] LABS: ALBUMIN 2.5 GM/DL (3.2-4.5)
[2021-02-19 06:48] LABS: CHLORIDE 108 MMOL/L (98-107); POTASSIUM 3.4 MMOL/L (3.6-5.0); SODIUM 138 MMOL/L (135-145)
[2021-02-19 06:49] LABS: CALCIUM 7.1 MG/DL (8.5-10.1)
[2021-02-19 06:50] LABS: GLUCOSE 89 MG/DL (70-105); TOTAL PROTEIN 4.8 GM/DL (6.4-8.2)
[2021-02-19 06:51] LABS: CARBON DIOXIDE 19 MMOL/L (21-32)
[2021-02-19 06:52] LABS: BILIRUBIN,TOTAL 5.7 MG/DL (0.1-1.0)
[2021-02-19 06:53] LABS: ALKALINE PHOSPHATASE 201 U/L (40-136)
[2021-02-19 06:54] LABS: GFR ESTIMATED > 60
[2021-02-19 06:55] LABS: BUN/CREATININE RATIO 21
[2021-02-19 06:56] LABS: ALANINE AMINOTRANSFERASE 70 U/L (0-55)
[2021-02-19] MEDS: KCL 20 MEQ TAB (K-DUR) PO SCH (06:57)
[2021-02-19] MEDS: POTASSIUM CL 10MEQ/50ML IVPB 50 ML IV SCH (06:58)
[2021-02-19 07:06] VITALS: BP 112/71
[2021-02-19] MEDS ORDERED: KCL 20 MEQ TAB (K-DUR) PO ONE (07:30)
[2021-02-19] MEDS: MAGNESIUM 1 GM/100 ML IVPB 100 ML IV SCH (08:32)
[2021-02-19] MEDS ORDERED: PANTOPRAZOLE 40 MG (PROTONIX) TAB PO SCH (09:00)
[2021-02-19] MEDS: ENOXAPARIN 40 MG/0.4 ML (LOVENOX) SYR SQ SCH (09:15)
[2021-02-19] MEDS: DOCUSATE SODIUM 100 MG (COLACE) CAP PO SCH (09:15)
[2021-02-19] MEDS: metroNIDAZOLE 500 MG (FLAGYL) TAB PO SCH (09:15)
[2021-02-19] MEDS: CIPROFLOXACIN 500 MG (CIPRO) TABLET PO SCH (09:15)
[2021-02-19 11:43] VITALS: BP 117/75
[2021-02-19] MEDS: LACTATED RINGERS 1,000 ML IV SCH (13:23)
[2021-02-19] MEDS: IBUPROFEN 600 MG (MOTRIN) TAB PO PRN (15:57)
--- NOTE | 2021-02-19 17:08 | Discharge Summary ---
Discharge Summary Hospital Course Was the Problem List Reviewed?: Yes Problems/Dx: (1) Biliary tract obstruction Status: Acute (2) Cholecystitis without calculus Status: Acute (3) Elevated LFTs Status: Acute (4) Pancytopenia Status: Acute (5) Morbid obesity Status: Chronic Hospital Course Date of Admission: Feb 15, 2021 at 13:25 Admission Diagnosis : Possible ascending cholangitis Family Physician/Provider: [facility] Date of Discharge: 02/19/21 Discharge Diagnosis: Biliary tract obstruction Hospital Course: Rhonda Mitchell is a 45 year old female with morbid obesity who presented with fevers and abdominal pain and was admitted with possible ascending cholangitis. She was started on antibiotics. Her liver enzymes were elevated and trended upward. Surgery was consulted and assisted with her care. She underwent a gallbladder ultrasound which showed a contracted gallbladder. She underwent MRCP which showed no biliary tree abnormalities but was concerning for acute cholecystitis. She underwent a HIDA scan which showed contrast in the liver, but none in the biliary tree or gallbladder. She was transferred to [facility] for ERCP. Labs and Pending Lab Test: Laboratory Tests 02/19/21 05:35: White Blood Count 4.3, Red Blood Count 3.82, Hemoglobin 9.5L, Hematocrit 29L, Mean Corpuscular Volume 77L, Mean Corpuscular Hemoglobin 25, Mean Corpuscular Hemoglobin Concent 32, Red Cell Distribution Width 18.4H, Platelet Count 72L, Mean Platelet Volume , Immature Granulocyte % (Auto) 1, Neutrophils (%) (Auto) 46, Lymphocytes (%) (Auto) 40, Monocytes (%) (Auto) 8, Eosinophils (%) (Auto) 4, Basophils (%) (Auto) 1, Neutrophils # (Auto) 2.0, Lymphocytes # (Auto) 1.7, Monocytes # (Auto) 0.4, Eosinophils # (Auto) 0.2, Basophils # (Auto) 0.0, Immature Granulocyte # (Auto) 0.1, Percent Immature Platelet Fraction 12.7H, Sodium Level 138, Potassium Level 3.4L, Chloride Level 108H, Carbon Dioxide Level 19L, Anion Gap 11, Blood Urea Nitrogen 15, Creatinine 0.70, Estimat Glomerular Filtration Rate > 60, BUN/Creatinine Ratio 21, Glucose Level 89, Calcium Level 7.1L, Corrected Calcium 8.3L, Magnesium Level 1.8, Total Bilirubin 5.7H, Aspartate Amino Transf (AST/SGOT) 157H, Alanine Aminotransferase (ALT/SGPT) 70H, Alkaline Phosphatase 201H, Total Protein 4.8L, Albumin 2.5L Home Meds Active Reported Neurontin (Gabapentin) 300 Mg Capsule 300 Mg PO TID PRN Advil (Ibuprofen) 200 Mg Tablet 600-800 Mg PO TID PRN TAKES 3-4 (200MG) TABLETS Assessment/Pt Instructions Transferred to [facility] for ERCP Discharge Planning: <30 minutes discharge planning Discharge Instructions Activity as Tolerated: Yes Discharge Physical Examination Vital Signs Vital Signs Date Time Temp Pulse Resp B/P (MAP) Pulse Ox O2 Delivery O2 Flow Rate FiO2 02/19/21 11:43 37.3 73 18 117/75 (89) 95 Room Air 02/19/21 00:26 21 General Appearance: No Apparent Distress, Obese Respiratory: Lungs Clear, Normal Breath Sounds, No Respiratory Distress Cardiovascular: Regular Rate, Rhythm, No Edema, No Murmur Gastrointestinal: Normal Bowel Sounds, Non Tender, Soft Extremity: Normal Inspection, Non Tender, No Pedal Edema Skin: Normal Color, Warm/Dry Neurologic/Psychiatric: Alert, Oriented x3, No Motor/Sensory Deficits, Normal Mood/Affect Allergies: Coded Allergies: No Known Drug Allergies (Unverified , 12/06/08) Copy Copies To 1: [facility] Discharge Summary Date of Admission Feb 15, 2021 at 13:25 Date of Discharge Feb 19, 2021 at 16:30 Discharge Date: Feb 19, 2021 Discharge Time: 16:30 Admission Diagnosis Possible ascending cholangitis Consults/Procedures Consulations Surgery Discharge Diagnosis Biliary tract obstruction (1) Biliary tract obstruction Status: Acute (2) Cholecystitis without calculus Status: Acute (3) Elevated LFTs Status: Acute (4) Pancytopenia Status: Acute (5) Morbid obesity Status: Chronic KAY HARDEN MD Feb 19, 2021 17:05
--- NOTE | 2021-02-20 12:55 | Physician Query Clarification ---
PQ-Further Specificity Admission/Discharge Admission Date: Feb 15, 2021 at 13:25 Discharge Date: Feb 19, 2021 at 16:30 Dr. Harden, The medical record reflects the following clinical scenario: History/Risk Factors: biliary obstruction, HTN, A fib, Pancytopenia Clinical Findings: T39.5, P 104, Lactic acid 0.68, R 18, WBC 2.2 Treatment: IV Ceftriaxone Question: Can you further specify whether or not patient had sepsis and if so what was the underlying cause per the clinical indicators above? Please document a response in the Progress Notes or Discharge Summary. 1. Yes, patient had sepsis d//t noninfectious cause of biliary obstruction 2. No, patient did not have sepsis 3. Other, with explanation of the clinical findings. 4. Clinically undetermined, no explanation for the clinical findings. PHYSICIAN RESPONSE Can you specify per above: 1 Please remember a lack of response to the above will prompt a phone page by CDI/Coding staff. In responding to this query, please exercise your independent professional judgment. The purpose of this communication is to more accurately reflect the complexity of your patients condition. The fact that a question is asked does not imply that any particular answer is desired or expected. Thank you for your timely response to this clarification. Requestors name: [employer] THIS PHYSICIAN QUERY FORM IS A PERMANENT PART OF THE MEDICAL RECORD NOY CASTILLO Feb 20, 2021 12:54 KAY HARDEN MD Mar 03, 2021 10:35
== END 2021-02-19 16:30 | disposition short-term general hospital (02) | DRG 444 ==
LOC: EDUNIT# 23:18 → ER 23:20 → CSD 23:21 → UNDOADMOB 23:21 → CSD 02-15 03:32 → INTOOBSV 02-15 13:25 → OBSVTOIN 02-15 13:25 → CSD 02-18 11:17 → 4TH 02-18 11:17 → UNDODISIN 02-19 16:30
PROVIDERS: ADMIT Internal Medicine; ATTEND Internal Medicine
DX: K83.1 Obstruction of bile duct (principal); A41.9 Sepsis, unspecified organism; D61.818 Other pancytopenia; Z68.42 Body mass index [BMI] 45.0-49.9, adult; K81.9 Cholecystitis, unspecified; I10 Essential (primary) hypertension; G47.33 Obstructive sleep apnea (adult) (pediatric); I48.91 Unspecified atrial fibrillation; E78.00 Pure hypercholesterolemia, unspecified; K21.9 Gastro-esophageal reflux disease without esophagitis; E03.9 Hypothyroidism, unspecified; F17.210 Nicotine dependence, cigarettes, uncomplicated; E66.01 Morbid (severe) obesity due to excess calories; F41.9 Anxiety disorder, unspecified; F32.9 Major depressive disorder, single episode, unspecified; Q82.8 Other specified congenital malformations of skin; Z82.49 Family history of ischemic heart disease and other diseases of the circulatory system; Z79.82 Long term (current) use of aspirin; Z79.52 Long term (current) use of systemic steroids
CPT/HCPCS: 36415; 74181; 76705; 78226; 80053; 80074; 81000; 83605; 83690; 83735; 85025; 85379; 85384; 85610; 85730; 86308; 94760; 96361; 96374; 96375; G0378

== ENCOUNTER 2021-03-12 08:23 | Emergency (ER) | payer MEDICAID ==
[~2021-03-12] VITALS: Ht 149 cm; Wt 111.0 kg
[~2021-03-12 08:23] MED LIST changes: +GABA300C PO
--- NOTE | 2021-03-12 09:27 | ED Lower Extremity ---
General Chief Complaint: Lower Extremity Stated Complaint: R ANKLE/FOOT PAIN/SWELLING Nursing Triage Note: ARRIVED VIA WC TO ROOM 05 WITH COMPLAINTS OF NON INURY RIGHT ANKLE PAIN/SWELLING STARTING YESTERDAY AFTER WORK. Source: patient Exam Limitations: no limitations (ERYN AKBAR) History of Present Illness Date Seen by Provider: Mar 12, 2021 Time Seen by Provider: 09:00 Initial Comments Pt presents to ED via private conveyance with daughter at bedside with complaint of R ankle pain. She states that the pain started at work yesterday, denies traumatic incident. Rates the pain 06/17 to her lateral R ankle, ambulates with assistance. Denies fever, chills, nausea, vomiting. Onset: yesterday Severity: severe (rates pain 1110) Pain/Injury Location: right ankle Method of Injury: other (atraumatic, onset while at work where she stands for extended periods of time) Modifying Factors: Improves With Movement (ERYN AKBAR) Allergies and Home Medications Allergies Coded Allergies: No Known Drug Allergies (Unverified , 12/06/08) Home Medications Gabapentin 300 Mg Capsule, 300 MG PO TID PRN for PAIN-BREAKTHROUGH, (Reported) Ibuprofen 200 Mg Tablet, 600-800 MG PO TID PRN for PAIN-MILD, (Reported) TAKES 3-4 (200MG) TABLETS Patient Home Medication List Home Medication List Reviewed: Yes (ERYN AKBAR) Review of Systems Constitutional: No chills, No fever EENTM: No hearing loss, No vision loss Respiratory: No cough, No short of breath Cardiovascular: No chest pain, No palpitations Gastrointestinal: abdominal pain (RUQ); No constipation, No diarrhea Genitourinary: No dysuria, No frequency, No hematuria Musculoskeletal: No back pain; joint pain (R ankle), joint swelling (R ankle, mild nonpitting) Skin: No change in color, No change in hair/nails Psychiatric/Neurological: Denies Headache, Denies Numbness, Denies Paresthesia (ERYN AKBAR) All Other Systems Reviewed Negative Unless Noted: Yes (ERYN AKBAR) Past Hanfnwe-Nzipzy-Rjzrge Hx Patient Social History Tobacco Use?: Yes Smoking Status: Current Everyday Smoker Substance use?: No Alcohol Use?: No (ERYN AKBAR) Immunizations Up To Date Tetanus Booster (TDap): Unknown PED Vaccines UTD: No (ERYN AKBAR STUDENT) Seasonal Allergies Seasonal Allergies: No (ERYN AKBAR STUDENT) Past Medical History Surgeries: Yes (WISDOM TEETH; X 4, cervical spine, l wrist carpal tunnel) Adenoidectomy, Appendectomy, Section, Tonsillectomy, Tubal Ligation Respiratory: Yes (tobaccoism) Sleep Apnea Currently Using CPAP: No Currently Using BIPAP: No Cardiac: Yes 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, High Cholesterol Neurological: No Reproductive Disorders: No 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 Sexually Transmitted Disease: No HIV/AIDS: No Genitourinary: No Gastrointestinal: Yes Gastroesophageal Reflux Musculoskeletal: Yes Degenerate Disk Disease Endocrine: Yes (OBESE) Hypothyroidsim HEENT: No Cancer: No Psychosocial: Yes Anxiety, Depression Integumentary: Yes (DARIER'S DISEASE) Psoriasis Blood Disorders: No Adverse Reaction/Blood Tranf: No (ERYN AKBAR) Family Medical History Cancer 03 MOTHER (LUNG AND BONE) Family history: Glaucoma 03 FATHER Heart disease 03 MOTHER History of - respiratory disease 03 FATHER (COPD) Stroke 03 MOTHER Heart Disease, Cancer, COPD, Diabetes, Stroke (ERYN AKBAR STUDENT) Physical Exam Vital Signs Vital Signs - First Documented 03/12/21 08:30 Temp 37.0 Pulse 73 Resp 16 B/P (MAP) 134/73 (93) Pulse Ox 98 O2 Delivery Room Air (BARBARA HAM) Vital Signs Capillary Refill : Less Than 3 Seconds (ERYN AKBAR STUDENT) Height, Weight, BMI Height: 4'11.00" Weight: 235lbs. 0oz. 106.579657yy; 49.00 BMI Method:Stated General Appearance: no apparent distress, obese HEENT: PERRL/EOMI, normal ENT inspection, pharynx normal Neck: non-tender, full range of motion, supple, normal inspection Cardiovascular: normal peripheral pulses, regular rate, rhythm, no murmur Respiratory: chest non-tender, lungs clear, normal breath sounds, no respiratory distress, no accessory muscle use Gastrointestinal: normal bowel sounds, soft, tenderness (RUQ) Back: normal inspection, no CVA tenderness, no vertebral tenderness Feet: left foot non-tender, left foot normal inspection, left foot normal range of motion, left foot no evidence of injury; right foot bone tenderness, right foot limited range of motion, right foot pain, right foot swelling Neurologic/Tendon: normal sensation, normal tendon functions, responds to pain, no evidence tendon injury; No motor deficit, No sensory deficit Neurologic/Psychiatric: no motor/sensory deficits, alert, normal mood/affect, oriented x 3 Skin: normal color, other (large area of warts to R lower leg) Lymphatic: no adenopathy (large area of keratosis) (ERYN AKBAR MED STUDENT) Progress/Results/Core Measures Results/Orders My Orders Orders - BARBARA HAM Ankle, Right, 3 Views (03/12/21 09:11) Naproxen Tablet (Naprosyn Tablet) (03/12/21 10:00) (BARBARA HAM) Vital Signs/I&O 03/12/21 08:30 Temp 37.0 Pulse 73 Resp 16 B/P (MAP) 134/73 (93) Pulse Ox 98 O2 Delivery Room Air (BARBARA HAM) Blood Pressure Mean: 93 Progress Progress Note : Time: 09:53 Progress Note Nontraumatic ankle pain. Suspect this will level sprain. She is able to bear weight on it albeit painfully. We did obtain a set of plain films to rule out a pathologic fracture and joint spaces look good and there is no evidence of fracture so we will start with some rice therapy naproxen and follow-up plans in 1 to 2 weeks with her primary care doctor if she is not improving. Will take the next couple days off from work. (BARBARA HAM) Diagnostic Imaging Diagonstic Imaging: Xray Plain Films/CT/US/NM/MRI: ankle (r) Comments [facility], [place] NAME: TRINA ÁLVAREZ [facility] REC#: [id number] PT STATUS: REG ER : 1975 PHYSICIAN: BARBARA HAM MD ADMIT DATE: 03/12/21/ER Draft Date of Exam:03/12/21 ANKLE, RIGHT, 3 VIEWS INDICATION: Right ankle pain and swelling. TIME OF EXAM: 9:36 AM 3 views of the right ankle were obtained. Alignment is normal. The ankle mortise is well maintained. Talar dome is smooth. No fracture or dislocation is identified. IMPRESSION: No acute bony abnormality is detected. Dictated on workstation # [id number] Dict: 03/12/2145 Trans: 03/12/21 0948 [facility] [id number] Interpreted by: FELICITY MOSCOSO MD Electronically signed by: Reviewed: Reviewed by Me (BARBARA HAM) Departure Impression Primary Impression: Sprain of right ankle Qualified Codes: S93.401A - Sprain of unspecified ligament of right ankle, initial encounter Disposition: HOME, SELF-CARE Condition: Stable Departure-Patient Inst. Decision time for Depature: 09:55 (BARBARA HAM) Referrals: [facility] [place] ([place]/Family) Primary Care Physician Patient Instructions: Ankle Sprain (DC) Add. Discharge Instructions: Keep your ankle elevated above the level of your heart for the next couple days when not in use. Keep the ankle wrapped with an Zack wrap or compression sleeve of your choice. Naproxen 1 capsule twice a day as necessary for pain or swelling in your ankle for the next 1 to 2 weeks. Do not mix this with ibuprofen as they are the same category of drug. Tylenol 1000 mg every 8 hours as necessary for breakthrough pain. Ice applied directly to your ankle for 20 minutes every 2 hours while awake for the first 2 days can help reduce swelling and pain significantly. Heat and topical creams such as icy hot, Biofreeze, Blue emu etc. are helpful. If your symptoms are not improving in 1 to 2 weeks then follow-up with your primary care doctor. If you are continuing to experience increased swelling in your legs at the end of the day after being on your feet this is called dependent edema and compression stockings can be very helpful. Your doctor can help you with a prescription for these or you can buy them [id number] at the pharmacy of your choice. All discharge instructions reviewed with patient and/or family. Voiced understanding. Scripts Naproxen (Naprosyn) 500 Mg Tablet 500 MG PO BID for 14 Days, #30 TAB 0 Refills Prov: BARBARA HAM 03/12/21 Work/School Note: Work Release Form Date Seen in the Emergency Department: Mar 12, 2021 Return to Work: Mar 14, 2021 Restrictions: No Restrictions ERYN AKBAR MED STUDENT Mar 12, 2021 09:27 BARBARA HAM Mar 12, 2021 09:54
--- NOTE | 2021-03-12 09:49 | Diagnostic Imaging Report ---
INDICATION: Right ankle pain and swelling. TIME OF EXAM: 9:36 AM 3 views of the right ankle were obtained. Alignment is normal. The ankle mortise is well maintained. Talar dome is smooth. No fracture or dislocation is identified. IMPRESSION: No acute bony abnormality is detected. Dictated by: Dictated on workstation # [id number]
[2021-03-12] MEDS ORDERED: NAPR-1071 PO (09:57)
[2021-03-12] MEDS ORDERED: NAPROXEN 250 MG (NAPROSYN) TABLET PO ONE (10:00)
[2021-03-12 10:05] VITALS: BP 134/73
== END 2021-03-12 10:01 | disposition home or self-care (01) ==
LOC: EDUNIT# 08:23 → ER 08:24
DX: S93.401A Sprain of unspecified ligament of right ankle, initial encounter (principal); G47.30 Sleep apnea, unspecified; E66.9 Obesity, unspecified; F17.200 Nicotine dependence, unspecified, uncomplicated; Z68.42 Body mass index [BMI] 45.0-49.9, adult; X58.XXXA Exposure to other specified factors, initial encounter
CPT/HCPCS: 73610

== ENCOUNTER 2021-04-18 13:51 | Emergency (ER) | payer MEDICAID ==
[~2021-04-18] VITALS: Ht 149.8 cm; Wt 109.7 kg
[~2021-04-18 13:51] MED LIST changes: +NAPR-1071 PO
[2021-04-18 14:04] VITALS: BP 126/99
--- NOTE | 2021-04-18 14:11 | ED Back Pain ---
General Chief Complaint: Abdominal/GI Problems Stated Complaint: BACK PAIN,DIFFICULTY WALKING,ABD PAIN Source of Information: Patient Exam Limitations: No Limitations (KAMI OLIVERA APRN) History of Present Illness Date Seen by Provider: Apr 18, 2021 Time Seen by Provider: 14:11 Initial Comments This is a well-appearing 45-year-old female who presented to the ER with complaints of right low back pain that started approximate 5 days ago. States t hat she has been having increasing pain to the point that is making it difficult to walk. States pain is sharp and stabbing in nature and radiates into her right lower quadrant of her abdomen. Has been using icy hot, topical pain patches, ibuprofen however nothing is helping her symptoms. Currently rating pain 10/10, worse with movement. Denies any recent falls or trauma. Denies any heavy lifting, bending, twisting, pulling. No fever, chills, cough, shortness of breath. Last menstrual period approximately a week ago, states that she is still having small amount of blood. (KAMI OLIVERA APRN) Allergies and Home Medications Allergies Coded Allergies: No Known Drug Allergies (Unverified , 12/06/08) Patient Home Medication List Home Medication List Reviewed: Yes (KAMI OLIVERA APRN) Cyclobenzaprine HCl (Cyclobenzaprine HCl) 10 Mg Tablet, 10 MG PO Q8H PRN for SPASMS Prescribed by: KAMI OLIVERA on 04/18/21 1650 Gabapentin (Neurontin) 300 Mg Capsule, 300 MG PO TID PRN for PAIN-BREAKTHROUGH, (Reported) Entered as Reported by: ERICKA DUNHAM on 02/16/21 0858 Ibuprofen (Advil) 200 Mg Tablet, 600-800 MG PO TID PRN for PAIN-MILD, (Reported) Entered as Reported by: CHIKIS NEELY on 12/31/16 0840 Naproxen (Naprosyn) 500 Mg Tablet, 500 MG PO BID Prescribed by: BARBARA HAM on 03/12/21 0957 Review of Systems Constitutional: see HPI EENTM: no symptoms reported Respiratory: no symptoms reported Cardiovascular: no symptoms reported Gastrointestinal: see HPI Genitourinary: no symptoms reported Musculoskeletal: see HPI Skin: no symptoms reported Psychiatric/Neurological: No Symptoms Reported (KAMI OLIVERA APRN) Past Qprjuwy-Laotfv-Fmjeps Hx Immunizations Up To Date Tetanus Booster (TDap): Unknown PED Vaccines UTD: No (KAMI OLIVERA APRN) Seasonal Allergies Seasonal Allergies: No (KAMI OLIVERA APRN) Past Medical History Surgeries: Yes (WISDOM TEETH; X 4, cervical spine, l wrist carpal tunnel) Adenoidectomy, Appendectomy, Section, Tonsillectomy, Tubal Ligation Respiratory: Yes (tobaccoism) Sleep Apnea Currently Using CPAP: No Currently Using BIPAP: No Cardiac: Yes 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, High Cholesterol Neurological: No Reproductive Disorders: No 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 Sexually Transmitted Disease: No HIV/AIDS: No Genitourinary: No Gastrointestinal: Yes Gastroesophageal Reflux Musculoskeletal: Yes Degenerate Disk Disease Endocrine: Yes (OBESE) Hypothyroidsim HEENT: No Cancer: No Psychosocial: Yes Anxiety, Depression Integumentary: Yes (DARIER'S DISEASE) Psoriasis Blood Disorders: No Adverse Reaction/Blood Tranf: No (KAMI OLIVERA APRN) Family Medical History Cancer 03 MOTHER (LUNG AND BONE) Family history: Glaucoma 03 FATHER Heart disease 03 MOTHER History of - respiratory disease 03 FATHER (COPD) Stroke 03 MOTHER Heart Disease, Cancer, COPD, Diabetes, Stroke (KAMI OLIVERA APRN) Physical Exam Vital Signs Vital Signs - First Documented 04/18/21 14:04 Temp 36.3 Pulse 70 Resp 16 B/P (MAP) 126/99 (108) Pulse Ox 99 O2 Delivery Room Air (ROGER,TRI K DO) Vital Signs Capillary Refill : (KAMI OLIVERA APRN) Height, Weight, BMI Height: 4'11.00" Weight: 235lbs. 0oz. 106.188198lr; 49.00 BMI Method:Stated General Appearance: No Apparent Distress, WD/WN HEENT: PERRL/EOMI, Normal ENT Inspection Neck: Full Range of Motion, Normal Inspection Cardiovascular: Regular Rate, Rhythm, No Murmur, Normal Peripheral Pulses Respiratory: Lungs Clear, Normal Breath Sounds, No Accessory Muscle Use Gastrointestinal: Normal Bowel Sounds, No Organomegaly, No Pulsatile Mass, Soft, Tenderness (RLQ tenderness ) Back: Normal Inspection, No Vertebral Tenderness, CVA Tenderness (R) Extremity: Normal Inspection, Normal Range of Motion Neurologic/Psychiatric: Alert, Oriented x3, No Motor/Sensory Deficits, Normal Mood/Affect Skin: Normal Color, Warm/Dry (KAMI OLIVERA APRN) Progress/Results/Core Measures Results/Orders Lab Results Laboratory Tests Test 04/18/21 14:28 04/18/21 14:29 Range/Units White Blood Count 4.8 4.3-11.0 10^3/uL Red Blood Count 4.15 3.80-5.11 10^6/uL Hemoglobin 10.4 L 11.5-16.0 g/dL Hematocrit 34 L 35-52 % Mean Corpuscular Volume 82 80-99 fL Mean Corpuscular Hemoglobin 25 25-34 pg Mean Corpuscular Hemoglobin Concent 31 L 32-36 g/dL Red Cell Distribution Width 15.7 H 10.0-14.5 % Platelet Count 301 130-400 10^3/uL Mean Platelet Volume 9.8 9.0-12.2 fL Immature Granulocyte % (Auto) 0 % Neutrophils (%) (Auto) 43 42-75 % Lymphocytes (%) (Auto) 43 12-44 % Monocytes (%) (Auto) 9 0-12 % Eosinophils (%) (Auto) 5 0-10 % Basophils (%) (Auto) 1 0-10 % Neutrophils # (Auto) 2.1 1.8-7.8 10^3/uL Lymphocytes # (Auto) 2.1 1.0-4.0 10^3/uL Monocytes # (Auto) 0.4 0.0-1.0 10^3/uL Eosinophils # (Auto) 0.2 0.0-0.3 10^3/uL Basophils # (Auto) 0.0 0.0-0.1 10^3/uL Immature Granulocyte # (Auto) 0.0 0.0-0.1 10^3/uL Sodium Level 140 135-145 MMOL/L Potassium Level 3.7 3.6-5.0 MMOL/L Chloride Level 106 98-107 MMOL/L Carbon Dioxide Level 23 21-32 MMOL/L Anion Gap 11 5-14 MMOL/L Blood Urea Nitrogen 11 7-18 MG/DL Creatinine 0.64 0.60-1.30 MG/DL Estimat Glomerular Filtration Rate 101 BUN/Creatinine Ratio 17 Glucose Level 97 70-105 MG/DL Calcium Level 9.0 8.5-10.1 MG/DL Corrected Calcium 9.2 8.5-10.1 MG/DL Total Bilirubin 0.3 0.1-1.0 MG/DL Aspartate Amino Transf (AST/SGOT) 18 5-34 U/L Alanine Aminotransferase (ALT/SGPT) 17 0-55 U/L Alkaline Phosphatase 77 40-136 U/L C-Reactive Protein High Sensitivity 1.77 H 0.00-0.50 MG/DL Total Protein 7.1 6.4-8.2 GM/DL Albumin 3.8 3.2-4.5 GM/DL Urine Color RED H Urine Clarity BLOODY H Urine pH 6.0 5-9 Urine Specific [place] 1.025 H 1.016-1.022 Urine Protein 2+ H NEGATIVE Urine Glucose (UA) NEGATIVE NEGATIVE Urine Ketones TRACE H NEGATIVE Urine Nitrite NEGATIVE NEGATIVE Urine Bilirubin NEGATIVE NEGATIVE Urine Urobilinogen 1.0 < = 1.0 MG/DL Urine Leukocyte Esterase NEGATIVE NEGATIVE Urine RBC (Auto) 3+ H NEGATIVE Urine RBC TNTC H /HPF Urine WBC NONE /HPF Urine Squamous Epithelial Cells 5-10 /HPF Urine Crystals NONE /LPF Urine Bacteria NEGATIVE /HPF Urine Casts NONE /LPF Urine Mucus NEGATIVE /LPF Urine Culture Indicated NO (EARNESTINE DURANA Mireya DO) Vital Signs/I&O 04/18/21 14:04 Temp 36.3 Pulse 70 Resp 16 B/P (MAP) 126/99 (108) Pulse Ox 99 O2 Delivery Room Air (ROGERTRI Mireya DO) Progress Progress Note : Progress Note Patient examined and in no acute distress. Orders placed for basic labs, CRP, renal stone work-up.Will give Norflex 30 mg IV and Toradol 30 mg IV push. She does have quite a bit of blood in her urine however this is consistent with her spotting from her period. Labs reviewed and are unremarkable. At her baseline. She was given fentanyl for persistent pain, states this improved her symptoms. Order CT abdomen pelvis to evaluate for any additional sources such as colitis that could be contributing to her pain. CT abdomen pelvis shows pelvic cyst. No indications of colon inflammation or any other acute processes. Dr. Avelar called and discussed CT findings recommends patient follow-up with her primary care provider regarding cyst and incidental nodule in the lung. States questionable medicals and part of her colon however does not feel this is likely the case. She can always follow-up if her symptoms worsen, but pain is likely due to cyst. Discharge plan of care discussed with patient and she is agreeable with plan. We will go ahead and give her some Flexeril for her right lower back pain. (KAMI OLIVERA TIRE MAKER) Diagnostic Imaging Diagonstic Imaging: Xray Plain Films/CT/US/NM/MRI: abdomen Comments [facility], [place] NAME: HENRITRINA Magali [facility] REC#: [id number] PT STATUS: REG ER : 1975 PHYSICIAN: KAMI OLIVERA APRN ADMIT DATE: 04/18/21/ER Signed Date of Exam:04/18/21 ABDOMEN/KUB 1VIEW INDICATION: Flank pain and nephrolithiasis. FINDINGS: The bowel gas pattern is nonspecific. There are surgical clips in the right upper quadrant. Lung bases are clear. No definite abnormal abdominal calcifications are appreciated. IMPRESSION: 1. No definite abnormal abdominal calcifications. 2. Nonspecific bowel gas pattern. Dictated by: Dictated on workstation # [id number] Dict: 04/18/21 1518 Trans: 04/18/21 1542 [facility] [id number] Interpreted by: PAGE BALDWIN MD Electronically signed by: PAGE BALDWIN MD 04/18/21 1542 Reviewed: Reviewed by Me Diagonstic Imaging: CT Plain Films/CT/US/NM/MRI: abdomen, pelvis Comments [facility], [place] NAME: TRINA ÁLVAREZ [facility] REC#: [id number] PT STATUS: REG ER : 1975 PHYSICIAN: KAMI OLIVERA APRN ADMIT DATE: 04/18/21/ER Signed Date of Exam:04/18/21 CT ABDOMEN/PELVIS W PROCEDURE: CT abdomen and pelvis with contrast. TECHNIQUE: Multiple contiguous axial images were obtained through the abdomen and pelvis after administration of intravenous contrast. Auto Exposure Controls were utilized during the CT exam to meet ALARA standards for radiation dose reduction. All CT scans use one or more of the following dose optimizing techniques: automated exposure control, MA and/or KvP adjustment based on patient size and exam type or iterative reconstruction. INDICATION: Right lower quadrant pain and elevated CRP. COMPARISON: Prior examination from 02/14/2021. FINDINGS: There is a 6 mm nodule in the left lung base. This was seen as far back as 2015; however, at that time it was approximately 3 mm. It is unchanged compared to the prior examination from February 2021. Lung bases are otherwise clear. Heart size is normal. The liver is normal in size without focal lesions. Gallbladder is unremarkable. There is no biliary ductal dilatation. Spleen is normal. The pancreas and adrenal glands are unremarkable. The kidneys are normal in appearance. There is no evidence of obstructive uropathy. The aorta is nonaneurysmal. Bowel gas pattern is nonspecific. There is a cyst in the central aspect of the pelvis measuring 2.6 cm. This is benign in appearance. 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 There is no CT evidence of appendicitis. The appendix may be surgically absent as there are some clips in the right lower quadrant. There is no free air. There is no ascites. No focal inflammatory changes. The uterus is normal. Bladder is normal. There is no pelvic mass, adenopathy or free fluid. The osseous structures are unremarkable. IMPRESSION: 1. Stable 6 mm nodule in the left lung base. Recommend one year follow-up to ensure stability. 2. 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 3. No other acute abnormality in the abdomen or pelvis. Specifically, there is no focal inflammatory process or evidence of obstructive uropathy. Dictated by: Dictated on workstation # [id number] Dict: 04/18/21 1629 Trans: 04/18/211650 [facility] [phone] Interpreted by: PAGE BALDWIN MD Electronically signed by: PAGE BALDWIN MD 04/18/211650 Reviewed: Reviewed by Me (KAMI OLIVERA APRN) Departure Impression Primary Impression: Back pain Disposition: 01 HOME, SELF-CARE Condition: Improved Departure-Patient Inst. Decision time for Depature: 16:49 (KAMI OLIVERA APRN) Referrals: [facility] (PCP/Family) Primary Care Physician Patient Instructions: Acute Pain, Adult Add. Discharge Instructions: Plan: 1. May take Tylenol or Ibuprofen as needed for pain per package. 2. Use Flexeril 10mg by mouth every 8 hours as needed for pain. 3. May use heat 20 minutes at a time as needed for comfort. 4. Follow up with your doctor next week regarding pelvic cyst. 5. Return for any new, concerning, or worsening symptoms. All discharge instructions reviewed with patient and/or family. Voiced understanding. Scripts Cyclobenzaprine HCl (Cyclobenzaprine HCl) 10 Mg Tablet 10 MG PO Q8H PRN for SPASMS, #15 TAB 0 Refills Prov: KAMI OLIVERA APRN 04/18/21 ATTENDING PHYSICIAN NOTE: I WAS PHYSICALLY PRESENT THE ER PHYSICIAN WHEN THIS PATIENT WAS IN ER, BUT I WAS NOT INVOLVED WITH THE DECISION MAKING OR ANY CARE OF THIS PATIENT. (TRI DURAN DO) Copy Copies To 1: [facility]/KAMI ACUÑA APRN Apr 18, 2021 14:11 TRI DURAN DO Apr 19, 2021 06:07
[2021-04-18] MEDS ORDERED: ORPHENADRINE 60 MG/2 ML (NORFLEX) AMP (ED ONLY) IVP ONE (14:15)
[2021-04-18] MEDS ORDERED: KETOROLAC 30 MG/ML VIAL IVP ONE (14:15)
[2021-04-18 14:38] LABS: BASOPHILS % (AUTO) 1 % (0-10); EOSINOPHILS # (AUTO) 0.2 10^3/uL (0.0-0.3); EOSINOPHILS % (AUTO) 5 % (0-10); HEMATOCRIT 34 % (35-52); HEMOGLOBIN 10.4 g/dL (11.5-16.0); LYMPHOCYTES # (AUTO) 2.1 10^3/uL (1.0-4.0); LYMPHOCYTES % (AUTO) 43 % (12-44); MEAN CORPUSCULAR HEMOGLOBIN 25 pg (25-34); MEAN CORPUSCULAR HGB CONC 31 g/dL (32-36); MEAN CORPUSCULAR VOLUME 82 fL (80-99); MEAN PLATELET VOLUME 9.8 fL (9.0-12.2); MONOCYTES # (AUTO) 0.4 10^3/uL (0.0-1.0); MONOCYTES % (AUTO) 9 % (0-12); NEUTROPHILS # (AUTO) 2.1 10^3/uL (1.8-7.8); NEUTROPHILS % (AUTO) 43 % (42-75); PLATELET COUNT 301 10^3/uL (130-400); WHITE BLOOD COUNT 4.8 10^3/uL (4.3-11.0)
[2021-04-18 14:44] LABS: BILIRUBIN,URINE NEGATIVE (NEGATIVE); GLUCOSE, URINE (UA) NEGATIVE (NEGATIVE); KETONES,URINE TRACE (NEGATIVE); LEUKOCYTE ESTERASE ,URINE NEGATIVE (NEGATIVE); NITRITE,URINE NEGATIVE (NEGATIVE); PROTEIN,URINE 2+ (NEGATIVE)
[2021-04-18 14:52] LABS: ALBUMIN 3.8 GM/DL (3.2-4.5); POTASSIUM 3.7 MMOL/L (3.6-5.0)
[2021-04-18 14:55] LABS: TOTAL PROTEIN 7.1 GM/DL (6.4-8.2)
[2021-04-18 14:56] LABS: BACTERIA,URINE NEGATIVE /HPF; CLARITY,URINE BLOODY; COLOR,URINE RED; RBC,URINE TNTC /HPF
[2021-04-18 14:56] LABS: BILIRUBIN,TOTAL 0.3 MG/DL (0.1-1.0)
[2021-04-18 14:58] LABS: CREATININE SERUM 0.64 MG/DL (0.60-1.30)
--- NOTE | 2021-04-18 15:26 | Diagnostic Imaging Report ---
INDICATION: Flank pain and nephrolithiasis. FINDINGS: The bowel gas pattern is nonspecific. There are surgical clips in the right upper quadrant. Lung bases are clear. No definite abnormal abdominal calcifications are appreciated. IMPRESSION: 1. No definite abnormal abdominal calcifications. 2. Nonspecific bowel gas pattern. Dictated by: Dictated on workstation # [id number]
[2021-04-18] MEDS ORDERED: fentaNYL INJ 100 MCG/2 ML AMP IVP ONE (15:45)
[2021-04-18] MEDS ORDERED: NS 100 ML (IVPB) BAG IV ONE (16:00)
[2021-04-18] MEDS ORDERED: HOLD METFORMIN - RECEIVED CONTRAST 20 ML VIAL IV SCH (16:00)
[2021-04-18] MEDS ORDERED: IOHEXOL 350 MG/ML 100 ML (OMNIPAQUE 350) VIAL IV ONE (16:00)
--- NOTE | 2021-04-18 16:40 | Diagnostic Imaging Report ---
PROCEDURE: CT abdomen and pelvis with contrast. TECHNIQUE: Multiple contiguous axial images were obtained through the abdomen and pelvis after administration of intravenous contrast. Auto Exposure Controls were utilized during the CT exam to meet ALARA standards for radiation dose reduction. All CT scans use one or more of the following dose optimizing techniques: automated exposure control, MA and/or KvP adjustment based on patient size and exam type or iterative reconstruction. INDICATION: Right lower quadrant pain and elevated CRP. COMPARISON: Prior examination from 02/14/2021. FINDINGS: There is a 6 mm nodule in the left lung base. This was seen as far back as 2015; however, at that time it was approximately 3 mm. It is unchanged compared to the prior examination from February 2021. Lung bases are otherwise clear. Heart size is normal. The liver is normal in size without focal lesions. Gallbladder is unremarkable. There is no biliary ductal dilatation. Spleen is normal. The pancreas and adrenal glands are unremarkable. The kidneys are normal in appearance. There is no evidence of obstructive uropathy. The aorta is nonaneurysmal. Bowel gas pattern is nonspecific. There is a cyst in the central aspect of the pelvis measuring 2.6 cm. This is benign in appearance. 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 There is no CT evidence of appendicitis. The appendix may be surgically absent as there are some clips in the right lower quadrant. There is no free air. There is no ascites. No focal inflammatory changes. The uterus is normal. Bladder is normal. There is no pelvic mass, adenopathy or free fluid. The osseous structures are unremarkable. IMPRESSION: 1. Stable 6 mm nodule in the left lung base. Recommend one year follow-up to ensure stability. 2. 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 3. No other acute abnormality in the abdomen or pelvis. Specifically, there is no focal inflammatory process or evidence of obstructive uropathy. Dictated by: Dictated on workstation # [id number]
[2021-04-18] MEDS ORDERED: CYCL10TA9 PO (16:50)
== END 2021-04-18 17:01 | disposition home or self-care (01) ==
LOC: EDUNIT# 13:51 → ER 13:53
DX: M54.5 Low back pain (principal); G47.30 Sleep apnea, unspecified; E66.9 Obesity, unspecified; Z68.42 Body mass index [BMI] 45.0-49.9, adult
CPT/HCPCS: 36415; 74018; 74177; 80053; 81000; 85025; 86141

== ENCOUNTER 2022-02-17 11:27 | Emergency (ER) | payer MEDICAID ==
[~2022-02-17] VITALS: Ht 149.8 cm; Wt 99.7 kg
[~2022-02-17 11:27] MED LIST changes: +CYCL10TA25 PO
[2022-02-17] MEDS ORDERED: ASPIRIN 81 MG CHEW (CHILDREN'S ASA) PO STA (12:20)
--- NOTE | 2022-02-17 12:29 | ED Chest Pain ---
General Chief Complaint: Chest Pain Stated Complaint: CP,SOB,DIZZINESS Nursing Triage Note: PT AMB TO RM 3 A/O X4 WITH HER COUSIN. PT STATED THAT SHE HAS HAD CHEST PAIN SINCE YESTERDAY THAT IS HEAVY AND CONSTANT. PT ALSO STATED THAT SHE HAS HAD SOB WELL. BED RAIL AND CALL LIGHT IN REACH. History of Present Illness Date Seen by Provider: Feb 17, 2022 Time Seen by Provider: 12:00 Initial Comments 46-year-old female presents with chest pressure and pain that has been present for approximately 24 hours, she is currently rating it an 8/10. She has a history of A. fib, she is not currently on anticoagulants or medication for this. She is establishing care with [facility] at this time. She denies any history of CAD. She is nondiabetic and smokes approximately 1/2 pack of cigarettes daily and marijuana socially. She denies alcohol use. She has had mild nausea intermittently associated with the pain, she has a history of heartburn and does not feel this pain feels the same. She followed with Dr. Reeves in the past but has not seen him in several years. She has a chronic dermatological condition and is currently being treated with Bactrim for staph infection to her lower legs. She also reports shortness of breath, that has become worse in the last few days. She reports exposure to a coworker who is COVID-positive. She is not vaccinated. Timing/Duration: 1-2 days Severity/Quality: moderate Location: substernal Radiation: no radiation Prior CP/Workup: no prior chest pain ASA po CLAM DREDGER: No NTG SL CLAM DREDGER: No Associated Symptoms: No back pain, No diaphoresis, No fever/chills, No headache, No heartburn; nausea/vomiting, shortness of breath Allergies and Home Medications Allergies Coded Allergies: No Known Drug Allergies (Unverified , 12/06/08) Patient Home Medication List Home Medication List Reviewed: Yes Cyclobenzaprine HCl (Cyclobenzaprine HCl) 10 Mg Tablet, 10 MG PO Q8H PRN for SPASMS Prescribed by: KAMI OLIVERA on 04/18/21 1650 Gabapentin (Neurontin) 300 Mg Capsule, 300 MG PO TID PRN for PAIN-BREAKTHROUGH, (Reported) Entered as Reported by: ERICKA DUNHAM on 02/16/21 0858 Ibuprofen (Advil) 200 Mg Tablet, 600-800 MG PO TID PRN for PAIN-MILD, (Reported) Entered as Reported by: CHIKIS NEELY on 12/31/16 0840 Naproxen (Naprosyn) 500 Mg Tablet, 500 MG PO BID Prescribed by: BARBARA HAM on 03/12/21 0957 Review of Systems Review of Systems Constitutional: no symptoms reported, see HPI Respiratory: See HPI, Shortness of Air, SOA With Exertion; Denies SOA at Rest Cardiovascular: See HPI, Chest Pain Gastrointestinal: See HPI, Nausea (Mild) Genitourinary: No Symptoms Reported, See HPI Musculoskeletal: no symptoms reported, see HPI All Other Systems Reviewed Negative Unless Noted: Yes Past Opftzuu-Jkrpeh-Xiyzkg Hx Patient Social History Tobacco Use?: Yes Tobacco type used: Cigarettes Smoking Status: Current Everyday Smoker Substance use?: Yes Substance type: Marijuana Alcohol Use?: No Pt feels they are or have been: Unable to obtain Immunizations Up To Date Tetanus Booster (TDap): Unknown PED Vaccines UTD: No Influenza Vaccine Up-to-Date: Yes; Up-to-Date Seasonal Allergies Seasonal Allergies: No Past Medical History Surgeries: Yes (WISDOM TEETH; X 4, cervical spine, l wrist carpal tunnel) Adenoidectomy, Appendectomy, Section, Tonsillectomy, Tubal Ligation Respiratory: Yes (tobaccoism) Sleep Apnea Currently Using CPAP: No Currently Using BIPAP: No Cardiac: Yes 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, High Cholesterol Neurological: No Reproductive Disorders: No 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 Sexually Transmitted Disease: No HIV/AIDS: No Genitourinary: No Gastrointestinal: Yes Gastroesophageal Reflux Musculoskeletal: Yes Degenerate Disk Disease Endocrine: Yes (OBESE) Hypothyroidsim HEENT: No Cancer: No Psychosocial: Yes Anxiety, Depression Integumentary: Yes (DARIER'S DISEASE) Psoriasis Blood Disorders: No Adverse Reaction/Blood Tranf: No Family Medical History Reviewed Nursing Family Hx Cancer 03 MOTHER (LUNG AND BONE) Family history: Glaucoma 03 FATHER Heart disease 03 MOTHER History of - respiratory disease 03 FATHER (COPD) Stroke 03 MOTHER Heart Disease, Cancer, COPD, Diabetes, Stroke Physical Exam Vital Signs Vital Signs - First Documented 02/17/22 11:37 Temp 36.6 Pulse 65 Resp 12 B/P (MAP) 120/80 (93) Pulse Ox 98 O2 Delivery Room Air Capillary Refill : Less Than 3 Seconds Height, Weight, BMI Height: 4'11.00" Weight: 235lbs. 0oz. 106.467421ma; 44.00 BMI Method:Stated General Appearance: No Apparent Distress, WD/WN; No Anxious, No Mild Distress HEENT: Normal ENT Inspection, Pharynx Normal Neck: Full Range of Motion, Normal Inspection, Non Tender, Supple Respiratory: Chest Non Tender, Lungs Clear, Normal Breath Sounds, No Accessory Muscle Use Cardiovascular: Regular Rate, Rhythm, No Edema, Normal Peripheral Pulses Gastrointestinal: Normal Bowel Sounds, Non Tender, Soft Extremity: Normal Capillary Refill, Normal Range of Motion, Non Tender, No Pedal Edema, Other (chronic) Skin: Normal Color, Warm/Dry; No Diaphoresis; Other (chronic dermatologic changes to LEs, no abscess present. White to moya clusters of growth. ) Progress/Results/Core Measures Results/Orders Lab Results Laboratory Tests Test 02/17/22 12:22 02/17/22 12:25 02/17/22 14:55 Range/Units Influenza Type A (RT-PCR) Not Detected Not Detecte Influenza Type B (RT-PCR) Not Detected Not Detecte SARS-CoV-2 RNA (RT-PCR) Not Detected Not Detecte White Blood Count 5.8 4.3-11.0 10^3/uL Red Blood Count 4.41 3.80-5.11 10^6/uL Hemoglobin 11.3 L 11.5-16.0 g/dL Hematocrit 36 35-52 % Mean Corpuscular Volume 81 80-99 fL Mean Corpuscular Hemoglobin 26 25-34 pg Mean Corpuscular Hemoglobin Concent 32 32-36 g/dL Red Cell Distribution Width 15.5 H 10.0-14.5 % Platelet Count 260 130-400 10^3/uL Mean Platelet Volume 10.0 9.0-12.2 fL Immature Granulocyte % (Auto) 0 % Neutrophils (%) (Auto) 57 42-75 % Lymphocytes (%) (Auto) 32 12-44 % Monocytes (%) (Auto) 6 0-12 % Eosinophils (%) (Auto) 4 0-10 % Basophils (%) (Auto) 1 0-10 % Neutrophils # (Auto) 3.3 1.8-7.8 10^3/uL Lymphocytes # (Auto) 1.9 1.0-4.0 10^3/uL Monocytes # (Auto) 0.4 0.0-1.0 10^3/uL Eosinophils # (Auto) 0.3 0.0-0.3 10^3/uL Basophils # (Auto) 0.0 0.0-0.1 10^3/uL Immature Granulocyte # (Auto) 0.0 0.0-0.1 10^3/uL Prothrombin Time 12.8 12.2-14.7 SEC INR Comment 0.9 0.8-1.4 Activated Partial Thromboplast Time 28 24-35 SEC Sodium Level 138 135-145 MMOL/L Potassium Level 3.9 3.6-5.0 MMOL/L Chloride Level 105 98-107 MMOL/L Carbon Dioxide Level 24 21-32 MMOL/L Anion Gap 9 5-14 MMOL/L Blood Urea Nitrogen 10 7-18 MG/DL Creatinine 0.70 0.60-1.30 MG/DL Estimat Glomerular Filtration Rate 109 BUN/Creatinine Ratio 14 Glucose Level 83 70-105 MG/DL Calcium Level 8.7 8.5-10.1 MG/DL Corrected Calcium 8.8 8.5-10.1 MG/DL Magnesium Level 1.9 1.6-2.4 MG/DL Total Bilirubin 0.3 0.1-1.0 MG/DL Aspartate Amino Transf (AST/SGOT) 21 5-34 U/L Alanine Aminotransferase (ALT/SGPT) 12 0-55 U/L Alkaline Phosphatase 83 40-136 U/L Myoglobin 20.5 10.0-92.0 NG/ML Troponin I < 0.028 < 0.028 <0.028 NG/ML C-Reactive Protein High Sensitivity 0.89 H 0.00-0.50 MG/DL B-Type Natriuretic Peptide 29.2 <100.0 PG/ML Total Protein 7.0 6.4-8.2 GM/DL Albumin 3.9 3.2-4.5 GM/DL Amylase Level 64 25-125 U/L Lipase 10 8-78 U/L My Orders Orders - GRAYSON SANTANA Cbc With Automated Diff (02/17/22 12:09) Magnesium (02/17/22 12:09) Ekg Tracing (02/17/22 12:09) Comprehensive Metabolic Panel (02/17/22 12:09) Myoglobin Serum (02/17/22 12:09) Protime With Inr (02/17/22 12:09) Partial Thromboplastin Time (02/17/22 12:09) O2 (02/17/22 12:09) Monitor-Rhythm Ecg Trace Only (02/17/22 12:09) Ed Iv/Invasive Line Start (02/17/22 12:09) Lipase (02/17/22 12:09) Amylase (02/17/22 12:09) Troponin I [place] (02/17/22 12:09) Chest 1 View, Ap/Pa Only (02/17/22 12:20) Covid 19 Inhouse Test (02/17/22 12:20) Influenza A And B By Pcr (02/17/22 12:20) Ed Iv/Invasive Line Start (02/17/22 12:20) Ns Iv 1000 Ml (Sodium Chloride 0.9%) (02/17/22 12:30) Bnp Judah (02/17/22 12:20) Hs C Reactive Protein (02/17/22 12:20) Aspirin Chewable Tablet (Baby Aspirin Ch (02/17/22 12:20) Ketorolac Injection (Toradol Injection) (02/17/22 13:33) Troponin I Judah (02/17/22 14:48) Vital Signs/I&O 02/17/22 11:37 Temp 36.6 Pulse 65 Resp 12 B/P (MAP) 120/80 (93) Pulse Ox 98 O2 Delivery Room Air Blood Pressure Mean: 93 Progress Progress Note : Time: 12:00 Progress Note Patient seen and evaluated will give aspirin 324 mg p.o., normal saline 1 L per IV, labs, chest x-ray and EKG. With her current blood pressure 120/80 will hold giving nitro. 1300 blood pressure has remained normotensive, pain has continued to be a 7-8. Will give Toradol 30 mg IV and continue to monitor. Labs all normal no elevation in troponin. 1400 patient does report improvement in symptoms after receiving the Toradol. We will plan to do a 4-hour troponin, if this is normal we will plan discharge. 1510 second troponin negative. Patient continues to have improvement in pain after the Toradol. Discharge instructions and return precautions reviewed with her stressed the importance of follow-up with cardiology. Initial ECG Impression Date: Feb 17, 2022 Initial ECG Impression Time: 11:54 Initial ECG Rate: 63 Initial ECG Rhythm: Normal Sinus Initial ECG Intervals: Normal Initial ECG Impression: Normal Initial ECG Comparisson: Unchanged Comment LA 138, QRS D 104, QT 426, QTc 434. [place] P- 31, R- 2, T 75. EKG reviewed with Dr. Stringer who concurs with interpretation, no ST Elevation or A fib Diagnostic Imaging Diagonstic Imaging: Xray Plain Films/CT/US/NM/MRI: chest Comments NAME: TRINA ÁLVAREZ [facility] REC#: [id number] PT STATUS: REG ER : 1975 PHYSICIAN: GRAYSON SANTANA ADMIT DATE: 02/17/22/ER Draft Date of Exam:02/17/22 CHEST 1 VIEW, AP/PA ONLY INDICATION: Chest pain. TIME OF EXAM: 12:50 p.m. COMPARISON: Correlation is made with prior chest from 02/14/2021. FINDINGS: The heart size is normal. The pulmonary vascularity is unremarkable. The lungs are clear. No infiltrate, effusion or pneumothorax is detected. IMPRESSION: No acute cardiopulmonary process is detected. Dictated on workstation # [id number] Dict: 02/17/22 1255 Trans: 02/17/22 1257 [id number] Interpreted by: FELICITY MOSCOSO MD Electronically signed by: Reviewed: Reviewed by Me Departure Impression Primary Impression: Chest pain Qualified Codes: R07.9 - Chest pain, unspecified Additional Impression: Person under investigation for COVID-19 Disposition: 01 HOME, SELF-CARE Condition: Improved Departure-Patient Inst. Referrals: [facility] [place]) Primary Care Physician NILESH ACEVEDO APRN (Family) Primary Care Physician DAMARIS ALFONSO MD FACP [facility] Patient Instructions: Chest Pain That Is Not Caused by the Heart (DC) Add. Discharge Instructions: Call Dr. Alfonso for follow up. Take Aspirin 81 mg once daily. Adhere to a DASH Diet. Alternate between Tylenol 650 mg and ibuprofen 600 mg every 4 hours for pain or discomfort. Return to the Emergency Dept for new, urgent healthcare problems. All discharge instructions reviewed with patient and/or family. Voiced understanding. GRAYSON SANTANA Feb 17, 2022 12:29
[2022-02-17] MEDS ORDERED: NS IV 1000 ML 1,000 ML IV SCH (12:30)
[2022-02-17 12:34] LABS: BASOPHILS % (AUTO) 1 % (0-10); EOSINOPHILS # (AUTO) 0.3 10^3/uL (0.0-0.3); EOSINOPHILS % (AUTO) 4 % (0-10); HEMATOCRIT 36 % (35-52); HEMOGLOBIN 11.3 g/dL (11.5-16.0); LYMPHOCYTES # (AUTO) 1.9 10^3/uL (1.0-4.0); LYMPHOCYTES % (AUTO) 32 % (12-44); MEAN CORPUSCULAR HEMOGLOBIN 26 pg (25-34); MEAN CORPUSCULAR HGB CONC 32 g/dL (32-36); MEAN CORPUSCULAR VOLUME 81 fL (80-99); MONOCYTES # (AUTO) 0.4 10^3/uL (0.0-1.0); MONOCYTES % (AUTO) 6 % (0-12); NEUTROPHILS # (AUTO) 3.3 10^3/uL (1.8-7.8); NEUTROPHILS % (AUTO) 57 % (42-75); PLATELET COUNT 260 10^3/uL (130-400); WHITE BLOOD COUNT 5.8 10^3/uL (4.3-11.0)
[2022-02-17 12:44] LABS: INR 0.9 (0.8-1.4); PROTHROMBIN TIME PATIENT 12.8 SEC (12.2-14.7)
[2022-02-17 12:46] LABS: ALBUMIN 3.9 GM/DL (3.2-4.5); POTASSIUM 3.9 MMOL/L (3.6-5.0)
[2022-02-17 12:47] LABS: CALCIUM 8.7 MG/DL (8.5-10.1)
[2022-02-17 12:50] LABS: BILIRUBIN,TOTAL 0.3 MG/DL (0.1-1.0)
[2022-02-17 12:52] LABS: CREATININE SERUM 0.7 MG/DL (0.60-1.30)
[2022-02-17 12:55] LABS: MAGNESIUM 1.9 MG/DL (1.6-2.4)
--- NOTE | 2022-02-17 12:57 | Diagnostic Imaging Report ---
INDICATION: Chest pain. TIME OF EXAM: 12:50 p.m. COMPARISON: Correlation is made with prior chest from 02/14/2021. FINDINGS: The heart size is normal. The pulmonary vascularity is unremarkable. The lungs are clear. No infiltrate, effusion or pneumothorax is detected. IMPRESSION: No acute cardiopulmonary process is detected. Dictated by: Dictated on workstation # [id number]
[2022-02-17] MEDS ORDERED: KETOROLAC 30 MG/ML VIAL IVP STA (13:33)
[2022-02-17 15:35] VITALS: BP 140/83
== END 2022-02-17 15:35 | disposition home or self-care (01) ==
LOC: EDUNIT# 11:27 → ER 11:29
DX: R07.89 Other chest pain (principal); F17.210 Nicotine dependence, cigarettes, uncomplicated; Z20.822 Contact with and (suspected) exposure to COVID-19; Z28.310 Unvaccinated for COVID-19
CPT/HCPCS: 36415; 71045; 80053; 82150; 83690; 83735; 83874; 83880; 84484; 85025; 85610; 85730; 86141; 87636; 93005; 93041